=== PATIENT | male | born 1980 | race Caucasian/White ===

== ENCOUNTER 2018-02-20 12:45 | Inpatient (IN) | payer MEDICAID ==
[2018-02-20] MEDS ORDERED: Magnesium Sulfate/Water 2 GM in Premix Bag 1 BAG IV ONE (13:44)
[2018-02-20] MEDS ORDERED: Folic Acid 1 MG Tab PO ONE (13:44)
[2018-02-20] MEDS ORDERED: Thiamine 100 MG Tab PO ONE (13:44)
[2018-02-20] MEDS ORDERED: Sodium Chloride 0.9% 10 ML Syringe FLUSH PRN (13:44)
[2018-02-20] MEDS ORDERED: Ondansetron 4 MG/2 ML SDV IVPUSH ONE (13:44)
[2018-02-20] MEDS ORDERED: Sodium Chloride 0.9% 1,000 ML IV SCH (13:45)
[2018-02-20] MEDS ORDERED: LORazepam 2 MG/ML SDV IVPUSH ONE (13:47)
--- NOTE | 2018-02-20 14:03 | EDM.PDOCBH ---
ED HPI GENERAL MEDICAL PROBLEM - General Chief Complaint: Drug or Alcohol Abuse Stated Complaint: SHAKY,VISION CHANGES Time Seen by Provider: 02/20/18 13:29 Source of Information: Reports: Patient History Limitations: Reports: No Limitations - History of Present Illness INITIAL COMMENTS - FREE TEXT/NARRATIVE: Patient is a 37-year-old male who presents ED for detox from alcohol. Patient states she's been drinking alcohol since he was 14 years of age. As of recent has been consuming 1.75 L of whiskey. States he his moved out and he recently quit his job. States his brother in 2017 triggering him to drink alcohol. Patient states he has not been able to cope with this appropriately. States he wants help and doesnt care if needs to be sent some where for inpatient treatment. He Abdomen Pain Score (Numeric/FACES): 7 - Related Data Allergies Allergy/AdvReac Type Severity Reaction Status Date / Time No Known Allergies Allergy Verified 02/20/18 17:13 Home Meds: Home Meds . [No Known Home Meds] 02/20/18 [History] Past Medical History Psychiatric History: Reports: Addiction Social & Family History - Tobacco Use Smoking Status *Q: Current Every Day Smoker Years of Tobacco use: 25 Packs/Tins Daily: 1.5 - Caffeine Use Caffeine Use: Reports: Coffee - Recreational Drug Use Recreational Drug Type: Reports: Other (see below) Other Recreational Drug Type: hydrocodone past 2 weeks-taking his 's; in past did marijuana,meth, coke, fentanyl,crack,ecstasy ED ROS GENERAL - Review of Systems Review Of Systems: ROS reveals no pertinent complaints other than HPI. ED EXAM, BEHAVIORAL HEALTH - Physical Exam Exam: See Below Exam Limited By: No Limitations General Appearance: Alert, WD/WN, Anxious Eye Exam: Bilateral Eye: Normal Inspection, Nystagmus (Horizontal), PERRL Ears: Hearing Grossly Normal Nose: Normal Inspection Throat/Mouth: Normal Inspection, Normal Oropharynx, Normal Voice, No Airway Compromise Neck: Normal Inspection, Supple, Non-Tender Respiratory/Chest: No Respiratory Distress, Lungs Clear, Normal Breath Sounds, No Accessory Muscle Use, Chest Non-Tender Cardiovascular: Normal Peripheral Pulses, No Murmur, Tachycardia GI/Abdominal: Normal Bowel Sounds, Soft, Non-Tender, No Organomegaly, No Distention Extremities: Normal Inspection, Normal Range of Motion, Non-Tender Neurological: Alert, Normal Mood/Affect, CN II-XII Intact, Normal Cognition, No Motor/Sensory Deficits, Oriented x 3 Psychiatric: Alert, Normal Affect, Normal Cognition, Normal Mood, Oriented, Tearful. No: Depressed Mood, Homicidal Thoughts, Jew Delusions, Suicidal Plan, Suicidal Thoughts, Tangential Thoughts, Auditory Hallucinations, Visual Hallucinations, Grandiose Thoughts, Pressured Speech, Paranoid Thoughts, Threatening Behavior Skin Exam: Warm, Dry, Intact, Normal color COURSE, BEHAVIORAL HEALTH COMP - Course Vital Signs: Last Vital Signs Temp 98.1 F 02/22/18 15:58 Pulse 99 02/22/18 15:58 Resp 16 02/22/18 15:58 BP 99/52 L 02/22/18 15:58 Pulse Ox 96 02/22/18 15:58 Orders, Labs, Meds: Laboratory Tests 02/20/18 02/20/18 02/20/18 Range/Units 13:20 13:49 13:49 WBC 13.02 H (4.23-9.07) K/mm3 RBC 4.52 L (4.63-6.08) M/mm3 Hgb 14.8 (13.7-17.5) gm/L Hct 40.8 (40.1-51.0) % MCV 90.3 (79.0-92.2) fl MCH 32.7 H (25.7-32.2) pg MCHC 36.3 H (32.2-35.5) g/dl RDW Std Deviation 43.2 (35.1-43.9) fL Plt Count 387 H (163-337) K/mm3 MPV 9.8 (9.4-12.3) fl Neut % (Auto) 77.9 H (34.0-67.9) % Lymph % (Auto) 17.3 L (21.8-53.1) % Powell % (Auto) 3.9 L (5.3-12.2) % Eos % (Auto) 0.1 L (0.8-7.0) Baso % (Auto) 0.6 (0.1-1.2) % Neut # (Auto) 10.14 H (1.78-5.38) K/mm3 Lymph # (Auto) 2.25 (1.32-3.57) K/mm3 Powell # (Auto) 0.51 (0.30-0.82) K/mm3 Eos # (Auto) 0.01 L (0.04-0.54) K/mm3 Baso # (Auto) 0.08 (0.01-0.08) K/mm3 Sodium 137 (136-145) mEq/L Potassium 3.3 L (3.5-5.1) mEq/L Chloride 99 (98-107) mEq/L Carbon Dioxide 24 (21-32) mEq/L Anion Gap 17.3 H (5-15) BUN 16 (7-18) mg/dL Creatinine 0.8 (0.7-1.3) mg/dL Est Cr Clr Drug Dosing 108.44 mL/min Estimated GFR (MDRD) > 60 (>60) mL/min BUN/Creatinine Ratio 20.0 H (14-18) Glucose 143 H (74-106) mg/dL Calcium 8.5 (8.5-10.1) mg/dL Magnesium 1.9 (1.8-2.4) mg/dl Total Bilirubin 0.3 (0.2-1.0) mg/dL AST 71 H (15-37) U/L ALT 61 (16-63) U/L Alkaline Phosphatase 117 H (46-116) U/L C-Reactive Protein (<1.0) mg/dL Total Protein 7.1 (6.4-8.2) g/dl Albumin 3.7 (3.4-5.0) g/dl Globulin 3.4 gm/dL Albumin/Globulin Ratio 1.1 (1-2) Lipase (73-393) U/L TSH 3rd Generation 0.878 (0.358-3.74) uIU/mL Urine Color (Yellow) Urine Appearance (Clear) Urine pH (5.0-8.0) Ur Specific Wheeler (1.005-1.030) Urine Protein (Negative) Urine Glucose (UA) (Negative) Urine Ketones (Negative) Urine Occult Blood (Negative) Urine Nitrite (Negative) Urine Bilirubin (Negative) Urine Urobilinogen (0.2-1.0) Ur Leukocyte Esterase (Negative) Urine RBC (0-5) /hpf Urine WBC (0-5) /hpf Ur Epithelial Cells (0-5) /hpf Urine Bacteria (FEW) /hpf Urine Mucus (FEW) /hpf Salicylates (2.8-20) mg/dL Urine Opiates Screen Negative (NEGATIVE) Ur Buprenorphine Scrn Negative (NEGATIVE) Ur Oxycodone Screen Negative (NEGATIVE) Urine Methadone Screen Negative (NEGATIVE) Ur Propoxyphene Screen Negative (NEGATIVE) Acetaminophen 0 L (10-30) ug/mL Ur Barbiturates Screen Negative (NEGATIVE) Ur Tricyclics Screen Negative (NEGATIVE) Ur Phencyclidine Scrn Negative (NEGATIVE) Ur Amphetamine Screen Negative (NEGATIVE) U Methamphetamines Scrn Negative (NEGATIVE) U Benzodiazepines Scrn Negative (NEGATIVE) U Cocaine Metab Screen Negative (NEGATIVE) U Marijuana (THC) Screen Negative (NEGATIVE) Ethyl Alcohol 0.29 (0.00) gm% 02/20/18 02/20/18 02/20/18 Range/Units 13:49 13:49 14:18 WBC (4.23-9.07) K/mm3 RBC (4.63-6.08) M/mm3 Hgb (13.7-17.5) gm/L Hct (40.1-51.0) % MCV (79.0-92.2) fl MCH (25.7-32.2) pg MCHC (32.2-35.5) g/dl RDW Std Deviation (35.1-43.9) fL Plt Count (163-337) K/mm3 MPV (9.4-12.3) fl Neut % (Auto) (34.0-67.9) % Lymph % (Auto) (21.8-53.1) % Powell % (Auto) (5.3-12.2) % Eos % (Auto) (0.8-7.0) Baso % (Auto) (0.1-1.2) % Neut # (Auto) (1.78-5.38) K/mm3 Lymph # (Auto) (1.32-3.57) K/mm3 Powell # (Auto) (0.30-0.82) K/mm3 Eos # (Auto) (0.04-0.54) K/mm3 Baso # (Auto) (0.01-0.08) K/mm3 Sodium (136-145) mEq/L Potassium (3.5-5.1) mEq/L Chloride (98-107) mEq/L Carbon Dioxide (21-32) mEq/L Anion Gap (5-15) BUN (7-18) mg/dL Creatinine (0.7-1.3) mg/dL Est Cr Clr Drug Dosing mL/min Estimated GFR (MDRD) (>60) mL/min BUN/Creatinine Ratio (14-18) Glucose (74-106) mg/dL Calcium (8.5-10.1) mg/dL Magnesium (1.8-2.4) mg/dl Total Bilirubin (0.2-1.0) mg/dL AST (15-37) U/L ALT (16-63) U/L Alkaline Phosphatase (46-116) U/L C-Reactive Protein < 0.2 (<1.0) mg/dL Total Protein (6.4-8.2) g/dl Albumin (3.4-5.0) g/dl Globulin gm/dL Albumin/Globulin Ratio (1-2) Lipase 253 (73-393) U/L TSH 3rd Generation (0.358-3.74) uIU/mL Urine Color Light yellow (Yellow) Urine Appearance Clear (Clear) Urine pH 7.0 (5.0-8.0) Ur Specific Wheeler 1.010 (1.005-1.030) Urine Protein Negative (Negative) Urine Glucose (UA) Negative (Negative) Urine Ketones Negative (Negative) Urine Occult Blood Negative (Negative) Urine Nitrite Negative (Negative) Urine Bilirubin Negative (Negative) Urine Urobilinogen 0.2 (0.2-1.0) Ur Leukocyte Esterase Negative (Negative) Urine RBC Not seen (0-5) /hpf Urine WBC Not seen (0-5) /hpf Ur Epithelial Cells 0-5 (0-5) /hpf Urine Bacteria Not seen (FEW) /hpf Urine Mucus Not seen (FEW) /hpf Salicylates 4.8 (2.8-20) mg/dL Urine Opiates Screen (NEGATIVE) Ur Buprenorphine Scrn (NEGATIVE) Ur Oxycodone Screen (NEGATIVE) Urine Methadone Screen (NEGATIVE) Ur Propoxyphene Screen (NEGATIVE) Acetaminophen (10-30) ug/mL Ur Barbiturates Screen (NEGATIVE) Ur Tricyclics Screen (NEGATIVE) Ur Phencyclidine Scrn (NEGATIVE) Ur Amphetamine Screen (NEGATIVE) U Methamphetamines Scrn (NEGATIVE) U Benzodiazepines Scrn (NEGATIVE) U Cocaine Metab Screen (NEGATIVE) U Marijuana (THC) Screen (NEGATIVE) Ethyl Alcohol (0.00) gm% Medications Discontinued Medications Generic Name Dose Route Start Last Admin Trade Name Freq PRN Reason Stop Dose Admin Albuterol/Ipratropium 3 ml 02/20/18 17:59 Duoneb 3.0-0.5 Mg/3 Ml NEB Q4H PRN Shortness Of Breath/wheezing Bisacodyl 5 mg 02/20/18 17:59 Dulcolax PO DAILY PRN Constipation Chlordiazepoxide HCl 25 mg 02/20/18 18:09 02/20/18 18:35 Librium PO 02/20/18 18:10 25 mg ONETIME ONE Administration Chlordiazepoxide HCl 50 mg 02/22/18 00:19 02/22/18 00:36 Librium PO 02/22/18 00:20 50 mg ONETIME ONE Administration Clonidine HCl 0.1 mg 02/20/18 18:04 02/22/18 05:00 Catapres PO 0.1 mg Q4H PRN Administration Agitation Docusate Sodium 100 mg 02/20/18 17:59 Colace PO BID PRN Constipation Famotidine 20 mg 02/21/18 21:00 Pepcid PO Q12H RICHARD Folic Acid 1 mg 02/20/18 13:44 02/20/18 14:24 Folic Acid PO 02/20/18 13:45 1 mg ONETIME ONE Administration Folic Acid 1 mg 02/21/18 09:00 02/22/18 10:17 Folic Acid PO 02/23/18 09:01 1 mg DAILY RICHARD Administration Hydralazine HCl 20 mg 02/20/18 17:59 Apresoline IVPUSH Q4H PRN Hypertension Hydromorphone HCl 0.25 mg 02/20/18 17:59 Dilaudid IVPUSH Q2H PRN Pain (severe 7-10) Magnesium Sulfate 2 gm/ Premix 50 mls @ 50 mls/hr 02/20/18 13:44 02/20/18 14: 15 IV 02/20/18 14:43 50 mls/hr ONETIME ONE Administration Sodium Chloride 1,000 mls @ 500 mls/hr 02/20/18 13:45 02/20/18 14:07 Normal Saline IV 500 mls/hr .BOLUS RICHARD Administration Promethazine HCl 12.5 mg/ 50.5 mls @ 100 mls/hr 02/20/18 17:59 Sodium Chloride IV Q6H PRN Nausea/Vomiting Thiamine HCl 200 mg/ Sodium 102 mls @ 204 mls/hr 02/20/18 18:06 02/20/18 18: 39 Chloride IV 02/20/18 18:07 204 mls/hr ONETIME ONE Administration Ibuprofen 400 mg 02/20/18 17:59 02/22/18 15:58 Motrin PO 400 mg Q6H PRN Administration Pain (mild 1-3) Lorazepam 1 mg 02/20/18 13:47 02/20/18 14:09 Ativan IVPUSH 02/20/18 13:48 2 mg ASDIRECTED ONE Administration Protocol Lorazepam 0 mg 02/20/18 15:18 02/22/18 16:18 Ativan IVPUSH 2 mg ASDIRECTED PRN Administration Other Protocol Lorazepam 2 mg 02/20/18 17:59 Ativan IVPUSH Q4H PRN Seizures Lorazepam 0 mg 02/20/18 17:59 02/22/18 10:17 Ativan IVPUSH 1 mg Q4H PRN Administration Withdrawal Symptoms Protocol Magnesium Sulfate 0 dose 02/20/18 18:00 Pharmacy To Dose - Magnesium Replacement .XX ASDIRECTED PRN RX TO WATCH MAG LEVELS Metoprolol Tartrate 5 mg 02/20/18 17:59 Lopressor IVPUSH Q4H PRN Tachycardia Mirtazapine 30 mg 02/21/18 21:00 02/21/18 20:26 Remeron PO 30 mg BEDTIME RICHARD Administration Multivitamins 1 each 02/21/18 09:00 02/22/18 10:17 Thera PO 1 each DAILY RICHARD Administration Nicotine 21 mg 02/20/18 16:31 02/20/18 17:57 Habitrol TRDERM 02/20/18 16:32 21 mg ONETIME ONE Administration Nicotine 21 mg 02/21/18 21:00 02/21/18 20:44 Habitrol TRDERM 02/21/18 21:01 21 mg ONETIME ONE Administration Nicotine 21 mg 02/22/18 21:00 Habitrol TRDERM DAILY RICHARD Nicotine 21 mg 02/22/18 01:30 02/22/18 01:37 Habitrol TRDERM 02/22/18 01:31 Not Given ONETIME ONE Ondansetron HCl 4 mg 02/20/18 13:44 02/20/18 14:07 Zofran IVPUSH 02/20/18 13:45 4 mg ONETIME ONE Administration Ondansetron HCl 4 mg 02/20/18 17:59 02/22/18 14:31 Zofran IV 4 mg Q6H PRN Administration Nausea/Vomiting Oxycodone HCl 5 mg 02/20/18 17:59 02/22/18 05:02 Oxycodone PO 5 mg Q4H PRN Administration Pain (moderate 4-6) Pantoprazole Sodium 40 mg 02/20/18 21:00 02/21/18 09:09 Protonix Iv IV 40 mg Q12HR RICHARD Administration Pantoprazole Sodium 40 mg 02/21/18 10:56 02/22/18 10:17 Protonix PO 40 mg Q12HR RICHARD Administration Polyethylene Glycol 17 gm 02/20/18 17:59 Miralax PO DAILY PRN Constipation Potassium Chloride 0 dose 02/20/18 18:00 Pharmacy To Dose - Potassium Replacement .XX ASDIRECTED PRN RX TO WATCH K LEVELS Potassium Chloride 40 meq 02/20/18 19:00 02/20/18 20:52 Klor-Con M20 PO 02/20/18 23:01 Not Given Q4H RICHARD Potassium Chloride 60 meq 02/21/18 09:00 02/21/18 09:10 Klor-Con M20 PO 02/21/18 09:01 60 meq ONETIME ONE Administration Quetiapine Fumarate 50 mg 02/20/18 18:06 02/20/18 18:35 Seroquel PO 02/20/18 18:07 50 mg ONETIME ONE Administration Quetiapine Fumarate 50 mg 02/21/18 21:00 02/21/18 20:27 Seroquel PO 50 mg BEDTIME RICHARD Administration Quetiapine Fumarate 25 mg 02/21/18 11:18 02/21/18 11:30 Seroquel PO 02/21/18 11:19 25 mg NOW STA Administration Quetiapine Fumarate 50 mg 02/22/18 00:19 02/22/18 00:36 Seroquel PO 02/22/18 00:20 50 mg ONETIME ONE Administration Quetiapine Fumarate 50 mg 02/22/18 13:09 02/22/18 13:14 Seroquel PO 02/22/18 13:10 50 mg ONETIME ONE Administration Senna/Docusate Sodium 1 tab 02/20/18 17:59 Senna Plus PO BID PRN Constipation Sodium Chloride 10 ml 02/20/18 13:44 02/20/18 14:14 Saline Flush FLUSH 10 ml ASDIRECTED PRN Administration Keep Vein Open Thiamine HCl 100 mg 02/20/18 13:44 02/20/18 14:14 Vitamin B-1 PO 02/20/18 13:45 100 mg ONETIME ONE Administration Thiamine HCl 100 mg 02/21/18 09:00 02/22/18 10:17 Vitamin B-1 PO 100 mg DAILY RICHARD Administration Topiramate 25 mg 02/20/18 18:08 02/20/18 18:36 Topamax PO 02/20/18 18:09 25 mg NOW ONE Administration Topiramate 25 mg 02/21/18 09:00 02/22/18 10:17 Topamax PO 25 mg BID RICHARD Administration Re-Assessment/Re-Exam: IV established with normal saline 999 mls per hour, thiamine 100 mg by mouth, magnesium 2 g IV, Ativan protocol, and folic acid 1 mg by mouth. Labs and studies include: Urine drug screen, TSH, CBC, chem 14, acetaminophen, mg, serum EtOH, salicylate, and EKG. Labs reviewed: Blood cell count 13.02, hemoglobin 14.3, platelet count 37, neutrophil percentage 77.9, neutrophil #0.14. Potassium 3.3. AG 17.3. Crit 0.8, glucose 128, AST 71, TSH within normal limits. Urine drug tox was negative. Serum EtOH 0.29. Discussed lab results with the patient. He is feeling better after administration of the above therapies.Requests admission to the hospital for detox. I have informed him if admitted, he will be evaluated by tele psych and also drug and alcohol counselor. Patients discharge will be based on their recommendations. More importantly, we may be looking at possible placing of him for chemical dependency inpatient treatment in either [place] or [place] [facility] [place]. Patient understands and requests admission. 1510 Per nursing staff patients complaining of pain to the abdomen. He did not complain of this on admission. Ordered lipase, crp, and kub. [address] Espinal and he has accepted the patient. MCG has been completed by nursing staff. EKG sinus rhythm and rate [address] changes noted. DE interval of 51. QTC 479. CRP within normal limits. Lipase 253. X-ray of the abdomen showed nonspecific air in stool pattern. No findings concerning for obstruction. Reviewed with Dr. Mendez. Order for admission placed. Departure - Departure Time of Disposition: 15:10 Disposition: Admitted As Inpatient 65 Condition: Fair Clinical Impression: Alcohol abuse - Discharge Information
[2018-02-20 14:46] LABS: ACETAMINOPHEN 0 ug/mL (10-30)
[2018-02-20] MEDS: LORazepam 2 MG/ML SDV IVPUSH PRN ×2 (15:25→16:49)
[2018-02-20] MEDS ORDERED: Nicotine 21 MG/24 Hr Patch TRDERM ONE (16:31)
[2018-02-20] MEDS ORDERED: Promethazine 12.5 MG in Sodium Chloride 0.9% 50 ML IV PRN (17:59)
[2018-02-20] MEDS ORDERED: hydrALAZINE 20 MG/ML SDV IVPUSH PRN (17:59)
[2018-02-20] MEDS ORDERED: Bisacodyl 5 MG Tab PO PRN (17:59)
[2018-02-20] MEDS ORDERED: Metoprolol Tartrate 5 MG/5 ML SDV IVPUSH PRN (17:59)
[2018-02-20] MEDS ORDERED: HYDROmorphone 0.5 MG/0.5 ML SYRINGE IVPUSH PRN (17:59)
[2018-02-20] MEDS ORDERED: Polyethylene Glycol 3350 Powder 17 GM Packet PO PRN (17:59)
[2018-02-20] MEDS ORDERED: oxyCODONE 5 MG Tab PO PRN (17:59)
[2018-02-20] MEDS ORDERED: Albuterol/Ipratropium 3.0-0.5 MG/3 ML Neb Soln NEB PRN (17:59)
[2018-02-20] MEDS ORDERED: LORazepam 2 MG/ML SDV IVPUSH PRN ×2 (17:59)
[2018-02-20] MEDS ORDERED: Docusate Sodium 100 MG Cap PO PRN (17:59)
[2018-02-20] MEDS ORDERED: QUEtiapine 25 MG Tab PO ONE (18:06)
[2018-02-20] MEDS ORDERED: Thiamine 200 MG in Sodium Chloride 0.9% 100 ML IV ONE (18:06)
[2018-02-20] MEDS ORDERED: Topiramate 25 MG Tab PO ONE (18:08)
[2018-02-20] MEDS ORDERED: chlordiazePOXIDE 25 MG Cap PO ONE (18:09)
--- NOTE | 2018-02-20 18:11 | PCM.HP ---
H&P History of Present Illness - General Date of Service: 02/20/18 Admit Problem/Dx: Admission Diagnosis/Problem Admission Diagnosis/Problem Alcohol dependence, continuous Source of Information: Patient, Old Records, Provider, RN Notes Reviewed History Limitations: Reports: Altered Mental Status, Intoxication - History of Present Illness Initial Comments - Free Text/Narative: This is a 37 yo white male with past medical hx/o chronic etoh abuse who comes in for alcohol withdrawals. He has been drinking since he was 14 years old. He drinks vodka and beer. In the past, he would drink a few days and quit but goes right back in to drinking. He has been to inpatient treatment 6 years ago in [place]. He tells me, he has been sober for 2 years now. Unfortunately, he has been having multiple stressors in life and has poor or no coping skills. He denies having seizures but reports having nausea w/o vomiting. His initial workup in the emergency department shows a CBC remarkable for WBC of 13.02, MCH of 32.7, MCHC of 36.3, platelet counts of 387, neutrophils of 77.9 , lymphocytes of 17.3%, monocytes of 3.9%, and eosinophils of 0.1%. His chemistry is significant for potassium of 3, anion gap of 17.3, glucose of 143, AST of 71, and alkaline phosphatase of 117. His UA is negative for UTI. UDS is negative. WILBERT level is 0.29. Patient is being admitted for alcohol detoxification. Abdomen Pain Score (Numeric/FACES): 7 - Related Data Allergies/Adverse Reactions: Allergies Allergy/AdvReac Type Severity Reaction Status Date / Time No Known Allergies Allergy Verified 02/20/18 17:13 Home Medications: Home Meds . [No Known Home Meds] 02/20/18 [History] Past Medical History Psychiatric History: Reports: Addiction Social & Family History - Tobacco Use Smoking Status *Q: Current Every Day Smoker Years of Tobacco use: 25 Packs/Tins Daily: 1.5 - Caffeine Use Caffeine Use: Reports: Coffee - Recreational Drug Use Recreational Drug Type: Reports: Other (see below) Other Recreational Drug Type: hydrocodone past 2 weeks-taking his 's; in past did marijuana,meth, coke, fentanyl,crack,ecstasy H&P Review of Systems - Review of Systems: Review Of Systems: See Below General: Reports: Decreased Appetite. Denies: Fever, Chills HEENT: Reports: No Symptoms Pulmonary: Denies: Shortness of Breath Cardiovascular: Denies: Chest Pain, Palpitations, Dyspnea on Exertion, Lightheadedness Gastrointestinal: Reports: Decreased Appetite, Nausea. Denies: Abdominal Pain, Difficulty Swallowing, Vomiting Genitourinary: Reports: No Symptoms Musculoskeletal: Reports: No Symptoms Skin: Denies: Jaundice, Diaphoresis, Erythema, Wound Psychiatric: Reports: Depression. Denies: Anxiety, Agitation, Hallucinations, Suicidal Ideation, Homicidal Ideation Neurological: Reports: Tremors, Difficulty Walking, Gait Disturbance. Denies: Confusion, Dizziness, Headache, Seizure, Syncope, Weakness Hematologic/Lymphatic: Reports: No Symptoms Immunologic: Reports: No Symptoms Exam - Exam Exam: See Below - Vital Signs Vital Signs: Last Vital Signs Temp 36.8 C 02/20/18 15:41 Pulse 114 H 02/20/18 15:41 Resp 20 02/20/18 15:41 BP 132/86 02/20/18 15:41 Pulse Ox 97 02/20/18 15:41 Weight: 61.235 kg - Exam General: Alert, Cooperative. No: Mild Distress HEENT: Conjunctiva Clear, Hearing Intact, Nares Patent, Normal Nasal Septum, Posterior Pharynx Clear, Pupils Equal, Pupils Reactive. No: EOMI Neck: Supple, Trachea Midline, +2 Carotid Pulse wo Bruit, Full Range of Motion Lungs: Clear to Auscultation, Normal Respiratory Effort Cardiovascular: Regular Rhythm, Tachycardia GI/Abdominal Exam: Normal Bowel Sounds, Soft, No Organomegaly, No Distention, No Abnormal Bruit, No Mass, Tender. No: Guarding, Rigid, Rebound (Male) Exam: Deferred Rectal (Males) Exam: Deferred Back Exam: Normal Inspection, Decreased Range of Motion Extremities: Normal Inspection, Normal Range of Motion, Non-Tender, No Pedal Edema, Normal Capillary Refill Peripheral Pulses: 3+: Posterior Tibial (L), Posterior Tibial (R), Dorsalis Pedis (L), Dorsalis Pedis (R) Skin: Warm, Dry, Intact Neuro Extensive - Mental Status: Other (deferred: he is lethargic and intoxicated) Neuro Extensive - Motor, Sensory, Reflexes: Abnormal Gait, Other (Not appropriate for neurological exam due to intoxication and lethargy) Psychiatric: Normal Affect, Anxious, Withdrawal Symptoms. No: Agitated, Suicidal Ideation, Homicidal Ideation, Hallucinations - Patient Data Lab Results Last 24 hrs: Laboratory Results - last 24 hr 02/20/18 02/20/18 02/20/18 Range/Units 13:20 13:49 13:49 WBC 13.02 H (4.23-9.07) K/mm3 RBC 4.52 L (4.63-6.08) M/mm3 Hgb 14.8 (13.7-17.5) gm/L Hct 40.8 (40.1-51.0) % MCV 90.3 (79.0-92.2) fl MCH 32.7 H (25.7-32.2) pg MCHC 36.3 H (32.2-35.5) g/dl RDW Std Deviation 43.2 (35.1-43.9) fL Plt Count 387 H (163-337) K/mm3 MPV 9.8 (9.4-12.3) fl Neut % (Auto) 77.9 H (34.0-67.9) % Lymph % (Auto) 17.3 L (21.8-53.1) % Churchill % (Auto) 3.9 L (5.3-12.2) % Eos % (Auto) 0.1 L (0.8-7.0) Baso % (Auto) 0.6 (0.1-1.2) % Neut # (Auto) 10.14 H (1.78-5.38) K/mm3 Lymph # (Auto) 2.25 (1.32-3.57) K/mm3 Churchill # (Auto) 0.51 (0.30-0.82) K/mm3 Eos # (Auto) 0.01 L (0.04-0.54) K/mm3 Baso # (Auto) 0.08 (0.01-0.08) K/mm3 Sodium 137 (136-145) mEq/L Potassium 3.3 L (3.5-5.1) mEq/L Chloride 99 (98-107) mEq/L Carbon Dioxide 24 (21-32) mEq/L Anion Gap 17.3 H (5-15) BUN 16 (7-18) mg/dL Creatinine 0.8 (0.7-1.3) mg/dL Est Cr Clr Drug Dosing 108.44 mL/min Estimated GFR (MDRD) > 60 (>60) mL/min BUN/Creatinine Ratio 20.0 H (14-18) Glucose 143 H (74-106) mg/dL Calcium 8.5 (8.5-10.1) mg/dL Magnesium 1.9 (1.8-2.4) mg/dl Total Bilirubin 0.3 (0.2-1.0) mg/dL AST 71 H (15-37) U/L ALT 61 (16-63) U/L Alkaline Phosphatase 117 H (46-116) U/L C-Reactive Protein (<1.0) mg/dL Total Protein 7.1 (6.4-8.2) g/dl Albumin 3.7 (3.4-5.0) g/dl Globulin 3.4 gm/dL Albumin/Globulin Ratio 1.1 (1-2) Lipase (73-393) U/L TSH 3rd Generation 0.878 (0.358-3.74) uIU/mL Urine Color (Yellow) Urine Appearance (Clear) Urine pH (5.0-8.0) Ur Specific [place] (1.005-1.030) Urine Protein (Negative) Urine Glucose (UA) (Negative) Urine Ketones (Negative) Urine Occult Blood (Negative) Urine Nitrite (Negative) Urine Bilirubin (Negative) Urine Urobilinogen (0.2-1.0) Ur Leukocyte Esterase (Negative) Urine RBC (0-5) /hpf Urine WBC (0-5) /hpf Ur Epithelial Cells (0-5) /hpf Urine Bacteria (FEW) /hpf Urine Mucus (FEW) /hpf Salicylates (2.8-20) mg/dL Urine Opiates Screen Negative (NEGATIVE) Ur Buprenorphine Scrn Negative (NEGATIVE) Ur Oxycodone Screen Negative (NEGATIVE) Urine Methadone Screen Negative (NEGATIVE) Ur Propoxyphene Screen Negative (NEGATIVE) Acetaminophen 0 L (10-30) ug/mL Ur Barbiturates Screen Negative (NEGATIVE) Ur Tricyclics Screen Negative (NEGATIVE) Ur Phencyclidine Scrn Negative (NEGATIVE) Ur Amphetamine Screen Negative (NEGATIVE) U Methamphetamines Scrn Negative (NEGATIVE) U Benzodiazepines Scrn Negative (NEGATIVE) U Cocaine Metab Screen Negative (NEGATIVE) U Marijuana (THC) Screen Negative (NEGATIVE) Ethyl Alcohol 0.29 (0.00) gm% 05/22/18 05/22/18 05/22/18 Range/Units 13:49 13:49 14:18 WBC (4.23-9.07) K/mm3 RBC (4.63-6.08) M/mm3 Hgb (13.7-17.5) gm/L Hct (40.1-51.0) % MCV (79.0-92.2) fl MCH (25.7-32.2) pg MCHC (32.2-35.5) g/dl RDW Std Deviation (35.1-43.9) fL Plt Count (163-337) K/mm3 MPV (9.4-12.3) fl Neut % (Auto) (34.0-67.9) % Lymph % (Auto) (21.8-53.1) % Churchill % (Auto) (5.3-12.2) % Eos % (Auto) (0.8-7.0) Baso % (Auto) (0.1-1.2) % Neut # (Auto) (1.78-5.38) K/mm3 Lymph # (Auto) (1.32-3.57) K/mm3 Churchill # (Auto) (0.30-0.82) K/mm3 Eos # (Auto) (0.04-0.54) K/mm3 Baso # (Auto) (0.01-0.08) K/mm3 Sodium (136-145) mEq/L Potassium (3.5-5.1) mEq/L Chloride (98-107) mEq/L Carbon Dioxide (21-32) mEq/L Anion Gap (5-15) BUN (7-18) mg/dL Creatinine (0.7-1.3) mg/dL Est Cr Clr Drug Dosing mL/min Estimated GFR (MDRD) (>60) mL/min BUN/Creatinine Ratio (14-18) Glucose (74-106) mg/dL Calcium (8.5-10.1) mg/dL Magnesium (1.8-2.4) mg/dl Total Bilirubin (0.2-1.0) mg/dL AST (15-37) U/L ALT (16-63) U/L Alkaline Phosphatase (46-116) U/L C-Reactive Protein < 0.2 (<1.0) mg/dL Total Protein (6.4-8.2) g/dl Albumin (3.4-5.0) g/dl Globulin gm/dL Albumin/Globulin Ratio (1-2) Lipase 253 (73-393) U/L TSH 3rd Generation (0.358-3.74) uIU/mL Urine Color Light yellow (Yellow) Urine Appearance Clear (Clear) Urine pH 7.0 (5.0-8.0) Ur Specific [place] 1.010 (1.005-1.030) Urine Protein Negative (Negative) Urine Glucose (UA) Negative (Negative) Urine Ketones Negative (Negative) Urine Occult Blood Negative (Negative) Urine Nitrite Negative (Negative) Urine Bilirubin Negative (Negative) Urine Urobilinogen 0.2 (0.2-1.0) Ur Leukocyte Esterase Negative (Negative) Urine RBC Not seen (0-5) /hpf Urine WBC Not seen (0-5) /hpf Ur Epithelial Cells 0-5 (0-5) /hpf Urine Bacteria Not seen (FEW) /hpf Urine Mucus Not seen (FEW) /hpf Salicylates 4.8 (2.8-20) mg/dL Urine Opiates Screen (NEGATIVE) Ur Buprenorphine Scrn (NEGATIVE) Ur Oxycodone Screen (NEGATIVE) Urine Methadone Screen (NEGATIVE) Ur Propoxyphene Screen (NEGATIVE) Acetaminophen (10-30) ug/mL Ur Barbiturates Screen (NEGATIVE) Ur Tricyclics Screen (NEGATIVE) Ur Phencyclidine Scrn (NEGATIVE) Ur Amphetamine Screen (NEGATIVE) U Methamphetamines Scrn (NEGATIVE) U Benzodiazepines Scrn (NEGATIVE) U Cocaine Metab Screen (NEGATIVE) U Marijuana (THC) Screen (NEGATIVE) Ethyl Alcohol (0.00) gm% Result Diagrams: 02/20/18 13:49 02/20/18 13:49 Problem List Initiated/Reviewed/Updated: Yes Orders Last 24hrs: Active Orders 24 hr Category Date Time Status Admission Status [Patient Status] [ADT] Routine ADT 02/20/18 17:34 Active CIWAA Assessment [RC] Q15M Care 02/20/18 18:00 Ordered CIWAA Assessment [RC] Q1H Care 02/20/18 18:00 Ordered CIWAA Assessment [RC] Q30M Care 02/20/18 18:00 Ordered CIWAA Assessment [RC] Q4H Care 02/20/18 18:00 Ordered Cardiac Monitoring [RC] . DIRECTED Care 02/20/18 17:34 Active Height and Weight [RC] DAILY Care 02/20/18 17:59 Ordered Intake and Output [RC] QSHIFT Care 02/20/18 18:01 Ordered Notify Provider Consults [RC] ASDIRECTED Care 02/20/18 18:05 Ordered Notify Provider [RC] PRN Care 02/20/18 18:00 Ordered Oxygen Therapy [RC] PRN Care 02/20/18 13:44 Inactive Oxygen Therapy [RC] PRN Care 02/20/18 18:00 Ordered Peripheral IV Care [RC] . DIRECTED Care 02/20/18 13:46 Active RT Aerosol Therapy [RC] ASDIRECTED Care 02/20/18 18:03 Ordered Up ad Sanjuanita [RC] ASDIRECTED Care 02/20/18 17:59 Ordered VTE/DVT Education [RC] PER UNIT ROUTINE Care 02/20/18 18:00 Ordered Vital Signs [RC] Q4H Care 02/20/18 18:00 Ordered Consult to Case Management [CONS] Routine Cons 02/20/18 18:04 Ordered Consult to Physician [CONS] Routine Cons 02/20/18 18:04 Ordered Consult to Customer Response Representative [CONS] Routine Cons 02/20/18 18:04 Ordered Consult to Spiritual Care [CONS] Routine Cons 02/20/18 18:04 Ordered Clear Liquid Diet [DIET] Diet 02/20/18 Dinner Ordered Regular Diet [DIET] Diet 02/21/18 Breakfast Ordered KUB [Abdomen 1V Flat] [CR] Stat Exams 02/20/18 15:09 Taken CBC WITH AUTO DIFF [HEME] AM Lab 02/21/18 05:11 Ordered COMPREHENSIVE METABOLIC PN,CMP [CHEM] AM Lab 02/21/18 05:11 Ordered COMPREHENSIVE METABOLIC PN,CMP [CHEM] AM Lab 02/22/18 05:11 Ordered COMPREHENSIVE METABOLIC PN,CMP [CHEM] AM Lab 02/23/18 05:11 Ordered COMPREHENSIVE METABOLIC PN,CMP [CHEM] AM Lab 02/24/18 05:11 Ordered MAGNESIUM [CHEM] AM Lab 02/21/18 05:11 Ordered MAGNESIUM [CHEM] AM Lab 02/22/18 05:11 Ordered MAGNESIUM [CHEM] AM Lab 02/23/18 05:11 Ordered MAGNESIUM [CHEM] AM Lab 02/24/18 05:11 Ordered Albuterol/Ipratropium [DuoNeb 3.0-0.5 MG/3 ML] Med 02/20/18 17:59 Ordered 3 ml NEB Q4H PRN Bisacodyl [Dulcolax] Med 02/20/18 17:59 Ordered 5 mg PO DAILY PRN Docusate Sodium [Colace] Med 02/20/18 17:59 Ordered 100 mg PO BID PRN Docusate Sodium/Sennosides [Senna Plus] Med 02/20/18 17:59 Ordered 1 tab PO BID PRN Famotidine [Pepcid] Med 02/21/18 21:00 Ordered 20 mg PO Q12H Folic Acid Med 02/21/18 09:00 Ordered 1 mg PO DAILY HYDROmorphone [Dilaudid] Med 02/20/18 17:59 Ordered 0.25 mg IVPUSH Q2H PRN Ibuprofen [Motrin] Med 02/20/18 17:59 Ordered 400 mg PO Q6H PRN LORazepam [Ativan] Med 02/20/18 17:59 Ordered 2 mg IVPUSH Q4H PRN LORazepam [Ativan] Med 02/20/18 15:18 Active See Protocol IVPUSH ASDIRECTED PRN LORazepam [Ativan] Med 02/20/18 17:59 Ordered See Protocol IVPUSH Q4H PRN Magnesium Rep Pharmacy to Dose [Pharmacy to Dose - Med 02/20/18 18:00 Ordered Magnesium Replacement] 1 dose .XX ASDIRECTED Metoprolol Tartrate [Lopressor] Med 02/20/18 17:59 Ordered 5 mg IVPUSH Q4H PRN Multivitamins,Therapeutic [Thera] Med 02/21/18 09:00 Ordered 1 each PO DAILY Ondansetron [Zofran] Med 02/20/18 17:59 Ordered 4 mg IV Q6H PRN Pantoprazole [ProTONIX IV] Med 02/20/18 21:00 Ordered 40 mg IV Q12HR Polyethylene Glycol 3350 [MiraLAX] Med 02/20/18 17:59 Ordered 17 gm PO DAILY PRN Potassium Rep Pharmacy to Dose [Pharmacy to Dose - Med 02/20/18 18:00 Ordered Potassium Replacement] 1 dose .XX ASDIRECTED Promethazine [Phenergan] 12.5 mg Med 02/20/18 17:59 Ordered Sodium Chloride 0.9% [Normal Saline] 50 ml IV Q6H QUEtiapine [SEROquel] Med 02/21/18 21:00 Ordered 50 mg PO BEDTIME QUEtiapine [SEROquel] Med 02/20/18 18:06 Once 50 mg PO ONETIME ONE Thiamine [Vitamin B-1] Med 02/21/18 09:00 Ordered 100 mg PO DAILY Thiamine [Vitamin B-1] 200 mg Med 02/20/18 18:06 Ordered Sodium Chloride 0.9% [Normal Saline] 100 ml IV ONETIME Topiramate [Topamax] Med 02/21/18 09:00 Ordered 25 mg PO BID Topiramate [Topamax] Med 02/20/18 18:08 Once 25 mg PO NOW ONE chlordiazePOXIDE [Librium] Med 02/20/18 18:09 Once 25 mg PO ONETIME ONE cloNIDine [Catapres] Med 02/20/18 18:04 Ordered 0.1 mg PO Q4H PRN hydrALAZINE [Apresoline] Med 02/20/18 17:59 Ordered 20 mg IVPUSH Q4H PRN oxyCODONE Med 02/20/18 17:59 Ordered 5 mg PO Q4H PRN Seizure Precautions [OM.PC] Routine Oth 02/20/18 18:04 Ordered Sequential Compression Device [OM.PC] Per Unit Routine Oth 02/20/18 18:01 Ordered Resuscitation Status Routine Resus Stat 02/20/18 17:59 Ordered Medication Orders Lorazepam (Ativan) 0 mg IVPUSH ASDIRECTED PRN; Protocol PRN Reason: Other Last Admin: 02/20/18 16:49 Dose: 3 mg Admin: 02/20/18 15:25 Dose: 2 mg Assessment/Plan Comment:: Assessment: Acute ETOH Intoxication/Withdrawal Symptoms - He has been drinking straight for 2 weeks according to his - CIWA protocol: CIWA score is markedly elevated - Ativan/Librium/Clonidine/Topamax - Hydralazine and IVP BB for HR/BP control - Ativan for Abortive Seizure and Withdrawal Symptoms - SA/Psych consult-he wants help Tobacco Dependence - Nicotine patch - Counseled on Smoking Cessation Possible Suicidal Ideation - Has hx/o Depression - Spoke to his ; she is currently from him due to his chronic alcoholism - She tells me when he drinks, he takes a whole bunch of pills at the same time - His depression has gotten worse after the of his brother last year Chronic: HTN ETOH Abuse Depression Plan: Admit to ICU MVI, Folic Acid and Thiamine CIWA protocol Ativan for Abortive Seizure and Withdrawal Symptoms PRN meds for Withdrawal Symptoms Aspiration/Seizure Precautions SW/CM d/c planning SA/Psych consult Code Status: 1
[2018-02-20] MEDS ORDERED: Potassium Chloride 20 MEQ Tab.ER PO SCH (19:00)
[2018-02-20] MEDS: Pantoprazole 40 MG Vial IV SCH (21:15)
[2018-02-20] MEDS: Ondansetron 4 MG/2 ML SDV IV PRN (23:47)
[2018-02-21] MEDS: LORazepam 2 MG/ML SDV IVPUSH PRN ×9 (00:16→23:49)
[2018-02-21] MEDS: Ibuprofen 400 MG Tab PO PRN (00:17)
--- NOTE | 2018-02-21 08:04 | PCM.PN ---
- General Info Date of Service: 02/21/18 Admission Dx/Problem (Free Text): Admission Diagnosis/Problem Admission Diagnosis/Problem Alcohol dependence, continuous Subjective Update: Follow Up Functional Status: Reports: Pain Controlled. Denies: Ambulating, Urinating - Review of Systems General: Reports: Fatigue, Other (Exhausted and tired). Denies: Fever, Weakness , Malaise, Chills HEENT: Reports: No Symptoms Pulmonary: Reports: Shortness of Breath Cardiovascular: Denies: Chest Pain, Palpitations, Dyspnea on Exertion, Lightheadedness Gastrointestinal: Reports: Abdominal Pain, Flatus. Denies: Constipation, Decreased Appetite, Diarrhea, Difficulty Swallowing, Hematochezia, Melena, Nausea, Vomiting Genitourinary: Reports: Pain. Denies: Dysuria, Urgency, Retention, Flank Pain Musculoskeletal: Reports: No Symptoms Skin: Denies: Cyanosis, Mottled, Pallor, Diaphoresis, Rash Neurological: Denies: Confusion, Dizziness, Headache, Seizure, Syncope Psychiatric: Denies: Depression, Anxiety, Agitation, Hallucinations Systems Review Comment:: No overnight overnight or acute issues. He slept good. He feels tired and exhausted this morning. He denies S/H ideation. His K is 3.1 this Am. He did not supplement last night. - Patient Data Vitals - Most Recent: Last Vital Signs Temp 37.0 C 02/20/18 21:32 Pulse 95 02/20/18 18:00 Resp 20 02/21/18 04:00 BP 108/51 L 02/21/18 04:00 Pulse Ox 95 02/21/18 04:00 Weight - Most Recent: 61.144 kg I&O - Last 24 Hours: Intake & Output 02/20/18 02/21/18 02/21/18 22:59 06:59 14:59 Intake Total 560 100 Output Total 100 Balance 460 100 Lab Results Last 24 Hours: Laboratory Results - last 24 hr 02/20/18 02/20/18 02/20/18 Range/Units 13:20 13:49 13:49 WBC 13.02 H (4.23-9.07) K/mm3 RBC 4.52 L (4.63-6.08) M/mm3 Hgb 14.8 (13.7-17.5) gm/L Hct 40.8 (40.1-51.0) % MCV 90.3 (79.0-92.2) fl MCH 32.7 H (25.7-32.2) pg MCHC 36.3 H (32.2-35.5) g/dl RDW Std Deviation 43.2 (35.1-43.9) fL Plt Count 387 H (163-337) K/mm3 MPV 9.8 (9.4-12.3) fl Neut % (Auto) 77.9 H (34.0-67.9) % Lymph % (Auto) 17.3 L (21.8-53.1) % Beadle % (Auto) 3.9 L (5.3-12.2) % Eos % (Auto) 0.1 L (0.8-7.0) Baso % (Auto) 0.6 (0.1-1.2) % Neut # (Auto) 10.14 H (1.78-5.38) K/mm3 Lymph # (Auto) 2.25 (1.32-3.57) K/mm3 Beadle # (Auto) 0.51 (0.30-0.82) K/mm3 Eos # (Auto) 0.01 L (0.04-0.54) K/mm3 Baso # (Auto) 0.08 (0.01-0.08) K/mm3 Sodium 137 (136-145) mEq/L Potassium 3.3 L (3.5-5.1) mEq/L Chloride 99 (98-107) mEq/L Carbon Dioxide 24 (21-32) mEq/L Anion Gap 17.3 H (5-15) BUN 16 (7-18) mg/dL Creatinine 0.8 (0.7-1.3) mg/dL Est Cr Clr Drug Dosing 108.44 mL/min Estimated GFR (MDRD) > 60 (>60) mL/min BUN/Creatinine Ratio 20.0 H (14-18) Glucose 143 H (74-106) mg/dL Calcium 8.5 (8.5-10.1) mg/dL Magnesium 1.9 (1.8-2.4) mg/dl Total Bilirubin 0.3 (0.2-1.0) mg/dL AST 71 H (15-37) U/L ALT 61 (16-63) U/L Alkaline Phosphatase 117 H (46-116) U/L C-Reactive Protein (<1.0) mg/dL Total Protein 7.1 (6.4-8.2) g/dl Albumin 3.7 (3.4-5.0) g/dl Globulin 3.4 gm/dL Albumin/Globulin Ratio 1.1 (1-2) Lipase (73-393) U/L TSH 3rd Generation 0.878 (0.358-3.74) uIU/mL Urine Color (Yellow) Urine Appearance (Clear) Urine pH (5.0-8.0) Ur Specific [place] (1.005-1.030) Urine Protein (Negative) Urine Glucose (UA) (Negative) Urine Ketones (Negative) Urine Occult Blood (Negative) Urine Nitrite (Negative) Urine Bilirubin (Negative) Urine Urobilinogen (0.2-1.0) Ur Leukocyte Esterase (Negative) Urine RBC (0-5) /hpf Urine WBC (0-5) /hpf Ur Epithelial Cells (0-5) /hpf Urine Bacteria (FEW) /hpf Urine Mucus (FEW) /hpf Salicylates (2.8-20) mg/dL Urine Opiates Screen Negative (NEGATIVE) Ur Buprenorphine Scrn Negative (NEGATIVE) Ur Oxycodone Screen Negative (NEGATIVE) Urine Methadone Screen Negative (NEGATIVE) Ur Propoxyphene Screen Negative (NEGATIVE) Acetaminophen 0 L (10-30) ug/mL Ur Barbiturates Screen Negative (NEGATIVE) Ur Tricyclics Screen Negative (NEGATIVE) Ur Phencyclidine Scrn Negative (NEGATIVE) Ur Amphetamine Screen Negative (NEGATIVE) U Methamphetamines Scrn Negative (NEGATIVE) U Benzodiazepines Scrn Negative (NEGATIVE) U Cocaine Metab Screen Negative (NEGATIVE) U Marijuana (THC) Screen Negative (NEGATIVE) Ethyl Alcohol 0.29 (0.00) gm% 02/20/18 02/20/18 02/20/18 Range/Units 13:49 13:49 14:18 WBC (4.23-9.07) K/mm3 RBC (4.63-6.08) M/mm3 Hgb (13.7-17.5) gm/L Hct (40.1-51.0) % MCV (79.0-92.2) fl MCH (25.7-32.2) pg MCHC (32.2-35.5) g/dl RDW Std Deviation (35.1-43.9) fL Plt Count (163-337) K/mm3 MPV (9.4-12.3) fl Neut % (Auto) (34.0-67.9) % Lymph % (Auto) (21.8-53.1) % Beadle % (Auto) (5.3-12.2) % Eos % (Auto) (0.8-7.0) Baso % (Auto) (0.1-1.2) % Neut # (Auto) (1.78-5.38) K/mm3 Lymph # (Auto) (1.32-3.57) K/mm3 Beadle # (Auto) (0.30-0.82) K/mm3 Eos # (Auto) (0.04-0.54) K/mm3 Baso # (Auto) (0.01-0.08) K/mm3 Sodium (136-145) mEq/L Potassium (3.5-5.1) mEq/L Chloride (98-107) mEq/L Carbon Dioxide (21-32) mEq/L Anion Gap (5-15) BUN (7-18) mg/dL Creatinine (0.7-1.3) mg/dL Est Cr Clr Drug Dosing mL/min Estimated GFR (MDRD) (>60) mL/min BUN/Creatinine Ratio (14-18) Glucose (74-106) mg/dL Calcium (8.5-10.1) mg/dL Magnesium (1.8-2.4) mg/dl Total Bilirubin (0.2-1.0) mg/dL AST (15-37) U/L ALT (16-63) U/L Alkaline Phosphatase (46-116) U/L C-Reactive Protein < 0.2 (<1.0) mg/dL Total Protein (6.4-8.2) g/dl Albumin (3.4-5.0) g/dl Globulin gm/dL Albumin/Globulin Ratio (1-2) Lipase 253 (73-393) U/L TSH 3rd Generation (0.358-3.74) uIU/mL Urine Color Light yellow (Yellow) Urine Appearance Clear (Clear) Urine pH 7.0 (5.0-8.0) Ur Specific [place] 1.010 (1.005-1.030) Urine Protein Negative (Negative) Urine Glucose (UA) Negative (Negative) Urine Ketones Negative (Negative) Urine Occult Blood Negative (Negative) Urine Nitrite Negative (Negative) Urine Bilirubin Negative (Negative) Urine Urobilinogen 0.2 (0.2-1.0) Ur Leukocyte Esterase Negative (Negative) Urine RBC Not seen (0-5) /hpf Urine WBC Not seen (0-5) /hpf Ur Epithelial Cells 0-5 (0-5) /hpf Urine Bacteria Not seen (FEW) /hpf Urine Mucus Not seen (FEW) /hpf Salicylates 4.8 (2.8-20) mg/dL Urine Opiates Screen (NEGATIVE) Ur Buprenorphine Scrn (NEGATIVE) Ur Oxycodone Screen (NEGATIVE) Urine Methadone Screen (NEGATIVE) Ur Propoxyphene Screen (NEGATIVE) Acetaminophen (10-30) ug/mL Ur Barbiturates Screen (NEGATIVE) Ur Tricyclics Screen (NEGATIVE) Ur Phencyclidine Scrn (NEGATIVE) Ur Amphetamine Screen (NEGATIVE) U Methamphetamines Scrn (NEGATIVE) U Benzodiazepines Scrn (NEGATIVE) U Cocaine Metab Screen (NEGATIVE) U Marijuana (THC) Screen (NEGATIVE) Ethyl Alcohol (0.00) gm% 02/21/18 Range/Units 07:15 WBC 8.48 (4.23-9.07) K/mm3 RBC 4.31 L (4.63-6.08) M/mm3 Hgb 13.7 (13.7-17.5) gm/L Hct 39.5 L (40.1-51.0) % MCV 91.6 (79.0-92.2) fl MCH 31.8 (25.7-32.2) pg MCHC 34.7 (32.2-35.5) g/dl RDW Std Deviation 43.9 (35.1-43.9) fL Plt Count 334 (163-337) K/mm3 MPV 9.7 (9.4-12.3) fl Neut % (Auto) 59.8 (34.0-67.9) % Lymph % (Auto) 31.1 (21.8-53.1) % Beadle % (Auto) 5.2 L (5.3-12.2) % Eos % (Auto) 3.2 (0.8-7.0) Baso % (Auto) 0.6 (0.1-1.2) % Neut # (Auto) 5.07 (1.78-5.38) K/mm3 Lymph # (Auto) 2.64 (1.32-3.57) K/mm3 Beadle # (Auto) 0.44 (0.30-0.82) K/mm3 Eos # (Auto) 0.27 (0.04-0.54) K/mm3 Baso # (Auto) 0.05 (0.01-0.08) K/mm3 Sodium (136-145) mEq/L Potassium (3.5-5.1) mEq/L Chloride (98-107) mEq/L Carbon Dioxide (21-32) mEq/L Anion Gap (5-15) BUN (7-18) mg/dL Creatinine (0.7-1.3) mg/dL Est Cr Clr Drug Dosing mL/min Estimated GFR (MDRD) (>60) mL/min BUN/Creatinine Ratio (14-18) Glucose (74-106) mg/dL Calcium (8.5-10.1) mg/dL Magnesium (1.8-2.4) mg/dl Total Bilirubin (0.2-1.0) mg/dL AST (15-37) U/L ALT (16-63) U/L Alkaline Phosphatase (46-116) U/L C-Reactive Protein (<1.0) mg/dL Total Protein (6.4-8.2) g/dl Albumin (3.4-5.0) g/dl Globulin gm/dL Albumin/Globulin Ratio (1-2) Lipase (73-393) U/L TSH 3rd Generation (0.358-3.74) uIU/mL Urine Color (Yellow) Urine Appearance (Clear) Urine pH (5.0-8.0) Ur Specific [place] (1.005-1.030) Urine Protein (Negative) Urine Glucose (UA) (Negative) Urine Ketones (Negative) Urine Occult Blood (Negative) Urine Nitrite (Negative) Urine Bilirubin (Negative) Urine Urobilinogen (0.2-1.0) Ur Leukocyte Esterase (Negative) Urine RBC (0-5) /hpf Urine WBC (0-5) /hpf Ur Epithelial Cells (0-5) /hpf Urine Bacteria (FEW) /hpf Urine Mucus (FEW) /hpf Salicylates (2.8-20) mg/dL Urine Opiates Screen (NEGATIVE) Ur Buprenorphine Scrn (NEGATIVE) Ur Oxycodone Screen (NEGATIVE) Urine Methadone Screen (NEGATIVE) Ur Propoxyphene Screen (NEGATIVE) Acetaminophen (10-30) ug/mL Ur Barbiturates Screen (NEGATIVE) Ur Tricyclics Screen (NEGATIVE) Ur Phencyclidine Scrn (NEGATIVE) Ur Amphetamine Screen (NEGATIVE) U Methamphetamines Scrn (NEGATIVE) U Benzodiazepines Scrn (NEGATIVE) U Cocaine Metab Screen (NEGATIVE) U Marijuana (THC) Screen (NEGATIVE) Ethyl Alcohol (0.00) gm% Med Orders - Current: Current Medications Albuterol/Ipratropium (Duoneb 3.0-0.5 Mg/3 Ml) 3 ml NEB Q4H PRN PRN Reason: Shortness Of Breath/wheezing Bisacodyl (Dulcolax) 5 mg PO DAILY PRN PRN Reason: Constipation Clonidine HCl (Catapres) 0.1 mg PO Q4H PRN PRN Reason: Agitation Docusate Sodium (Colace) 100 mg PO BID PRN PRN Reason: Constipation Famotidine (Pepcid) 20 mg PO Q12H RICHARD Folic Acid (Folic Acid) 1 mg PO DAILY RICHARD Stop: 02/23/18 09:01 Hydralazine HCl (Apresoline) 20 mg IVPUSH Q4H PRN PRN Reason: Hypertension Hydromorphone HCl (Dilaudid) 0.25 mg IVPUSH Q2H PRN PRN Reason: Pain (severe 7-10) Promethazine HCl 12.5 mg/ (Sodium Chloride) 50.5 mls @ 100 mls/hr IV Q6H PRN PRN Reason: Nausea/Vomiting Ibuprofen (Motrin) 400 mg PO Q6H PRN PRN Reason: Pain (mild 1-3) Last Admin: 02/21/18 00:17 Dose: 400 mg Lorazepam (Ativan) 0 mg IVPUSH ASDIRECTED PRN; Protocol PRN Reason: Other Last Admin: 02/21/18 00:16 Dose: 1 mg Lorazepam (Ativan) 2 mg IVPUSH Q4H PRN PRN Reason: Seizures Lorazepam (Ativan) 0 mg IVPUSH Q4H PRN; Protocol PRN Reason: Withdrawal Symptoms Magnesium Sulfate (Pharmacy To Dose - Magnesium Replacement) 0 dose .XX ASDIRECTED PRN PRN Reason: RX TO WATCH MAG LEVELS Metoprolol Tartrate (Lopressor) 5 mg IVPUSH Q4H PRN PRN Reason: Tachycardia Multivitamins (Thera) 1 each PO DAILY RICHARD Ondansetron HCl (Zofran) 4 mg IV Q6H PRN PRN Reason: Nausea/Vomiting Last Admin: 02/20/18 23:47 Dose: 4 mg Oxycodone HCl (Oxycodone) 5 mg PO Q4H PRN PRN Reason: Pain (moderate 4-6) Pantoprazole Sodium (Protonix Iv) 40 mg IV Q12HR RICHARD Last Admin: 02/20/18 21:15 Dose: 40 mg Polyethylene Glycol (Miralax) 17 gm PO DAILY PRN PRN Reason: Constipation Potassium Chloride (Pharmacy To Dose - Potassium Replacement) 0 dose .XX ASDIRECTED PRN PRN Reason: RX TO WATCH K LEVELS Potassium Chloride (Klor-Con M20) 60 meq PO ONETIME ONE Stop: 02/21/18 09:01 Quetiapine Fumarate (Seroquel) 50 mg PO BEDTIME RICHARD Senna/Docusate Sodium (Senna Plus) 1 tab PO BID PRN PRN Reason: Constipation Thiamine HCl (Vitamin B-1) 100 mg PO DAILY RICHARD Topiramate (Topamax) 25 mg PO BID RICHARD Discontinued Medications Chlordiazepoxide HCl (Librium) 25 mg PO ONETIME ONE Stop: 02/20/18 18:10 Last Admin: 02/20/18 18:35 Dose: 25 mg Folic Acid (Folic Acid) 1 mg PO ONETIME ONE Stop: 02/20/18 13:45 Last Admin: 02/20/18 14:24 Dose: 1 mg Magnesium Sulfate 2 gm/ Premix 50 mls @ 50 mls/hr IV ONETIME ONE Stop: 02/20/18 14:43 Last Admin: 02/20/18 14:15 Dose: 50 mls/hr Sodium Chloride (Normal Saline) 1,000 mls @ 500 mls/hr IV .BOLUS RICHARD Last Admin: 02/20/18 14:07 Dose: 500 mls/hr Thiamine HCl 200 mg/ Sodium (Chloride) 102 mls @ 204 mls/hr IV ONETIME ONE Stop: 02/20/18 18:07 Last Admin: 02/20/18 18:39 Dose: 204 mls/hr Lorazepam (Ativan) 1 mg IVPUSH ASDIRECTED ONE; Protocol Stop: 02/20/18 13:48 Last Admin: 02/20/18 14:09 Dose: 2 mg Nicotine (Habitrol) 21 mg TRDERM ONETIME ONE Stop: 02/20/18 16:32 Last Admin: 02/20/18 17:57 Dose: 21 mg Ondansetron HCl (Zofran) 4 mg IVPUSH ONETIME ONE Stop: 02/20/18 13:45 Last Admin: 02/20/18 14:07 Dose: 4 mg Potassium Chloride (Klor-Con M20) 40 meq PO Q4H RICHARD Stop: 02/20/18 23:01 Last Admin: 02/20/18 20:52 Dose: Not Given Quetiapine Fumarate (Seroquel) 50 mg PO ONETIME ONE Stop: 02/20/18 18:07 Last Admin: 02/20/18 18:35 Dose: 50 mg Sodium Chloride (Saline Flush) 10 ml FLUSH ASDIRECTED PRN PRN Reason: Keep Vein Open Last Admin: 02/20/18 14:14 Dose: 10 ml Thiamine HCl (Vitamin B-1) 100 mg PO ONETIME ONE Stop: 02/20/18 13:45 Last Admin: 02/20/18 14:14 Dose: 100 mg Topiramate (Topamax) 25 mg PO NOW ONE Stop: 02/20/18 18:09 Last Admin: 02/20/18 18:36 Dose: 25 mg - Exam General: Alert, Oriented, Cooperative, No Acute Distress HEENT: Pupils Equal, Pupils Reactive, EOMI, Mucous Membr. Moist/[place] Neck: Supple, Trachea Midline, No JVD, No Thyromegaly Lungs: Clear to Auscultation, Normal Respiratory Effort Cardiovascular: Regular Rate, Regular Rhythm GI/Abdominal Exam: Normal Bowel Sounds, Soft, No Organomegaly, No Distention, No Abnormal Bruit, No Mass, Tender (middle-across entire abdomen). No: Guarding , Rigid, Rebound, Hepatomegaly, Splenomegaly (Male) Exam: Deferred Back Exam: Normal Inspection, Full Range of Motion Extremities: Normal Inspection, Normal Range of Motion, Non-Tender, No Pedal Edema, Normal Capillary Refill Peripheral Pulses: 3+: Posterior Tibial (L), Posterior Tibial (R), Dorsalis Pedis (L), Dorsalis Pedis (R) Skin: Warm, Dry, Intact Neurological: No New Focal Deficit Psy/Mental Status: Alert, Normal Affect, Normal Mood - Problem List Review Problem List Initiated/Reviewed/Updated: Yes - My Orders Last 24 Hours: My Active Orders 02/20/18 17:59 Height and Weight [RC] 04 Up ad Sanjuanita [RC] ASDIRECTED Albuterol/Ipratropium [DuoNeb 3.0-0.5 MG/3 ML] 3 ml NEB Q4H PRN Bisacodyl [Dulcolax] 5 mg PO DAILY PRN Docusate Sodium [Colace] 100 mg PO BID PRN Docusate Sodium/Sennosides [Senna Plus] 1 tab PO BID PRN HYDROmorphone [Dilaudid] 0.25 mg IVPUSH Q2H PRN Ibuprofen [Motrin] 400 mg PO Q6H PRN LORazepam [Ativan] 2 mg IVPUSH Q4H PRN LORazepam [Ativan] See Protocol IVPUSH Q4H PRN Metoprolol Tartrate [Lopressor] 5 mg IVPUSH Q4H PRN Ondansetron [Zofran] 4 mg IV Q6H PRN Polyethylene Glycol 3350 [MiraLAX] 17 gm PO DAILY PRN Promethazine [Phenergan] 12.5 mg Sodium Chloride 0.9% [Normal Saline] 50 ml IV Q6H hydrALAZINE [Apresoline] 20 mg IVPUSH Q4H PRN oxyCODONE 5 mg PO Q4H PRN Resuscitation Status Routine 02/20/18 18:00 CIWAA Assessment [RC] Q1H Notify Provider [RC] PRN Oxygen Therapy [RC] PRN Vital Signs [RC] Q4HR Magnesium Rep Pharmacy to Dose [Pharmacy to Dose - Magnesium Replacement] 0 dose .XX ASDIRECTED PRN Potassium Rep Pharmacy to Dose [Pharmacy to Dose - Potassium Replacement] 0 dose .XX ASDIRECTED PRN 02/20/18 18:01 Intake and Output [RC] QSHIFT Sequential Compression Device [OM.PC] Per Unit Routine 02/20/18 18:03 RT Aerosol Therapy [RC] ASDIRECTED 02/20/18 18:04 Consult to Case Management [CONS] Routine Consult to Physician [CONS] Routine Consult to Keno Writer / Runner [CONS] Routine Consult to Spiritual Care [CONS] Routine cloNIDine [Catapres] 0.1 mg PO Q4H PRN Seizure Precautions [OM.PC] Routine 02/20/18 18:05 Notify Provider Consults [RC] ASDIRECTED 02/20/18 18:43 Consult for Substance Abuse [CONS] Routine 02/20/18 21:00 Pantoprazole [ProTONIX IV] 40 mg IV Q12HR 02/20/18 Dinner Clear Liquid Diet [DIET] 02/21/18 07:15 COMPREHENSIVE METABOLIC PN,CMP [CHEM] AM MAGNESIUM [CHEM] AM 02/21/18 09:00 Folic Acid 1 mg PO DAILY Multivitamins,Therapeutic [Thera] 1 each PO DAILY Potassium Chloride [Klor-Con M20] 60 meq PO ONETIME ONE Thiamine [Vitamin B-1] 100 mg PO DAILY Topiramate [Topamax] 25 mg PO BID 02/21/18 21:00 Famotidine [Pepcid] 20 mg PO Q12H QUEtiapine [SEROquel] 50 mg PO BEDTIME 02/21/18 Breakfast Regular Diet [DIET] 02/22/18 05:11 COMPREHENSIVE METABOLIC PN,CMP [CHEM] AM MAGNESIUM [CHEM] AM 02/23/18 05:11 COMPREHENSIVE METABOLIC PN,CMP [CHEM] AM MAGNESIUM [CHEM] AM 02/24/18 05:11 COMPREHENSIVE METABOLIC PN,CMP [CHEM] AM MAGNESIUM [CHEM] AM - Plan Plan:: Assessment: Acute ETOH Intoxication/Withdrawal Symptoms - He has been drinking straight for 2 weeks according to his - [facility] protocol: CIWA score is 8 this morning - Ativan/Seroquel/Clonidine/Topamax - Hydralazine and IVP BB for HR/BP control - Ativan for Abortive Seizure and Withdrawal Symptoms - SA/Psych consult-he wants help Hypokalemia - K 3.1 - 2/2 inadequate intake - Replete and monitor Tobacco Dependence - Nicotine patch - Counseled on Smoking Cessation Possible Suicidal Ideation - Has hx/o Depression - Spoke to his ; she is currently from him due to his chronic alcoholism - She tells me when he drinks, he takes a whole bunch of pills at the same time - His depression has gotten worse after the of his brother last year Chronic: HTN ETOH Abuse Depression Plan: He looks much better this morning Transfer to Med-Surg with Tele Continue Treatment: MVI, Folic Acid and Thiamine, CIWA protocol, and PRN Ativan for Abortive Seizure SW/CM d/c planning SA/Psych consult Code Status: 1 Received okay/consent from patient to update , family members or visitors/ friends about his clinical progress.
[2018-02-21] MEDS ORDERED: Potassium Chloride 20 MEQ Tab.ER PO ONE (09:00)
[2018-02-21] MEDS: Pantoprazole 40 MG Vial IV SCH (09:09)
[2018-02-21] MEDS: Topiramate 25 MG Tab PO SCH ×2 (09:10→20:26)
[2018-02-21] MEDS: Folic Acid 1 MG Tab PO SCH (09:10)
[2018-02-21] MEDS: Thiamine 100 MG Tab PO SCH (09:10)
[2018-02-21] MEDS: Multivitamins,Therapeutic Tab PO SCH (09:10)
--- NOTE | 2018-02-21 10:05 | CR ---
Abdomen: Supine view of the abdomen was obtained. Comparison: No prior study. Bowel gas pattern appears normal. Several calcifications are seen within the pelvis which most likely represent incidental phleboliths. No discrete soft tissue abnormality is seen. Bony structures are unremarkable. Impression: 1. Incidental findings. Diagnostic code #2
[2018-02-21] MEDS ORDERED: QUEtiapine 25 MG Tab PO ONE (11:01)
[2018-02-21] MEDS ORDERED: QUEtiapine 25 MG Tab PO STA (11:18)
[2018-02-21] MEDS: cloNIDine 0.1 MG Tab PO PRN ×3 (11:30→23:13)
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
[2018-02-21] MEDS: Pantoprazole 40 MG Tab.CR PO SCH (20:25)
[2018-02-21] MEDS ORDERED: QUEtiapine 25 MG Tab PO SCH (21:00)
[2018-02-21] MEDS ORDERED: Mirtazapine 30 MG Tab PO SCH (21:00)
[2018-02-21] MEDS ORDERED: Famotidine 20 MG Tab PO SCH (21:00)
[2018-02-21] MEDS ORDERED: Nicotine 21 MG/24 Hr Patch TRDERM ONE (21:00)
[2018-02-21] MEDS: Ondansetron 4 MG/2 ML SDV IV PRN (22:07)
[2018-02-22] MEDS ORDERED: QUEtiapine 25 MG Tab PO ONE ×2 (00:19→13:09)
[2018-02-22] MEDS ORDERED: chlordiazePOXIDE 25 MG Cap PO ONE (00:19)
[2018-02-22] MEDS ORDERED: Nicotine 21 MG/24 Hr Patch TRDERM ONE (01:30)
[2018-02-22] MEDS: LORazepam 2 MG/ML SDV IVPUSH PRN ×6 (01:56→16:18)
[2018-02-22] MEDS: cloNIDine 0.1 MG Tab PO PRN (05:00)
[2018-02-22] MEDS: Ondansetron 4 MG/2 ML SDV IV PRN ×2 (06:17→14:31)
[2018-02-22] MEDS: Multivitamins,Therapeutic Tab PO SCH (10:17)
[2018-02-22] MEDS: Topiramate 25 MG Tab PO SCH (10:17)
[2018-02-22] MEDS: Thiamine 100 MG Tab PO SCH (10:17)
[2018-02-22] MEDS: Pantoprazole 40 MG Tab.CR PO SCH (10:17)
[2018-02-22] MEDS: Folic Acid 1 MG Tab PO SCH (10:17)
--- NOTE | 2018-02-22 11:52 | PCM.PN ---
- General Info Date of Service: 02/22/18 Admission Dx/Problem (Free Text): Admission Diagnosis/Problem Admission Diagnosis/Problem Alcohol dependence, continuous Subjective Update: In to see Gaudencio today. He is lying in bed. Overall he is doing well and states he is feeling better. He has no complaints. He has been sleeping well. Good appetite. Ambulating as tolerated. Pain is controlled. No Fever, chills, chest pain, nausea, vomiting, diarrhea. No concerns from nursing. Substance abuse consult. He will be D/C'd pending placement for inpatient treatment. Functional Status: Reports: Pain Controlled, Tolerating Diet, Ambulating, Urinating - Review of Systems General: Reports: Fatigue. Denies: Fever, Weakness, Malaise, Chills HEENT: Reports: No Symptoms Pulmonary: Reports: No Symptoms Cardiovascular: Reports: No Symptoms Gastrointestinal: Reports: Abdominal Pain, Flatus. Denies: Constipation, Diarrhea, Nausea, Vomiting Genitourinary: Reports: No Symptoms Musculoskeletal: Reports: No Symptoms Skin: Reports: No Symptoms Neurological: Reports: No Symptoms Psychiatric: Reports: No Symptoms - Patient Data Vitals - Most Recent: Last Vital Signs Temp 97.8 F 02/22/18 08:00 Pulse 92 02/22/18 08:00 Resp 17 02/22/18 08:00 BP 119/87 02/22/18 08:00 Pulse Ox 97 02/22/18 08:00 Weight - Most Recent: 135 lb I&O - Last 24 Hours: Intake & Output 02/21/18 02/22/18 02/22/18 22:59 06:59 14:59 Intake Total 1260 1200 240 Output Total 400 1600 600 Balance 860 -400 -360 Lab Results Last 24 Hours: Laboratory Results - last 24 hr 02/22/18 Range/Units 05:05 Sodium 139 (136-145) mEq/L Potassium 3.5 (3.5-5.1) mEq/L Chloride 105 (98-107) mEq/L Carbon Dioxide 23 (21-32) mEq/L Anion Gap 14.5 (5-15) BUN 12 (7-18) mg/dL Creatinine 0.9 (0.7-1.3) mg/dL Est Cr Clr Drug Dosing 96.39 mL/min Estimated GFR (MDRD) > 60 (>60) mL/min BUN/Creatinine Ratio 13.3 L (14-18) Glucose 161 H (74-106) mg/dL Calcium 9.0 (8.5-10.1) mg/dL Magnesium 1.9 (1.8-2.4) mg/dl Total Bilirubin 0.7 (0.2-1.0) mg/dL AST 77 H (15-37) U/L ALT 72 H (16-63) U/L Alkaline Phosphatase 105 (46-116) U/L Total Protein 6.7 (6.4-8.2) g/dl Albumin 3.4 (3.4-5.0) g/dl Globulin 3.3 gm/dL Albumin/Globulin Ratio 1.0 (1-2) Med Orders - Current: Current Medications Albuterol/Ipratropium (Duoneb 3.0-0.5 Mg/3 Ml) 3 ml NEB Q4H PRN PRN Reason: Shortness Of Breath/wheezing Bisacodyl (Dulcolax) 5 mg PO DAILY PRN PRN Reason: Constipation Clonidine HCl (Catapres) 0.1 mg PO Q4H PRN PRN Reason: Agitation Last Admin: 02/22/18 05:00 Dose: 0.1 mg Docusate Sodium (Colace) 100 mg PO BID PRN PRN Reason: Constipation Folic Acid (Folic Acid) 1 mg PO DAILY [facility] Stop: 02/23/18 09:01 Last Admin: 02/22/18 10:17 Dose: 1 mg Hydralazine HCl (Apresoline) 20 mg IVPUSH Q4H PRN PRN Reason: Hypertension Hydromorphone HCl (Dilaudid) 0.25 mg IVPUSH Q2H PRN PRN Reason: Pain (severe 7-10) Promethazine HCl 12.5 mg/ (Sodium Chloride) 50.5 mls @ 100 mls/hr IV Q6H PRN PRN Reason: Nausea/Vomiting Ibuprofen (Motrin) 400 mg PO Q6H PRN PRN Reason: Pain (mild 1-3) Last Admin: 02/21/18 00:17 Dose: 400 mg Lorazepam (Ativan) 0 mg IVPUSH ASDIRECTED PRN; Protocol PRN Reason: Other Last Admin: 02/22/18 06:18 Dose: 1 mg Lorazepam (Ativan) 2 mg IVPUSH Q4H PRN PRN Reason: Seizures Lorazepam (Ativan) 0 mg IVPUSH Q4H PRN; Protocol PRN Reason: Withdrawal Symptoms Last Admin: 02/22/18 10:17 Dose: 1 mg Magnesium Sulfate (Pharmacy To Dose - Magnesium Replacement) 0 dose .XX ASDIRECTED PRN PRN Reason: RX TO WATCH MAG LEVELS Metoprolol Tartrate (Lopressor) 5 mg IVPUSH Q4H PRN PRN Reason: Tachycardia Mirtazapine (Remeron) 30 mg PO BEDTIME [facility] Last Admin: 02/21/18 20:26 Dose: 30 mg Multivitamins (Thera) 1 each PO DAILY [facility] Last Admin: 02/22/18 10:17 Dose: 1 each Nicotine (Habitrol) 21 mg TRDERM DAILY [facility] Ondansetron HCl (Zofran) 4 mg IV Q6H PRN PRN Reason: Nausea/Vomiting Last Admin: 02/22/18 06:17 Dose: 4 mg Oxycodone HCl (Oxycodone) 5 mg PO Q4H PRN PRN Reason: Pain (moderate 4-6) Last Admin: 02/22/18 05:02 Dose: 5 mg Pantoprazole Sodium (Protonix) 40 mg PO Q12HR [facility] Last Admin: 02/22/18 10:17 Dose: 40 mg Polyethylene Glycol (Miralax) 17 gm PO DAILY PRN PRN Reason: Constipation Potassium Chloride (Pharmacy To Dose - Potassium Replacement) 0 dose .XX ASDIRECTED PRN PRN Reason: RX TO WATCH K LEVELS Quetiapine Fumarate (Seroquel) 50 mg PO BEDTIME [facility] Last Admin: 02/21/18 20:27 Dose: 50 mg Senna/Docusate Sodium (Senna Plus) 1 tab PO BID PRN PRN Reason: Constipation Thiamine HCl (Vitamin B-1) 100 mg PO DAILY [facility] Last Admin: 02/22/18 10:17 Dose: 100 mg Topiramate (Topamax) 25 mg PO BID [facility] Last Admin: 02/22/18 10:17 Dose: 25 mg Discontinued Medications Chlordiazepoxide HCl (Librium) 25 mg PO ONETIME ONE Stop: 02/20/18 18:10 Last Admin: 02/20/18 18:35 Dose: 25 mg Chlordiazepoxide HCl (Librium) 50 mg PO ONETIME ONE Stop: 02/22/18 00:20 Last Admin: 02/22/18 00:36 Dose: 50 mg Famotidine (Pepcid) 20 mg PO Q12H [facility] Folic Acid (Folic Acid) 1 mg PO ONETIME ONE Stop: 02/20/18 13:45 Last Admin: 02/20/18 14:24 Dose: 1 mg Magnesium Sulfate 2 gm/ Premix 50 mls @ 50 mls/hr IV ONETIME ONE Stop: 02/20/18 14:43 Last Admin: 02/20/18 14:15 Dose: 50 mls/hr Sodium Chloride (Normal Saline) 1,000 mls @ 500 mls/hr IV .BOLUS [facility] Last Admin: 02/20/18 14:07 Dose: 500 mls/hr Thiamine HCl 200 mg/ Sodium (Chloride) 102 mls @ 204 mls/hr IV ONETIME ONE Stop: 02/20/18 18:07 Last Admin: 02/20/18 18:39 Dose: 204 mls/hr Lorazepam (Ativan) 1 mg IVPUSH ASDIRECTED ONE; Protocol Stop: 02/20/18 13:48 Last Admin: 02/20/18 14:09 Dose: 2 mg Nicotine (Habitrol) 21 mg TRDERM ONETIME ONE Stop: 02/20/18 16:32 Last Admin: 02/20/18 17:57 Dose: 21 mg Nicotine (Habitrol) 21 mg TRDERM ONETIME ONE Stop: 02/21/18 21:01 Last Admin: 02/21/18 20:44 Dose: 21 mg Nicotine (Habitrol) 21 mg TRDERM ONETIME ONE Stop: 02/22/18 01:31 Last Admin: 02/22/18 01:37 Dose: Not Given Ondansetron HCl (Zofran) 4 mg IVPUSH ONETIME ONE Stop: 02/20/18 13:45 Last Admin: 02/20/18 14:07 Dose: 4 mg Pantoprazole Sodium (Protonix Iv) 40 mg IV Q12HR [facility] Last Admin: 02/21/18 09:09 Dose: 40 mg Potassium Chloride (Klor-Con M20) 40 meq PO Q4H [facility] Stop: 02/20/18 23:01 Last Admin: 02/20/18 20:52 Dose: Not Given Potassium Chloride (Klor-Con M20) 60 meq PO ONETIME ONE Stop: 02/21/18 09:01 Last Admin: 02/21/18 09:10 Dose: 60 meq Quetiapine Fumarate (Seroquel) 50 mg PO ONETIME ONE Stop: 02/20/18 18:07 Last Admin: 02/20/18 18:35 Dose: 50 mg Quetiapine Fumarate (Seroquel) 25 mg PO NOW STA Stop: 02/21/18 11:19 Last Admin: 02/21/18 11:30 Dose: 25 mg Quetiapine Fumarate (Seroquel) 50 mg PO ONETIME ONE Stop: 02/22/18 00:20 Last Admin: 02/22/18 00:36 Dose: 50 mg Sodium Chloride (Saline Flush) 10 ml FLUSH ASDIRECTED PRN PRN Reason: Keep Vein Open Last Admin: 02/20/18 14:14 Dose: 10 ml Thiamine HCl (Vitamin B-1) 100 mg PO ONETIME ONE Stop: 02/20/18 13:45 Last Admin: 02/20/18 14:14 Dose: 100 mg Topiramate (Topamax) 25 mg PO NOW ONE Stop: 02/20/18 18:09 Last Admin: 02/20/18 18:36 Dose: 25 mg - Exam General: Alert, Oriented HEENT: Pupils Equal, Pupils Reactive, EOMI, Mucous Membr. Moist/[place] Neck: Supple Lungs: Clear to Auscultation, Normal Respiratory Effort Cardiovascular: Regular Rate, Regular Rhythm GI/Abdominal Exam: Normal Bowel Sounds, Soft, Non-Tender, No Organomegaly, No Distention, No Abnormal Bruit, No Mass, Pelvis Stable (Male) Exam: Deferred Back Exam: Normal Inspection, Full Range of Motion Extremities: Normal Inspection, Normal Range of Motion, Non-Tender, No Pedal Edema, Normal Capillary Refill Peripheral Pulses: 3+: Posterior Tibial (L), Posterior Tibial (R), Dorsalis Pedis (L), Dorsalis Pedis (R) Skin: Warm, Dry, Intact Neurological: No New Focal Deficit Psy/Mental Status: Alert, Normal Affect, Normal Mood - Problem List & Annotations (1) Alcohol abuse SNOMED Code(s): 95623611 Code(s): F10.10 - ALCOHOL ABUSE, UNCOMPLICATED Status: Chronic Priority: High Current Visit: Yes (2) Alcohol withdrawal syndrome SNOMED Code(s): 173883253 Code(s): F10.239 - ALCOHOL DEPENDENCE WITH WITHDRAWAL, UNSPECIFIED Status: Acute Priority: High Current Visit: Yes - Problem List Review Problem List Initiated/Reviewed/Updated: Yes - Plan Plan:: Assessment: Acute ETOH Intoxication/Withdrawal Symptoms - He has been drinking straight for 2 weeks according to his - CIWA protocol: CIWA score is 8 this morning - Ativan/Seroquel/Clonidine/Topamax - Hydralazine and IVP BB for HR/BP control - Ativan for Abortive Seizure and Withdrawal Symptoms - SA/Psych consult-he wants help Tobacco Dependence - Nicotine patch - Counseled on Smoking Cessation Possible Suicidal Ideation - Has hx/o Depression - Spoke to his ; she is currently from him due to his chronic alcoholism - She tells me when he drinks, he takes a whole bunch of pills at the same time - His depression has gotten worse after the of his brother last year - Psych consult Resolved: Hypokalemia - K 3.1-->3.5 - 2/2 inadequate intake - Replete and monitor Chronic: HTN ETOH Abuse Depression Plan: He looks much better this morning Transfer to Med-Surg with Tele Continue Treatment: MVI, Folic Acid and Thiamine, CIWA protocol, and PRN Ativan for Abortive Seizure SW/CM d/c planning SA/Psych consult Code Status: 1 Ready to D/C, pending placement to inpatient treatment facility. Received okay/consent from patient to update , family members or visitors/ friends about his clinical progress.
[2018-02-22] MEDS: Ibuprofen 400 MG Tab PO PRN (15:58)
[2018-02-22 15:59] VITALS: BP 99/52
--- NOTE | 2018-02-22 17:04 | PCM.DCSUM1 ---
Discharge Summary - Hospital Course HPI Initial Comments: Patient is a 37-year-old male who presents ED for detox from alcohol. Patient states she's been drinking alcohol since he was 14 years of age. - Discharge Data Discharge Date: 02/22/18 (02/20/18) Discharge Disposition: DC/Tfer to Psych Hosp/Unit [facility] Condition: Good - Discharge Diagnosis/Problem(s) (1) Alcohol abuse SNOMED Code(s): 36921023 ICD Code: F10.10 - ALCOHOL ABUSE, UNCOMPLICATED Status: Chronic Priority : High (2) Alcohol withdrawal syndrome SNOMED Code(s): 816005779 ICD Code: F10.239 - ALCOHOL DEPENDENCE WITH WITHDRAWAL, UNSPECIFIED Status : Resolved Priority: High - Patient Summary/Data Operative Procedure(s) Performed: none Complications: none Consults: Consultations 02/20/18 18:04 Consult to Case Management [CONS] Routine Consult to Physician [CONS] Routine Consult to Vest Baster [CONS] Routine Consult to Spiritual Care [CONS] Routine 02/20/18 18:43 Consult for Substance Abuse [CONS] Routine Labs Pending at D/C: none Recommended Follow-up Testing/Procedures: Transfer to [facility] under the services of Dr. Parker, admitting hospitalist Follow up with PCP after inpt treatment Planned Operative Procedure(s) after DC: none Hospital Course: Assessment: Acute ETOH Intoxication/Withdrawal Symptoms - He has been drinking straight for 2 weeks according to his - CIWA protocol: CIWA score is 8 this morning - Ativan/Seroquel/Clonidine/Topamax - Hydralazine and IVP BB for HR/BP control - Ativan for Abortive Seizure and Withdrawal Symptoms - SA/Psych consult-he wants help Tobacco Dependence - Nicotine patch - Counseled on Smoking Cessation Possible Suicidal Ideation - Has hx/o Depression - Spoke to his ; she is currently from him due to his chronic alcoholism - She tells me when he drinks, he takes a whole bunch of pills at the same time - His depression has gotten worse after the of his brother last year - Psych consult Resolved: Hypokalemia - K 3.1-->3.5 - 2/2 inadequate intake - Replete and monitor Chronic: HTN ETOH Abuse Depression Plan: He looks much better this morning Transfer to Med-Surg with Tele Continue Treatment: MVI, Folic Acid and Thiamine, CIWA protocol, and PRN Ativan for Abortive Seizure SW/CM d/c planning SA/Psych consult Code Status: 1 Ready to D/C, pending placement to inpatient treatment facility. Received okay/consent from patient to update , family members or visitors/ friends about his clinical progress. Transfer to [facility] under the services of Dr. Parker, admitting hospitalist - Patient Instructions Diet: Usual Diet as Tolerated Activity: As Tolerated Driving: Do Not Drive Showering/Bathing: May Shower Notify Provider of: Fever, Increased Pain, Nausea and/or Vomiting Other/Special Instructions: -Transfer to [facility] under the services of Dr. Parker , admitting hospitalist - Discharge Plan Home Medications: Home Meds . [No Known Home Meds] 02/20/18 [History] Patient Handouts: Alcohol Use Disorder, Major Depressive Disorder, Adult, Psychosis, Steps to Quit Smoking, Alcohol Withdrawal, [id number] Referrals: PCP,None [Primary Care Provider] - - Discharge Summary/Plan Comment DC Time >30 min.: Yes (40) - General Info Date of Service: 02/22/18 Admission Dx/Problem (Free Text: Admission Diagnosis/Problem Admission Diagnosis/Problem Alcohol dependence, continuous Subjective Update: In to see Gaudencio today. He is sitting in a chair. Overall he states he is feeling better. He has no complaints except for some numbness/tingling in his hands and a headache. He has been sleeping well. Good appetite. Ambulating as tolerated. Pain is controlled. No Fever, chills, chest pain, nausea, vomiting, diarrhea. No concerns from nursing. Substance abuse consult. He will be transferred to [facility] under the services of Dr. Parker, admitting hospitalist. Functional Status: Reports: Pain Controlled, Tolerating Diet, Ambulating, Urinating - Review of Systems General: Reports: Fatigue. Denies: Fever, Chills HEENT: Reports: Headaches Pulmonary: Reports: No Symptoms. Denies: Shortness of Breath, Cough Cardiovascular: Reports: No Symptoms. Denies: Chest Pain, Palpitations Gastrointestinal: Reports: Abdominal Pain (mild). Denies: Constipation, Diarrhea, Nausea, Vomiting Genitourinary: Reports: No Symptoms Musculoskeletal: Reports: No Symptoms Skin: Reports: No Symptoms Neurological: Reports: Headache, Numbness (fingers), Tingling (fingers) Psychiatric: Reports: No Symptoms - Patient Data Vitals - Most Recent: Last Vital Signs Temp 98.1 F 02/22/18 15:58 Pulse 99 02/22/18 15:58 Resp 16 02/22/18 15:58 BP 99/52 L 02/22/18 15:58 Pulse Ox 96 02/22/18 15:58 Weight - Most Recent: 135 lb I&O - Last 24 hours: Intake & Output 02/22/18 02/22/18 02/22/18 06:59 14:59 22:59 Intake Total 5019 766 8184 Output Total 1600 600 400 Balance -400 -360 600 Lab Results - Last 24 hrs: Laboratory Results - last 24 hr 02/22/18 Range/Units 05:05 Sodium 139 (136-145) mEq/L Potassium 3.5 (3.5-5.1) mEq/L Chloride 105 (98-107) mEq/L Carbon Dioxide 23 (21-32) mEq/L Anion Gap 14.5 (5-15) BUN 12 (7-18) mg/dL Creatinine 0.9 (0.7-1.3) mg/dL Est Cr Clr Drug Dosing 96.39 mL/min Estimated GFR (MDRD) > 60 (>60) mL/min BUN/Creatinine Ratio 13.3 L (14-18) Glucose 161 H (74-106) mg/dL Calcium 9.0 (8.5-10.1) mg/dL Magnesium 1.9 (1.8-2.4) mg/dl Total Bilirubin 0.7 (0.2-1.0) mg/dL AST 77 H (15-37) U/L ALT 72 H (16-63) U/L Alkaline Phosphatase 105 (46-116) U/L Total Protein 6.7 (6.4-8.2) g/dl Albumin 3.4 (3.4-5.0) g/dl Globulin 3.3 gm/dL Albumin/Globulin Ratio 1.0 (1-2) Med Orders - Current: Current Medications Albuterol/Ipratropium (Duoneb 3.0-0.5 Mg/3 Ml) 3 ml NEB Q4H PRN PRN Reason: Shortness Of Breath/wheezing Bisacodyl (Dulcolax) 5 mg PO DAILY PRN PRN Reason: Constipation Clonidine HCl (Catapres) 0.1 mg PO Q4H PRN PRN Reason: Agitation Last Admin: 02/22/18 05:00 Dose: 0.1 mg Docusate Sodium (Colace) 100 mg PO BID PRN PRN Reason: Constipation Folic Acid (Folic Acid) 1 mg PO DAILY [facility] Stop: 02/23/18 09:01 Last Admin: 02/22/18 10:17 Dose: 1 mg Hydralazine HCl (Apresoline) 20 mg IVPUSH Q4H PRN PRN Reason: Hypertension Hydromorphone HCl (Dilaudid) 0.25 mg IVPUSH Q2H PRN PRN Reason: Pain (severe 7-10) Promethazine HCl 12.5 mg/ (Sodium Chloride) 50.5 mls @ 100 mls/hr IV Q6H PRN PRN Reason: Nausea/Vomiting Ibuprofen (Motrin) 400 mg PO Q6H PRN PRN Reason: Pain (mild 1-3) Last Admin: 02/22/18 15:58 Dose: 400 mg Lorazepam (Ativan) 0 mg IVPUSH ASDIRECTED PRN; Protocol PRN Reason: Other Last Admin: 02/22/18 16:18 Dose: 2 mg Lorazepam (Ativan) 2 mg IVPUSH Q4H PRN PRN Reason: Seizures Lorazepam (Ativan) 0 mg IVPUSH Q4H PRN; Protocol PRN Reason: Withdrawal Symptoms Last Admin: 02/22/18 10:17 Dose: 1 mg Magnesium Sulfate (Pharmacy To Dose - Magnesium Replacement) 0 dose .XX ASDIRECTED PRN PRN Reason: RX TO WATCH MAG LEVELS Metoprolol Tartrate (Lopressor) 5 mg IVPUSH Q4H PRN PRN Reason: Tachycardia Mirtazapine (Remeron) 30 mg PO BEDTIME [facility] Last Admin: 02/21/18 20:26 Dose: 30 mg Multivitamins (Thera) 1 each PO DAILY [facility] Last Admin: 02/22/18 10:17 Dose: 1 each Nicotine (Habitrol) 21 mg TRDERM DAILY [facility] Ondansetron HCl (Zofran) 4 mg IV Q6H PRN PRN Reason: Nausea/Vomiting Last Admin: 02/22/18 14:31 Dose: 4 mg Oxycodone HCl (Oxycodone) 5 mg PO Q4H PRN PRN Reason: Pain (moderate 4-6) Last Admin: 02/22/18 05:02 Dose: 5 mg Pantoprazole Sodium (Protonix) 40 mg PO Q12HR [facility] Last Admin: 02/22/18 10:17 Dose: 40 mg Polyethylene Glycol (Miralax) 17 gm PO DAILY PRN PRN Reason: Constipation Potassium Chloride (Pharmacy To Dose - Potassium Replacement) 0 dose .XX ASDIRECTED PRN PRN Reason: RX TO WATCH K LEVELS Quetiapine Fumarate (Seroquel) 50 mg PO BEDTIME [facility] Last Admin: 02/21/18 20:27 Dose: 50 mg Senna/Docusate Sodium (Senna Plus) 1 tab PO BID PRN PRN Reason: Constipation Thiamine HCl (Vitamin B-1) 100 mg PO DAILY [facility] Last Admin: 02/22/18 10:17 Dose: 100 mg Topiramate (Topamax) 25 mg PO BID [facility] Last Admin: 02/22/18 10:17 Dose: 25 mg Discontinued Medications Chlordiazepoxide HCl (Librium) 25 mg PO ONETIME ONE Stop: 02/20/18 18:10 Last Admin: 02/20/18 18:35 Dose: 25 mg Chlordiazepoxide HCl (Librium) 50 mg PO ONETIME ONE Stop: 02/22/18 00:20 Last Admin: 02/22/18 00:36 Dose: 50 mg Famotidine (Pepcid) 20 mg PO Q12H [facility] Folic Acid (Folic Acid) 1 mg PO ONETIME ONE Stop: 02/20/18 13:45 Last Admin: 02/20/18 14:24 Dose: 1 mg Magnesium Sulfate 2 gm/ Premix 50 mls @ 50 mls/hr IV ONETIME ONE Stop: 02/20/18 14:43 Last Admin: 02/20/18 14:15 Dose: 50 mls/hr Sodium Chloride (Normal Saline) 1,000 mls @ 500 mls/hr IV .BOLUS [facility] Last Admin: 02/20/18 14:07 Dose: 500 mls/hr Thiamine HCl 200 mg/ Sodium (Chloride) 102 mls @ 204 mls/hr IV ONETIME ONE Stop: 02/20/18 18:07 Last Admin: 02/20/18 18:39 Dose: 204 mls/hr Lorazepam (Ativan) 1 mg IVPUSH ASDIRECTED ONE; Protocol Stop: 02/20/18 13:48 Last Admin: 02/20/18 14:09 Dose: 2 mg Nicotine (Habitrol) 21 mg TRDERM ONETIME ONE Stop: 02/20/18 16:32 Last Admin: 02/20/18 17:57 Dose: 21 mg Nicotine (Habitrol) 21 mg TRDERM ONETIME ONE Stop: 02/21/18 21:01 Last Admin: 02/21/18 20:44 Dose: 21 mg Nicotine (Habitrol) 21 mg TRDERM ONETIME ONE Stop: 02/22/18 01:31 Last Admin: 02/22/18 01:37 Dose: Not Given Ondansetron HCl (Zofran) 4 mg IVPUSH ONETIME ONE Stop: 02/20/18 13:45 Last Admin: 02/20/18 14:07 Dose: 4 mg Pantoprazole Sodium (Protonix Iv) 40 mg IV Q12HR [facility] Last Admin: 02/21/18 09:09 Dose: 40 mg Potassium Chloride (Klor-Con M20) 40 meq PO Q4H [facility] Stop: 02/20/18 23:01 Last Admin: 02/20/18 20:52 Dose: Not Given Potassium Chloride (Klor-Con M20) 60 meq PO ONETIME ONE Stop: 02/21/18 09:01 Last Admin: 02/21/18 09:10 Dose: 60 meq Quetiapine Fumarate (Seroquel) 50 mg PO ONETIME ONE Stop: 02/20/18 18:07 Last Admin: 02/20/18 18:35 Dose: 50 mg Quetiapine Fumarate (Seroquel) 25 mg PO NOW STA Stop: 02/21/18 11:19 Last Admin: 02/21/18 11:30 Dose: 25 mg Quetiapine Fumarate (Seroquel) 50 mg PO ONETIME ONE Stop: 02/22/18 00:20 Last Admin: 02/22/18 00:36 Dose: 50 mg Quetiapine Fumarate (Seroquel) 50 mg PO ONETIME ONE Stop: 02/22/18 13:10 Last Admin: 02/22/18 13:14 Dose: 50 mg Sodium Chloride (Saline Flush) 10 ml FLUSH ASDIRECTED PRN PRN Reason: Keep Vein Open Last Admin: 02/20/18 14:14 Dose: 10 ml Thiamine HCl (Vitamin B-1) 100 mg PO ONETIME ONE Stop: 02/20/18 13:45 Last Admin: 02/20/18 14:14 Dose: 100 mg Topiramate (Topamax) 25 mg PO NOW ONE Stop: 02/20/18 18:09 Last Admin: 02/20/18 18:36 Dose: 25 mg - Exam Quality Assessment: Denies: Supplemental Oxygen General: Reports: Alert, Oriented, Cooperative, Mild Distress HEENT: Reports: Pupils Equal, Pupils Reactive, EOMI, Mucous Membr. Moist/[place] Neck: Reports: Supple Lungs: Reports: Clear to Auscultation, Normal Respiratory Effort Cardiovascular: Reports: Regular Rate, Regular Rhythm GI/Abdominal Exam: Normal Bowel Sounds, Soft, Non-Tender, No Organomegaly, No Distention, No Abnormal Bruit, No Mass, Pelvis Stable (Male) Exam: Deferred Rectal (Males) Exam: Deferred Back Exam: Reports: Normal Inspection, Full Range of Motion Extremities: Normal Inspection, Normal Range of Motion, Non-Tender, No Pedal Edema, Normal Capillary Refill Skin: Reports: Warm, Dry, Intact Neurological: Reports: No New Focal Deficit Psy/Mental Status: Reports: Alert, Normal Affect, Normal Mood
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
[2018-02-22] MEDS ORDERED: Nicotine 21 MG/24 Hr Patch TRDERM SCH (21:00)
== END 2018-02-22 16:56 | DRG 897 ==
LOC: JD.ED 12:45 → JD.ICU 17:34
PROVIDERS: ADMIT Internal Medicine; ATTEND Internal Medicine
DX: F10.232 Alcohol dependence with withdrawal with perceptual disturbance (principal); R45.851 Suicidal ideations; F31.60 Bipolar disorder, current episode mixed, unspecified; F11.20 Opioid dependence, uncomplicated; F10.229 Alcohol dependence with intoxication, unspecified; E87.6 Hypokalemia; I10 Essential (primary) hypertension; F43.10 Post-traumatic stress disorder, unspecified; F17.210 Nicotine dependence, cigarettes, uncomplicated; F12.20 Cannabis dependence, uncomplicated; F29 Unspecified psychosis not due to a substance or known physiological condition; F41.9 Anxiety disorder, unspecified
CPT/HCPCS: 36415; 74018; 74018-26; 80053; 80306; 81001; 83690; 83735; 84443; 85025; 86140; 93005; 96361; 96365; 96375; 96376; 99285-25; A9270-GY; C9113; G0480; J2060; J2405; J3411; J3475; J7030; J7040; J7050

== ENCOUNTER 2018-10-12 11:30 | Emergency (ER) | payer MEDICAID ==
[2018-10-12 11:43] VITALS: BP 141/96
[2018-10-12] MEDS ORDERED: Ketorolac 60 MG/2 ML SDV IM ONE (12:19)
--- NOTE | 2018-10-12 12:20 | EDM.PDOC ---
ED HPI GENERAL MEDICAL PROBLEM - General Chief Complaint: Back Pain or Injury Stated Complaint: LOWER BACK PAIN Time Seen by Provider: 10/12/18 11:46 Source of Information: Reports: Patient History Limitations: Reports: No Limitations - History of Present Illness INITIAL COMMENTS - FREE TEXT/NARRATIVE: The patient presents with low back pain. This has been going on for a few weeks. He is scheduled for an MRI of his lumbar spine on Monday. He has no numbness or weakness. He has no bowel or bladder problems. He does not remember hurting his back. He is wearing a lidocaine patch. Onset: Gradual Duration: Week(s): Location: Reports: Back Quality: Reports: Sharp Severity: Severe Improves with: Reports: None Worsens with: Reports: None Associated Symptoms: Reports: No Other Symptoms Treatments CONSTRUCTION TECHNOLOGY INSTRUCTOR: Reports: Other Medication(s) Other Treatments CONSTRUCTION TECHNOLOGY INSTRUCTOR: gabapentin Lower Back Pain Score (Numeric/FACES): 10 - Related Data Allergies Allergy/AdvReac Type Severity Reaction Status Date / Time No Known Allergies Allergy Verified 10/12/18 11:44 Home Meds: Home Meds Cyclobenzaprine [Flexeril] 10 mg PO TID PRN #20 tab 10/12/18 [Rx] Gabapentin [Neurontin] 300 mg PO TID 10/12/18 [History] Lidocain/Me-Salicyl/Caps/Menth [Medi-Patch with Lidocaine] 1 patch TRDERM Q12HR 10/12/18 [History] Past Medical History Respiratory History: Reports: Sleep Apnea Musculoskeletal History: Reports: Fibromyalgia Psychiatric History: Reports: Addiction, Depression Social & Family History - Family History Family Medical History: Noncontributory - Tobacco Use Smoking Status *Q: Current Every Day Smoker Years of Tobacco use: 25 Packs/Tins Daily: 0.5 Used Tobacco, but Quit: No Second Hand Smoke Exposure: No - Caffeine Use Caffeine Use: Reports: Coffee Other Caffeine Use: unknown - Recreational Drug Use Recreational Drug Use: No - Living Situation & Occupation Living situation: Reports: (), with Family Occupation: Unemployed ED ROS GENERAL - Review of Systems Review Of Systems: See Below Constitutional: Reports: No Symptoms HEENT: Reports: No Symptoms Respiratory: Reports: No Symptoms Cardiovascular: Reports: No Symptoms Endocrine: Reports: No Symptoms GI/Abdominal: Reports: No Symptoms : Reports: No Symptoms Musculoskeletal: Reports: Back Pain ED EXAM,LOWER BACK PAIN/INJURY - Physical Exam Exam: See Below Exam Limited By: No Limitations General Appearance: Alert, No Apparent Distress Ears: Normal External Exam Nose: Normal Inspection Head: Atraumatic, Normocephalic Neck: Normal Inspection Respiratory/Chest: No Respiratory Distress, Lungs Clear, Normal Breath Sounds Cardiovascular: Regular Rate, Rhythm, No Edema, No Murmur GI/Abdominal: Soft, Non-Tender, No Organomegaly, No Mass Back Exam: Other (Pain upon palpation to the low back with some muscle spasms) Extremities: Normal Inspection Neurological: No Motor/Sensory Deficits, Oriented x 3 Course - Vital Signs Last Recorded V/S: Last Vital Signs Temp 98.2 F 10/12/18 11:41 Pulse 105 H 10/12/18 11:41 Resp 16 10/12/18 11:41 BP 141/96 H 10/12/18 11:41 Pulse Ox 99 10/12/18 11:41 - Orders/Labs/Meds Meds: Medications Discontinued Medications Generic Name Dose Route Start Last Admin Trade Name Kavya PRN Reason Stop Dose Admin Ketorolac Tromethamine 60 mg 10/12/18 12:19 Toradol IM 10/12/18 12:20 ONETIME ONE - Re-Assessments/Exams Free Text/Narrative Re-Assessment/Exam: 10/12/18 12:24 I ordered a shot of toradol and I will get him some flexeril. Departure - Departure Time of Disposition: 12:25 Disposition: Home, Self-Care 01 Condition: Good Clinical Impression: Low back pain Qualifiers: Chronicity: acute Back pain laterality: bilateral Sciatica presence: without sciatica Qualified Code(s): M54.5 - Low back pain - Discharge Information *PRESCRIPTION DRUG MONITORING PROGRAM REVIEWED*: No *COPY OF PRESCRIPTION DRUG MONITORING REPORT IN PATIENT EBONY: No Prescriptions: Cyclobenzaprine [Flexeril] 10 mg PO TID PRN #20 tab PRN Reason: Pain Referrals: Saida Catalan PA-C [Primary Care Provider] - 1 Week Forms: ED Department Discharge Additional Instructions: Take motrin or aleve for pain. Take the flexeril for any muscle spasms or pain. Follow up with Nila Catalan in a week. Get your MRI done on Monday.
== END 2018-10-12 12:34 | disposition home or self-care (01) ==
LOC: JD.ED 11:30
DX: M54.5 Low back pain (principal); F32.9 Major depressive disorder, single episode, unspecified; F17.210 Nicotine dependence, cigarettes, uncomplicated; Z79.899 Other long term (current) drug therapy
CPT/HCPCS: 96372; 99283; J1885

== ENCOUNTER 2019-02-20 12:55 | Inpatient (IN) | payer MEDICAID ==
[2019-02-20] MEDS ORDERED: LORazepam 2 MG/ML SDV IVPUSH ONE ×2 (13:30→15:39)
[2019-02-20] MEDS ORDERED: Thiamine 200 MG/2 ML MDV IVPUSH ONE (13:31)
--- NOTE | 2019-02-20 13:39 | EDM.PDOCBH ---
ED HPI GENERAL MEDICAL PROBLEM - General Chief Complaint: Drug or Alcohol Abuse Stated Complaint: ALCOHOL DETOX Time Seen by Provider: 02/20/19 13:30 Source of Information: Reports: Patient, Family History Limitations: Reports: No Limitations - History of Present Illness INITIAL COMMENTS - FREE TEXT/NARRATIVE: 38-year-old male presents to the ED for alcohol detox. Patient is a chronic alcoholic by history. He's been in treatment he estimates at least 20 different times. He's been drinking heavily usually about 750 mils of like velvet whiskey on a daily basis for the last 30 days. He tried to cut back over the last couple of days. Last drink was a big mouthful about 30 minutes before coming to the ED. Her's that he has been vomiting occasionally with he met emesis. Stools are almost always loose without noted blood. At present he has moderate mid abdominal pain not radiating through to his back. He states he has not been eating and is lost a good deal of weight over the last month. Therefore appears to be suffering malnutrition. He smokes cigarettes daily usually at least a pack or more. Is marijuana once in a while. States he did cocaine about 2 weeks ago. Denies ever using intravenous drugs. He states he's been noting visual hallucinations the last couple of days since he has been trying to cut back on alcohol ingestion. Patient states he often drinks only blacks out. Is currently unemployed. Feels generally tremulous and shaky. Mildly nauseated. Diffuse mid abdominal pain. He doesn't think he's ever had pancreatitis diagnosed in the past. Patient states he has a history of diffuse fibromyalgia. He was on gabapentin 600 mg 3 times a day and quit 2 weeks ago cold turkey. Is also on Zoloft but does not know the dosage once daily. Was also on a muscle relaxant believed to be cyclobenzaprine. Onset: Other (Has been drinking large quantities of Black velvet whiskey for the last month. Try to quit the last couple of days. History of chronic alcoholism. He has enjoyed 6 months of sobriety in the last 15 years.) Duration: Week(s):, Chronic Location: Reports: Other (Chronic alcoholism.) Quality: Reports: Other (Current abdominal disc pain is described as a constant deep ache 8 out of 10.) Severity: Moderate (8 out of 10) Improves with: Reports: None Worsens with: Reports: Other Context: Reports: Other (Chronic alcohol abuse.). Denies: Activity, Exercise, Lifting (Symptoms were simply stops drinking.), Sick Contact, Trauma Associated Symptoms: Reports: Confusion, Cough, cough w sputum (Chronic cough from cigarette smoking), Loss of Appetite, Malaise, Nausea/Vomiting (Especially first thing in the mornings. Sometimes he met emesis.), Other (Reports visual hallucinations the last day or 2.). Denies: Chest Pain (Memory is a little fuzzy about certain events considering still he blacks out.), Diaphoresis, Fever /Chills ( mostly brownish sputum.), Headaches, Rash, Seizure, Shortness of Breath Generalized Pain Score (Numeric/FACES): 10 - Related Data Allergies Allergy/AdvReac Type Severity Reaction Status Date / Time No Known Allergies Allergy Verified 10/12/18 11:44 Home Meds: Home Meds . [No Known Home Meds] 02/20/19 [History] Past Medical History Respiratory History: Reports: Sleep Apnea Musculoskeletal History: Reports: Fibromyalgia, Other (See Below) Other Musculoskeletal History: MRI-bulges to back and not sure what else going on Psychiatric History: Reports: Addiction, Depression Social & Family History - Family History Family Medical History: Noncontributory - Tobacco Use Smoking Status *Q: Current Every Day Smoker Years of Tobacco use: 25 Packs/Tins Daily: 1 - Caffeine Use Caffeine Use: Reports: None Other Caffeine Use: unknown - Recreational Drug Use Recreational Drug Use: Yes Recreational Drug Type: Reports: Cocaine, Marijuana/Hashish - Living Situation & Occupation Living situation: Reports: (), with Family Occupation: Unemployed ED ROS GENERAL - Review of Systems Review Of Systems: See Below Constitutional: Reports: Malaise, Weakness, Fatigue, Decreased Appetite, Weight Loss (He believes he lost about 12 pounds in the last 6 weeks.). Denies: Fever , Chills HEENT: Reports: No Symptoms Respiratory: Reports: Shortness of Breath, Cough, Sputum (Cough from smoking) Cardiovascular: Denies: Chest Pain ( sputum), Blood Pressure Problem, Claudication, Dyspnea on Exertion, Edema, Lightheadedness, Orthopnea Endocrine: Reports: Fatigue GI/Abdominal: Reports: Abdominal Pain (Currently has persistent diffuse midabdominal pain not reading through to his back.), Diarrhea, Hematemesis ( intermittent nausea and vomiting sometimes with hematemesis.), Nausea, Vomiting (Chronic loose stools. No blood noted) : Reports: No Symptoms Musculoskeletal: Reports: Other (By history has fibromyalgia syndrome.) Skin: Reports: Bruising Neurological: Reports: Confusion (Bruises easily.), Dizziness ( [place] the details of what is happened to him the last month.), Difficulty Walking, Weakness (Loses his balance easily.), Gait Disturbance. Denies: Trouble Speaking (occasionally. ), Change in Speech Psychiatric: Reports: Anxiety, Hallucinations Hematologic/Lymphatic: Reports: No Symptoms Immunologic: Reports: No Symptoms (Experiencing visual hallucinations the last day or 2 since he's tried to stop or cut back on the amount of alcohol use.) ED EXAM, BEHAVIORAL HEALTH - Physical Exam Exam: See Below Exam Limited By: No Limitations General Appearance: Alert, WD/WN, Mild Distress, Other (Blood pressure is mildly elevated. Respiratory is 28 sats are 96% pulse is 88 in sinus. Temperature 37.2.) Eye Exam: Bilateral Eye: Normal Inspection, Nystagmus (No nystagmus appreciated) , PERRL (No scleral icterus.) Throat/Mouth: Other (Tongue is moist.). No: Normal Teeth (Teeth are in bad shape and in the [place] a dentist.), Normal Oropharynx Head: Atraumatic (Diffusely erythematous from smoking), Normocephalic, Other ( No overt signs of head or facial trauma.) Neck: Normal Inspection, Supple, Non-Tender, Full Range of Motion. No: Lymphadenopathy (R), Tender Midline Respiratory/Chest: No Respiratory Distress, Lungs Clear, Normal Breath Sounds, No Accessory Muscle Use, Respiratory Distress Cardiovascular: Normal Peripheral Pulses, Regular Rate, Rhythm, No Edema, No Gallop, No Murmur (Mild tachypnea.), No Rub GI/Abdominal: No Organomegaly, Guarding (Diffusely tender mid abdomen.), Tender , Other (He is very thin and muscular muscle wall is firm. No obvious organomegaly palpable.). No: Rigid, Rebound (Male) Exam: No Hernia Back Exam: Normal Inspection, Full Range of Motion, Other (No evidence of any recent falls but contusions or abrasions.). No: CVA Tenderness (L), CVA Tenderness (R) Extremities: Normal Inspection, Normal Range of Motion, Non-Tender Neurological: Alert, CN II-XII Intact, Normal Cognition, Normal Reflexes, No Motor/Sensory Deficits, Oriented x 3, Abnormal Romberg. No: Pronator Drift (R) , Pronator Drift (L), Abnormal Finger to Nose Psychiatric: Alert, Normal Affect, Normal Cognition, Oriented, Restless (Mildly restless.). No: Restorationist Delusions, Suicidal Plan, Auditory Hallucinations, Visual Hallucinations, Pressured Speech Skin Exam: Warm, Dry, Intact, Normal color, No rash EKG INTERPRETATION EKG Date: 02/20/19 Time: 13:36 Rhythm: NSR Rate (Beats/Min): 84 Economy: Normal P-Wave: Present QRS: Other (Near Q waves V1 and V2 may be due to lead placement versus initial poor R-wave progression. Ventricular hypertrophy pattern may be due to very thin stature but consider alcohol-induced cardiomyopathy.) ST-T: Normal QT: Prolonged (Moderately prolonged) EKG Interpretation Comments: Abnormal ECG COURSE, BEHAVIORAL HEALTH COMP - Course Vital Signs: Last Vital Signs Temp 37.2 C 02/20/19 13:11 Pulse 88 02/20/19 13:11 Resp 20 02/20/19 13:11 BP 153/95 H 02/20/19 13:11 Pulse Ox 96 02/20/19 13:11 Orders, Labs, Meds: Active Orders 24 hr Category Date Time Status Admission Status [Patient Status] [ADT] Routine ADT 02/20/19 15:46 Active EKG Documentation Completion [RC] STAT Care 02/20/19 13:33 Active CULTURE BLOOD [BC] Stat Lab 02/20/19 15:40 Ordered CULTURE BLOOD [BC] Stat Lab 02/20/19 15:40 Ordered URINALYSIS W/MICROSCOPIC [UA W/MICROSCOPIC] [URIN] Stat Lab 02/20/19 14:36 Results Dextrose 5%-0.9% NaCl [Dextrose 5%-Normal Saline] 1,000 Med 02/20/19 13:30 Active ml IV ASDIRECTED Dextrose 5%-0.9% NaCl [Dextrose 5%-Normal Saline] 1,000 Med 02/20/19 16:00 Ordered ml IV ASDIRECTED Levofloxacin/Dextrose 5%-Water [Levaquin in D5W 750 MG/ Med 02/20/19 15:40 Active 150 ML] 750 mg Premix Bag 1 bag IV ONETIME Potassium Chloride [KCl 10 MEQ in Water 100 ML] 10 meq Med 02/20/19 15:03 Active Premix Bag 1 bag IV ONETIME Blood Culture x2 Reflex Set [OM.PC] Stat Oth 02/20/19 15:40 Ordered Medication Orders Dextrose/Sodium Chloride (Dextrose 5%-Normal Saline) 1,000 mls @ 999 mls/hr IV ASDIRECTED RICHARD Last Admin: 02/20/19 14:00 Dose: 999 mls/hr Potassium Chloride 10 meq/ (Premix) 100 mls @ 100 mls/hr IV ONETIME ONE Stop: 02/20/19 16:02 Last Admin: 02/20/19 15:44 Dose: 100 mls/hr Levofloxacin/Dextrose 750 mg/ (Premix) 150 mls @ 100 mls/hr IV ONETIME ONE Stop: 02/20/19 17:09 Laboratory Tests 02/20/19 02/20/19 02/20/19 Range/Units 13:45 13:45 13:45 WBC 16.90 H (4.23-9.07) K/mm3 RBC 4.76 (4.63-6.08) M/mm3 Hgb 14.7 (13.7-17.5) gm/L Hct 41.9 (40.1-51.0) % MCV 88.0 D (79.0-92.2) fl MCH 30.9 (25.7-32.2) pg MCHC 35.1 (32.2-35.5) g/dl RDW Std Deviation 48.6 H (35.1-43.9) fL Plt Count 275 D (163-337) K/mm3 MPV 8.6 L (9.4-12.3) fl Neutrophils % (Manual) 79 H (40-60) % Band Neutrophils % 7 (0-10) % Lymphocytes % (Manual) 13 L (20-40) % Atypical Lymphs % 0 % Monocytes % (Manual) 1 L (2-10) % Eosinophils % (Manual) 0 L (0.8-7.0) % Basophils % (Manual) 0 L (0.2-1.2) Platelet Estimate Adequate RBC Morph Comment Normal PT 10.7 (9.5-12.1) SECONDS INR 0.98 APTT 28 (24-31) SECONDS Sodium 142 (136-145) mEq/L Potassium 2.9 L (3.5-5.1) mEq/L Chloride 99 (98-107) mEq/L Carbon Dioxide 27 (21-32) mEq/L Anion Gap 18.9 H (5-15) BUN 7 (7-18) mg/dL Creatinine 0.7 (0.7-1.3) mg/dL Est Cr Clr Drug Dosing 118.17 mL/min Estimated GFR (MDRD) > 60 (>60) mL/min BUN/Creatinine Ratio 10.0 L (14-18) Glucose 169 H (74-106) mg/dL Lactic Acid (0.4-2.0) mmol/L Calcium 8.6 (8.5-10.1) mg/dL Total Bilirubin 0.3 (0.2-1.0) mg/dL AST 46 H (15-37) U/L ALT 34 (16-63) U/L Alkaline Phosphatase 180 H (46-116) U/L C-Reactive Protein 10.1 H* (<1.0) mg/dL Total Protein 7.7 (6.4-8.2) g/dl Albumin 3.3 L (3.4-5.0) g/dl Globulin 4.4 gm/dL Albumin/Globulin Ratio 0.8 L (1-2) Lipase 168 (73-393) U/L Urine RBC (0-5) /hpf Urine WBC (0-5) /hpf Ur Squamous Epith Cells (0-5) /hpf Urine Bacteria (FEW) /hpf Urine Mucus (FEW) /hpf Urine Opiates Screen (GZZGCP=356) Ur Buprenorphine Scrn (CUTOFF=10) Ur Oxycodone Screen (DXH2PN=889) Urine Methadone Screen (FMG7UK=157) Ur Propoxyphene Screen (NVFUIY=642) Ur Barbiturates Screen (VTHFZV=005) Ur Tricyclics Screen (ZALLKF=938) Ur Phencyclidine Scrn (CUTOFF=25) Ur Amphetamine Screen (TSAWAI=456) U Methamphetamines Scrn (ZBSPHJ=137) U Benzodiazepines Scrn (IOQQOF=397) U Cocaine Metab Screen (PNTMMM=898) U Marijuana (THC) Screen (CUTOFF=50) Ethyl Alcohol 0.39 (0.00) gm% Ketones (0.0-0.3) mM Hepatitis C Antibody (NEGATIVE) 02/20/19 02/20/19 02/20/19 Range/Units 13:45 13:45 13:45 WBC (4.23-9.07) K/mm3 RBC (4.63-6.08) M/mm3 Hgb (13.7-17.5) gm/L Hct (40.1-51.0) % MCV (79.0-92.2) fl MCH (25.7-32.2) pg MCHC (32.2-35.5) g/dl RDW Std Deviation (35.1-43.9) fL Plt Count (163-337) K/mm3 MPV (9.4-12.3) fl Neutrophils % (Manual) (40-60) % Band Neutrophils % (0-10) % Lymphocytes % (Manual) (20-40) % Atypical Lymphs % % Monocytes % (Manual) (2-10) % Eosinophils % (Manual) (0.8-7.0) % Basophils % (Manual) (0.2-1.2) Platelet Estimate RBC Morph Comment PT (9.5-12.1) SECONDS INR APTT (24-31) SECONDS Sodium (136-145) mEq/L Potassium (3.5-5.1) mEq/L Chloride (98-107) mEq/L Carbon Dioxide (21-32) mEq/L Anion Gap (5-15) BUN (7-18) mg/dL Creatinine (0.7-1.3) mg/dL Est Cr Clr Drug Dosing mL/min Estimated GFR (MDRD) (>60) mL/min BUN/Creatinine Ratio (14-18) Glucose (74-106) mg/dL Lactic Acid 4.5 H (0.4-2.0) mmol/L Calcium (8.5-10.1) mg/dL Total Bilirubin (0.2-1.0) mg/dL AST (15-37) U/L ALT (16-63) U/L Alkaline Phosphatase (46-116) U/L C-Reactive Protein (<1.0) mg/dL Total Protein (6.4-8.2) g/dl Albumin (3.4-5.0) g/dl Globulin gm/dL Albumin/Globulin Ratio (1-2) Lipase (73-393) U/L Urine RBC (0-5) /hpf Urine WBC (0-5) /hpf Ur Squamous Epith Cells (0-5) /hpf Urine Bacteria (FEW) /hpf Urine Mucus (FEW) /hpf Urine Opiates Screen (JKYMBO=548) Ur Buprenorphine Scrn (CUTOFF=10) Ur Oxycodone Screen (TYI8CQ=440) Urine Methadone Screen (QLE2GB=970) Ur Propoxyphene Screen (ONHISP=871) Ur Barbiturates Screen (YHKXRH=417) Ur Tricyclics Screen (QHSFSN=919) Ur Phencyclidine Scrn (CUTOFF=25) Ur Amphetamine Screen (LYEAEW=078) U Methamphetamines Scrn (OMJNXX=245) U Benzodiazepines Scrn (GTQAUB=391) U Cocaine Metab Screen (LDKEOR=127) U Marijuana (THC) Screen (CUTOFF=50) Ethyl Alcohol (0.00) gm% Ketones 0.4 (0.0-0.3) mM Hepatitis C Antibody Negative (NEGATIVE) 02/20/19 02/20/19 Range/Units 14:36 14:36 WBC (4.23-9.07) K/mm3 RBC (4.63-6.08) M/mm3 Hgb (13.7-17.5) gm/L Hct (40.1-51.0) % MCV (79.0-92.2) fl MCH (25.7-32.2) pg MCHC (32.2-35.5) g/dl RDW Std Deviation (35.1-43.9) fL Plt Count (163-337) K/mm3 MPV (9.4-12.3) fl Neutrophils % (Manual) (40-60) % Band Neutrophils % (0-10) % Lymphocytes % (Manual) (20-40) % Atypical Lymphs % % Monocytes % (Manual) (2-10) % Eosinophils % (Manual) (0.8-7.0) % Basophils % (Manual) (0.2-1.2) Platelet Estimate RBC Morph Comment PT (9.5-12.1) SECONDS INR APTT (24-31) SECONDS Sodium (136-145) mEq/L Potassium (3.5-5.1) mEq/L Chloride (98-107) mEq/L Carbon Dioxide (21-32) mEq/L Anion Gap (5-15) BUN (7-18) mg/dL Creatinine (0.7-1.3) mg/dL Est Cr Clr Drug Dosing mL/min Estimated GFR (MDRD) (>60) mL/min BUN/Creatinine Ratio (14-18) Glucose (74-106) mg/dL Lactic Acid (0.4-2.0) mmol/L Calcium (8.5-10.1) mg/dL Total Bilirubin (0.2-1.0) mg/dL AST (15-37) U/L ALT (16-63) U/L Alkaline Phosphatase (46-116) U/L C-Reactive Protein (<1.0) mg/dL Total Protein (6.4-8.2) g/dl Albumin (3.4-5.0) g/dl Globulin gm/dL Albumin/Globulin Ratio (1-2) Lipase (73-393) U/L Urine RBC Not seen (0-5) /hpf Urine WBC Not seen (0-5) /hpf Ur Squamous Epith Cells Not seen (0-5) /hpf Urine Bacteria Not seen (FEW) /hpf Urine Mucus Not seen (FEW) /hpf Urine Opiates Screen Negative (VLSGIC=619) Ur Buprenorphine Scrn Negative (CUTOFF=10) Ur Oxycodone Screen Negative (HPJ9VY=082) Urine Methadone Screen Negative (NTG8JO=654) Ur Propoxyphene Screen Negative (FKDPTZ=850) Ur Barbiturates Screen Negative (UEIAUO=432) Ur Tricyclics Screen Negative (QPKLPZ=675) Ur Phencyclidine Scrn Negative (CUTOFF=25) Ur Amphetamine Screen Negative (FOGZUS=403) U Methamphetamines Scrn Negative (MLGBFO=531) U Benzodiazepines Scrn Negative (PERFAY=599) U Cocaine Metab Screen Negative (EQSEIR=859) U Marijuana (THC) Screen Negative (CUTOFF=50) Ethyl Alcohol (0.00) gm% Ketones (0.0-0.3) mM Hepatitis C Antibody (NEGATIVE) Medications Generic Name Dose Route Start Last Admin Trade Name Freq PRN Reason Stop Dose Admin Dextrose/Sodium Chloride 1,000 mls @ 999 mls/hr 02/20/19 13:30 02/20/19 14:00 Dextrose 5%-Normal Saline IV 999 mls/hr ASDIRECTED RICHARD Administration Potassium Chloride 10 meq/ 100 mls @ 100 mls/hr 02/20/19 15:03 02/20/19 15:44 Premix IV 02/20/19 16:02 100 mls/hr ONETIME ONE Administration Levofloxacin/Dextrose 750 mg/ 150 mls @ 100 mls/hr 02/20/19 15:40 Premix IV 02/20/19 17:09 ONETIME ONE Discontinued Medications Generic Name Dose Route Start Last Admin Trade Name Kavya PRN Reason Stop Dose Admin Lorazepam 2 mg 02/20/19 13:30 02/20/19 14:00 Ativan IVPUSH 02/20/19 13:31 2 mg ONETIME ONE Administration Lorazepam 2 mg 02/20/19 15:39 Ativan IVPUSH 02/20/19 15:40 ONETIME ONE Metoclopramide HCl 7.5 mg 02/20/19 15:39 Reglan IVPUSH 02/20/19 15:40 ONETIME ONE Thiamine HCl 200 mg 02/20/19 13:31 02/20/19 14:00 Vitamin B-1 IVPUSH 02/20/19 13:32 200 mg ONETIME ONE Administration Re-Assessment/Re-Exam: 38-year-old male presents to the ED if for detox from chronic alcohol use. Patient drinks on average 750 mils of Black velvet daily for the last month. Probably longer. He drinks totally blacks out and can't remember the details of a lot of things that happened to him in the last month. He has been drinking heavily for 20 years. States he is a joint 6 months of sobriety. He has gone into treatment programs he estimates 20 times in the past. He does use street drugs when they become available. Used cocaine about 2 weeks ago. Smokes marijuana when necessary. Smokes cigarettes daily. He presented with diffuse abdominal pain. States he often has emesis in the morning containing streaks of blood. He has no known history of pancreatitis. Re-Assessment/Re-Exam Date: 02/20/19 (White count is 16.90 with 79% neutrophils and 7% bands. Hemoglobin is 14.7 hematocrit is 41.9. Platelet count is 275,000. PT is 10.7 with an INR of 0.98. PTT is 28. Sodium is 142 potassium is low at 2.9. Chloride is 99 bicarbonate is 27. Anion gap is 18.9. BUN is 7 with a creatinine of 0.7. GFR is greater than 60. Glucose is elevated at 169. Lactic acidosis elevated at 4.5. Calcium is 8.6. Total bilirubin is 0.3. AST is 46 with an ALT of 34. Alk phosphatase is 180. C-reactive protein is elevated at 10.1. Serum lipase is 168. Blood alcohol is 0.39 g percent serum ketones are 0.4. Hepatitis C antibody is negative. Will replace his potassium with a K rider 10 mEq IV.) Re-Assessment/Re-Exam Time: 15:08 (On further questioning the patient states he has had some chills the last 3 days and cough is perhaps worse than normal. Not bringing up all over my sputum. Urine drug screen was negative at this time. Will have chest x-ray done.) Medical Clearance: 02/20/19 15:38 chest x-ray reveals left lower lobar pneumonia. Patient be started on Levaquin 750 mg IV. He'll have Ativan 2 mg IV at this time is she is feeling more tremulous. Also Dilaudid 0.5 mg IV for abdominal pain relief. Also will be given Reglan 7.5 mg IV. Departure - Departure Time of Disposition: 15:53 Disposition: Admitted As Inpatient 65 Condition: Serious Clinical Impression: Chronic alcoholism, Drug abuse, Alcohol abuse Chronic alcoholic gastritis Qualifiers: Gastritis bleeding: presence of bleeding unspecified Qualified Code(s): K29.20 - Alcoholic gastritis without bleeding Pneumonia Qualifiers: Pneumonia type: due to unspecified organism Laterality: left Lung location: lower lobe of lung Qualified Code(s): J18.1 - Lobar pneumonia, unspecified organism - Discharge Information *PRESCRIPTION DRUG MONITORING PROGRAM REVIEWED*: No *COPY OF PRESCRIPTION DRUG MONITORING REPORT IN PATIENT EBONY: No Instructions: Alcohol Use Disorder, Gastritis, Adult, [id number], Substance Use Disorder, Alcohol Intoxication, [id number] Referrals: Saida Catalan PA-C [Primary Care Provider] - - My Orders Last 24 Hours: My Active Orders 02/20/19 13:30 Dextrose 5%-0.9% NaCl [Dextrose 5%-Normal Saline] 1,000 ml IV ASDIRECTED 02/20/19 13:33 EKG Documentation Completion [RC] STAT 02/20/19 14:36 URINALYSIS W/MICROSCOPIC [UA W/MICROSCOPIC] [URIN] Stat 02/20/19 15:03 Potassium Chloride [KCl 10 MEQ in Water 100 ML] 10 meq Premix Bag 1 bag IV ONETIME 02/20/19 15:40 CULTURE BLOOD [BC] Stat CULTURE BLOOD [BC] Stat Levofloxacin/Dextrose 5%-Water [Levaquin in D5W 750 MG/150 ML] 750 mg Premix Bag 1 bag IV ONETIME Blood Culture x2 Reflex Set [OM.PC] Stat 02/20/19 15:46 Admission Status [Patient Status] [ADT] Routine 02/20/19 16:00 Dextrose 5%-0.9% NaCl [Dextrose 5%-Normal Saline] 1,000 ml IV ASDIRECTED - Assessment/Plan Last 24 Hours: My Active Orders 02/20/19 13:30 Dextrose 5%-0.9% NaCl [Dextrose 5%-Normal Saline] 1,000 ml IV ASDIRECTED 02/20/19 13:33 EKG Documentation Completion [RC] STAT 02/20/19 14:36 URINALYSIS W/MICROSCOPIC [UA W/MICROSCOPIC] [URIN] Stat 02/20/19 15:03 Potassium Chloride [KCl 10 MEQ in Water 100 ML] 10 meq Premix Bag 1 bag IV ONETIME 02/20/19 15:40 CULTURE BLOOD [BC] Stat CULTURE BLOOD [BC] Stat Levofloxacin/Dextrose 5%-Water [Levaquin in D5W 750 MG/150 ML] 750 mg Premix Bag 1 bag IV ONETIME Blood Culture x2 Reflex Set [OM.PC] Stat 02/20/19 15:46 Admission Status [Patient Status] [ADT] Routine 02/20/19 16:00 Dextrose 5%-0.9% NaCl [Dextrose 5%-Normal Saline] 1,000 ml IV ASDIRECTED
[2019-02-20] MEDS: Dextrose 5%-0.9% NaCl 1,000 ML IV SCH ×3 (14:00→23:27)
[2019-02-20] MEDS ORDERED: Potassium Chloride 10 MEQ in Premix Bag 1 BAG IV ONE (15:03)
--- NOTE | 2019-02-20 15:35 | CR ---
Chest: Frontal view of the chest was obtained utilizing portable technique. Comparison: No prior chest x-ray. Increased parenchymal density is noted within the left lung base. Right lung is clear. Heart size and mediastinum are normal. Bony structures are unremarkable. Impression: 1. Parenchymal density within the left lung base suspicious for pneumonia. Diagnostic code #3
[2019-02-20] MEDS ORDERED: Metoclopramide 10 MG/2 ML SDV IVPUSH ONE (15:39)
[2019-02-20] MEDS ORDERED: Levofloxacin/Dextrose 5%-Water 750 MG in Premix Bag 1 BAG IV ONE (15:40)
[2019-02-20] MEDS ORDERED: Dextrose 5%-0.9% NaCl 1,000 ML IV SCH (16:00)
[2019-02-20] MEDS ORDERED: Acetaminophen 325 MG Tab PO ONE (17:47)
[2019-02-20] MEDS ORDERED: Ondansetron 4 MG/2 ML SDV IV PRN (18:36)
--- NOTE | 2019-02-20 18:46 | PCM.HP ---
H&P History of Present Illness - General Date of Service: 02/20/19 Admit Problem/Dx: Admission Diagnosis/Problem Admission Diagnosis/Problem Chronic alcoholism Source of Information: Patient, Provider History Limitations: Reports: Intoxication - History of Present Illness Initial Comments - Free Text/Narative: This 38-year-old male was admitted through the emergency room for alcohol detox and left lower lobe pneumonia. Patient has been in and out of rehabilitation multiple times and he states that on one occasion he did have alcohol withdrawal seizures. Currently, for last 30 days, he has been drinking approximately half gallon of Black Velvet whiskey. He states couple of days ago he started having all over body pain, fever, chills, and dark yellow sputum. He does have a history of fibromyalgia. He is also a smoker. He has been vomiting and has loose stools. Neither have had blood. He complains of abdominal pain radiating into his back, but he did have a normal lipase. He was on gabapentin 600 mg 3 times a day but he stopped 2 weeks ago cold turkey. According to the emergency room notes he was also on Zoloft and cyclobenzaprine. Patient denies any visual hallucinations and has not been using any other illicit drugs. He does state that he blacks out from drinking. In the emergency room he was tremulous, but now he is sedated making him a poor historian. Most of the history was obtained from the emergency room and old records. In the emergency room his ECG showed normal sinus rhythm at 84 bpm with a prolonged QTc of 596. Pattern consistent with left ventricular hypertrophy. Chest x-ray showed a parenchymal density within the left lung base suspicious for pneumonia. CBC was significant for a white count of 16.9. C-reactive protein was 10.1, lactic acid of 4.5, AST 46, ALT 34, alkaline phosphatase 180, potassium of 2.9. Urine drug screen was negative. Ethyl alcohol level was 0.39 and keep total 0.4 Generalized Pain Score (Numeric/FACES): 10 - Related Data Allergies/Adverse Reactions: Allergies Allergy/AdvReac Type Severity Reaction Status Date / Time No Known Allergies Allergy Verified 10/12/18 11:44 Home Medications: Home Meds . [No Known Home Meds] 02/20/19 [History] Past Medical History Respiratory History: Reports: Sleep Apnea Musculoskeletal History: Reports: Fibromyalgia, Other (See Below) Other Musculoskeletal History: MRI-bulges to back and not sure what else going on Psychiatric History: Reports: Addiction, Depression Social & Family History - Family History Family Medical History: Noncontributory - Tobacco Use Smoking Status *Q: Current Every Day Smoker Years of Tobacco use: 15 Packs/Tins Daily: 0.5 - Caffeine Use Caffeine Use: Reports: None Other Caffeine Use: unknown - Alcohol Use Days Per Week of Alcohol Use: 7 Number of Drinks Per Day: 10 Total Drinks Per Week: 70 Date of Last Drink: 02/20/19 Time of Last Drink: 13:00 - Recreational Drug Use Recreational Drug Use: Yes Drug Use in Last 12 Months: Yes Recreational Drug Type: Reports: Cocaine Other Recreational Drug Type: used last 2 weeks ago. reports snorting cocaine Recreational Drug Use Frequency: Socially - Living Situation & Occupation Living situation: Reports: (), with Family Occupation: Unemployed H&P Review of Systems - Review of Systems: Review Of Systems: ROS reveals no pertinent complaints other than HPI. Exam - Exam Exam: See Below - Vital Signs Vital Signs: Last Vital Signs Temp 99.1 F 02/20/19 18:06 Pulse 118 H 02/20/19 16:15 Resp 16 02/20/19 16:15 BP 119/55 L 02/20/19 16:15 Pulse Ox 92 L 02/20/19 16:15 Weight: 135 lb 3.2 oz - Exam Quality Assessment: Supplemental Oxygen General: Sedated HEENT: Conjunctiva Clear, Mucosa Moist & [place], Posterior Pharynx Clear Neck: Supple, Trachea Midline Lungs: Clear to Auscultation, Normal Respiratory Effort Cardiovascular: Regular Rhythm, Tachycardia GI/Abdominal Exam: Normal Bowel Sounds, Soft, No Distention, Tender. No: Guarding, Rigid, Rebound Extremities: Normal Inspection, Normal Range of Motion, No Pedal Edema Neurological: Cranial Nerves Intact Neuro Extensive - Mental Status: Opens Eyes to Commands, Slow Response to Commands - Patient Data Lab Results Last 24 hrs: Laboratory Results - last 24 hr 02/20/19 02/20/19 02/20/19 Range/Units 13:45 13:45 13:45 WBC 16.90 H (4.23-9.07) K/mm3 RBC 4.76 (4.63-6.08) M/mm3 Hgb 14.7 (13.7-17.5) gm/L Hct 41.9 (40.1-51.0) % MCV 88.0 D (79.0-92.2) fl MCH 30.9 (25.7-32.2) pg MCHC 35.1 (32.2-35.5) g/dl RDW Std Deviation 48.6 H (35.1-43.9) fL Plt Count 275 D (163-337) K/mm3 MPV 8.6 L (9.4-12.3) fl Neutrophils % (Manual) 79 H (40-60) % Band Neutrophils % 7 (0-10) % Lymphocytes % (Manual) 13 L (20-40) % Atypical Lymphs % 0 % Monocytes % (Manual) 1 L (2-10) % Eosinophils % (Manual) 0 L (0.8-7.0) % Basophils % (Manual) 0 L (0.2-1.2) Platelet Estimate Adequate RBC Morph Comment Normal PT 10.7 (9.5-12.1) SECONDS INR 0.98 APTT 28 (24-31) SECONDS Sodium 142 (136-145) mEq/L Potassium 2.9 L (3.5-5.1) mEq/L Chloride 99 (98-107) mEq/L Carbon Dioxide 27 (21-32) mEq/L Anion Gap 18.9 H (5-15) BUN 7 (7-18) mg/dL Creatinine 0.7 (0.7-1.3) mg/dL Est Cr Clr Drug Dosing 118.17 mL/min Estimated GFR (MDRD) > 60 (>60) mL/min BUN/Creatinine Ratio 10.0 L (14-18) Glucose 169 H (74-106) mg/dL Lactic Acid (0.4-2.0) mmol/L Calcium 8.6 (8.5-10.1) mg/dL Total Bilirubin 0.3 (0.2-1.0) mg/dL AST 46 H (15-37) U/L ALT 34 (16-63) U/L Alkaline Phosphatase 180 H (46-116) U/L C-Reactive Protein 10.1 H* (<1.0) mg/dL Total Protein 7.7 (6.4-8.2) g/dl Albumin 3.3 L (3.4-5.0) g/dl Globulin 4.4 gm/dL Albumin/Globulin Ratio 0.8 L (1-2) Lipase 168 (73-393) U/L Urine Color (Yellow) Urine Appearance (Clear) Urine pH (5.0-8.0) Ur Specific [place] (1.005-1.030) Urine Protein (Negative) Urine Glucose (UA) (Negative) Urine Ketones (Negative) Urine Occult Blood (Negative) Urine Nitrite (Negative) Urine Bilirubin (Negative) Urine Urobilinogen (0.2-1.0) Ur Leukocyte Esterase (Negative) Urine RBC (0-5) /hpf Urine WBC (0-5) /hpf Ur Squamous Epith Cells (0-5) /hpf Urine Bacteria (FEW) /hpf Urine Mucus (FEW) /hpf Urine Opiates Screen (DOYZLH=835) Ur Buprenorphine Scrn (CUTOFF=10) Ur Oxycodone Screen (BND8FV=131) Urine Methadone Screen (OGZ1KO=940) Ur Propoxyphene Screen (AERHKJ=285) Ur Barbiturates Screen (MXHLNZ=266) Ur Tricyclics Screen (SLAEMP=895) Ur Phencyclidine Scrn (CUTOFF=25) Ur Amphetamine Screen (FWSKTV=131) U Methamphetamines Scrn (OCWKDR=668) U Benzodiazepines Scrn (TMARCY=167) U Cocaine Metab Screen (FLRHZJ=578) U Marijuana (THC) Screen (CUTOFF=50) Ethyl Alcohol 0.39 (0.00) gm% Ketones (0.0-0.3) mM Hepatitis C Antibody (NEGATIVE) 02/20/19 02/20/19 02/20/19 Range/Units 13:45 13:45 13:45 WBC (4.23-9.07) K/mm3 RBC (4.63-6.08) M/mm3 Hgb (13.7-17.5) gm/L Hct (40.1-51.0) % MCV (79.0-92.2) fl MCH (25.7-32.2) pg MCHC (32.2-35.5) g/dl RDW Std Deviation (35.1-43.9) fL Plt Count (163-337) K/mm3 MPV (9.4-12.3) fl Neutrophils % (Manual) (40-60) % Band Neutrophils % (0-10) % Lymphocytes % (Manual) (20-40) % Atypical Lymphs % % Monocytes % (Manual) (2-10) % Eosinophils % (Manual) (0.8-7.0) % Basophils % (Manual) (0.2-1.2) Platelet Estimate RBC Morph Comment PT (9.5-12.1) SECONDS INR APTT (24-31) SECONDS Sodium (136-145) mEq/L Potassium (3.5-5.1) mEq/L Chloride (98-107) mEq/L Carbon Dioxide (21-32) mEq/L Anion Gap (5-15) BUN (7-18) mg/dL Creatinine (0.7-1.3) mg/dL Est Cr Clr Drug Dosing mL/min Estimated GFR (MDRD) (>60) mL/min BUN/Creatinine Ratio (14-18) Glucose (74-106) mg/dL Lactic Acid 4.5 H (0.4-2.0) mmol/L Calcium (8.5-10.1) mg/dL Total Bilirubin (0.2-1.0) mg/dL AST (15-37) U/L ALT (16-63) U/L Alkaline Phosphatase (46-116) U/L C-Reactive Protein (<1.0) mg/dL Total Protein (6.4-8.2) g/dl Albumin (3.4-5.0) g/dl Globulin gm/dL Albumin/Globulin Ratio (1-2) Lipase (73-393) U/L Urine Color (Yellow) Urine Appearance (Clear) Urine pH (5.0-8.0) Ur Specific [place] (1.005-1.030) Urine Protein (Negative) Urine Glucose (UA) (Negative) Urine Ketones (Negative) Urine Occult Blood (Negative) Urine Nitrite (Negative) Urine Bilirubin (Negative) Urine Urobilinogen (0.2-1.0) Ur Leukocyte Esterase (Negative) Urine RBC (0-5) /hpf Urine WBC (0-5) /hpf Ur Squamous Epith Cells (0-5) /hpf Urine Bacteria (FEW) /hpf Urine Mucus (FEW) /hpf Urine Opiates Screen (OIGFZH=521) Ur Buprenorphine Scrn (CUTOFF=10) Ur Oxycodone Screen (FUI8DY=011) Urine Methadone Screen (RWF7CH=104) Ur Propoxyphene Screen (AOWECW=558) Ur Barbiturates Screen (VRVAOX=333) Ur Tricyclics Screen (FHXJNN=679) Ur Phencyclidine Scrn (CUTOFF=25) Ur Amphetamine Screen (BUPZXD=362) U Methamphetamines Scrn (JNIYBF=845) U Benzodiazepines Scrn (JYOOOU=805) U Cocaine Metab Screen (ELEWBE=102) U Marijuana (THC) Screen (CUTOFF=50) Ethyl Alcohol (0.00) gm% Ketones 0.4 (0.0-0.3) mM Hepatitis C Antibody Negative (NEGATIVE) 02/20/19 02/20/19 Range/Units 14:36 14:36 WBC (4.23-9.07) K/mm3 RBC (4.63-6.08) M/mm3 Hgb (13.7-17.5) gm/L Hct (40.1-51.0) % MCV (79.0-92.2) fl MCH (25.7-32.2) pg MCHC (32.2-35.5) g/dl RDW Std Deviation (35.1-43.9) fL Plt Count (163-337) K/mm3 MPV (9.4-12.3) fl Neutrophils % (Manual) (40-60) % Band Neutrophils % (0-10) % Lymphocytes % (Manual) (20-40) % Atypical Lymphs % % Monocytes % (Manual) (2-10) % Eosinophils % (Manual) (0.8-7.0) % Basophils % (Manual) (0.2-1.2) Platelet Estimate RBC Morph Comment PT (9.5-12.1) SECONDS INR APTT (24-31) SECONDS Sodium (136-145) mEq/L Potassium (3.5-5.1) mEq/L Chloride (98-107) mEq/L Carbon Dioxide (21-32) mEq/L Anion Gap (5-15) BUN (7-18) mg/dL Creatinine (0.7-1.3) mg/dL Est Cr Clr Drug Dosing mL/min Estimated GFR (MDRD) (>60) mL/min BUN/Creatinine Ratio (14-18) Glucose (74-106) mg/dL Lactic Acid (0.4-2.0) mmol/L Calcium (8.5-10.1) mg/dL Total Bilirubin (0.2-1.0) mg/dL AST (15-37) U/L ALT (16-63) U/L Alkaline Phosphatase (46-116) U/L C-Reactive Protein (<1.0) mg/dL Total Protein (6.4-8.2) g/dl Albumin (3.4-5.0) g/dl Globulin gm/dL Albumin/Globulin Ratio (1-2) Lipase (73-393) U/L Urine Color Yellow (Yellow) Urine Appearance Clear (Clear) Urine pH 6.5 (5.0-8.0) Ur Specific [place] 1.010 (1.005-1.030) Urine Protein Negative (Negative) Urine Glucose (UA) Trace H (Negative) Urine Ketones 1+ H (Negative) Urine Occult Blood Trace-intact H (Negative) Urine Nitrite Negative (Negative) Urine Bilirubin Negative (Negative) Urine Urobilinogen 0.2 (0.2-1.0) Ur Leukocyte Esterase Negative (Negative) Urine RBC Not seen (0-5) /hpf Urine WBC Not seen (0-5) /hpf Ur Squamous Epith Cells Not seen (0-5) /hpf Urine Bacteria Not seen (FEW) /hpf Urine Mucus Not seen (FEW) /hpf Urine Opiates Screen Negative (CJLJKR=246) Ur Buprenorphine Scrn Negative (CUTOFF=10) Ur Oxycodone Screen Negative (PZC5FH=351) Urine Methadone Screen Negative (IVR4GH=214) Ur Propoxyphene Screen Negative (RROPFM=539) Ur Barbiturates Screen Negative (EQAKHB=943) Ur Tricyclics Screen Negative (CZWFGN=930) Ur Phencyclidine Scrn Negative (CUTOFF=25) Ur Amphetamine Screen Negative (RBPGVI=994) U Methamphetamines Scrn Negative (VAOXZA=489) U Benzodiazepines Scrn Negative (JSLKBQ=408) U Cocaine Metab Screen Negative (VGAOJM=281) U Marijuana (THC) Screen Negative (CUTOFF=50) Ethyl Alcohol (0.00) gm% Ketones (0.0-0.3) mM Hepatitis C Antibody (NEGATIVE) Result Diagrams: 02/20/19 13:45 02/20/19 13:45 - Problem List (1) Chronic alcoholism SNOMED Code(s): 4945158 ICD Code: F10.20 - ALCOHOL DEPENDENCE, UNCOMPLICATED Status: Acute Current Visit: Yes (2) Pneumonia SNOMED Code(s): 290536716 ICD Code: J18.9 - PNEUMONIA, UNSPECIFIED ORGANISM Status: Acute Current Visit: Yes Qualifiers: Pneumonia type: due to unspecified organism Laterality: left Lung location: lower lobe of lung Qualified Code(s): J18.1 - Lobar pneumonia, unspecified organism (3) Low back pain SNOMED Code(s): 594053120 ICD Code: M54.5 - LOW BACK PAIN Status: Acute Current Visit: No Qualifiers: Chronicity: acute Back pain laterality: bilateral Sciatica presence: without sciatica Qualified Code(s): M54.5 - Low back pain (4) Alcohol withdrawal syndrome SNOMED Code(s): 612491525 ICD Code: F10.239 - ALCOHOL DEPENDENCE WITH WITHDRAWAL, UNSPECIFIED Status : Resolved Priority: High Current Visit: No Problem List Initiated/Reviewed/Updated: Yes Orders Last 24hrs: Active Orders 24 hr Category Date Time Status Admission Status [Patient Status] [ADT] Routine ADT 02/20/19 15:46 Active EKG Documentation Completion [RC] STAT Care 02/20/19 13:33 Active Oxygen Therapy [RC] PRN Care 02/20/19 18:36 Ordered Up ad Sanjuanita [RC] ASDIRECTED Care 02/20/19 18:36 Ordered VTE/DVT Education [RC] PER UNIT ROUTINE Care 02/20/19 18:36 Ordered Vital Signs [RC] Q4H Care 02/20/19 18:36 Ordered Consult to Case Management/Drafting Layout Man [CONS] Cons 02/20/19 18:36 Ordered Routine Respiratory Care Assess and Treatment [CONS] Routine Cons 02/20/19 18:36 Ordered Regular Diet [DIET] Diet 02/20/19 Dinner Ordered C-REACTIVE PROTEIN [CHEM] AM Lab 02/21/19 05:11 Ordered CBC WITH AUTO DIFF [HEME] AM Lab 02/21/19 05:11 Ordered COMPREHENSIVE METABOLIC PN,CMP [CHEM] AM Lab 02/21/19 05:11 Ordered CULTURE BLOOD [BC] Stat Lab 02/20/19 15:50 Received CULTURE BLOOD [BC] Stat Lab 02/20/19 16:00 Received CULTURE SPUTUM + SMEAR [RM] Stat Lab 02/20/19 18:36 Ordered LACTIC ACID [CHEM] AM Lab 02/21/19 05:11 Ordered LEGIONELLA ANTIGEN [MREF] Routine Lab 02/20/19 18:40 Ordered MAGNESIUM [CHEM] AM Lab 02/21/19 05:11 Ordered STREP PNEUMONIAE ANTIGEN [MREF] Routine Lab 02/20/19 18:40 Ordered Dextrose 5%-0.9% NaCl [Dextrose 5%-Normal Saline] 1,000 Med 02/20/19 18:15 Active ml IV ASDIRECTED Enoxaparin [Lovenox] Med 02/21/19 09:00 Ordered 40 mg SUBCUT DAILY LORazepam [Ativan] Med 02/20/19 17:07 Active See Protocol IVPUSH Q1H PRN Nicotine [Habitrol] Med 02/20/19 18:45 Ordered 21 mg TRDERM DAILY Ondansetron [Zofran ODT] Med 02/20/19 18:36 Ordered 4 mg PO Q4H PRN Ondansetron [Zofran] Med 02/20/19 18:36 Ordered 4 mg IV Q4H PRN Potassium Chloride [KCl 10 MEQ in Water 100 ML] 10 meq Med 02/20/19 18:45 Ordered Premix Bag 1 bag IV Q1H chlordiazePOXIDE [Librium] Med 02/20/19 22:00 Ordered 50 mg PO Q8HR Blood Culture x2 Reflex Set [OM.PC] Stat Oth 02/20/19 15:40 Ordered Resuscitation Status Routine Resus Stat 02/20/19 18:36 Ordered Medication Orders Chlordiazepoxide HCl (Librium) 50 mg PO Q8HR RICHARD Enoxaparin Sodium (Lovenox) 40 mg SUBCUT DAILY RICHARD Dextrose/Sodium Chloride (Dextrose 5%-Normal Saline) 1,000 mls @ 125 mls/hr IV ASDIRECTED RICHARD Potassium Chloride 10 meq/ (Premix) 100 mls @ 100 mls/hr IV Q1H RICHARD Stop: 02/20/19 22:44 Lorazepam (Ativan) 0 mg IVPUSH Q1H PRN; Protocol PRN Reason: Withdrawl Nicotine (Habitrol) 21 mg TRDERM DAILY RICHARD Ondansetron HCl (Zofran Odt) 4 mg PO Q4H PRN PRN Reason: nausea, able to take PO Ondansetron HCl (Zofran) 4 mg IV Q4H PRN PRN Reason: Nausea/Vomiting Assessment/Plan Comment:: Chronic alcoholism with alcohol withdrawal * Patient will be started on CIWA protocol with Ativan * Scheduled Librium 50 mg every 8 hours * Thiamine and folic acid. * Consult discharge planning, licensed social worker, and substance abuse counseling Fibromyalgia with low back pain * I counseled the patient at this time we will not be giving him narcotics. * Tylenol for pain. * Consider restarting gabapentin as outpatient Left lower lobe pneumonia with sepsis * Patient given fluid boluses in the emergency room * Convert D5 normal saline to 150 mL an hour * Blood cultures were obtained in the emergency room * Levaquin 750 mg given in the ER, so we will continue with Levaquin 750 mg daily * Recheck CBC and C-reactive protein in the morning Prolonged QTC * Monitor and ICU Hypokalemia * Replenish potassium IV and recheck in the morning Length of stay approximately 3 days CODE STATUS: Full code VTE prophylaxis with Lovenox
[2019-02-20] MEDS: Potassium Chloride 10 MEQ in Premix Bag 1 BAG IV SCH ×4 (18:48→22:23)
[2019-02-20] MEDS: Nicotine 21 MG/24 Hr Patch TRDERM SCH ×2 (18:49→19:47)
[2019-02-20] MEDS: LORazepam 2 MG/ML SDV IVPUSH PRN ×4 (19:44→23:27)
[2019-02-20] MEDS: Ondansetron 4 MG Tab.DIS PO PRN (19:55)
[2019-02-20] MEDS: chlordiazePOXIDE 25 MG Cap PO SCH (21:14)
[2019-02-20] MEDS: Folic Acid 1 MG Tab PO SCH (21:14)
[2019-02-21] MEDS: LORazepam 2 MG/ML SDV IVPUSH PRN ×12 (01:38→23:57)
[2019-02-21] MEDS: Ondansetron 4 MG Tab.DIS PO PRN ×4 (01:44→23:55)
[2019-02-21] MEDS: chlordiazePOXIDE 25 MG Cap PO SCH ×3 (05:16→21:19)
[2019-02-21] MEDS: Acetaminophen 325 MG Tab PO PRN ×2 (05:16→12:29)
[2019-02-21] MEDS: Dextrose 5%-0.9% NaCl 1,000 ML IV SCH (07:25)
[2019-02-21] MEDS ORDERED: Magnesium Sulfate/Water 4 GM in Premix Bag 1 BAG IV ONE (07:42)
[2019-02-21] MEDS: Nicotine 21 MG/24 Hr Patch TRDERM SCH (08:14)
[2019-02-21] MEDS: Potassium Chloride 20 MEQ Tab.ER PO SCH ×2 (08:14→21:19)
[2019-02-21] MEDS: Enoxaparin 40 MG/0.4 ML Syringe SUBCUT SCH (08:14)
[2019-02-21] MEDS ORDERED: Levofloxacin/Dextrose 5%-Water 750 MG in Premix Bag 1 BAG IV SCH (15:00)
[2019-02-21] MEDS: Thiamine 100 MG Tab PO SCH (21:19)
[2019-02-21] MEDS: Folic Acid 1 MG Tab PO SCH (21:19)
[2019-02-22] MEDS: LORazepam 2 MG/ML SDV IVPUSH PRN ×6 (03:11→23:05)
[2019-02-22] MEDS: chlordiazePOXIDE 25 MG Cap PO SCH ×3 (05:20→16:24)
[2019-02-22] MEDS: Ondansetron 4 MG Tab.DIS PO PRN (06:35)
[2019-02-22] MEDS: LORazepam 1 MG Tab PO PRN ×4 (08:12→18:40)
[2019-02-22] MEDS: Nicotine 21 MG/24 Hr Patch TRDERM SCH (08:15)
[2019-02-22] MEDS: Enoxaparin 40 MG/0.4 ML Syringe SUBCUT SCH (08:15)
[2019-02-22] MEDS: Potassium Chloride 10 MEQ in Premix Bag 1 BAG IV SCH ×4 (08:19→12:31)
[2019-02-22] MEDS ORDERED: Ketorolac 15 MG/ML SDV IVPUSH ONE (11:45)
[2019-02-22] MEDS: Potassium Chloride 20 MEQ Tab.ER PO SCH ×2 (13:02→20:08)
[2019-02-22] MEDS: Levofloxacin 750 MG Tab PO SCH (14:13)
--- NOTE | 2019-02-22 14:37 | PCM.PN ---
- General Info Date of Service: 02/21/19 Admission Dx/Problem (Free Text): Admission Diagnosis/Problem Admission Diagnosis/Problem Chronic alcoholism Subjective Update: February 21, 2019 Patient had a good night. He rested comfortably but did get Ativan regularly. Patient continues on Librium 50 mg 3 times a day. He has minimal nausea but does complain of pain throughout his body. He has a history of fibromyalgia and in the past has been on gabapentin and other medications. He also has complaints of anxiety. , who he from, and daughter were in with him today. Functional Status: Denies: Pain Controlled - Review of Systems General: Reports: Weakness, Fatigue HEENT: Reports: No Symptoms Pulmonary: Reports: No Symptoms Cardiovascular: Reports: No Symptoms. Denies: Chest Pain, Dyspnea on Exertion Gastrointestinal: Reports: No Symptoms Psychiatric: Reports: Agitation, Cravings - Patient Data Vitals - Most Recent: Last Vital Signs Temp 98.0 F 02/22/19 12:00 Pulse 99 02/21/19 08:00 Resp 18 02/22/19 12:00 BP 142/106 H 02/22/19 12:00 Pulse Ox 96 02/22/19 12:00 Weight - Most Recent: 127 lb 14.4 oz I&O - Last 24 Hours: Intake & Output 02/21/19 02/22/19 02/22/19 22:59 06:59 14:59 Intake Total 950 500 880 Output Total 1300 Balance -350 500 880 Lab Results Last 24 Hours: Laboratory Results - last 24 hr 02/22/19 02/22/19 02/22/19 Range/Units 04:35 04:35 04:35 WBC 6.18 (4.23-9.07) K/mm3 RBC 4.70 (4.63-6.08) M/mm3 Hgb 14.3 D (13.7-17.5) gm/L Hct 42.5 (40.1-51.0) % MCV 90.4 (79.0-92.2) fl MCH 30.4 (25.7-32.2) pg MCHC 33.6 (32.2-35.5) g/dl RDW Std Deviation 51.0 H (35.1-43.9) fL Plt Count 206 (163-337) K/mm3 MPV 9.6 (9.4-12.3) fl Neut % (Auto) 60.6 (34.0-67.9) % Lymph % (Auto) 29.6 (21.8-53.1) % [place] % (Auto) 7.1 (5.3-12.2) % Eos % (Auto) 1.9 (0.8-7.0) Baso % (Auto) 0.3 (0.1-1.2) % Neut # (Auto) 3.74 (1.78-5.38) K/mm3 Lymph # (Auto) 1.83 (1.32-3.57) K/mm3 [place] # (Auto) 0.44 (0.30-0.82) K/mm3 Eos # (Auto) 0.12 (0.04-0.54) K/mm3 Baso # (Auto) 0.02 (0.01-0.08) K/mm3 Sodium 140 (136-145) mEq/L Potassium 3.0 L (3.5-5.1) mEq/L Chloride 100 (98-107) mEq/L Carbon Dioxide 27 (21-32) mEq/L Anion Gap 16.0 H (5-15) BUN 4 L (7-18) mg/dL Creatinine 0.6 L (0.7-1.3) mg/dL Est Cr Clr Drug Dosing 135.64 mL/min Estimated GFR (MDRD) > 60 (>60) mL/min BUN/Creatinine Ratio 6.7 L (14-18) Glucose 96 (74-106) mg/dL Calcium 9.5 (8.5-10.1) mg/dL Magnesium 1.9 (1.8-2.4) mg/dl Total Bilirubin 0.5 (0.2-1.0) mg/dL AST 46 H (15-37) U/L ALT 39 (16-63) U/L Alkaline Phosphatase 162 H (46-116) U/L C-Reactive Protein 6.4 H* (<1.0) mg/dL Total Protein 7.4 (6.4-8.2) g/dl Albumin 3.1 L (3.4-5.0) g/dl Globulin 4.3 gm/dL Albumin/Globulin Ratio 0.7 L (1-2) Ramon Results Last 24 Hours: Microbiology 02/20/19 21:26 Gram Stain - Final Sputum - Expectorated Sputum Culture - Final Beta Streptococcus Group F 02/20/19 14:36 Streptococcus pneumoniae Antigen (M - Final Urine 02/20/19 14:36 Legionella Urinary Antigen - Final Urine 02/20/19 16:00 Aerobic Blood Culture - Preliminary Blood - Venous - Lab Draw NO GROWTH AFTER 1 DAY Anaerobic Blood Culture - Preliminary NO GROWTH AFTER 1 DAY 02/20/19 15:50 Aerobic Blood Culture - Preliminary Blood - Venous NO GROWTH AFTER 1 DAY Anaerobic Blood Culture - Preliminary NO GROWTH AFTER 1 DAY Med Orders - Current: Current Medications Acetaminophen (Tylenol) 650 mg PO Q4H PRN PRN Reason: Pain/Fever Last Admin: 02/21/19 12:29 Dose: 650 mg Chlordiazepoxide HCl (Librium) 25 mg PO QID [facility] Last Admin: 02/22/19 13:01 Dose: 25 mg Enoxaparin Sodium (Lovenox) 40 mg SUBCUT DAILY [facility] Last Admin: 02/22/19 08:15 Dose: 40 mg Folic Acid (Folic Acid) 1 mg PO BEDTIME [facility] Last Admin: 02/21/19 21:19 Dose: 1 mg Levofloxacin (Levaquin) 750 mg PO Q24H [facility] Last Admin: 02/22/19 14:13 Dose: 750 mg Lorazepam (Ativan) 0 mg IVPUSH Q1H PRN; Protocol PRN Reason: Withdrawl Last Admin: 02/22/19 03:11 Dose: 1 mg Lorazepam (Ativan) 1 mg PO Q2H PRN; Protocol PRN Reason: Withdrawal Symptoms Last Admin: 02/22/19 13:34 Dose: 1 mg Miscellaneous Information (Remove Patch) 1 ea TRDERM DAILY [facility] Last Admin: 02/22/19 08:26 Dose: 1 ea Nicotine (Habitrol) 21 mg TRDERM DAILY [facility] Last Admin: 02/22/19 08:15 Dose: 21 mg Ondansetron HCl (Zofran Odt) 4 mg PO Q4H PRN PRN Reason: nausea, able to take PO Last Admin: 02/22/19 06:35 Dose: 4 mg Ondansetron HCl (Zofran) 4 mg IV Q4H PRN PRN Reason: Nausea/Vomiting Potassium Chloride (Klor-Con M20) 20 meq PO BID [facility] Stop: 02/22/19 21:01 Last Admin: 02/22/19 13:02 Dose: 20 meq Sodium Chloride (Saline Flush) 10 ml FLUSH ASDIRECTED PRN PRN Reason: Keep Vein Open Thiamine HCl (Vitamin B-1) 100 mg PO BEDTIME [facility] Last Admin: 02/21/19 21:19 Dose: 100 mg Discontinued Medications Acetaminophen (Tylenol) 650 mg PO ONETIME ONE Stop: 02/20/19 17:48 Last Admin: 02/20/19 18:06 Dose: 650 mg Chlordiazepoxide HCl (Librium) 50 mg PO Q8HR [facility] Last Admin: 02/22/19 05:20 Dose: 50 mg Dextrose/Sodium Chloride (Dextrose 5%-Normal Saline) 1,000 mls @ 999 mls/hr IV ASDIRECTED [facility] Last Admin: 02/20/19 15:54 Dose: 999 mls/hr Potassium Chloride 10 meq/ (Premix) 100 mls @ 100 mls/hr IV ONETIME ONE Stop: 02/20/19 16:02 Last Admin: 02/20/19 15:44 Dose: 100 mls/hr Levofloxacin/Dextrose 750 mg/ (Premix) 150 mls @ 100 mls/hr IV ONETIME ONE Stop: 02/20/19 17:09 Last Admin: 02/20/19 16:05 Dose: 100 mls/hr Dextrose/Sodium Chloride (Dextrose 5%-Normal Saline) 1,000 mls @ 250 mls/hr IV ASDIRECTED [facility] Last Infusion: 02/20/19 18:05 Dose: 125 mls/hr Dextrose/Sodium Chloride (Dextrose 5%-Normal Saline) 1,000 mls @ 125 mls/hr IV ASDIRECTED [facility] Last Admin: 02/21/19 07:25 Dose: 125 mls/hr Potassium Chloride 10 meq/ (Premix) 100 mls @ 100 mls/hr IV Q1H [facility] Stop: 02/20/19 22:44 Last Admin: 02/20/19 22:23 Dose: 100 mls/hr Levofloxacin/Dextrose 750 mg/ (Premix) 150 mls @ 100 mls/hr IV Q24H [facility] Last Admin: 02/21/19 14:27 Dose: 100 mls/hr Magnesium Sulfate 4 gm/ Premix 50 mls @ 12.5 mls/hr IV ONETIME ONE Stop: 02/21/19 11:41 Last Admin: 02/21/19 08:14 Dose: 12.5 mls/hr Potassium Chloride 10 meq/ (Premix) 100 mls @ 100 mls/hr IV Q1H [facility] Stop: 02/22/19 11:59 Last Admin: 02/22/19 12:31 Dose: Not Given Ketorolac Tromethamine (Toradol) 15 mg IVPUSH ONETIME ONE Stop: 02/22/19 11:46 Last Admin: 02/22/19 11:51 Dose: 15 mg Lorazepam (Ativan) 2 mg IVPUSH ONETIME ONE Stop: 02/20/19 13:31 Last Admin: 02/20/19 14:00 Dose: 2 mg Lorazepam (Ativan) 2 mg IVPUSH ONETIME ONE Stop: 02/20/19 15:40 Last Admin: 02/20/19 16:05 Dose: 2 mg Metoclopramide HCl (Reglan) 7.5 mg IVPUSH ONETIME ONE Stop: 02/20/19 15:40 Last Admin: 02/20/19 16:08 Dose: 7.5 mg Potassium Chloride (Klor-Con M20) 20 meq PO BID [facility] Stop: 02/21/19 21:01 Last Admin: 02/21/19 21:19 Dose: 20 meq Thiamine HCl (Vitamin B-1) 200 mg IVPUSH ONETIME ONE Stop: 02/20/19 13:32 Last Admin: 02/20/19 14:00 Dose: 200 mg - Exam Quality Assessment: No: Supplemental Oxygen General: Alert, Oriented HEENT: Pupils Equal Neck: Supple Lungs: Clear to Auscultation, Normal Respiratory Effort Cardiovascular: Regular Rate, Regular Rhythm GI/Abdominal Exam: Normal Bowel Sounds, Soft, Non-Tender, No Distention Back Exam: Normal Inspection Extremities: Normal Inspection, Normal Range of Motion, Non-Tender, No Pedal Edema - Problem List & Annotations (1) Chronic alcoholism SNOMED Code(s): 7743864 Code(s): F10.20 - ALCOHOL DEPENDENCE, UNCOMPLICATED Status: Acute Current Visit: Yes (2) Pneumonia SNOMED Code(s): 496379229 Code(s): J18.9 - PNEUMONIA, UNSPECIFIED ORGANISM Status: Acute Current Visit: Yes Qualifiers: Pneumonia type: due to unspecified organism Laterality: left Lung location: lower lobe of lung Qualified Code(s): J18.1 - Lobar pneumonia, unspecified organism (3) Low back pain SNOMED Code(s): 580761674 Code(s): M54.5 - LOW BACK PAIN Status: Acute Current Visit: No Qualifiers: Chronicity: acute Back pain laterality: bilateral Sciatica presence: without sciatica Qualified Code(s): M54.5 - Low back pain (4) Alcohol withdrawal syndrome SNOMED Code(s): 498286893 Code(s): F10.239 - ALCOHOL DEPENDENCE WITH WITHDRAWAL, UNSPECIFIED Status: Resolved Priority: High Current Visit: No - Problem List Review Problem List Initiated/Reviewed/Updated: Yes - My Orders Last 24 Hours: My Active Orders 02/21/19 15:50 Sodium Chloride 0.9% [Saline Flush] 10 ml FLUSH ASDIRECTED PRN Convert IV to Saline Lock [OM.PC] Routine 02/21/19 21:00 Thiamine [Vitamin B-1] 100 mg PO BEDTIME 02/22/19 07:49 LORazepam [Ativan] 1 mg PO Q2H PRN 02/22/19 11:30 Admission Status [Patient Status] [ADT] Routine 02/22/19 11:45 Potassium Chloride [Klor-Con M20] 20 meq PO BID 02/22/19 14:00 chlordiazePOXIDE [Librium] 25 mg PO QID 02/22/19 15:00 levoFLOXacin [Levaquin] 750 mg PO Q24H - Plan Plan:: Chronic alcoholism with alcohol withdrawal * Patient continues on CIWA protocol with Ativan * Scheduled Librium 50 mg every 8 hours * Thiamine and folic acid. * Consult discharge planning, social media marketing analyst, and substance abuse counseling * patient will need inpatient therapy. Fibromyalgia with low back pain * I counseled the patient at this time we will not be giving him narcotics. * Tylenol for pain. * Consider restarting gabapentin as outpatient Left lower lobe pneumonia with sepsis * Patient given fluid boluses in the emergency room * DC fluids * Blood cultures were obtained in the emergency room * Levaquin 750 mg given in the ER, so we will continue with Levaquin 750 mg daily * Recheck CBC and C-reactive protein in the morning * respiratory panel, Legionella, and pneumococcal antigen Prolonged QTC * Monitor and ICU Hypokalemia * Replenish potassium IV and recheck in the morning Length of stay approximately 3 days CODE STATUS: Full code VTE prophylaxis with Lovenox
--- NOTE | 2019-02-22 14:43 | PCM.PN ---
- General Info Date of Service: 02/22/19 Admission Dx/Problem (Free Text): Admission Diagnosis/Problem Admission Diagnosis/Problem Chronic alcoholism Subjective Update: February 21, 2019 Patient had a good night. He rested comfortably but did get Ativan regularly. Patient continues on Librium 50 mg 3 times a day. He has minimal nausea but does complain of pain throughout his body. He has a history of fibromyalgia and in the past has been on gabapentin and other medications. He also has complaints of anxiety. , who he from, and daughter were in with him today. February 22, 2019 Patient was up most of the night. He continues to complain of pain throughout his body because of his fibromyalgia. His estranged and daughter have been in several times in the last 2 days. Patient is requesting his Ativan every hour to 2. Blood pressures have been slightly elevated. Functional Status: Denies: Pain Controlled - Review of Systems General: Reports: Weakness, Fatigue HEENT: Reports: No Symptoms Pulmonary: Reports: No Symptoms Cardiovascular: Reports: No Symptoms. Denies: Chest Pain, Dyspnea on Exertion Gastrointestinal: Reports: No Symptoms Genitourinary: Reports: No Symptoms. Denies: Incontinence Musculoskeletal: Reports: Back Pain. Denies: No Symptoms Skin: Reports: No Symptoms Psychiatric: Reports: Depression, Anxiety, Agitation, Cravings - Patient Data Vitals - Most Recent: Last Vital Signs Temp 98.0 F 02/22/19 12:00 Pulse 99 02/21/19 08:00 Resp 18 02/22/19 12:00 BP 142/106 H 02/22/19 12:00 Pulse Ox 96 02/22/19 12:00 Weight - Most Recent: 127 lb 14.4 oz I&O - Last 24 Hours: Intake & Output 02/21/19 02/22/19 02/22/19 22:59 06:59 14:59 Intake Total 950 500 880 Output Total 1300 Balance -350 500 880 Lab Results Last 24 Hours: Laboratory Results - last 24 hr 02/22/19 02/22/19 02/22/19 Range/Units 04:35 04:35 04:35 WBC 6.18 (4.23-9.07) K/mm3 RBC 4.70 (4.63-6.08) M/mm3 Hgb 14.3 D (13.7-17.5) gm/L Hct 42.5 (40.1-51.0) % MCV 90.4 (79.0-92.2) fl MCH 30.4 (25.7-32.2) pg MCHC 33.6 (32.2-35.5) g/dl RDW Std Deviation 51.0 H (35.1-43.9) fL Plt Count 206 (163-337) K/mm3 MPV 9.6 (9.4-12.3) fl Neut % (Auto) 60.6 (34.0-67.9) % Lymph % (Auto) 29.6 (21.8-53.1) % [place] % (Auto) 7.1 (5.3-12.2) % Eos % (Auto) 1.9 (0.8-7.0) Baso % (Auto) 0.3 (0.1-1.2) % Neut # (Auto) 3.74 (1.78-5.38) K/mm3 Lymph # (Auto) 1.83 (1.32-3.57) K/mm3 [place] # (Auto) 0.44 (0.30-0.82) K/mm3 Eos # (Auto) 0.12 (0.04-0.54) K/mm3 Baso # (Auto) 0.02 (0.01-0.08) K/mm3 Sodium 140 (136-145) mEq/L Potassium 3.0 L (3.5-5.1) mEq/L Chloride 100 (98-107) mEq/L Carbon Dioxide 27 (21-32) mEq/L Anion Gap 16.0 H (5-15) BUN 4 L (7-18) mg/dL Creatinine 0.6 L (0.7-1.3) mg/dL Est Cr Clr Drug Dosing 135.64 mL/min Estimated GFR (MDRD) > 60 (>60) mL/min BUN/Creatinine Ratio 6.7 L (14-18) Glucose 96 (74-106) mg/dL Calcium 9.5 (8.5-10.1) mg/dL Magnesium 1.9 (1.8-2.4) mg/dl Total Bilirubin 0.5 (0.2-1.0) mg/dL AST 46 H (15-37) U/L ALT 39 (16-63) U/L Alkaline Phosphatase 162 H (46-116) U/L C-Reactive Protein 6.4 H* (<1.0) mg/dL Total Protein 7.4 (6.4-8.2) g/dl Albumin 3.1 L (3.4-5.0) g/dl Globulin 4.3 gm/dL Albumin/Globulin Ratio 0.7 L (1-2) Ramon Results Last 24 Hours: Microbiology 02/20/19 21:26 Gram Stain - Final Sputum - Expectorated Sputum Culture - Final Beta Streptococcus Group F 02/20/19 14:36 Streptococcus pneumoniae Antigen (M - Final Urine 02/20/19 14:36 Legionella Urinary Antigen - Final Urine 02/20/19 16:00 Aerobic Blood Culture - Preliminary Blood - Venous - Lab Draw NO GROWTH AFTER 1 DAY Anaerobic Blood Culture - Preliminary NO GROWTH AFTER 1 DAY 02/20/19 15:50 Aerobic Blood Culture - Preliminary Blood - Venous NO GROWTH AFTER 1 DAY Anaerobic Blood Culture - Preliminary NO GROWTH AFTER 1 DAY Med Orders - Current: Current Medications Acetaminophen (Tylenol) 650 mg PO Q4H PRN PRN Reason: Pain/Fever Last Admin: 02/21/19 12:29 Dose: 650 mg Chlordiazepoxide HCl (Librium) 25 mg PO QID [facility] Last Admin: 02/22/19 13:01 Dose: 25 mg Enoxaparin Sodium (Lovenox) 40 mg SUBCUT DAILY [facility] Last Admin: 02/22/19 08:15 Dose: 40 mg Folic Acid (Folic Acid) 1 mg PO BEDTIME [facility] Last Admin: 02/21/19 21:19 Dose: 1 mg Levofloxacin (Levaquin) 750 mg PO Q24H [facility] Last Admin: 02/22/19 14:13 Dose: 750 mg Lorazepam (Ativan) 0 mg IVPUSH Q1H PRN; Protocol PRN Reason: Withdrawl Last Admin: 02/22/19 03:11 Dose: 1 mg Lorazepam (Ativan) 1 mg PO Q2H PRN; Protocol PRN Reason: Withdrawal Symptoms Last Admin: 02/22/19 13:34 Dose: 1 mg Miscellaneous Information (Remove Patch) 1 ea TRDERM DAILY [facility] Last Admin: 02/22/19 08:26 Dose: 1 ea Nicotine (Habitrol) 21 mg TRDERM DAILY [facility] Last Admin: 02/22/19 08:15 Dose: 21 mg Ondansetron HCl (Zofran Odt) 4 mg PO Q4H PRN PRN Reason: nausea, able to take PO Last Admin: 02/22/19 06:35 Dose: 4 mg Ondansetron HCl (Zofran) 4 mg IV Q4H PRN PRN Reason: Nausea/Vomiting Potassium Chloride (Klor-Con M20) 20 meq PO BID [facility] Stop: 02/22/19 21:01 Last Admin: 02/22/19 13:02 Dose: 20 meq Sodium Chloride (Saline Flush) 10 ml FLUSH ASDIRECTED PRN PRN Reason: Keep Vein Open Thiamine HCl (Vitamin B-1) 100 mg PO BEDTIME [facility] Last Admin: 02/21/19 21:19 Dose: 100 mg Discontinued Medications Acetaminophen (Tylenol) 650 mg PO ONETIME ONE Stop: 02/20/19 17:48 Last Admin: 02/20/19 18:06 Dose: 650 mg Chlordiazepoxide HCl (Librium) 50 mg PO Q8HR [facility] Last Admin: 02/22/19 05:20 Dose: 50 mg Dextrose/Sodium Chloride (Dextrose 5%-Normal Saline) 1,000 mls @ 999 mls/hr IV ASDIRECTED [facility] Last Admin: 02/20/19 15:54 Dose: 999 mls/hr Potassium Chloride 10 meq/ (Premix) 100 mls @ 100 mls/hr IV ONETIME ONE Stop: 02/20/19 16:02 Last Admin: 02/20/19 15:44 Dose: 100 mls/hr Levofloxacin/Dextrose 750 mg/ (Premix) 150 mls @ 100 mls/hr IV ONETIME ONE Stop: 02/20/19 17:09 Last Admin: 02/20/19 16:05 Dose: 100 mls/hr Dextrose/Sodium Chloride (Dextrose 5%-Normal Saline) 1,000 mls @ 250 mls/hr IV ASDIRECTED [facility] Last Infusion: 02/20/19 18:05 Dose: 125 mls/hr Dextrose/Sodium Chloride (Dextrose 5%-Normal Saline) 1,000 mls @ 125 mls/hr IV ASDIRECTED [facility] Last Admin: 02/21/19 07:25 Dose: 125 mls/hr Potassium Chloride 10 meq/ (Premix) 100 mls @ 100 mls/hr IV Q1H [facility] Stop: 02/20/19 22:44 Last Admin: 02/20/19 22:23 Dose: 100 mls/hr Levofloxacin/Dextrose 750 mg/ (Premix) 150 mls @ 100 mls/hr IV Q24H [facility] Last Admin: 02/21/19 14:27 Dose: 100 mls/hr Magnesium Sulfate 4 gm/ Premix 50 mls @ 12.5 mls/hr IV ONETIME ONE Stop: 02/21/19 11:41 Last Admin: 02/21/19 08:14 Dose: 12.5 mls/hr Potassium Chloride 10 meq/ (Premix) 100 mls @ 100 mls/hr IV Q1H [facility] Stop: 02/22/19 11:59 Last Admin: 02/22/19 12:31 Dose: Not Given Ketorolac Tromethamine (Toradol) 15 mg IVPUSH ONETIME ONE Stop: 02/22/19 11:46 Last Admin: 02/22/19 11:51 Dose: 15 mg Lorazepam (Ativan) 2 mg IVPUSH ONETIME ONE Stop: 02/20/19 13:31 Last Admin: 02/20/19 14:00 Dose: 2 mg Lorazepam (Ativan) 2 mg IVPUSH ONETIME ONE Stop: 02/20/19 15:40 Last Admin: 02/20/19 16:05 Dose: 2 mg Metoclopramide HCl (Reglan) 7.5 mg IVPUSH ONETIME ONE Stop: 02/20/19 15:40 Last Admin: 02/20/19 16:08 Dose: 7.5 mg Potassium Chloride (Klor-Con M20) 20 meq PO BID [facility] Stop: 02/21/19 21:01 Last Admin: 02/21/19 21:19 Dose: 20 meq Thiamine HCl (Vitamin B-1) 200 mg IVPUSH ONETIME ONE Stop: 02/20/19 13:32 Last Admin: 02/20/19 14:00 Dose: 200 mg - Exam General: Alert, Oriented HEENT: Pupils Equal Neck: Supple Lungs: Clear to Auscultation, Normal Respiratory Effort Cardiovascular: Regular Rate, Regular Rhythm GI/Abdominal Exam: Normal Bowel Sounds, Soft, Non-Tender, No Distention Back Exam: Normal Inspection Extremities: Normal Inspection, Normal Range of Motion, Non-Tender, No Pedal Edema Skin: Warm, Dry Neurological: No New Focal Deficit Psy/Mental Status: Alert, Anxious, Depressed - Problem List & Annotations (1) Chronic alcoholism SNOMED Code(s): 4236232 Code(s): F10.20 - ALCOHOL DEPENDENCE, UNCOMPLICATED Status: Acute Current Visit: Yes (2) Pneumonia SNOMED Code(s): 596196101 Code(s): J18.9 - PNEUMONIA, UNSPECIFIED ORGANISM Status: Acute Current Visit: Yes Qualifiers: Pneumonia type: due to unspecified organism Laterality: left Lung location: lower lobe of lung Qualified Code(s): J18.1 - Lobar pneumonia, unspecified organism (3) Low back pain SNOMED Code(s): 297628095 Code(s): M54.5 - LOW BACK PAIN Status: Acute Current Visit: No Qualifiers: Chronicity: acute Back pain laterality: bilateral Sciatica presence: without sciatica Qualified Code(s): M54.5 - Low back pain (4) Alcohol withdrawal syndrome SNOMED Code(s): 255111503 Code(s): F10.239 - ALCOHOL DEPENDENCE WITH WITHDRAWAL, UNSPECIFIED Status: Resolved Priority: High Current Visit: No - Problem List Review Problem List Initiated/Reviewed/Updated: Yes - My Orders Last 24 Hours: My Active Orders 02/21/19 15:50 Sodium Chloride 0.9% [Saline Flush] 10 ml FLUSH ASDIRECTED PRN Convert IV to Saline Lock [OM.PC] Routine 02/21/19 21:00 Thiamine [Vitamin B-1] 100 mg PO BEDTIME 02/22/19 07:49 LORazepam [Ativan] 1 mg PO Q2H PRN 02/22/19 11:30 Admission Status [Patient Status] [ADT] Routine 02/22/19 11:45 Potassium Chloride [Klor-Con M20] 20 meq PO BID 02/22/19 14:00 chlordiazePOXIDE [Librium] 25 mg PO QID 02/22/19 15:00 levoFLOXacin [Levaquin] 750 mg PO Q24H - Plan Plan:: Chronic alcoholism with alcohol withdrawal * Patient continues on CIWA protocol with Ativan orally * decrease Librium to 25 mg every 6 hours * Thiamine and folic acid. * Consult discharge planning, social sciences department chair, and substance abuse counseling * patient will need inpatient therapy. Fibromyalgia with low back pain * I counseled the patient at this time we will not be giving him narcotics. * Tylenol for pain. give 1 dose of Toradol 15 mg IV and if this significantly improves his pain we will consider a when necessary dose. * Consider restarting gabapentin as outpatient Left lower lobe pneumonia with sepsis * Patient given fluid boluses in the emergency room. Patient is doing well. * DC fluids * Blood cultures were obtained in the emergency room * switch Levaquin 750 mg to orally daily * Recheck CBC and C-reactive protein in the morning * Legionella, and pneumococcal antigen -negative * Sputum cultures grew Beta Streptococcus group F Prolonged QTC * Monitor and on telemetry Hypokalemia * Replenish potassium IV/PO and recheck in the morning Length of stay approximately 3 more days CODE STATUS: Full code VTE prophylaxis with Lovenox
[2019-02-22] MEDS: Acetaminophen 325 MG Tab PO PRN (16:20)
[2019-02-22] MEDS ORDERED: chlordiazePOXIDE 25 MG Cap PO ONE ×2 (19:34→21:00)
[2019-02-22] MEDS ORDERED: LORazepam 2 MG/ML SDV IVPUSH ONE (19:36)
[2019-02-22] MEDS ORDERED: LORazepam 1 MG Tab PO PRN ×2 (19:38→22:39)
[2019-02-22] MEDS: Thiamine 100 MG Tab PO SCH (20:07)
[2019-02-22] MEDS: Folic Acid 1 MG Tab PO SCH (20:08)
[2019-02-23] MEDS: LORazepam 2 MG/ML SDV IVPUSH PRN ×5 (00:09→02:13)
[2019-02-23] MEDS: Acetaminophen 325 MG Tab PO PRN ×2 (00:58→21:06)
[2019-02-23] MEDS ORDERED: diphenhydrAMINE 50 MG/ML SDV IVPUSH ONE (03:08)
[2019-02-23] MEDS ORDERED: Haloperidol Lactate 5 MG/ML SDV IVPUSH ONE (03:52)
[2019-02-23] MEDS ORDERED: chlordiazePOXIDE 25 MG Cap PO PRN ×2 (05:03→05:57)
[2019-02-23] MEDS ORDERED: Magnesium Sulfate/Water 4 GM in Premix Bag 1 BAG IV ONE (07:24)
[2019-02-23] MEDS: Enoxaparin 40 MG/0.4 ML Syringe SUBCUT SCH (08:12)
[2019-02-23] MEDS: Nicotine 21 MG/24 Hr Patch TRDERM SCH (08:12)
[2019-02-23] MEDS: ClonazePAM 1 MG Tab PO PRN ×2 (08:14→21:05)
[2019-02-23] MEDS: Potassium Chloride 20 MEQ Tab.ER PO SCH ×2 (08:15→21:06)
[2019-02-23] MEDS: chlordiazePOXIDE 25 MG Cap PO SCH ×3 (08:15→20:01)
[2019-02-23] MEDS ORDERED: chlordiazePOXIDE 25 MG Cap PO SCH (09:00)
--- NOTE | 2019-02-23 11:24 | PCM.PN ---
- General Info Date of Service: 02/23/19 Admission Dx/Problem (Free Text): Admission Diagnosis/Problem Admission Diagnosis/Problem Chronic alcoholism Subjective Update: February 21, 2019 Patient had a good night. He rested comfortably but did get Ativan regularly. Patient continues on Librium 50 mg 3 times a day. He has minimal nausea but does complain of pain throughout his body. He has a history of fibromyalgia and in the past has been on gabapentin and other medications. He also has complaints of anxiety. , who he from, and daughter were in with him today. February 22, 2019 Patient was up most of the night. He continues to complain of pain throughout his body because of his fibromyalgia. His estranged and daughter have been in several times in the last 2 days. Patient is requesting his Ativan every hour to 2. Blood pressures have been slightly elevated. February 23, 2019 Patient had a difficult night last night. He was given 9 mg of Ativan over several hours and ultimately diphenhydramine 50 mg IV and Haldol 4 mg IV. At approximately 4:00 in the morning he finally fell asleep for a few hours. Patient did miss his evening dose of Librium because of an unknown air causing it to drop off of the medication list. After patient rested his pulse and blood pressure went normal and this morning he is up eating without complaint. - Review of Systems General: Reports: Fatigue, Malaise HEENT: Reports: No Symptoms Pulmonary: Denies: Shortness of Breath, Cough Cardiovascular: Denies: Chest Pain, Palpitations Gastrointestinal: Denies: Abdominal Pain, Constipation Neurological: Reports: Confusion. Denies: Tremors Psychiatric: Reports: Confusion, Mood Lability, Anxiety, Agitation - Patient Data Vitals - Most Recent: Last Vital Signs Temp 97.1 F 02/23/19 08:00 Pulse 85 02/23/19 08:00 Resp 20 02/23/19 08:00 BP 127/86 02/23/19 08:00 Pulse Ox 100 02/23/19 08:00 Weight - Most Recent: 128 lb 3.2 oz I&O - Last 24 Hours: Intake & Output 02/22/19 02/23/19 02/23/19 22:59 06:59 14:59 Intake Total 1040 800 330 Output Total 700 600 Balance 340 200 330 Lab Results Last 24 Hours: Laboratory Results - last 24 hr 02/23/19 02/23/19 Range/Units 05:08 05:08 WBC 6.37 (4.23-9.07) K/mm3 RBC 4.33 L (4.63-6.08) M/mm3 Hgb 13.3 L (13.7-17.5) gm/L Hct 39.6 L (40.1-51.0) % MCV 91.5 (79.0-92.2) fl MCH 30.7 (25.7-32.2) pg MCHC 33.6 (32.2-35.5) g/dl RDW Std Deviation 50.5 H (35.1-43.9) fL Plt Count 173 (163-337) K/mm3 MPV 10.1 (9.4-12.3) fl Neut % (Auto) 61.4 (34.0-67.9) % Lymph % (Auto) 27.0 (21.8-53.1) % [place] % (Auto) 8.3 (5.3-12.2) % Eos % (Auto) 2.8 (0.8-7.0) Baso % (Auto) 0.3 (0.1-1.2) % Neut # (Auto) 3.91 (1.78-5.38) K/mm3 Lymph # (Auto) 1.72 (1.32-3.57) K/mm3 [place] # (Auto) 0.53 (0.30-0.82) K/mm3 Eos # (Auto) 0.18 (0.04-0.54) K/mm3 Baso # (Auto) 0.02 (0.01-0.08) K/mm3 Sodium 138 (136-145) mEq/L Potassium 3.2 L (3.5-5.1) mEq/L Chloride 101 (98-107) mEq/L Carbon Dioxide 27 (21-32) mEq/L Anion Gap 13.2 (5-15) BUN 8 (7-18) mg/dL Creatinine 0.7 (0.7-1.3) mg/dL Est Cr Clr Drug Dosing 116.53 mL/min Estimated GFR (MDRD) > 60 (>60) mL/min BUN/Creatinine Ratio 11.4 L (14-18) Glucose 105 (74-106) mg/dL Calcium 9.3 (8.5-10.1) mg/dL Phosphorus 3.2 (2.6-4.7) mg/dL Magnesium 1.5 L (1.8-2.4) mg/dl Total Bilirubin 0.5 (0.2-1.0) mg/dL AST 46 H (15-37) U/L ALT 46 (16-63) U/L Alkaline Phosphatase 152 H (46-116) U/L Total Protein 7.3 (6.4-8.2) g/dl Albumin 3.2 L (3.4-5.0) g/dl Globulin 4.1 gm/dL Albumin/Globulin Ratio 0.8 L (1-2) Ramon Results Last 24 Hours: Microbiology 02/20/19 16:00 Aerobic Blood Culture - Preliminary Blood - Venous - Lab Draw NO GROWTH AFTER 2 DAYS Anaerobic Blood Culture - Preliminary NO GROWTH AFTER 2 DAYS 02/20/19 15:50 Aerobic Blood Culture - Preliminary Blood - Venous NO GROWTH AFTER 2 DAYS Anaerobic Blood Culture - Preliminary NO GROWTH AFTER 2 DAYS 02/20/19 21:26 Gram Stain - Final Sputum - Expectorated Sputum Culture - Final Beta Streptococcus Group F 02/20/19 14:36 Streptococcus pneumoniae Antigen (M - Final Urine Med Orders - Current: Current Medications Acetaminophen (Tylenol) 650 mg PO Q4H PRN PRN Reason: Pain/Fever Last Admin: 02/23/19 00:58 Dose: 650 mg Chlordiazepoxide HCl (Librium) 25 mg PO Q1H PRN PRN Reason: Withdrawal Symptoms Chlordiazepoxide HCl (Librium) 50 mg PO Q6H [facility] Last Admin: 02/23/19 08:15 Dose: 50 mg Clonazepam (Klonopin) 1 mg PO BID PRN PRN Reason: Anxiety Last Admin: 02/23/19 08:14 Dose: 1 mg Enoxaparin Sodium (Lovenox) 40 mg SUBCUT DAILY [facility] Last Admin: 02/23/19 08:12 Dose: 40 mg Folic Acid (Folic Acid) 1 mg PO BEDTIME [facility] Last Admin: 02/22/19 20:08 Dose: 1 mg Magnesium Sulfate 4 gm/ Premix 50 mls @ 12.5 mls/hr IV ONETIME ONE Stop: 02/23/19 11:23 Last Admin: 02/23/19 08:12 Dose: 12.5 mls/hr Levofloxacin (Levaquin) 750 mg PO Q24H [facility] Last Admin: 02/22/19 14:13 Dose: 750 mg Lorazepam (Ativan) 0 mg IVPUSH Q15M PRN; Protocol PRN Reason: Withdrawl Last Admin: 02/23/19 02:13 Dose: 1 mg Miscellaneous Information (Remove Patch) 1 ea TRDERM DAILY [facility] Last Admin: 02/23/19 08:21 Dose: Not Given Nicotine (Habitrol) 21 mg TRDERM DAILY [facility] Last Admin: 02/23/19 08:12 Dose: 21 mg Ondansetron HCl (Zofran) 4 mg IV Q4H PRN PRN Reason: Nausea/Vomiting Potassium Chloride (Klor-Con M20) 20 meq PO BID [facility] Last Admin: 02/23/19 08:15 Dose: 20 meq Sodium Chloride (Saline Flush) 10 ml FLUSH ASDIRECTED PRN PRN Reason: Keep Vein Open Thiamine HCl (Vitamin B-1) 100 mg PO BEDTIME [facility] Last Admin: 02/22/19 20:07 Dose: 100 mg Discontinued Medications Acetaminophen (Tylenol) 650 mg PO ONETIME ONE Stop: 02/20/19 17:48 Last Admin: 02/20/19 18:06 Dose: 650 mg Chlordiazepoxide HCl (Librium) 50 mg PO Q8HR [facility] Last Admin: 02/22/19 05:20 Dose: 50 mg Chlordiazepoxide HCl (Librium) 25 mg PO QID [facility] Last Admin: 02/22/19 16:24 Dose: 25 mg Chlordiazepoxide HCl (Librium) 25 mg PO ONETIME ONE Stop: 02/22/19 19:35 Last Admin: 02/22/19 19:57 Dose: Not Given Chlordiazepoxide HCl (Librium) 25 mg PO ONETIME ONE Stop: 02/22/19 21:01 Last Admin: 02/22/19 21:00 Dose: 25 mg Chlordiazepoxide HCl (Librium) 25 mg PO Q1H PRN PRN Reason: Agitation Chlordiazepoxide HCl (Librium) 25 mg PO Q4H [facility] Diphenhydramine HCl (Benadryl) 50 mg IVPUSH ONETIME ONE Stop: 02/23/19 03:09 Last Admin: 02/23/19 03:24 Dose: 50 mg Haloperidol Lactate (Haldol) 4 mg IVPUSH ONETIME ONE Stop: 02/23/19 03:53 Last Admin: 02/23/19 04:15 Dose: 4 mg Dextrose/Sodium Chloride (Dextrose 5%-Normal Saline) 1,000 mls @ 999 mls/hr IV ASDIRECTED [facility] Last Admin: 02/20/19 15:54 Dose: 999 mls/hr Potassium Chloride 10 meq/ (Premix) 100 mls @ 100 mls/hr IV ONETIME ONE Stop: 02/20/19 16:02 Last Admin: 02/20/19 15:44 Dose: 100 mls/hr Levofloxacin/Dextrose 750 mg/ (Premix) 150 mls @ 100 mls/hr IV ONETIME ONE Stop: 02/20/19 17:09 Last Admin: 02/20/19 16:05 Dose: 100 mls/hr Dextrose/Sodium Chloride (Dextrose 5%-Normal Saline) 1,000 mls @ 250 mls/hr IV ASDIRECTED [facility] Last Infusion: 02/20/19 18:05 Dose: 125 mls/hr Dextrose/Sodium Chloride (Dextrose 5%-Normal Saline) 1,000 mls @ 125 mls/hr IV ASDIRECTED [facility] Last Admin: 02/21/19 07:25 Dose: 125 mls/hr Potassium Chloride 10 meq/ (Premix) 100 mls @ 100 mls/hr IV Q1H [facility] Stop: 02/20/19 22:44 Last Admin: 02/20/19 22:23 Dose: 100 mls/hr Levofloxacin/Dextrose 750 mg/ (Premix) 150 mls @ 100 mls/hr IV Q24H [facility] Last Admin: 02/21/19 14:27 Dose: 100 mls/hr Magnesium Sulfate 4 gm/ Premix 50 mls @ 12.5 mls/hr IV ONETIME ONE Stop: 02/21/19 11:41 Last Admin: 02/21/19 08:14 Dose: 12.5 mls/hr Potassium Chloride 10 meq/ (Premix) 100 mls @ 100 mls/hr IV Q1H [facility] Stop: 02/22/19 11:59 Last Admin: 02/22/19 12:31 Dose: Not Given Ketorolac Tromethamine (Toradol) 15 mg IVPUSH ONETIME ONE Stop: 02/22/19 11:46 Last Admin: 02/22/19 11:51 Dose: 15 mg Lorazepam (Ativan) 2 mg IVPUSH ONETIME ONE Stop: 02/20/19 13:31 Last Admin: 02/20/19 14:00 Dose: 2 mg Lorazepam (Ativan) 2 mg IVPUSH ONETIME ONE Stop: 02/20/19 15:40 Last Admin: 02/20/19 16:05 Dose: 2 mg Lorazepam (Ativan) 0 mg IVPUSH Q1H PRN; Protocol PRN Reason: Withdrawl Last Admin: 02/22/19 22:30 Dose: 1 mg Lorazepam (Ativan) 1 mg PO Q2H PRN; Protocol PRN Reason: Withdrawal Symptoms Last Admin: 02/22/19 18:40 Dose: 1 mg Lorazepam (Ativan) 1 mg IVPUSH ONETIME ONE Stop: 02/22/19 19:37 Last Admin: 02/22/19 20:08 Dose: 1 mg Lorazepam (Ativan) 1 mg PO Q15M PRN; Protocol PRN Reason: Withdrawal Symptoms Lorazepam (Ativan) 1 mg PO Q2HR PRN; Protocol PRN Reason: Withdrawal Symptoms Metoclopramide HCl (Reglan) 7.5 mg IVPUSH ONETIME ONE Stop: 02/20/19 15:40 Last Admin: 02/20/19 16:08 Dose: 7.5 mg Ondansetron HCl (Zofran Odt) 4 mg PO Q4H PRN PRN Reason: nausea, able to take PO Last Admin: 02/22/19 06:35 Dose: 4 mg Potassium Chloride (Klor-Con M20) 20 meq PO BID [facility] Stop: 02/21/19 21:01 Last Admin: 02/21/19 21:19 Dose: 20 meq Potassium Chloride (Klor-Con M20) 20 meq PO BID [facility] Stop: 02/22/19 21:01 Last Admin: 02/22/19 20:08 Dose: 20 meq Thiamine HCl (Vitamin B-1) 200 mg IVPUSH ONETIME ONE Stop: 02/20/19 13:32 Last Admin: 02/20/19 14:00 Dose: 200 mg - Exam General: Alert, Oriented HEENT: Pupils Equal Neck: Supple Lungs: Clear to Auscultation, Normal Respiratory Effort Cardiovascular: Regular Rate, Regular Rhythm GI/Abdominal Exam: Normal Bowel Sounds, Soft, Non-Tender, No Organomegaly, No Distention Extremities: Normal Inspection, Normal Range of Motion, Non-Tender, No Pedal Edema Skin: Warm, Dry, Intact Psy/Mental Status: Alert, Anxious - Problem List & Annotations (1) Chronic alcoholism SNOMED Code(s): 7801116 Code(s): F10.20 - ALCOHOL DEPENDENCE, UNCOMPLICATED Status: Acute Current Visit: Yes (2) Pneumonia SNOMED Code(s): 204178478 Code(s): J18.9 - PNEUMONIA, UNSPECIFIED ORGANISM Status: Acute Current Visit: Yes Qualifiers: Pneumonia type: due to unspecified organism Laterality: left Lung location: lower lobe of lung Qualified Code(s): J18.1 - Lobar pneumonia, unspecified organism (3) Low back pain SNOMED Code(s): 586528491 Code(s): M54.5 - LOW BACK PAIN Status: Acute Current Visit: No Qualifiers: Chronicity: acute Back pain laterality: bilateral Sciatica presence: without sciatica Qualified Code(s): M54.5 - Low back pain (4) Alcohol withdrawal syndrome SNOMED Code(s): 373813635 Code(s): F10.239 - ALCOHOL DEPENDENCE WITH WITHDRAWAL, UNSPECIFIED Status: Resolved Priority: High Current Visit: No - Problem List Review Problem List Initiated/Reviewed/Updated: Yes - My Orders Last 24 Hours: My Active Orders 02/22/19 15:00 levoFLOXacin [Levaquin] 750 mg PO Q24H 02/22/19 21:00 Patient Status [ADT] Routine 02/22/19 22:39 LORazepam [Ativan] See Protocol IVPUSH Q15M PRN 02/23/19 05:57 chlordiazePOXIDE [Librium] 25 mg PO Q1H PRN 02/23/19 07:24 Magnesium Sulfate/Water [Magnesium Sulfate in Water Premix] 4 gm Premix Bag 1 bag IV ONETIME 02/23/19 07:41 ClonazePAM [KlonoPIN] 1 mg PO BID PRN 02/23/19 08:00 chlordiazePOXIDE [Librium] 50 mg PO Q6H 02/23/19 09:00 Potassium Chloride [Klor-Con M20] 20 meq PO BID 02/24/19 05:11 CBC WITH AUTO DIFF [HEME] AM CMP [COMPREHENSIVE METABOLIC PN,CMP] [CHEM] AM MAGNESIUM [CHEM] AM - Plan Plan:: Chronic alcoholism with alcohol withdrawal * increase Librium to 50 mg every 6 hours * start Librium to 25 mg every one hour as needed for anxiety and withdrawal symptoms. * Clonazepam 1 mg twice a day when necessary anxiety and withdrawal symptoms * Stop IV Ativan * Thiamine and folic acid. * Consult discharge planning, elementary school social worker, and substance abuse counseling * patient will need inpatient therapy. Fibromyalgia with low back pain * I counseled the patient at this time we will not be giving him narcotics. * Tylenol for pain. give 1 dose of Toradol 15 mg IV yesterday patient is complaining of pain at this time. * Consider restarting gabapentin as outpatient Left lower lobe pneumonia with sepsis * Patient given fluid boluses in the emergency room. Patient is doing well. * DC fluids * Blood cultures currently negative * switch Levaquin 750 mg to orally daily * Recheck CBC ; white count is normal * Legionella, and pneumococcal antigen -negative * Sputum cultures grew Beta Streptococcus group F Prolonged QTC * Monitor and on telemetry Hypokalemia * Replenish potassium PO and recheck in the morning Length of stay approximately 2 more days CODE STATUS: Full code VTE prophylaxis with Lovenox
[2019-02-23] MEDS: Levofloxacin 750 MG Tab PO SCH (14:30)
[2019-02-23] MEDS: Thiamine 100 MG Tab PO SCH (21:05)
[2019-02-23] MEDS: Folic Acid 1 MG Tab PO SCH (21:06)
[2019-02-23] MEDS: Sodium Chloride 0.9% 10 ML Syringe FLUSH PRN (21:07)
[2019-02-24] MEDS: chlordiazePOXIDE 25 MG Cap PO SCH ×4 (01:02→23:51)
[2019-02-24] MEDS: Acetaminophen 325 MG Tab PO PRN ×5 (01:04→21:03)
[2019-02-24] MEDS: Potassium Chloride 20 MEQ Tab.ER PO SCH ×2 (08:01→21:02)
[2019-02-24] MEDS: Enoxaparin 40 MG/0.4 ML Syringe SUBCUT SCH (08:02)
[2019-02-24] MEDS: Nicotine 21 MG/24 Hr Patch TRDERM SCH (08:06)
[2019-02-24] MEDS: ClonazePAM 1 MG Tab PO PRN (08:13)
--- NOTE | 2019-02-24 12:51 | PCM.PN ---
- General Info Date of Service: 02/24/19 Admission Dx/Problem (Free Text): Admission Diagnosis/Problem Admission Diagnosis/Problem Chronic alcoholism Subjective Update: February 21, 2019 Patient had a good night. He rested comfortably but did get Ativan regularly. Patient continues on Librium 50 mg 3 times a day. He has minimal nausea but does complain of pain throughout his body. He has a history of fibromyalgia and in the past has been on gabapentin and other medications. He also has complaints of anxiety. , who he from, and daughter were in with him today. February 22, 2019 Patient was up most of the night. He continues to complain of pain throughout his body because of his fibromyalgia. His estranged and daughter have been in several times in the last 2 days. Patient is requesting his Ativan every hour to 2. Blood pressures have been slightly elevated. February 23, 2019 Patient had a difficult night last night. He was given 9 mg of Ativan over several hours and ultimately diphenhydramine 50 mg IV and Haldol 4 mg IV. At approximately 4:00 in the morning he finally fell asleep for a few hours. Patient did miss his evening dose of Librium because of an unknown air causing it to drop off of the medication list. After patient rested his pulse and blood pressure went normal and this morning he is up eating without complaint. Functional Status: Reports: Pain Controlled - Review of Systems General: Reports: No Symptoms. Denies: Weakness, Fatigue HEENT: Reports: No Symptoms Pulmonary: Reports: No Symptoms. Denies: Shortness of Breath, Cough Cardiovascular: Reports: No Symptoms. Denies: Chest Pain Gastrointestinal: Reports: No Symptoms. Denies: Abdominal Pain, Constipation - Patient Data Vitals - Most Recent: Last Vital Signs Temp 98.1 F 02/24/19 08:00 Pulse 93 02/24/19 08:00 Resp 16 02/24/19 08:00 BP 110/79 02/24/19 08:00 Pulse Ox 96 02/24/19 08:00 Weight - Most Recent: 126 lb 8 oz I&O - Last 24 Hours: Intake & Output 02/23/19 02/24/19 02/24/19 22:59 06:59 14:59 Intake Total 1550 640 440 Balance 1550 640 440 Lab Results Last 24 Hours: Laboratory Results - last 24 hr 02/24/19 02/24/19 Range/Units 05:30 05:30 WBC 6.26 (4.23-9.07) K/mm3 RBC 4.51 L (4.63-6.08) M/mm3 Hgb 13.8 (13.7-17.5) gm/L Hct 41.9 (40.1-51.0) % MCV 92.9 H (79.0-92.2) fl MCH 30.6 (25.7-32.2) pg MCHC 32.9 (32.2-35.5) g/dl RDW Std Deviation 52.8 H (35.1-43.9) fL Plt Count 190 (163-337) K/mm3 MPV 10.1 (9.4-12.3) fl Neut % (Auto) 51.4 (34.0-67.9) % Lymph % (Auto) 33.7 (21.8-53.1) % [place] % (Auto) 9.1 (5.3-12.2) % Eos % (Auto) 4.2 (0.8-7.0) Baso % (Auto) 0.6 (0.1-1.2) % Neut # (Auto) 3.22 (1.78-5.38) K/mm3 Lymph # (Auto) 2.11 (1.32-3.57) K/mm3 [place] # (Auto) 0.57 (0.30-0.82) K/mm3 Eos # (Auto) 0.26 (0.04-0.54) K/mm3 Baso # (Auto) 0.04 (0.01-0.08) K/mm3 Sodium 138 (136-145) mEq/L Potassium 3.8 (3.5-5.1) mEq/L Chloride 101 (98-107) mEq/L Carbon Dioxide 26 (21-32) mEq/L Anion Gap 14.8 (5-15) BUN 21 H (7-18) mg/dL Creatinine 0.8 (0.7-1.3) mg/dL Est Cr Clr Drug Dosing 100.61 mL/min Estimated GFR (MDRD) > 60 (>60) mL/min BUN/Creatinine Ratio 26.3 H (14-18) Glucose 108 H (74-106) mg/dL Calcium 9.3 (8.5-10.1) mg/dL Magnesium 1.8 (1.8-2.4) mg/dl Total Bilirubin 0.3 (0.2-1.0) mg/dL AST 45 H (15-37) U/L ALT 50 (16-63) U/L Alkaline Phosphatase 144 H (46-116) U/L Total Protein 6.8 (6.4-8.2) g/dl Albumin 3.1 L (3.4-5.0) g/dl Globulin 3.7 gm/dL Albumin/Globulin Ratio 0.8 L (1-2) Ramon Results Last 24 Hours: Microbiology 02/20/19 16:00 Aerobic Blood Culture - Preliminary Blood - Venous - Lab Draw NO GROWTH AFTER 3 DAYS Anaerobic Blood Culture - Preliminary NO GROWTH AFTER 3 DAYS 02/20/19 15:50 Aerobic Blood Culture - Preliminary Blood - Venous NO GROWTH AFTER 3 DAYS Anaerobic Blood Culture - Preliminary NO GROWTH AFTER 3 DAYS Med Orders - Current: Current Medications Acetaminophen (Tylenol) 650 mg PO Q4H PRN PRN Reason: Pain/Fever Last Admin: 02/24/19 10:31 Dose: 650 mg Chlordiazepoxide HCl (Librium) 25 mg PO Q1H PRN PRN Reason: Withdrawal Symptoms Last Admin: 02/23/19 22:52 Dose: 25 mg Chlordiazepoxide HCl (Librium) 50 mg PO Q8H [facility] Stop: 02/25/19 00:01 Chlordiazepoxide HCl (Librium) 50 mg PO BID [facility] Stop: 02/25/19 21:01 Clonazepam (Klonopin) 1 mg PO BEDTIME [facility] Enoxaparin Sodium (Lovenox) 40 mg SUBCUT DAILY [facility] Last Admin: 02/24/19 08:02 Dose: 40 mg Folic Acid (Folic Acid) 1 mg PO BEDTIME [facility] Last Admin: 02/23/19 21:06 Dose: 1 mg Levofloxacin (Levaquin) 750 mg PO Q24H [facility] Last Admin: 02/23/19 14:30 Dose: 750 mg Lorazepam (Ativan) 0 mg IVPUSH Q15M PRN; Protocol PRN Reason: Withdrawl Last Admin: 02/23/19 02:13 Dose: 1 mg Miscellaneous Information (Remove Patch) 1 ea TRDERM DAILY [facility] Last Admin: 02/24/19 08:05 Dose: 1 ea Nicotine (Habitrol) 21 mg TRDERM DAILY [facility] Last Admin: 02/24/19 08:06 Dose: 21 mg Ondansetron HCl (Zofran) 4 mg IV Q4H PRN PRN Reason: Nausea/Vomiting Potassium Chloride (Klor-Con M20) 20 meq PO BID [facility] Last Admin: 02/24/19 08:01 Dose: 20 meq Sodium Chloride (Saline Flush) 10 ml FLUSH ASDIRECTED PRN PRN Reason: Keep Vein Open Last Admin: 02/23/19 21:07 Dose: 10 ml Thiamine HCl (Vitamin B-1) 100 mg PO BEDTIME [facility] Last Admin: 02/23/19 21:05 Dose: 100 mg Discontinued Medications Acetaminophen (Tylenol) 650 mg PO ONETIME ONE Stop: 02/20/19 17:48 Last Admin: 02/20/19 18:06 Dose: 650 mg Chlordiazepoxide HCl (Librium) 50 mg PO Q8HR [facility] Last Admin: 02/22/19 05:20 Dose: 50 mg Chlordiazepoxide HCl (Librium) 25 mg PO QID [facility] Last Admin: 02/22/19 16:24 Dose: 25 mg Chlordiazepoxide HCl (Librium) 25 mg PO ONETIME ONE Stop: 02/22/19 19:35 Last Admin: 02/22/19 19:57 Dose: Not Given Chlordiazepoxide HCl (Librium) 25 mg PO ONETIME ONE Stop: 02/22/19 21:01 Last Admin: 02/22/19 21:00 Dose: 25 mg Chlordiazepoxide HCl (Librium) 25 mg PO Q1H PRN PRN Reason: Agitation Chlordiazepoxide HCl (Librium) 25 mg PO Q4H [facility] Chlordiazepoxide HCl (Librium) 50 mg PO Q6H [facility] Last Admin: 02/24/19 07:49 Dose: 50 mg Clonazepam (Klonopin) 1 mg PO BID PRN PRN Reason: Anxiety Last Admin: 02/24/19 08:13 Dose: 1 mg Clonazepam (Klonopin) 1 mg PO BID [facility] Diphenhydramine HCl (Benadryl) 50 mg IVPUSH ONETIME ONE Stop: 02/23/19 03:09 Last Admin: 02/23/19 03:24 Dose: 50 mg Haloperidol Lactate (Haldol) 4 mg IVPUSH ONETIME ONE Stop: 02/23/19 03:53 Last Admin: 02/23/19 04:15 Dose: 4 mg Dextrose/Sodium Chloride (Dextrose 5%-Normal Saline) 1,000 mls @ 999 mls/hr IV ASDIRECTED [facility] Last Admin: 02/20/19 15:54 Dose: 999 mls/hr Potassium Chloride 10 meq/ (Premix) 100 mls @ 100 mls/hr IV ONETIME ONE Stop: 02/20/19 16:02 Last Admin: 02/20/19 15:44 Dose: 100 mls/hr Levofloxacin/Dextrose 750 mg/ (Premix) 150 mls @ 100 mls/hr IV ONETIME ONE Stop: 02/20/19 17:09 Last Admin: 02/20/19 16:05 Dose: 100 mls/hr Dextrose/Sodium Chloride (Dextrose 5%-Normal Saline) 1,000 mls @ 250 mls/hr IV ASDIRECTED [facility] Last Infusion: 02/20/19 18:05 Dose: 125 mls/hr Dextrose/Sodium Chloride (Dextrose 5%-Normal Saline) 1,000 mls @ 125 mls/hr IV ASDIRECTED [facility] Last Admin: 02/21/19 07:25 Dose: 125 mls/hr Potassium Chloride 10 meq/ (Premix) 100 mls @ 100 mls/hr IV Q1H [facility] Stop: 02/20/19 22:44 Last Admin: 02/20/19 22:23 Dose: 100 mls/hr Levofloxacin/Dextrose 750 mg/ (Premix) 150 mls @ 100 mls/hr IV Q24H [facility] Last Admin: 02/21/19 14:27 Dose: 100 mls/hr Magnesium Sulfate 4 gm/ Premix 50 mls @ 12.5 mls/hr IV ONETIME ONE Stop: 02/21/19 11:41 Last Admin: 02/21/19 08:14 Dose: 12.5 mls/hr Potassium Chloride 10 meq/ (Premix) 100 mls @ 100 mls/hr IV Q1H [facility] Stop: 02/22/19 11:59 Last Admin: 02/22/19 12:31 Dose: Not Given Magnesium Sulfate 4 gm/ Premix 50 mls @ 12.5 mls/hr IV ONETIME ONE Stop: 02/23/19 11:23 Last Admin: 02/23/19 08:12 Dose: 12.5 mls/hr Ketorolac Tromethamine (Toradol) 15 mg IVPUSH ONETIME ONE Stop: 02/22/19 11:46 Last Admin: 02/22/19 11:51 Dose: 15 mg Lorazepam (Ativan) 2 mg IVPUSH ONETIME ONE Stop: 02/20/19 13:31 Last Admin: 02/20/19 14:00 Dose: 2 mg Lorazepam (Ativan) 2 mg IVPUSH ONETIME ONE Stop: 02/20/19 15:40 Last Admin: 02/20/19 16:05 Dose: 2 mg Lorazepam (Ativan) 0 mg IVPUSH Q1H PRN; Protocol PRN Reason: Withdrawl Last Admin: 02/22/19 22:30 Dose: 1 mg Lorazepam (Ativan) 1 mg PO Q2H PRN; Protocol PRN Reason: Withdrawal Symptoms Last Admin: 02/22/19 18:40 Dose: 1 mg Lorazepam (Ativan) 1 mg IVPUSH ONETIME ONE Stop: 02/22/19 19:37 Last Admin: 02/22/19 20:08 Dose: 1 mg Lorazepam (Ativan) 1 mg PO Q15M PRN; Protocol PRN Reason: Withdrawal Symptoms Lorazepam (Ativan) 1 mg PO Q2HR PRN; Protocol PRN Reason: Withdrawal Symptoms Metoclopramide HCl (Reglan) 7.5 mg IVPUSH ONETIME ONE Stop: 02/20/19 15:40 Last Admin: 02/20/19 16:08 Dose: 7.5 mg Ondansetron HCl (Zofran Odt) 4 mg PO Q4H PRN PRN Reason: nausea, able to take PO Last Admin: 02/22/19 06:35 Dose: 4 mg Potassium Chloride (Klor-Con M20) 20 meq PO BID [facility] Stop: 02/21/19 21:01 Last Admin: 02/21/19 21:19 Dose: 20 meq Potassium Chloride (Klor-Con M20) 20 meq PO BID [facility] Stop: 02/22/19 21:01 Last Admin: 02/22/19 20:08 Dose: 20 meq Thiamine HCl (Vitamin B-1) 200 mg IVPUSH ONETIME ONE Stop: 02/20/19 13:32 Last Admin: 02/20/19 14:00 Dose: 200 mg - Exam General: Alert, Oriented HEENT: Pupils Equal Neck: Supple Lungs: Clear to Auscultation, Normal Respiratory Effort Cardiovascular: Regular Rate, Regular Rhythm GI/Abdominal Exam: Normal Bowel Sounds, Soft, Non-Tender, No Distention Extremities: Normal Inspection, Non-Tender, No Pedal Edema Psy/Mental Status: Alert, Normal Affect, Normal Mood - Problem List & Annotations (1) Chronic alcoholism SNOMED Code(s): 9531177 Code(s): F10.20 - ALCOHOL DEPENDENCE, UNCOMPLICATED Status: Acute Current Visit: Yes (2) Pneumonia SNOMED Code(s): 212355895 Code(s): J18.9 - PNEUMONIA, UNSPECIFIED ORGANISM Status: Acute Current Visit: Yes Qualifiers: Pneumonia type: due to unspecified organism Laterality: left Lung location: lower lobe of lung Qualified Code(s): J18.1 - Lobar pneumonia, unspecified organism (3) Low back pain SNOMED Code(s): 917470027 Code(s): M54.5 - LOW BACK PAIN Status: Acute Current Visit: No Qualifiers: Chronicity: acute Back pain laterality: bilateral Sciatica presence: without sciatica Qualified Code(s): M54.5 - Low back pain (4) Alcohol withdrawal syndrome SNOMED Code(s): 639243916 Code(s): F10.239 - ALCOHOL DEPENDENCE WITH WITHDRAWAL, UNSPECIFIED Status: Resolved Priority: High Current Visit: No - Problem List Review Problem List Initiated/Reviewed/Updated: Yes - My Orders Last 24 Hours: My Active Orders 02/24/19 13:00 Magnesium Oxide 400 mg PO BID 02/24/19 16:00 chlordiazePOXIDE [Librium] 50 mg PO Q8H 02/24/19 21:00 ClonazePAM [KlonoPIN] 1 mg PO BEDTIME 02/25/19 05:11 C-REACTIVE PROTEIN [CHEM] AM CBC WITH AUTO DIFF [HEME] AM CMP [COMPREHENSIVE METABOLIC PN,CMP] [CHEM] AM MAGNESIUM [CHEM] AM 02/25/19 09:00 chlordiazePOXIDE [Librium] 50 mg PO BID - Plan Plan:: Chronic alcoholism with alcohol withdrawal * Decrease Librium to 50 mg every 8 hours * start Librium to 25 mg every one hour as needed for anxiety and withdrawal symptoms. * Clonazepam 1 mg before bed * Stop IV Ativan * Thiamine and folic acid. * Consult discharge planning, social work supervisor, and substance abuse counseling * patient will need inpatient therapy. Fibromyalgia with low back pain * I counseled the patient at this time we will not be giving him narcotics. * Tylenol for pain. Patient is not complaining of pain at this time. * Consider restarting gabapentin as outpatient Left lower lobe pneumonia with sepsis * Patient given fluid boluses in the emergency room. Patient is doing well. * DC fluids * Blood cultures currently negative * switch Levaquin 750 mg to orally daily -fifth dose today * Recheck CBC ; white count is normal * Legionella, and pneumococcal antigen -negative * Sputum cultures grew Beta Streptococcus group F Prolonged QTC * Monitor and on telemetry Hypokalemia * Resolved. Recheck in the morning Length of stay approximately 2 more days CODE STATUS: Full code VTE prophylaxis with Lovenox
[2019-02-24] MEDS: Magnesium Oxide 400 MG Tab PO SCH ×2 (13:09→21:03)
[2019-02-24] MEDS ORDERED: Levofloxacin 750 MG Tab PO SCH (16:00)
[2019-02-24] MEDS ORDERED: ClonazePAM 1 MG Tab PO SCH (21:00)
[2019-02-24] MEDS: ClonazePAM 1 MG Tab PO SCH (21:03)
[2019-02-24] MEDS: Folic Acid 1 MG Tab PO SCH (21:03)
[2019-02-24] MEDS: Thiamine 100 MG Tab PO SCH (21:03)
[2019-02-24] MEDS: Sodium Chloride 0.9% 10 ML Syringe FLUSH PRN (21:05)
[2019-02-25] MEDS: Acetaminophen 325 MG Tab PO PRN ×3 (03:03→15:27)
[2019-02-25] MEDS: Nicotine 21 MG/24 Hr Patch TRDERM SCH (08:46)
[2019-02-25] MEDS: chlordiazePOXIDE 25 MG Cap PO SCH ×2 (08:47→21:11)
--- NOTE | 2019-02-25 15:23 | PCM.PN ---
- General Info Date of Service: 02/25/19 Admission Dx/Problem (Free Text): Admission Diagnosis/Problem Admission Diagnosis/Problem Chronic alcoholism Subjective Update: February 21, 2019 Patient had a good night. He rested comfortably but did get Ativan regularly. Patient continues on Librium 50 mg 3 times a day. He has minimal nausea but does complain of pain throughout his body. He has a history of fibromyalgia and in the past has been on gabapentin and other medications. He also has complaints of anxiety. , who he from, and daughter were in with him today. February 22, 2019 Patient was up most of the night. He continues to complain of pain throughout his body because of his fibromyalgia. His estranged and daughter have been in several times in the last 2 days. Patient is requesting his Ativan every hour to 2. Blood pressures have been slightly elevated. February 23, 2019 Patient had a difficult night last night. He was given 9 mg of Ativan over several hours and ultimately diphenhydramine 50 mg IV and Haldol 4 mg IV. At approximately 4:00 in the morning he finally fell asleep for a few hours. Patient did miss his evening dose of Librium because of an unknown air causing it to drop off of the medication list. After patient rested his pulse and blood pressure went normal and this morning he is up eating without complaint. February 25, 2017 she did well overnight. He is asymptomatic except for anxiety. Functional Status: Reports: Pain Controlled - Review of Systems General: Reports: No Symptoms HEENT: Reports: No Symptoms Pulmonary: Reports: No Symptoms Cardiovascular: Reports: No Symptoms Gastrointestinal: Reports: No Symptoms Psychiatric: Reports: Anxiety - Patient Data Vitals - Most Recent: Last Vital Signs Temp 98.7 F 02/25/19 12:00 Pulse 108 H 02/25/19 12:00 Resp 18 02/25/19 12:00 BP 124/91 H 02/25/19 12:00 Pulse Ox 100 02/25/19 12:00 Weight - Most Recent: 126 lb 9.6 oz I&O - Last 24 Hours: Intake & Output 02/25/19 02/25/19 02/25/19 06:59 14:59 22:59 Intake Total 1200 720 480 Balance 1200 720 480 Lab Results Last 24 Hours: Laboratory Results - last 24 hr 05/27/19 05/27/19 Range/Units 05:45 05:45 WBC 6.28 (4.23-9.07) K/mm3 RBC 4.60 L (4.63-6.08) M/mm3 Hgb 14.1 (13.7-17.5) gm/L Hct 43.2 (40.1-51.0) % MCV 93.9 H (79.0-92.2) fl MCH 30.7 (25.7-32.2) pg MCHC 32.6 (32.2-35.5) g/dl RDW Std Deviation 53.9 H (35.1-43.9) fL Plt Count 226 (163-337) K/mm3 MPV 9.5 (9.4-12.3) fl Neut % (Auto) 46.3 (34.0-67.9) % Lymph % (Auto) 37.7 (21.8-53.1) % [place] % (Auto) 11.0 (5.3-12.2) % Eos % (Auto) 3.3 (0.8-7.0) Baso % (Auto) 0.3 (0.1-1.2) % Neut # (Auto) 2.90 (1.78-5.38) K/mm3 Lymph # (Auto) 2.37 (1.32-3.57) K/mm3 [place] # (Auto) 0.69 (0.30-0.82) K/mm3 Eos # (Auto) 0.21 (0.04-0.54) K/mm3 Baso # (Auto) 0.02 (0.01-0.08) K/mm3 Sodium 140 (136-145) mEq/L Potassium 4.3 (3.5-5.1) mEq/L Chloride 102 (98-107) mEq/L Carbon Dioxide 29 (21-32) mEq/L Anion Gap 13.3 (5-15) BUN 13 (7-18) mg/dL Creatinine 0.8 (0.7-1.3) mg/dL Est Cr Clr Drug Dosing 100.69 mL/min Estimated GFR (MDRD) > 60 (>60) mL/min BUN/Creatinine Ratio 16.3 (14-18) Glucose 85 (74-106) mg/dL Calcium 9.4 (8.5-10.1) mg/dL Magnesium 2.0 (1.8-2.4) mg/dl Total Bilirubin 0.2 (0.2-1.0) mg/dL AST 32 (15-37) U/L ALT 49 (16-63) U/L Alkaline Phosphatase 140 H (46-116) U/L C-Reactive Protein 0.8 (<1.0) mg/dL Total Protein 7.5 (6.4-8.2) g/dl Albumin 3.5 (3.4-5.0) g/dl Globulin 4.0 gm/dL Albumin/Globulin Ratio 0.9 L (1-2) Ramon Results Last 24 Hours: Microbiology 02/20/19 16:00 Aerobic Blood Culture - Preliminary Blood - Venous - Lab Draw NO GROWTH AFTER 4 DAYS Anaerobic Blood Culture - Preliminary NO GROWTH AFTER 4 DAYS 02/20/19 15:50 Aerobic Blood Culture - Preliminary Blood - Venous NO GROWTH AFTER 4 DAYS Anaerobic Blood Culture - Preliminary NO GROWTH AFTER 4 DAYS Med Orders - Current: Current Medications Acetaminophen (Tylenol) 650 mg PO Q4H PRN PRN Reason: Pain/Fever Last Admin: 02/25/19 07:43 Dose: 650 mg Chlordiazepoxide HCl (Librium) 25 mg PO Q1H PRN PRN Reason: Withdrawal Symptoms Last Admin: 02/23/19 22:52 Dose: 25 mg Chlordiazepoxide HCl (Librium) 50 mg PO BID [facility] Stop: 02/25/19 21:01 Last Admin: 02/25/19 08:47 Dose: 50 mg Clonazepam (Klonopin) 1 mg PO BEDTIME [facility] Last Admin: 02/24/19 21:03 Dose: 1 mg Folic Acid (Folic Acid) 1 mg PO BEDTIME [facility] Last Admin: 02/24/19 21:03 Dose: 1 mg Levofloxacin (Levaquin) 750 mg PO Q24H [facility] Last Admin: 02/24/19 16:23 Dose: 750 mg Lorazepam (Ativan) 0 mg IVPUSH Q15M PRN; Protocol PRN Reason: Withdrawl Last Admin: 02/23/19 02:13 Dose: 1 mg Miscellaneous Information (Remove Patch) 1 ea TRDERM DAILY [facility] Last Admin: 02/25/19 08:46 Dose: 1 ea Nicotine (Habitrol) 21 mg TRDERM DAILY [facility] Last Admin: 02/25/19 08:46 Dose: 21 mg Ondansetron HCl (Zofran) 4 mg IV Q4H PRN PRN Reason: Nausea/Vomiting Sodium Chloride (Saline Flush) 10 ml FLUSH ASDIRECTED PRN PRN Reason: Keep Vein Open Last Admin: 02/24/19 21:05 Dose: 10 ml Thiamine HCl (Vitamin B-1) 100 mg PO BEDTIME [facility] Last Admin: 02/24/19 21:03 Dose: 100 mg Discontinued Medications Acetaminophen (Tylenol) 650 mg PO ONETIME ONE Stop: 02/20/19 17:48 Last Admin: 02/20/19 18:06 Dose: 650 mg Chlordiazepoxide HCl (Librium) 50 mg PO Q8HR [facility] Last Admin: 02/22/19 05:20 Dose: 50 mg Chlordiazepoxide HCl (Librium) 25 mg PO QID [facility] Last Admin: 02/22/19 16:24 Dose: 25 mg Chlordiazepoxide HCl (Librium) 25 mg PO ONETIME ONE Stop: 02/22/19 19:35 Last Admin: 02/22/19 19:57 Dose: Not Given Chlordiazepoxide HCl (Librium) 25 mg PO ONETIME ONE Stop: 02/22/19 21:01 Last Admin: 02/22/19 21:00 Dose: 25 mg Chlordiazepoxide HCl (Librium) 25 mg PO Q1H PRN PRN Reason: Agitation Chlordiazepoxide HCl (Librium) 25 mg PO Q4H [facility] Chlordiazepoxide HCl (Librium) 50 mg PO Q6H [facility] Last Admin: 02/24/19 07:49 Dose: 50 mg Chlordiazepoxide HCl (Librium) 50 mg PO Q8H [facility] Stop: 02/25/19 00:01 Last Admin: 02/24/19 23:51 Dose: 50 mg Clonazepam (Klonopin) 1 mg PO BID PRN PRN Reason: Anxiety Last Admin: 02/24/19 08:13 Dose: 1 mg Clonazepam (Klonopin) 1 mg PO BID [facility] Diphenhydramine HCl (Benadryl) 50 mg IVPUSH ONETIME ONE Stop: 02/23/19 03:09 Last Admin: 02/23/19 03:24 Dose: 50 mg Enoxaparin Sodium (Lovenox) 40 mg SUBCUT DAILY [facility] Last Admin: 02/24/19 08:02 Dose: 40 mg Haloperidol Lactate (Haldol) 4 mg IVPUSH ONETIME ONE Stop: 02/23/19 03:53 Last Admin: 02/23/19 04:15 Dose: 4 mg Dextrose/Sodium Chloride (Dextrose 5%-Normal Saline) 1,000 mls @ 999 mls/hr IV ASDIRECTED [facility] Last Admin: 02/20/19 15:54 Dose: 999 mls/hr Potassium Chloride 10 meq/ (Premix) 100 mls @ 100 mls/hr IV ONETIME ONE Stop: 02/20/19 16:02 Last Admin: 02/20/19 15:44 Dose: 100 mls/hr Levofloxacin/Dextrose 750 mg/ (Premix) 150 mls @ 100 mls/hr IV ONETIME ONE Stop: 02/20/19 17:09 Last Admin: 02/20/19 16:05 Dose: 100 mls/hr Dextrose/Sodium Chloride (Dextrose 5%-Normal Saline) 1,000 mls @ 250 mls/hr IV ASDIRECTED [facility] Last Infusion: 02/20/19 18:05 Dose: 125 mls/hr Dextrose/Sodium Chloride (Dextrose 5%-Normal Saline) 1,000 mls @ 125 mls/hr IV ASDIRECTED [facility] Last Admin: 02/21/19 07:25 Dose: 125 mls/hr Potassium Chloride 10 meq/ (Premix) 100 mls @ 100 mls/hr IV Q1H [facility] Stop: 02/20/19 22:44 Last Admin: 02/20/19 22:23 Dose: 100 mls/hr Levofloxacin/Dextrose 750 mg/ (Premix) 150 mls @ 100 mls/hr IV Q24H [facility] Last Admin: 02/21/19 14:27 Dose: 100 mls/hr Magnesium Sulfate 4 gm/ Premix 50 mls @ 12.5 mls/hr IV ONETIME ONE Stop: 02/21/19 11:41 Last Admin: 02/21/19 08:14 Dose: 12.5 mls/hr Potassium Chloride 10 meq/ (Premix) 100 mls @ 100 mls/hr IV Q1H [facility] Stop: 02/22/19 11:59 Last Admin: 02/22/19 12:31 Dose: Not Given Magnesium Sulfate 4 gm/ Premix 50 mls @ 12.5 mls/hr IV ONETIME ONE Stop: 02/23/19 11:23 Last Admin: 02/23/19 08:12 Dose: 12.5 mls/hr Ketorolac Tromethamine (Toradol) 15 mg IVPUSH ONETIME ONE Stop: 02/22/19 11:46 Last Admin: 02/22/19 11:51 Dose: 15 mg Levofloxacin (Levaquin) 750 mg PO Q24H [facility] Last Admin: 02/23/19 14:30 Dose: 750 mg Lorazepam (Ativan) 2 mg IVPUSH ONETIME ONE Stop: 02/20/19 13:31 Last Admin: 02/20/19 14:00 Dose: 2 mg Lorazepam (Ativan) 2 mg IVPUSH ONETIME ONE Stop: 02/20/19 15:40 Last Admin: 02/20/19 16:05 Dose: 2 mg Lorazepam (Ativan) 0 mg IVPUSH Q1H PRN; Protocol PRN Reason: Withdrawl Last Admin: 02/22/19 22:30 Dose: 1 mg Lorazepam (Ativan) 1 mg PO Q2H PRN; Protocol PRN Reason: Withdrawal Symptoms Last Admin: 02/22/19 18:40 Dose: 1 mg Lorazepam (Ativan) 1 mg IVPUSH ONETIME ONE Stop: 02/22/19 19:37 Last Admin: 02/22/19 20:08 Dose: 1 mg Lorazepam (Ativan) 1 mg PO Q15M PRN; Protocol PRN Reason: Withdrawal Symptoms Lorazepam (Ativan) 1 mg PO Q2HR PRN; Protocol PRN Reason: Withdrawal Symptoms Magnesium Oxide (Magnesium Oxide) 400 mg PO BID [facility] Stop: 02/26/19 13:01 Last Admin: 02/24/19 21:03 Dose: 400 mg Metoclopramide HCl (Reglan) 7.5 mg IVPUSH ONETIME ONE Stop: 02/20/19 15:40 Last Admin: 02/20/19 16:08 Dose: 7.5 mg Ondansetron HCl (Zofran Odt) 4 mg PO Q4H PRN PRN Reason: nausea, able to take PO Last Admin: 02/22/19 06:35 Dose: 4 mg Potassium Chloride (Klor-Con M20) 20 meq PO BID [facility] Stop: 02/21/19 21:01 Last Admin: 02/21/19 21:19 Dose: 20 meq Potassium Chloride (Klor-Con M20) 20 meq PO BID [facility] Stop: 02/22/19 21:01 Last Admin: 02/22/19 20:08 Dose: 20 meq Potassium Chloride (Klor-Con M20) 20 meq PO BID [facility] Last Admin: 02/24/19 21:02 Dose: 20 meq Thiamine HCl (Vitamin B-1) 200 mg IVPUSH ONETIME ONE Stop: 02/20/19 13:32 Last Admin: 02/20/19 14:00 Dose: 200 mg - Exam General: Alert, Oriented HEENT: Pupils Equal Neck: Supple Lungs: Clear to Auscultation, Normal Respiratory Effort Cardiovascular: Regular Rate, Regular Rhythm GI/Abdominal Exam: Normal Bowel Sounds, Soft, Non-Tender, No Organomegaly, No Distention Skin: Warm, Dry, Intact Psy/Mental Status: Alert, Normal Affect, Normal Mood - Problem List & Annotations (1) Chronic alcoholism SNOMED Code(s): 5256826 Code(s): F10.20 - ALCOHOL DEPENDENCE, UNCOMPLICATED Status: Acute Current Visit: Yes (2) Pneumonia SNOMED Code(s): 813483010 Code(s): J18.9 - PNEUMONIA, UNSPECIFIED ORGANISM Status: Acute Current Visit: Yes Qualifiers: Pneumonia type: due to unspecified organism Laterality: left Lung location: lower lobe of lung Qualified Code(s): J18.1 - Lobar pneumonia, unspecified organism (3) Low back pain SNOMED Code(s): 599518565 Code(s): M54.5 - LOW BACK PAIN Status: Acute Current Visit: No Qualifiers: Chronicity: acute Back pain laterality: bilateral Sciatica presence: without sciatica Qualified Code(s): M54.5 - Low back pain (4) Alcohol withdrawal syndrome SNOMED Code(s): 728205301 Code(s): F10.239 - ALCOHOL DEPENDENCE WITH WITHDRAWAL, UNSPECIFIED Status: Resolved Priority: High Current Visit: No - Problem List Review Problem List Initiated/Reviewed/Updated: Yes - My Orders Last 24 Hours: My Active Orders 02/24/19 16:00 levoFLOXacin [Levaquin] 750 mg PO Q24H 02/24/19 21:00 ClonazePAM [KlonoPIN] 1 mg PO BEDTIME 02/25/19 09:00 chlordiazePOXIDE [Librium] 50 mg PO BID - Plan Plan:: Chronic alcoholism with alcohol withdrawal * Decrease Librium to 50 mg every 12 hours * Clonazepam 1 mg before bed * Thiamine and folic acid. * Consult discharge planning, social sciences professor, and substance abuse counseling * patient will need inpatient therapy. plan DC tomorrow. Fibromyalgia with low back pain * I counseled the patient at this time we will not be giving him narcotics. * Tylenol for pain. Patient is not complaining of pain at this time. * Consider restarting gabapentin as outpatient Left lower lobe pneumonia with sepsis * Patient given fluid boluses in the emergency room. Patient is doing well. * DC fluids * Blood cultures currently negative * switched to Levaquin 750 mg to orally daily, he has had 5 days of Levaquin 750 mg. -discontinue antibiotics * Recheck CBC ; white count is normal * Legionella, and pneumococcal antigen -negative * Sputum cultures grew Beta Streptococcus group F Length of stay approximately 2 more days CODE STATUS: Full code VTE prophylaxis with Lovenox
[2019-02-25] MEDS: Folic Acid 1 MG Tab PO SCH (21:11)
[2019-02-25] MEDS: Thiamine 100 MG Tab PO SCH (21:11)
[2019-02-25] MEDS: ClonazePAM 1 MG Tab PO SCH (21:11)
[2019-02-26] MEDS: Acetaminophen 325 MG Tab PO PRN (04:06)
--- NOTE | 2019-02-26 08:03 | PCM.DCSUM1 ---
Discharge Summary - Hospital Course HPI Initial Comments: This 38-year-old male was admitted through the emergency room for alcohol detox and left lower lobe pneumonia. Patient has been in and out of rehabilitation multiple times and he states that on one occasion he did have alcohol withdrawal seizures. Currently, for last 30 days, he has been drinking approximately half gallon of Black Velvet whiskey. He states couple of days ago he started having all over body pain, fever, chills, and dark yellow sputum. He does have a history of fibromyalgia. He is also a smoker. He has been vomiting and has loose stools. Neither have had blood. He complains of abdominal pain radiating into his back, but he did have a normal lipase. He was on gabapentin 600 mg 3 times a day but he stopped 2 weeks ago cold turkey. According to the emergency room notes he was also on Zoloft and cyclobenzaprine. Patient denies any visual hallucinations and has not been using any other illicit drugs. He does state that he blacks out from drinking. In the emergency room he was tremulous, but now he is sedated making him a poor historian. Most of the history was obtained from the emergency room and old records. In the emergency room his ECG showed normal sinus rhythm at 84 bpm with a prolonged QTc of 596. Pattern consistent with left ventricular hypertrophy. Chest x-ray showed a parenchymal density within the left lung base suspicious for pneumonia. CBC was significant for a white count of 16.9. C-reactive protein was 10.1, lactic acid of 4.5, AST 46, ALT 34, alkaline phosphatase 180, potassium of 2.9. Urine drug screen was negative. Ethyl alcohol level was 0.39 and keep total 0.4 Diagnosis: Stroke: No - Discharge Data Discharge Date: 02/26/19 Discharge Disposition: DC/Tfer to Inpt Rehab Fac 62 Condition: Good - Discharge Diagnosis/Problem(s) (1) Chronic alcoholism SNOMED Code(s): 6585119 ICD Code: F10.20 - ALCOHOL DEPENDENCE, UNCOMPLICATED Status: Acute Current Visit: Yes (2) Pneumonia SNOMED Code(s): 911565196 ICD Code: J18.9 - PNEUMONIA, UNSPECIFIED ORGANISM Status: Acute Current Visit: Yes Qualifiers: Pneumonia type: due to unspecified organism Laterality: left Lung location: lower lobe of lung Qualified Code(s): J18.1 - Lobar pneumonia, unspecified organism (3) Low back pain SNOMED Code(s): 068732977 ICD Code: M54.5 - LOW BACK PAIN Status: Acute Current Visit: No Qualifiers: Chronicity: acute Back pain laterality: bilateral Sciatica presence: without sciatica Qualified Code(s): M54.5 - Low back pain (4) Alcohol withdrawal syndrome SNOMED Code(s): 882015309 ICD Code: F10.239 - ALCOHOL DEPENDENCE WITH WITHDRAWAL, UNSPECIFIED Status : Resolved Priority: High Current Visit: No - Patient Summary/Data Consults: Consultations 02/20/19 18:36 Consult to Case Management/Commercial [employer] Assistant [CONS] Routine Respiratory Care Assess and Treatment [CONS] Routine 02/20/19 18:52 Consult for Substance Abuse [CONS] Routine - Patient Instructions Diet: Usual Diet as Tolerated Driving: Do Not Drive Showering/Bathing: January Shower - Discharge Plan *PRESCRIPTION DRUG MONITORING PROGRAM REVIEWED*: No *COPY OF PRESCRIPTION DRUG MONITORING REPORT IN PATIENT EBONY: No Home Medications: Home Meds Folic Acid 1 mg PO BEDTIME tablet 02/26/19 [Rx] Thiamine [Vitamin B-1] 100 mg PO BEDTIME tablet 02/26/19 [Rx] Oxygen Therapy Mode: Room Air Patient Handouts: Alcohol Use Disorder, Gastritis, Adult, [id number], Substance Use Disorder, Alcohol Intoxication, [id number], Steps to Quit Smoking Referrals: Saida Catalan PA-C [Primary Care Provider] - - Discharge Summary/Plan Comment DC Time >30 min.: Yes Discharge Summary/Plan Comment: Patient is doing well and ready for transfer to [facility]. Accepting physician is Alli Newby M.D. Patient be transferred via law enforcement. - General Info Date of Service: 02/26/19 Admission Dx/Problem (Free Text: Admission Diagnosis/Problem Admission Diagnosis/Problem Chronic alcoholism Subjective Update: February 21, 2019 Patient had a good night. He rested comfortably but did get Ativan regularly. Patient continues on Librium 50 mg 3 times a day. He has minimal nausea but does complain of pain throughout his body. He has a history of fibromyalgia and in the past has been on gabapentin and other medications. He also has complaints of anxiety. , who he from, and daughter were in with him today. February 22, 2019 Patient was up most of the night. He continues to complain of pain throughout his body because of his fibromyalgia. His estranged and daughter have been in several times in the last 2 days. Patient is requesting his Ativan every hour to 2. Blood pressures have been slightly elevated. February 23, 2019 Patient had a difficult night last night. He was given 9 mg of Ativan over several hours and ultimately diphenhydramine 50 mg IV and Haldol 4 mg IV. At approximately 4:00 in the morning he finally fell asleep for a few hours. Patient did miss his evening dose of Librium because of an unknown air causing it to drop off of the medication list. After patient rested his pulse and blood pressure went normal and this morning he is up eating without complaint. February 25, 2017 she did well overnight. He is asymptomatic except for anxiety. February 18, 2019 Patient is off of Librium and had one dose of clonazepam last night. He is ready for transfer to inpatient rehabilitation facility. Functional Status: Reports: Pain Controlled - Review of Systems General: Reports: No Symptoms HEENT: Reports: No Symptoms Pulmonary: Reports: No Symptoms, Sputum Cardiovascular: Reports: No Symptoms Gastrointestinal: Reports: No Symptoms Genitourinary: Reports: No Symptoms - Patient Data Vitals - Most Recent: Last Vital Signs Temp 97.4 F 02/26/19 04:00 Pulse 100 02/25/19 20:00 Resp 18 02/26/19 04:00 BP 129/99 H 02/26/19 04:00 Pulse Ox 97 02/26/19 04:00 Weight - Most Recent: 127 lb 12.8 oz I&O - Last 24 hours: Intake & Output 02/25/19 02/26/19 02/26/19 22:59 06:59 14:59 Intake Total 3020 500 Balance 3020 500 PITA Results - Last 24 hrs: Microbiology 02/20/19 16:00 Aerobic Blood Culture - Preliminary Blood - Venous - Lab Draw NO GROWTH AFTER 5 DAYS Anaerobic Blood Culture - Preliminary NO GROWTH AFTER 5 DAYS 02/20/19 15:50 Aerobic Blood Culture - Preliminary Blood - Venous NO GROWTH AFTER 5 DAYS Anaerobic Blood Culture - Preliminary NO GROWTH AFTER 5 DAYS Med Orders - Current: Current Medications Acetaminophen (Tylenol) 650 mg PO Q4H PRN PRN Reason: Pain/Fever Last Admin: 02/26/19 04:06 Dose: 650 mg Chlordiazepoxide HCl (Librium) 25 mg PO Q1H PRN PRN Reason: Withdrawal Symptoms Last Admin: 02/23/19 22:52 Dose: 25 mg Clonazepam (Klonopin) 1 mg PO BEDTIME [facility] Last Admin: 02/25/19 21:11 Dose: 1 mg Folic Acid (Folic Acid) 1 mg PO BEDTIME [facility] Last Admin: 02/25/19 21:11 Dose: 1 mg Miscellaneous Information (Remove Patch) 1 ea TRDERM DAILY [facility] Last Admin: 02/25/19 08:46 Dose: 1 ea Nicotine (Habitrol) 21 mg TRDERM DAILY [facility] Last Admin: 02/25/19 08:46 Dose: 21 mg Ondansetron HCl (Zofran) 4 mg IV Q4H PRN PRN Reason: Nausea/Vomiting Sodium Chloride (Saline Flush) 10 ml FLUSH ASDIRECTED PRN PRN Reason: Keep Vein Open Last Admin: 02/24/19 21:05 Dose: 10 ml Thiamine HCl (Vitamin B-1) 100 mg PO BEDTIME [facility] Last Admin: 02/25/19 21:11 Dose: 100 mg Discontinued Medications Acetaminophen (Tylenol) 650 mg PO ONETIME ONE Stop: 02/20/19 17:48 Last Admin: 02/20/19 18:06 Dose: 650 mg Chlordiazepoxide HCl (Librium) 50 mg PO Q8HR [facility] Last Admin: 02/22/19 05:20 Dose: 50 mg Chlordiazepoxide HCl (Librium) 25 mg PO QID [facility] Last Admin: 02/22/19 16:24 Dose: 25 mg Chlordiazepoxide HCl (Librium) 25 mg PO ONETIME ONE Stop: 02/22/19 19:35 Last Admin: 02/22/19 19:57 Dose: Not Given Chlordiazepoxide HCl (Librium) 25 mg PO ONETIME ONE Stop: 02/22/19 21:01 Last Admin: 02/22/19 21:00 Dose: 25 mg Chlordiazepoxide HCl (Librium) 25 mg PO Q1H PRN PRN Reason: Agitation Chlordiazepoxide HCl (Librium) 25 mg PO Q4H [facility] Chlordiazepoxide HCl (Librium) 50 mg PO Q6H [facility] Last Admin: 02/24/19 07:49 Dose: 50 mg Chlordiazepoxide HCl (Librium) 50 mg PO Q8H [facility] Stop: 02/25/19 00:01 Last Admin: 02/24/19 23:51 Dose: 50 mg Chlordiazepoxide HCl (Librium) 50 mg PO BID [facility] Stop: 02/25/19 21:01 Last Admin: 02/25/19 21:11 Dose: 50 mg Clonazepam (Klonopin) 1 mg PO BID PRN PRN Reason: Anxiety Last Admin: 02/24/19 08:13 Dose: 1 mg Clonazepam (Klonopin) 1 mg PO BID [facility] Diphenhydramine HCl (Benadryl) 50 mg IVPUSH ONETIME ONE Stop: 02/23/19 03:09 Last Admin: 02/23/19 03:24 Dose: 50 mg Enoxaparin Sodium (Lovenox) 40 mg SUBCUT DAILY [facility] Last Admin: 02/24/19 08:02 Dose: 40 mg Haloperidol Lactate (Haldol) 4 mg IVPUSH ONETIME ONE Stop: 02/23/19 03:53 Last Admin: 02/23/19 04:15 Dose: 4 mg Dextrose/Sodium Chloride (Dextrose 5%-Normal Saline) 1,000 mls @ 999 mls/hr IV ASDIRECTED [facility] Last Admin: 02/20/19 15:54 Dose: 999 mls/hr Potassium Chloride 10 meq/ (Premix) 100 mls @ 100 mls/hr IV ONETIME ONE Stop: 02/20/19 16:02 Last Admin: 02/20/19 15:44 Dose: 100 mls/hr Levofloxacin/Dextrose 750 mg/ (Premix) 150 mls @ 100 mls/hr IV ONETIME ONE Stop: 02/20/19 17:09 Last Admin: 02/20/19 16:05 Dose: 100 mls/hr Dextrose/Sodium Chloride (Dextrose 5%-Normal Saline) 1,000 mls @ 250 mls/hr IV ASDIRECTED [facility]ARD Last Infusion: 02/20/19 18:05 Dose: 125 mls/hr Dextrose/Sodium Chloride (Dextrose 5%-Normal Saline) 1,000 mls @ 125 mls/hr IV ASDIRECTED [facility] Last Admin: 02/21/19 07:25 Dose: 125 mls/hr Potassium Chloride 10 meq/ (Premix) 100 mls @ 100 mls/hr IV Q1H [facility] Stop: 02/20/19 22:44 Last Admin: 02/20/19 22:23 Dose: 100 mls/hr Levofloxacin/Dextrose 750 mg/ (Premix) 150 mls @ 100 mls/hr IV Q24H [facility] Last Admin: 02/21/19 14:27 Dose: 100 mls/hr Magnesium Sulfate 4 gm/ Premix 50 mls @ 12.5 mls/hr IV ONETIME ONE Stop: 02/21/19 11:41 Last Admin: 02/21/19 08:14 Dose: 12.5 mls/hr Potassium Chloride 10 meq/ (Premix) 100 mls @ 100 mls/hr IV Q1H [facility] Stop: 02/22/19 11:59 Last Admin: 02/22/19 12:31 Dose: Not Given Magnesium Sulfate 4 gm/ Premix 50 mls @ 12.5 mls/hr IV ONETIME ONE Stop: 02/23/19 11:23 Last Admin: 02/23/19 08:12 Dose: 12.5 mls/hr Ketorolac Tromethamine (Toradol) 15 mg IVPUSH ONETIME ONE Stop: 02/22/19 11:46 Last Admin: 02/22/19 11:51 Dose: 15 mg Levofloxacin (Levaquin) 750 mg PO Q24H [facility] Last Admin: 02/23/19 14:30 Dose: 750 mg Levofloxacin (Levaquin) 750 mg PO Q24H [facility] Last Admin: 02/24/19 16:23 Dose: 750 mg Lorazepam (Ativan) 2 mg IVPUSH ONETIME ONE Stop: 02/20/19 13:31 Last Admin: 02/20/19 14:00 Dose: 2 mg Lorazepam (Ativan) 2 mg IVPUSH ONETIME ONE Stop: 02/20/19 15:40 Last Admin: 02/20/19 16:05 Dose: 2 mg Lorazepam (Ativan) 0 mg IVPUSH Q1H PRN; Protocol PRN Reason: Withdrawl Last Admin: 02/22/19 22:30 Dose: 1 mg Lorazepam (Ativan) 1 mg PO Q2H PRN; Protocol PRN Reason: Withdrawal Symptoms Last Admin: 02/22/19 18:40 Dose: 1 mg Lorazepam (Ativan) 1 mg IVPUSH ONETIME ONE Stop: 02/22/19 19:37 Last Admin: 02/22/19 20:08 Dose: 1 mg Lorazepam (Ativan) 1 mg PO Q15M PRN; Protocol PRN Reason: Withdrawal Symptoms Lorazepam (Ativan) 0 mg IVPUSH Q15M PRN; Protocol PRN Reason: Withdrawl Last Admin: 02/23/19 02:13 Dose: 1 mg Lorazepam (Ativan) 1 mg PO Q2HR PRN; Protocol PRN Reason: Withdrawal Symptoms Magnesium Oxide (Magnesium Oxide) 400 mg PO BID [facility] Stop: 02/26/19 13:01 Last Admin: 02/24/19 21:03 Dose: 400 mg Metoclopramide HCl (Reglan) 7.5 mg IVPUSH ONETIME ONE Stop: 02/20/19 15:40 Last Admin: 02/20/19 16:08 Dose: 7.5 mg Ondansetron HCl (Zofran Odt) 4 mg PO Q4H PRN PRN Reason: nausea, able to take PO Last Admin: 02/22/19 06:35 Dose: 4 mg Potassium Chloride (Klor-Con M20) 20 meq PO BID [facility] Stop: 02/21/19 21:01 Last Admin: 02/21/19 21:19 Dose: 20 meq Potassium Chloride (Klor-Con M20) 20 meq PO BID [facility] Stop: 02/22/19 21:01 Last Admin: 02/22/19 20:08 Dose: 20 meq Potassium Chloride (Klor-Con M20) 20 meq PO BID [facility] Last Admin: 02/24/19 21:02 Dose: 20 meq Thiamine HCl (Vitamin B-1) 200 mg IVPUSH ONETIME ONE Stop: 02/20/19 13:32 Last Admin: 02/20/19 14:00 Dose: 200 mg - Exam General: Reports: Alert, Oriented HEENT: Reports: Pupils Equal Neck: Reports: Supple Lungs: Reports: Clear to Auscultation, Normal Respiratory Effort Cardiovascular: Reports: Regular Rate, Regular Rhythm GI/Abdominal Exam: Normal Bowel Sounds, Soft, Non-Tender, No Organomegaly, No Distention Extremities: Normal Inspection, Normal Range of Motion, Non-Tender, No Pedal Edema Skin: Reports: Warm, Dry, Intact Neurological: Reports: No New Focal Deficit Psy/Mental Status: Reports: Alert, Normal Affect, Normal Mood
[2019-02-26] MEDS: Nicotine 21 MG/24 Hr Patch TRDERM SCH (08:18)
[2019-02-26 08:30] VITALS: BP 145/109
== END 2019-02-26 11:15 | DRG 871 ==
LOC: JD.ED 12:55 → JD.ICU 15:46
PROVIDERS: ADMIT Family Medicine; ATTEND Family Medicine
DX: A41.9 Sepsis, unspecified organism (principal); J18.1 Lobar pneumonia, unspecified organism; F10.239 Alcohol dependence with withdrawal, unspecified; M79.7 Fibromyalgia; M54.5 Low back pain; F41.9 Anxiety disorder, unspecified; F32.9 Major depressive disorder, single episode, unspecified; F17.210 Nicotine dependence, cigarettes, uncomplicated; I45.81 Long QT syndrome; E87.6 Hypokalemia; F12.10 Cannabis abuse, uncomplicated; F14.10 Cocaine abuse, uncomplicated; Z79.899 Other long term (current) drug therapy
CPT/HCPCS: 36415; 71045; 71045-26; 80053; 80306; 81001; 82009; 83605; 83690; 83735; 84100; 85007; 85025; 85027; 85610; 85730; 86140; 86803; 87040; 87070; 87205; 87899; 93005; 93010; 96361; 96374; 96375; 99285; 99285-25; A9270-GY; G0480; J1200; J1630; J1650; J1885; J1956; J2060; J2765; J3411; J3475; J3480; J7042

== ENCOUNTER 2019-05-31 21:59 | Emergency (ER) | payer SELFPAY ==
[2019-05-31 22:21] VITALS: BP 121/85
[2019-05-31] MEDS ORDERED: Famotidine 20 MG/2 ML SDV IVPUSH STA (22:41)
[2019-05-31] MEDS ORDERED: Ondansetron 4 MG/2 ML SDV IVPUSH ONE (22:41)
[2019-05-31] MEDS ORDERED: Sodium Chloride 0.9% 1,000 ML IV ONE (22:41)
--- NOTE | 2019-05-31 22:45 | EDM.PDOCBH ---
ED HPI GENERAL MEDICAL PROBLEM - General Chief Complaint: Behavioral/Psych Stated Complaint: MENTAL HEALTH/THROWING UP Time Seen by Provider: 05/31/19 22:10 Source of Information: Reports: Patient History Limitations: Reports: Uncooperative (The patient is very reluctant to answer questions) - History of Present Illness INITIAL COMMENTS - FREE TEXT/NARRATIVE: The patient is reluctant answer questions, responding "Just what I told her", indicating the nurse, when I asked him what brings him to the emergency department. As a result, his HPI is unclear and likely inaccurate. He stated that 4 days ago his told him that she had cheated on him 10 years ago. In response, he states that he took 19 [place] 5/325 tablets (= 6175 mg of acetaminophen = 97 mg/kg) (his 's prescription), in order to try to get to sleep, although he states that it did not work. He adamantly denies that this was a suicide attempt. He states that he bought half a gallon of whiskey and started drinking it around 15:30 this afternoon; he states that he drank most of it. He now presents to the ED stating that he feels lousy, complaining of nausea and vomiting, with infrequent bowel movements and dark urine. He states that he has been feeling sweaty. No documented fever. The patient has a previously documented history of binge alcoholism. He states that he has been trying to quit, and that he was sober for 16 days in April, and , by the sounds of it, for 4 days prior to his most recent drinking episode. The patient does not have a PCP. Abdomen Pain Score (Numeric/FACES): 7 - Related Data Allergies Allergy/AdvReac Type Severity Reaction Status Date / Time No Known Allergies Allergy Verified 05/07/19 21:52 Home Meds: Home Meds Baclofen 10 mg PO TID #90 tablet 05/07/19 [Rx] Gabapentin [Neurontin] 800 mg PO QID #120 tablet 05/07/19 [Rx] Magnesium Oxide 400 mg PO DAILY #30 tablet 05/07/19 [Rx] Thiamine [Vitamin B-1] 100 mg PO BEDTIME #30 tablet 05/07/19 [Rx] cloNIDine [Catapres] 0.2 mg PO Q8H #180 tablet 05/07/19 [Rx] Past Medical History Cardiovascular History: Reports: Hypertension (untreated) Respiratory History: Reports: Sleep Apnea (noncompliant with nightly CPAP) Psychiatric History: Reports: Addiction (alcohol), Anxiety (untreated), Depression (untreated) Social & Family History - Family History Family Medical History: Noncontributory - Tobacco Use Smoking Status *Q: Current Every Day Smoker Years of Tobacco use: 28 Packs/Tins Daily: 1.5 - Caffeine Use Caffeine Use: Reports: Coffee Other Caffeine Use: unknown - Alcohol Use Alcohol Use History: Yes Alcohol Use Frequency: Binges - Recreational Drug Use Recreational Drug Use: Yes Drug Use in Last 12 Months: Yes Recreational Drug Type: Reports: Cocaine (last snorted and last smoked (crack) around 2007), Ecstasy (last took around 2007), Fentanyl (last used when 18 years old), Marijuana/Hashish (last smoked late 2016), Methamphetamine (last smoked around May 2018), Other (see below) (Hydrocodone, oxycodone, last May 2019) - Living Situation & Occupation Living situation: Reports: (), with Family (lives in Mother's garage) Occupation: Unemployed ED ROS GENERAL - Review of Systems Review Of Systems: ROS reveals no pertinent complaints other than HPI. ED EXAM, BEHAVIORAL HEALTH - Physical Exam Exam: See Below Exam Limited By: No Limitations General Appearance: Alert, WD/WN, No Apparent Distress Eye Exam: Bilateral Eye: EOMI, Normal Inspection Ears: Normal External Exam, Hearing Grossly Normal Nose: Normal Inspection Throat/Mouth: Normal Inspection, Normal Lips, Normal Voice, No Airway Compromise Head: Atraumatic, Normocephalic Neck: Normal Inspection, Full Range of Motion Respiratory/Chest: No Respiratory Distress, Lungs Clear, Normal Breath Sounds, No Accessory Muscle Use Cardiovascular: Normal Peripheral Pulses, Regular Rate, Rhythm, No Edema, No Gallop, No JVD, No Murmur, No Rub GI/Abdominal: Normal Bowel Sounds, Soft, Non-Tender, No Organomegaly, No Distention, No Abnormal Bruit, No Mass (Male) Exam: Deferred Rectal (Males) Exam: Deferred Back Exam: Normal Inspection, Full Range of Motion, NT Extremities: Normal Inspection, Normal Range of Motion, No Pedal Edema, Normal Capillary Refill Neurological: Alert, Normal Cognition, No Motor/Sensory Deficits, Oriented x 3 Psychiatric: Flat Affect Skin Exam: Warm, Dry, Intact, Normal color, No rash COURSE, BEHAVIORAL HEALTH COMP - Course Vital Signs: Last Vital Signs Temp 36.6 C 05/31/19 22:14 Pulse 104 H 05/31/19 22:14 Resp 18 05/31/19 22:14 BP 121/85 05/31/19 22:14 Pulse Ox 98 05/31/19 22:14 Orthostatic Blood Pressure [ 104/72 Standing] Orthostatic Blood Pressure [ 123/77 Supine] Orders, Labs, Meds: Active Orders 24 hr Category Date Time Status Orthostatic Vital Signs [RC] STAT Care 05/31/19 22:39 Active Laboratory Tests 05/31/19 05/31/19 05/31/19 Range/Units 22:50 22:50 22:50 WBC (4.23-9.07) K/mm3 RBC (4.63-6.08) M/mm3 Hgb (13.7-17.5) gm/L Hct (40.1-51.0) % MCV (79.0-92.2) fl MCH (25.7-32.2) pg MCHC (32.2-35.5) g/dl RDW Std Deviation (35.1-43.9) fL Plt Count (163-337) K/mm3 MPV (9.4-12.3) fl Neut % (Auto) (34.0-67.9) % Lymph % (Auto) (21.8-53.1) % [place] % (Auto) (5.3-12.2) % Eos % (Auto) (0.8-7.0) Baso % (Auto) (0.1-1.2) % Neut # (Auto) (1.78-5.38) K/mm3 Lymph # (Auto) (1.32-3.57) K/mm3 [place] # (Auto) (0.30-0.82) K/mm3 Eos # (Auto) (0.04-0.54) K/mm3 Baso # (Auto) (0.01-0.08) K/mm3 Manual Slide Review PT (9.7-12.0) SECONDS INR APTT (22-31) SECONDS Sodium 137 (136-145) mEq/L Potassium 2.3 L* D (3.5-5.1) mEq/L Chloride 93 L (98-107) mEq/L Carbon Dioxide 26 (21-32) mEq/L Anion Gap 20.3 H (5-15) BUN 7 (7-18) mg/dL Creatinine 0.8 (0.7-1.3) mg/dL Est Cr Clr Drug Dosing 106.77 mL/min Estimated GFR (MDRD) > 60 (>60) mL/min BUN/Creatinine Ratio 8.8 L (14-18) Glucose 100 (74-106) mg/dL Calcium 9.2 (8.5-10.1) mg/dL Magnesium 1.9 (1.8-2.4) mg/dl Total Bilirubin 0.9 (0.2-1.0) mg/dL AST 2449 H (15-37) U/L ALT 1117 H (16-63) U/L Alkaline Phosphatase 149 H (46-116) U/L Ammonia (11-32) umol/L Total Protein 8.3 H (6.4-8.2) g/dl Albumin 4.3 (3.4-5.0) g/dl Globulin 4.0 gm/dL Albumin/Globulin Ratio 1.1 (1-2) Lipase 168 (73-393) U/L Salicylates 5.0 (2.8-20) mg/dL Urine Opiates Screen Presumptive positive H (AVSCJZ=571) Ur Buprenorphine Scrn Negative (CUTOFF=10) Ur Oxycodone Screen Negative (APK6XD=479) Urine Methadone Screen Negative (LNO8MU=382) Ur Propoxyphene Screen Negative (UNTAWI=963) Acetaminophen 0 L (10-30) ug/mL Ur Barbiturates Screen Negative (IREJOL=174) Ur Tricyclics Screen Negative (RFJYUV=321) Ur Phencyclidine Scrn Negative (CUTOFF=25) Ur Amphetamine Screen Negative (WKPWYZ=992) U Methamphetamines Scrn Negative (SAFJKU=466) U Benzodiazepines Scrn Negative (UTVJZR=440) U Cocaine Metab Screen Negative (GECWNR=978) U Marijuana (THC) Screen Negative (CUTOFF=50) Ethyl Alcohol 0.24 (0.00) gm% 05/31/19 05/31/19 06/01/19 Range/Units 22:50 23:50 01:30 WBC 15.37 H (4.23-9.07) K/mm3 RBC 5.48 (4.63-6.08) M/mm3 Hgb 17.3 D (13.7-17.5) gm/L Hct 48.1 (40.1-51.0) % MCV 87.8 D (79.0-92.2) fl MCH 31.6 (25.7-32.2) pg MCHC 36.0 H (32.2-35.5) g/dl RDW Std Deviation 45.7 H (35.1-43.9) fL Plt Count 196 (163-337) K/mm3 MPV 10.6 (9.4-12.3) fl Neut % (Auto) 84.4 H (34.0-67.9) % Lymph % (Auto) 11.5 L (21.8-53.1) % [place] % (Auto) 2.8 L (5.3-12.2) % Eos % (Auto) 0.8 (0.8-7.0) Baso % (Auto) 0.3 (0.1-1.2) % Neut # (Auto) 12.97 H (1.78-5.38) K/mm3 Lymph # (Auto) 1.77 (1.32-3.57) K/mm3 [place] # (Auto) 0.43 (0.30-0.82) K/mm3 Eos # (Auto) 0.12 (0.04-0.54) K/mm3 Baso # (Auto) 0.05 (0.01-0.08) K/mm3 Manual Slide Review Abnormal smear PT 14.8 H D (9.7-12.0) SECONDS INR 1.38 APTT 26 (22-31) SECONDS Sodium (136-145) mEq/L Potassium (3.5-5.1) mEq/L Chloride (98-107) mEq/L Carbon Dioxide (21-32) mEq/L Anion Gap (5-15) BUN (7-18) mg/dL Creatinine (0.7-1.3) mg/dL Est Cr Clr Drug Dosing mL/min Estimated GFR (MDRD) (>60) mL/min BUN/Creatinine Ratio (14-18) Glucose (74-106) mg/dL Calcium (8.5-10.1) mg/dL Magnesium (1.8-2.4) mg/dl Total Bilirubin (0.2-1.0) mg/dL AST (15-37) U/L ALT (16-63) U/L Alkaline Phosphatase (46-116) U/L Ammonia 18 (11-32) umol/L Total Protein (6.4-8.2) g/dl Albumin (3.4-5.0) g/dl Globulin gm/dL Albumin/Globulin Ratio (1-2) Lipase (73-393) U/L Salicylates (2.8-20) mg/dL Urine Opiates Screen (SDULVC=132) Ur Buprenorphine Scrn (CUTOFF=10) Ur Oxycodone Screen (CLD3JE=508) Urine Methadone Screen (GVD5FH=712) Ur Propoxyphene Screen (RYCWAN=754) Acetaminophen (10-30) ug/mL Ur Barbiturates Screen (FLWGOZ=021) Ur Tricyclics Screen (RECOFR=594) Ur Phencyclidine Scrn (CUTOFF=25) Ur Amphetamine Screen (KLQEXX=188) U Methamphetamines Scrn (ZBJHHE=766) U Benzodiazepines Scrn (JILACR=933) U Cocaine Metab Screen (PQHERG=207) U Marijuana (THC) Screen (CUTOFF=50) Ethyl Alcohol (0.00) gm% Medications Discontinued Medications Generic Name Dose Route Start Last Admin Trade Name Freq PRN Reason Stop Dose Admin Famotidine 40 mg 05/31/19 22:41 05/31/19 22:58 Pepcid IVPUSH 05/31/19 22:42 40 mg ONETIME STA Administration Gabapentin 900 mg 06/01/19 01:31 06/01/19 01:46 Neurontin PO 06/01/19 01:32 900 mg ONETIME STA Administration Sodium Chloride 1,000 mls @ 999 mls/hr 05/31/19 22:41 05/31/19 22:56 Normal Saline IV 05/31/19 23:41 999 mls/hr ONETIME ONE Administration Potassium Chloride 10 meq/ 100 mls @ 100 mls/hr 06/01/19 00:30 06/01/19 00:37 Premix IV 06/01/19 04:29 100 mls/hr Q1H RICHARD Administration Sodium Chloride 1,000 mls @ 999 mls/hr 06/01/19 00:29 06/01/19 00:37 Normal Saline IV 06/01/19 01:29 999 mls/hr ONETIME ONE Administration Ondansetron HCl 4 mg 05/31/19 22:41 05/31/19 22:56 Zofran IVPUSH 05/31/19 22:42 4 mg ONETIME ONE Administration Potassium Chloride 40 meq 06/01/19 01:08 06/01/19 01:24 Potassium Chloride Solution PO 06/01/19 01:09 40 meq ONETIME STA Administration Medical Clearance: 05/31/19 22:43 As best as I can tell, the patient does not feel well and is nauseated after drinking a large quantity of alcohol this afternoon. It appears that the patient had been sober for at least 4 days prior to his drinking, and he was sober for 16 days last month. The other concern is his ingestion of 19 tablets of [place] 5/325 4 days ago. I have ordered a workup that includes orthostatics, an alcohol level, an acetaminophen level, and urine drug screen. In the meantime , the patient will receive IV fluid, IV Zofran, and IV famotidine. 06/01/19 00:02 The patient is not quite orthostatic, but he will be receiving IV fluid anyway. 06/01/19 00:24 The patient's CBC is remarkable for a WBC count elevated at 15.37. The remainder of his CBC is unremarkable. His CMP is remarkable for a potassium depressed at 2.3. His AST/ALT are significantly elevated at 2449/1117. His alkaline phosphatase is mildly elevated at 149. His total bilirubin is normal at 0.9. The remainder of his CMP is unremarkable. His magnesium level is within normal limits at 1.9. His lipase is within normal limits at 168. His EtOH level is elevated at 0.24. His acetaminophen level is 0. His salicylate level is within normal limits at 5. His urine drug screen is positive for opiates, but is otherwise negative. The patient's potassium will require replacement, and since he is nauseated, I have ordered IV potassium replacement. The patient's transaminases are elevated consistent with alcoholic hepatitis, not acetaminophen toxicity. With acetaminophen toxicity, a toxic dose is 7.5 to 10 g or 150 mg/kg and the liver enzymes peak at 72 to 96 hours after ingestion. The patient is now around 96 hours post-ingestion, which would put him in stage III liver failure if he had taken a toxic dose, therefore we would expect an elevated total bilirubinThe patient reports taking 19 [place] 5/325 = 6.175 g = 97 mg/kg. Additionally, his total bilirubin is not elevated, which would be expected at this stage of acetaminophen toxicity. Nevertheless, I have ordered an ammonia level and coags, to further evaluate. His alcohol level is elevated, but given his recent history of sobriety, he is not at risk for significant alcohol withdrawal. I am going to recommend admission to the hospital for IV fluid, potassium replacement, and monitoring of his transaminases. 06/01/19 00:32 Test results, and my recommendation for admission, were discussed with the patient. The patient is agreeable to being admitted. 06/01/19 00:[address] Gant at 00:33. He is concerned that the patient's elevated transaminases could be due to acetaminophen toxicity, therefore he is recommending that the patient be transferred to [facility]. Before calling [facility], I will wait for the ammonia level and coags to result. 06/01/19 01:06 Notified by Monisha QUINONES that the patient refused the IV potassium, stating that it burned too much. She offered to slow the rate, but he told her to discontinue it altogether. When laboratory came to draw the ammonia level, the patient refused the blood draw. I talked to the patient about the above situation. He has become exceedingly hostile and began using foul language. When asked if he would be willing to be transferred to [facility], the patient responded "Fine, whatever." I informed him of the need to check an ammonia level, and he stated that he would not refuse another blood draw, but he does not want IV potassium. I will switch the potassium order to oral. 06/01/19 02:04 The patient's coags have returned within normal limits. His ammonia level is within normal limits at 8. 06/01/19 02:27 [facility] was contacted at 02:04. Case discussed with Amy at [facility] at 02:09. Case then discussed with Dr. Mcdaniel, Hospitalist at [facility], at 02: 15. He agreed to accept the patient for transfer to their facility, provided that it was okay with the [facility] on-call. Case then discussed with Dr. Pringle, [facility] on[facility]call, at 02:22. He felt that the patient's hepatitis was most likely due to alcohol, versus viral, versus autoimmune, versus some other drug, however, he felt that the patient was fit for transfer to their facility. He recommended that the patient receive IV fluid and have his transaminases followed. He will consult with Dr. Mcdaniel. The patient will be transported by ground ambulance. Departure - Departure Time of Disposition: 02:30 Disposition: DC/Tfer to Acute Hospital 02 Condition: Good Clinical Impression: Alcohol intoxication, Alcohol dependence, binge pattern, Alcoholic hepatitis, Hypokalemia, Opioid abuse - Discharge Information *PRESCRIPTION DRUG MONITORING PROGRAM REVIEWED*: Yes *COPY OF PRESCRIPTION DRUG MONITORING REPORT IN PATIENT EBONY: No Referrals: PCP,None [Primary Care Provider] - Forms: ED Department Discharge - My Orders Last 24 Hours: My Active Orders 05/31/19 22:39 Orthostatic Vital Signs [RC] STAT - Assessment/Plan Last 24 Hours: My Active Orders 05/31/19 22:39 Orthostatic Vital Signs [RC] STAT
[2019-06-01 00:07] LABS: ACETAMINOPHEN 0 ug/mL (10-30)
[2019-06-01] MEDS ORDERED: Sodium Chloride 0.9% 1,000 ML IV ONE (00:29)
[2019-06-01] MEDS ORDERED: Potassium Chloride 10 MEQ in Premix Bag 1 BAG IV SCH (00:30)
[2019-06-01] MEDS ORDERED: Potassium Chloride 10% 20 MEQ/15 ML Soln 15 ML UD Cup PO STA (01:08)
[2019-06-01] MEDS ORDERED: Gabapentin 300 MG Cap PO STA (01:31)
[2019-06-01] MEDS ORDERED: Sodium Chloride 0.9% 1,000 ML IV SCH (02:45)
[2019-06-01] MEDS ORDERED: Aluminum Hydroxide/Magnesium Hydroxide/Simethicone Susp 30 ML Cup PO ONE (02:54)
== END 2019-06-01 02:59 ==
LOC: JD.ED 21:59
DX: K70.10 Alcoholic hepatitis without ascites (principal); F10.229 Alcohol dependence with intoxication, unspecified; Y90.8 Blood alcohol level of 240 mg/100 ml or more; F11.10 Opioid abuse, uncomplicated; F17.210 Nicotine dependence, cigarettes, uncomplicated; F41.9 Anxiety disorder, unspecified; F32.9 Major depressive disorder, single episode, unspecified; I10 Essential (primary) hypertension; Z79.899 Other long term (current) drug therapy
CPT/HCPCS: 36415; 80053; 80306; 82140; 83690; 83735; 85025; 85610; 85730; 96361; 96374; 96375; 99285; A9270; G0480; J2405; J3480; J3490; J7040

== ENCOUNTER 2019-07-01 19:22 | Emergency (ER) | payer OTHER, MEDICAID ==
[2019-07-01] MEDS ORDERED: LORazepam 2 MG/ML SDV IVPUSH ONE (19:31)
[2019-07-01 19:32] VITALS: BP 165/106; PULSE 116
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
[2019-07-01] MEDS ORDERED: levETIRAcetam 500 MG in Sodium Chloride 0.9% 100 ML IV ONE (19:45)
[2019-07-01] MEDS ORDERED: Dextrose 5%-0.9% NaCl 1,000 ML IV SCH (19:45)
[2019-07-01] MEDS ORDERED: Acetaminophen 325 MG Tab PO PRN (19:51)
[2019-07-01] MEDS ORDERED: Acetaminophen 325 MG Tab PO STA (19:51)
[2019-07-01] MEDS ORDERED: LORazepam 1 MG Tab PO ONE (21:42)
--- NOTE | 2019-07-02 08:58 | CR ---
Chest: Portable view of the chest was obtained. Comparison: Prior chest x-ray of 05/03/19. Heart size and mediastinum are within normal limits for portable technique. Lungs show no acute parenchymal change. Bony structures are grossly intact. Impression: 1. Nothing acute is appreciated on portable chest x-ray. Diagnostic code #1
== END 2019-07-01 21:53 | disposition home or self-care (01) ==
LOC: JD.ED 19:22
DX: R56.9 Unspecified convulsions (principal); F10.230 Alcohol dependence with withdrawal, uncomplicated; I10 Essential (primary) hypertension; Z79.899 Other long term (current) drug therapy
CPT/HCPCS: 36415; 71045; 80053; 80306; 80320; 82009; 82550; 83735; 85025; 85610; 85730; 93005; 96365; 96375; 99285; A9270; J1953; J2060; J7030; J7042; 93010; 99284; G0480

== ENCOUNTER 2019-07-04 21:41 | Emergency (ER) | payer MEDICAID ==
[2019-07-04] MEDS ORDERED: chlordiazePOXIDE 25 MG Cap PO ONE (22:14)
[2019-07-04] MEDS ORDERED: Sodium Chloride 0.9% 10 ML Syringe FLUSH PRN (22:14)
[2019-07-04] MEDS ORDERED: Sodium Chloride 0.9% 1,000 ML IV ONE ×2 (22:14→22:39)
--- NOTE | 2019-07-04 22:16 | EDM.PDOCBH ---
ED HPI GENERAL MEDICAL PROBLEM - General Chief Complaint: Behavioral/Psych Stated Complaint: INTOXICATION Time Seen by Provider: 07/04/19 21:58 Source of Information: Reports: Patient History Limitations: Reports: No Limitations - History of Present Illness INITIAL COMMENTS - FREE TEXT/NARRATIVE: 39 y/o M with hx ETOH abuse, prior hx severe alcohol withdrawal presents wanting to get help to stop drinking. He is here with his , with whom he is . Has been drinking about 1 L whiskey daily for a while. Last drink was around 4 hours ago. He denies drug use. notes he's lost everything - house, card, kids, marriage - due to his drinking. They are hoping he'll be able to get into a correction recovery program at some point. Has had a worsening cough x 2 weeks. No known fever. No recent vomiting or abdominal pain. - Related Data Allergies Allergy/AdvReac Type Severity Reaction Status Date / Time No Known Allergies Allergy Verified 07/04/19 21:52 Home Meds: Home Meds Baclofen 10 mg PO TID #90 tablet 05/07/19 [Rx] Gabapentin [Neurontin] 800 mg PO QID #120 tablet 05/07/19 [Rx] cloNIDine [Catapres] 0.2 mg PO Q8H PRN 07/01/19 [History] levETIRAcetam [Keppra] 500 mg PO DAILY #30 tablet 07/01/19 [Rx] Past Medical History - Past Health History Medical/Surgical History: Denies Medical/Surgical History HEENT History: Reports: Impaired Vision Cardiovascular History: Reports: Hypertension Respiratory History: Reports: Sleep Apnea Musculoskeletal History: Reports: Fibromyalgia, Other (See Below) Other Musculoskeletal History: MRI-bulges to back and not sure what else going on Neurological History: Reports: Seizure Psychiatric History: Reports: Addiction, Anxiety, Depression - Infectious Disease History Infectious Disease History: Reports: Chicken Pox - Past Surgical History HEENT Surgical History: Reports: Oral Surgery Social & Family History - Family History Family Medical History: Noncontributory - Tobacco Use Smoking Status *Q: Current Every Day Smoker Years of Tobacco use: 25 Packs/Tins Daily: 1 - Caffeine Use Caffeine Use: Reports: Coffee, Energy Drinks, Soda, Tea Other Caffeine Use: unknown - Alcohol Use Days Per Week of Alcohol Use: 7 Number of Drinks Per Day: 10 Total Drinks Per Week: 70 - Recreational Drug Use Recreational Drug Use: No - Living Situation & Occupation Living situation: Reports: (), with Family (lives in Mother's garage) Occupation: Unemployed ED ROS GENERAL - Review of Systems Review Of Systems: See Below Constitutional: Denies: Fever HEENT: Reports: No Symptoms Respiratory: Reports: Cough, Sputum. Denies: Shortness of Breath Cardiovascular: Denies: Chest Pain Endocrine: Reports: No Symptoms GI/Abdominal: Reports: No Symptoms Musculoskeletal: Reports: No Symptoms Skin: Reports: No Symptoms Neurological: Reports: No Symptoms Psychiatric: Reports: Depression, Mood Lability Hematologic/Lymphatic: Reports: No Symptoms Immunologic: Reports: No Symptoms ED EXAM, BEHAVIORAL HEALTH - Physical Exam Exam: See Below Exam Limited By: No Limitations General Appearance: Alert, Anxious, Mild Distress, Other (tearful ) Eye Exam: Bilateral Eye: Normal Inspection Ears: Normal External Exam Nose: Normal Inspection Throat/Mouth: Normal Inspection, Normal Voice Head: Atraumatic, Normocephalic Neck: Normal Inspection, Supple Respiratory/Chest: No Respiratory Distress, Lungs Clear, Normal Breath Sounds Cardiovascular: Normal Peripheral Pulses, Regular Rate, Rhythm GI/Abdominal: Soft, Non-Tender. No: Rebound Back Exam: Normal Inspection Extremities: Normal Inspection Neurological: Alert, Normal Mood/Affect, Normal Cognition, No Motor/Sensory Deficits, Oriented x 3 Psychiatric: Alert, Normal Cognition Skin Exam: Warm, Dry, No rash COURSE, BEHAVIORAL HEALTH COMP - Course Vital Signs: Last Vital Signs Temp 37.2 C 07/04/19 21:48 Pulse 88 07/05/19 06:00 Resp 18 07/04/19 21:48 BP 151/73 H 07/05/19 00:32 Pulse Ox 92 L 07/05/19 06:00 Orders, Labs, Meds: Active Orders 24 hr Category Date Time Status EKG 12 Lead [EKG Documentation Completion] [RC] STAT Care 07/04/19 22:14 Active Peripheral IV Care [RC] . DIRECTED Care 07/04/19 22:14 Active Peripheral IV Care [RC] . DIRECTED Care 07/04/19 22:14 Active Chest 2V [CR] Stat Exams 07/04/19 22:14 Taken LORazepam [Ativan] Med 07/05/19 00:07 Active 4 mg IVPUSH Q2HR PRN Potassium Chloride [KCl 10 MEQ in Water 100 ML] 10 meq Med 07/04/19 23:15 Active Premix Bag 1 bag IV ASDIRECTED Potassium Chloride [Potassium Chloride Solution] Med 07/05/19 09:00 Active 40 meq PO TID Sodium Chloride 0.9% [Saline Flush] Med 07/04/19 22:14 Active 10 ml FLUSH ASDIRECTED PRN Peripheral IV Insertion Adult [OM.PC] Routine Oth 07/04/19 22:14 Ordered Medication Orders Potassium Chloride 10 meq/ (Premix) 100 mls @ 100 mls/hr IV ASDIRECTED RICHARD Last Admin: 07/04/19 23:38 Dose: 100 mls/hr Lorazepam (Ativan) 4 mg IVPUSH Q2HR PRN PRN Reason: alcohol withdrawal Last Admin: 07/05/19 00:33 Dose: 4 mg Potassium Chloride (Potassium Chloride Solution) 40 meq PO TID RICHARD Last Admin: 07/05/19 00:44 Dose: 40 meq Sodium Chloride (Saline Flush) 10 ml FLUSH ASDIRECTED PRN PRN Reason: Keep Vein Open Last Admin: 07/04/19 22:28 Dose: 10 ml Laboratory Tests 07/04/19 07/04/19 07/05/19 Range/Units 22:25 22:25 00:08 WBC 7.82 (4.23-9.07) K/mm3 RBC 4.22 L (4.63-6.08) M/mm3 Hgb 13.9 D (13.7-17.5) gm/dl Hct 39.3 L (40.1-51.0) % MCV 93.1 H (79.0-92.2) fl MCH 32.9 H (25.7-32.2) pg MCHC 35.4 (32.2-35.5) g/dl RDW Std Deviation 51.5 H (35.1-43.9) fL Plt Count 339 H D (163-337) K/mm3 MPV 8.8 L (9.4-12.3) fl Neut % (Auto) 42.3 (34.0-67.9) % Lymph % (Auto) 44.9 (21.8-53.1) % Dawes % (Auto) 10.7 (5.3-12.2) % Eos % (Auto) 1.5 (0.8-7.0) Baso % (Auto) 0.6 (0.1-1.2) % Neut # (Auto) 3.30 (1.78-5.38) K/mm3 Lymph # (Auto) 3.51 (1.32-3.57) K/mm3 Dawes # (Auto) 0.84 H (0.30-0.82) K/mm3 Eos # (Auto) 0.12 (0.04-0.54) K/mm3 Baso # (Auto) 0.05 (0.01-0.08) K/mm3 Manual Slide Review Sodium 147 H D (136-145) mEq/L Potassium 2.7 L (3.5-5.1) mEq/L Chloride 107 (98-107) mEq/L Carbon Dioxide 27 (21-32) mEq/L Anion Gap 15.7 H (5-15) BUN 7 (7-18) mg/dL Creatinine 0.7 (0.7-1.3) mg/dL Est Cr Clr Drug Dosing 122.02 mL/min Estimated GFR (MDRD) > 60 (>60) mL/min BUN/Creatinine Ratio 10.0 L (14-18) Glucose 105 (74-106) mg/dL Calcium 9.1 (8.5-10.1) mg/dL Total Bilirubin 0.1 L (0.2-1.0) mg/dL AST 35 (15-37) U/L ALT 47 (16-63) U/L Alkaline Phosphatase 89 (46-116) U/L Total Protein 7.2 (6.4-8.2) g/dl Albumin 3.6 (3.4-5.0) g/dl Globulin 3.6 gm/dL Albumin/Globulin Ratio 1.0 (1-2) Lipase 388 (73-393) U/L Urine Opiates Screen Negative (WHPIAP=775) Ur Buprenorphine Scrn Negative (CUTOFF=10) Ur Oxycodone Screen Negative (TGI6WI=883) Urine Methadone Screen Negative (TJU9ZK=084) Ur Propoxyphene Screen Negative (UFLDNE=085) Ur Barbiturates Screen Negative (OYKIBF=955) Ur Tricyclics Screen Negative (GBTESA=878) Ur Phencyclidine Scrn Negative (CUTOFF=25) Ur Amphetamine Screen Negative (OSHLPB=044) U Methamphetamines Scrn Negative (ONLBKU=026) U Benzodiazepines Scrn Negative (YSDSPC=445) U Cocaine Metab Screen Negative (VVCZJV=509) U Marijuana (THC) Screen Negative (CUTOFF=50) Ethyl Alcohol 0.28 (0.00) gm% Medications Generic Name Dose Route Start Last Admin Trade Name Freq PRN Reason Stop Dose Admin Potassium Chloride 10 meq/ 100 mls @ 100 mls/hr 07/04/19 23:15 07/04/19 23:38 Premix IV 100 mls/hr ASDIRECTED RICHARD Administration Lorazepam 4 mg 07/05/19 00:07 07/05/19 00:33 Ativan IVPUSH 4 mg Q2HR PRN Administration alcohol withdrawal Potassium Chloride 40 meq 07/05/19 09:00 07/05/19 00:44 Potassium Chloride Solution PO 40 meq TID RICHARD Administration Sodium Chloride 10 ml 07/04/19 22:14 07/04/19 22:28 Saline Flush FLUSH 10 ml ASDIRECTED PRN Administration Keep Vein Open Discontinued Medications Generic Name Dose Route Start Last Admin Trade Name Freq PRN Reason Stop Dose Admin Chlordiazepoxide HCl 100 mg 07/04/19 22:14 07/04/19 22:28 Librium PO 07/04/19 22:15 100 mg ONETIME ONE Administration Clonidine HCl 0.2 mg 07/05/19 00:07 07/05/19 00:32 Catapres PO 07/05/19 00:08 0.2 mg ONETIME ONE Administration Gabapentin 600 mg 07/05/19 00:06 07/05/19 00:43 Neurontin PO 07/05/19 00:07 600 mg ONETIME ONE Administration Sodium Chloride 1,000 mls @ 1,000 mls/hr 07/04/19 22:14 07/04/19 22:27 Normal Saline IV 07/04/19 23:13 1,000 mls/hr ONETIME ONE Administration Sodium Chloride 1,000 mls @ 1,000 mls/hr 07/04/19 22:39 07/04/19 23:47 Normal Saline IV 07/04/19 23:38 1,000 mls/hr ONETIME ONE Administration Potassium Chloride 10 meq/ 100 mls @ 100 mls/hr 07/05/19 02:00 07/05/19 02:04 Premix IV 07/05/19 02:59 100 mls/hr NOW STA Administration Lorazepam 2 mg 07/04/19 22:36 07/04/19 22:44 Ativan IVPUSH 07/04/19 22:37 2 mg ONETIME ONE Administration Lorazepam 4 mg 07/04/19 23:11 07/04/19 23:38 Ativan IVPUSH 07/04/19 23:12 4 mg ONETIME ONE Administration Nicotine 21 mg 07/04/19 23:47 07/04/19 23:53 Habitrol TRDERM 07/04/19 23:48 21 mg ONETIME ONE Administration Re-Assessment/Re-Exam: Labs show hypokalemia with potassium 2.7. His other electrolytes are OK. Will replete orally and IV. His ETOH level is still high at 230. LFT's are normal. EKG shows sinus tachycardia with rate 102, normal intervals, no evidence of acute ischemia or arrhythmia. CXR shows no infiltrate, no acute abnormality. He is not really withdrawing from alcohol yet but is at risk for severe withdrawal and has had seizures in the past. He does want to get treatment. He is currently living along in a garage. Given these circumstances, we will observe him overnight in the ED and hope to discharge him to [facility] in the morning, or if he does begin to have substantial withdrawal symptoms he may need to be admitted instead at that time. 06:45 - HR 89, SpO2 92, no evidence of withdrawal at this time Departure - Departure Time of Disposition: 08:00 Disposition: Home, Self-Care 01 Clinical Impression: Hypokalemia Alcohol withdrawal Qualifiers: Complication of substance-induced condition: uncomplicated Qualified Code(s): F10.230 - Alcohol dependence with withdrawal, uncomplicated - Discharge Information Referrals: Saida Catalan PA-C [Primary Care Provider] - Forms: ED Department Discharge Additional Instructions: 1. Go directly to [facility] to get further help for your alcoholism. Call [phone] if you need further information. You should also follow up with your primary care provider as soon as possible. 2. Return to the ED as needed for any new concerning symptoms. - My Orders Last 24 Hours: My Active Orders 07/04/19 22:14 EKG 12 Lead [EKG Documentation Completion] [RC] STAT Peripheral IV Care [RC] . DIRECTED Peripheral IV Care [RC] . DIRECTED Chest 2V [CR] Stat Sodium Chloride 0.9% [Saline Flush] 10 ml FLUSH ASDIRECTED PRN Peripheral IV Insertion Adult [OM.PC] Routine 07/04/19 23:15 Potassium Chloride [KCl 10 MEQ in Water 100 ML] 10 meq Premix Bag 1 bag IV ASDIRECTED 07/05/19 00:07 LORazepam [Ativan] 4 mg IVPUSH Q2HR PRN 07/05/19 09:00 Potassium Chloride [Potassium Chloride Solution] 40 meq PO TID - Assessment/Plan Last 24 Hours: My Active Orders 07/04/19 22:14 EKG 12 Lead [EKG Documentation Completion] [RC] STAT Peripheral IV Care [RC] . DIRECTED Peripheral IV Care [RC] . DIRECTED Chest 2V [CR] Stat Sodium Chloride 0.9% [Saline Flush] 10 ml FLUSH ASDIRECTED PRN Peripheral IV Insertion Adult [OM.PC] Routine 07/04/19 23:15 Potassium Chloride [KCl 10 MEQ in Water 100 ML] 10 meq Premix Bag 1 bag IV ASDIRECTED 07/05/19 00:07 LORazepam [Ativan] 4 mg IVPUSH Q2HR PRN 07/05/19 09:00 Potassium Chloride [Potassium Chloride Solution] 40 meq PO TID
[2019-07-04] MEDS ORDERED: LORazepam 2 MG/ML SDV IVPUSH ONE ×2 (22:36→23:11)
[2019-07-04] MEDS ORDERED: Potassium Chloride 10 MEQ in Premix Bag 1 BAG IV SCH (23:15)
[2019-07-04] MEDS ORDERED: Nicotine 21 MG/24 Hr Patch TRDERM ONE (23:47)
[2019-07-05] MEDS ORDERED: Gabapentin 300 MG Cap PO ONE (00:06)
[2019-07-05] MEDS ORDERED: LORazepam 2 MG/ML SDV IVPUSH PRN (00:07)
[2019-07-05] MEDS ORDERED: cloNIDine 0.1 MG Tab PO ONE (00:07)
[2019-07-05 00:33] VITALS: BP 151/73
[2019-07-05] MEDS ORDERED: Potassium Chloride 10 MEQ in Premix Bag 1 BAG IV STA (02:00)
[2019-07-05 06:35] VITALS: PULSE 88
--- NOTE | 2019-07-05 06:51 | CR ---
Chest: Two views of the chest were obtained. Comparison: Previous chest x-ray of 07/01/19. Heart size and mediastinum are normal. Lungs are clear. Bony structures are unremarkable. Impression: 1. Nothing acute is seen on two-view chest x-ray. Diagnostic code #1
[2019-07-05] MEDS ORDERED: Potassium Chloride 10% 20 MEQ/15 ML Soln 15 ML UD Cup PO SCH (09:00)
== END 2019-07-05 08:52 | disposition home or self-care (01) ==
LOC: JD.ED 21:41
DX: F10.230 Alcohol dependence with withdrawal, uncomplicated (principal); E87.6 Hypokalemia; I10 Essential (primary) hypertension; G40.909 Epilepsy, unspecified, not intractable, without status epilepticus; F17.200 Nicotine dependence, unspecified, uncomplicated; Z79.899 Other long term (current) drug therapy
CPT/HCPCS: 36415; 71046; 80053; 80306; 80320; 83690; 85025; 93005; 96361; 96365; 96366; 96375; 96376; 99285; A9270; J2060; J3480; J7040; G0480

== ENCOUNTER 2020-05-18 19:06 | Inpatient (IN) | payer MEDICAID, SELFPAY ==
[2020-05-18] MEDS ORDERED: Ondansetron 4 MG/2 ML SDV IVPUSH ONE (19:32)
[2020-05-18] MEDS ORDERED: Sodium Chloride 0.9% 1,000 ML IV ONE (19:32)
--- NOTE | 2020-05-18 19:38 | EDM.PDOCBH ---
ED HPI GENERAL MEDICAL PROBLEM - General Chief Complaint: Drug or Alcohol Abuse Stated Complaint: ALCOHOL/POSSIBLE SIEZURE Time Seen by Provider: 05/18/20 19:17 Source of Information: Reports: Patient History Limitations: Reports: No Limitations - History of Present Illness INITIAL COMMENTS - FREE TEXT/NARRATIVE: Mr. Jcakson is a pleasant 40-year-old gentleman with a past medical history significant for binge alcoholism, who now presents to the ED after possibly having an alcohol-related seizure this morning. The patient states that he first started having alcohol-related seizures about 1.5 years ago. He has never had a seizure not related to alcohol. He states that he was admitted to an inpatient program in [place] on July 06, 2019, where he remained for approximately 6 months, being discharged to an [address] in [place], where he remained for another month. He has not pursued outpatient treatment, although he has been to [facility] in the past. He began drinking about 1 gallon of whiskey per day this past , 05/14/2020, precipitated by an argument with his estranged . He denies recent drug use. He states that his last drink was around 9:00 this morning, then, later this morning, he felt shaky, with body cramps. He then "blacked out", and when he came around, he felt the way that he has felt in the past when he has had a seizure. He did not bite his tongue, although he states that he did have a urinary incontinence. Here in the ED, the patient is found to be mildly tachycardic at 102 bpm, otherwise, he is hemodynamically stable, afebrile, saturating 98% on room air. Other than this morning is likely seizure, the patient denies having a recent fever, chills, sore throat, ear pain, nasal or sinus congestion, cough, dyspnea, chest pain, palpitations, nausea, vomiting, constipation, diarrhea, abdominal pain, urinary symptoms, recent weight gain or weight loss, recent bloody bowel movements or black bowel movements, recent joint aches, headaches, or rashes. The patient's PCP, whose name he does not recall, is in the [facility] clinic. He last saw them more than 1 year ago. - Related Data Allergies Allergy/AdvReac Type Severity Reaction Status Date / Time No Known Allergies Allergy Verified 05/18/20 19:17 Home Meds: Home Meds . [Unable to Verify Home Med List] 05/18/20 [History] Past Medical History HEENT History: Reports: Impaired Vision Cardiovascular History: Reports: Hypertension (untreated) Respiratory History: Reports: Sleep Apnea (untreated) Neurological History: Reports: Seizure (alcohol-related only) Psychiatric History: Reports: Addiction (alcohol), Anxiety (untreated), Depression (untreated) - Infectious Disease History Infectious Disease History: Reports: Chicken Pox Social & Family History - Family History Family Medical History: Noncontributory - Tobacco Use Smoking Status *Q: Current Every Day Smoker Years of Tobacco use: 28 Packs/Tins Daily: 1 Packs/Tins Daily Comment: Down from 1.5 ppd - Caffeine Use Caffeine Use: Reports: Coffee Other Caffeine Use: unknown - Alcohol Use Alcohol Use History: Yes Alcohol Use Frequency: Binges - Recreational Drug Use Recreational Drug Use: Yes Drug Use in Last 12 Months: Yes Recreational Drug Type: Reports: Cocaine (last smoked crack around 2007), Ecstasy (last took around 2007), Fentanyl (last took when 18 yrs old), Marijuana/Hashish (last smoked 2018), Methamphetamine (last smoked May 2018), Other (see below) (Last took hydrocodone, oxycodone May 2019) - Living Situation & Occupation Living situation: Reports: (), with Family (Mother and sister) Occupation: Unemployed ED ROS GENERAL - Review of Systems Review Of Systems: Comprehensive ROS is negative, except as noted in HPI. ED EXAM, BEHAVIORAL HEALTH - Physical Exam Exam: See Below Exam Limited By: No Limitations General Appearance: Alert, WD/WN, No Apparent Distress, Other (Hickups frequently) Eye Exam: Bilateral Eye: EOMI, Normal Inspection Ears: Normal External Exam, Hearing Grossly Normal Nose: Normal Inspection Throat/Mouth: Normal Inspection, Normal Lips, Normal Voice, No Airway Compromise Head: Atraumatic, Normocephalic Neck: Normal Inspection, Full Range of Motion Respiratory/Chest: No Respiratory Distress, Lungs Clear, Normal Breath Sounds, No Accessory Muscle Use Cardiovascular: Normal Peripheral Pulses, No Edema, No Gallop, No JVD, No Murmur, No Rub, Tachycardia (regular) GI/Abdominal: Normal Bowel Sounds, Soft, No Organomegaly, No Distention, No Abnormal Bruit, No Mass, Tender (Mild, generalized, non-focal) (Male) Exam: Deferred Rectal (Males) Exam: Deferred Back Exam: Normal Inspection, Full Range of Motion, NT Extremities: Normal Inspection, Normal Range of Motion, No Pedal Edema, Normal Capillary Refill Neurological: Alert, No Motor/Sensory Deficits, Oriented x 3 Psychiatric: Normal Affect Skin Exam: Warm, Dry, Intact, Normal color, No rash COURSE, BEHAVIORAL HEALTH COMP - Course Vital Signs: Last Vital Signs Temp 37.0 C 05/18/20 22:14 Pulse 86 05/18/20 22:14 Resp 16 05/18/20 22:14 BP 142/94 H 05/18/20 22:14 Pulse Ox 95 05/18/20 22:14 Orders, Labs, Meds: Active Orders 24 hr Category Date Time Status Admission Status [Patient Status] [ADT] Routine ADT 05/18/20 21:34 Active Medication Orders Lactated Ringer's (Ringers, Lactated) 1,000 mls @ 250 mls/hr IV ASDIRECTED RICHARD Thiamine HCl 1,000 mg/Magnesium Sulfate 4 gm/ Folic Acid 1 mg/ Dextrose/Sodium Chloride 1,018.2 mls @ 125 mls/hr IV ASDIRECTED RICHARD dexMEDEtomidine in dextrose 5% (400 mcg/ Premix) 100 mls @ 0 mls/hr IV TITRATE RICHARD Lorazepam (Ativan) 0 mg IV ASDIRECTED RICHARD; Protocol Lorazepam (Ativan) 0 mg PO ASDIRECTED RICHARD; Protocol Nicotine (Habitrol) 21 mg TRDERM DAILY RICHARD Ondansetron HCl (Zofran) 4 mg IV Q6H PRN PRN Reason: Nausea/Vomiting Laboratory Tests 05/18/20 05/18/20 05/18/20 Range/Units 19:42 19:42 20:55 WBC 5.60 (4.23-9.07) K/mm3 RBC 4.99 (4.63-6.08) M/mm3 Hgb 16.3 D (13.7-17.5) gm/dl Hct 45.3 (40.1-51.0) % MCV 90.8 (79.0-92.2) fl MCH 32.7 H (25.7-32.2) pg MCHC 36.0 H (32.2-35.5) g/dl RDW Std Deviation 49.0 H (35.1-43.9) fL Plt Count 316 (163-337) K/mm3 MPV 9.3 L (9.4-12.3) fl Neut % (Auto) 46.1 (34.0-67.9) % Lymph % (Auto) 38.0 (21.8-53.1) % [place] % (Auto) 13.2 H (5.3-12.2) % Eos % (Auto) 1.1 (0.8-7.0) Baso % (Auto) 1.6 H (0.1-1.2) % Neut # (Auto) 2.58 (1.78-5.38) K/mm3 Lymph # (Auto) 2.13 (1.32-3.57) K/mm3 [place] # (Auto) 0.74 (0.30-0.82) K/mm3 Eos # (Auto) 0.06 (0.04-0.54) K/mm3 Baso # (Auto) 0.09 H (0.01-0.08) K/mm3 Sodium 134 L D (136-145) mEq/L Potassium 3.2 L (3.5-5.1) mEq/L Chloride 94 L D (98-107) mEq/L Carbon Dioxide 24 (21-32) mEq/L Anion Gap 19.2 H (5-15) BUN 5 L (7-18) mg/dL Creatinine 0.8 (0.7-1.3) mg/dL Est Cr Clr Drug Dosing 4.14 mL/min Estimated GFR (MDRD) > 60 (>60) mL/min BUN/Creatinine Ratio 6.3 L (14-18) Glucose 80 (74-106) mg/dL Calcium 8.4 L (8.5-10.1) mg/dL Phosphorus 2.3 L (2.6-4.7) mg/dL Magnesium 1.7 L (1.8-2.4) mg/dl Total Bilirubin 0.9 (0.2-1.0) mg/dL AST 143 H (15-37) U/L ALT 111 H (16-63) U/L Alkaline Phosphatase 92 (46-116) U/L Creatine Kinase 216 (39-308) U/L Total Protein 7.5 (6.4-8.2) g/dl Albumin 4.2 (3.4-5.0) g/dl Globulin 3.3 gm/dL Albumin/Globulin Ratio 1.3 (1-2) Urine Opiates Screen (AXERLC=376) Ur Buprenorphine Scrn (CUTOFF=10) Ur Oxycodone Screen (CHH7ME=097) Urine Methadone Screen (SCT1LF=466) Ur Propoxyphene Screen (TJKKHB=442) Ur Barbiturates Screen (OSRWBL=777) Ur Tricyclics Screen (KCXDRU=068) Ur Phencyclidine Scrn (CUTOFF=25) Ur Amphetamine Screen (MZOEOS=889) U Methamphetamines Scrn (LKFJBX=400) U Benzodiazepines Scrn (MBIYBK=327) U Cocaine Metab Screen (EOOMCK=008) U Marijuana (THC) Screen (CUTOFF=50) Ethyl Alcohol 0.26 (0.00) gm% COVID-19 (GURJIT) Negative (NEGATIVE) 05/18/20 Range/Units 21:10 WBC (4.23-9.07) K/mm3 RBC (4.63-6.08) M/mm3 Hgb (13.7-17.5) gm/dl Hct (40.1-51.0) % MCV (79.0-92.2) fl MCH (25.7-32.2) pg MCHC (32.2-35.5) g/dl RDW Std Deviation (35.1-43.9) fL Plt Count (163-337) K/mm3 MPV (9.4-12.3) fl Neut % (Auto) (34.0-67.9) % Lymph % (Auto) (21.8-53.1) % [place] % (Auto) (5.3-12.2) % Eos % (Auto) (0.8-7.0) Baso % (Auto) (0.1-1.2) % Neut # (Auto) (1.78-5.38) K/mm3 Lymph # (Auto) (1.32-3.57) K/mm3 [place] # (Auto) (0.30-0.82) K/mm3 Eos # (Auto) (0.04-0.54) K/mm3 Baso # (Auto) (0.01-0.08) K/mm3 Sodium (136-145) mEq/L Potassium (3.5-5.1) mEq/L Chloride (98-107) mEq/L Carbon Dioxide (21-32) mEq/L Anion Gap (5-15) BUN (7-18) mg/dL Creatinine (0.7-1.3) mg/dL Est Cr Clr Drug Dosing mL/min Estimated GFR (MDRD) (>60) mL/min BUN/Creatinine Ratio (14-18) Glucose (74-106) mg/dL Calcium (8.5-10.1) mg/dL Phosphorus (2.6-4.7) mg/dL Magnesium (1.8-2.4) mg/dl Total Bilirubin (0.2-1.0) mg/dL AST (15-37) U/L ALT (16-63) U/L Alkaline Phosphatase (46-116) U/L Creatine Kinase (39-308) U/L Total Protein (6.4-8.2) g/dl Albumin (3.4-5.0) g/dl Globulin gm/dL Albumin/Globulin Ratio (1-2) Urine Opiates Screen Negative (OKXSLE=876) Ur Buprenorphine Scrn Negative (CUTOFF=10) Ur Oxycodone Screen Negative (FWZ2UA=301) Urine Methadone Screen Negative (WFX3VT=827) Ur Propoxyphene Screen Negative (NXOBJC=793) Ur Barbiturates Screen Negative (CVGUNG=516) Ur Tricyclics Screen Negative (TRQPGR=534) Ur Phencyclidine Scrn Negative (CUTOFF=25) Ur Amphetamine Screen Negative (HAWAEN=555) U Methamphetamines Scrn Negative (KZAPJD=010) U Benzodiazepines Scrn Negative (YYHECQ=189) U Cocaine Metab Screen Negative (WDZQMD=879) U Marijuana (THC) Screen Negative (CUTOFF=50) Ethyl Alcohol (0.00) gm% COVID-19 (GURJIT) (NEGATIVE) Medications Generic Name Dose Route Start Last Admin Trade Name Freq PRN Reason Stop Dose Admin Lactated Ringer's 1,000 mls @ 250 mls/hr 05/18/20 21:45 Ringers, Lactated IV ASDIRECTED RICHARD Thiamine HCl 1,000 mg/ 1,018.2 mls @ 125 mls/hr 05/18/20 22:00 Magnesium Sulfate 4 gm/ Folic IV Acid 1 mg/ Dextrose/Sodium ASDIRECTED RICHARD Chloride dexMEDEtomidine in dextrose 5% 100 mls @ 0 mls/hr 05/18/20 22:15 400 mcg/ Premix IV TITRATE RICHARD Lorazepam 0 mg 05/18/20 21:45 Ativan IV ASDIRECTED RICHARD Protocol Lorazepam 0 mg 05/18/20 21:45 Ativan PO ASDIRECTED [facility] Protocol Nicotine 21 mg 05/19/20 09:00 Habitrol TRDERM DAILY [facility] Ondansetron HCl 4 mg 05/18/20 21:44 Zofran IV Q6H PRN Nausea/Vomiting Discontinued Medications Generic Name Dose Route Start Last Admin Trade Name Kavya PRN Reason Stop Dose Admin Dexmedetomidine HCl 0.2 mcg 05/18/20 20:54 05/18/20 22:36 Precedex IV 05/18/20 20:55 Not Given ONETIME ONE Protocol Sodium Chloride 1,000 mls @ 999 mls/hr 05/18/20 19:32 05/18/20 19:46 Normal Saline IV 05/18/20 20:32 999 mls/hr ONETIME ONE Administration Magnesium Sulfate 2 gm/ Premix 50 mls @ 25 mls/hr 05/18/20 20:28 05/18/20 21:10 IV 05/18/20 22:27 25 mls/hr ONETIME ONE Administration Lactated Ringer's 1,000 mls @ 999 mls/hr 05/18/20 21:02 05/18/20 21:12 Ringers, Lactated IV 05/18/20 22:02 999 mls/hr .BOLUS ONE Administration Ondansetron HCl 4 mg 05/18/20 19:32 05/18/20 19:47 Zofran IVPUSH 05/18/20 19:33 4 mg ONETIME ONE Administration Sodium Phosphate 250 mg 05/18/20 20:28 05/18/20 21:11 Neutra-Phos PO 05/18/20 20:29 250 mg ONETIME ONE Administration Medical Clearance: 05/18/20 19:35 As above, the patient has a history of binge alcoholism, and was sober from July 2019 up until this past , 05/14/2020, when he resumed drinking approximately 1 gallon of whiskey per day. He may have suffered an unwitnessed seizure this morning, feeling shaky with body cramps, then "blacking out" and waking having lost urinary continence and feeling in a way that he has felt in the past when he has suffered a seizure. I have ordered a work-up that includes blood work and a urine drug screen. In the meantime, the patient will be given IV fluid and IV Zofran. 05/18/20 20:30 The patient's CBC is unremarkable. His CMP is remarkable for a sodium slightly depressed at 134, a potassium modestly depressed at 3.2, and anion gap elevated at 19.2, but with a bicarbonate normal at 24, and an AST/ALT elevated at 143/111, respectively, with the remainder of his CMP being unremarkable. His magnesium level is slightly depressed at 1.7. His phosphorus level is mildly depressed at 2.3. His CPK is within normal limits at 216. His EtOH level is significantly elevated at 0.26. The patient has not yet provided a urine sample for the urine drug screen. Based on the above, I have ordered a 2 g Mg-rider and 250 mg of oral Neutra-P hos. Once the Mg finished infusing, the patient can be given oral KCl. 05/18/20 20:[address] Ruiz at 20:35. She accepted the patient for admission to the ICU. She will come to the ED to evaluate the patient. I have ordered a test for the SARS-CoV-2 virus. 05/18/20 20:44 The above plan was discussed with the patient. He is agreeable to being admitted. 05/18/20 22:41 The patient's urine drug screen has returned completely negative. His test for the SARS-CoV-2 virus has returned negative. Departure - Departure Time of Disposition: 20:37 Disposition: Admitted As Inpatient 65 Condition: Fair Clinical Impression: Alcohol dependence, binge pattern, Alcohol intoxication, Hypokalemia, Hypomagnesemia, Hypophosphatemia, Alcohol related seizure - Discharge Information Sepsis Event Note (ED) - Evaluation Sepsis Screening Result: No Definite Risk - Focused Exam Vital Signs: Vital Signs Temp Pulse Resp BP Pulse Ox 05/18/20 19:18 36.7 C 102 H 16 146/95 H 98 - My Orders Last 24 Hours: My Active Orders 05/18/20 21:34 Admission Status [Patient Status] [ADT] Routine - Assessment/Plan Last 24 Hours: My Active Orders 05/18/20 21:34 Admission Status [Patient Status] [ADT] Routine
[2020-05-18] MEDS ORDERED: Phosphorus #1 250 MG Tab PO ONE (20:28)
[2020-05-18] MEDS ORDERED: Magnesium Sulfate/Water 2 GM in Premix Bag 1 BAG IV ONE (20:28)
[2020-05-18] MEDS ORDERED: Dexmedetomidine 200 MCG/2 ML SDV IV ONE (20:54)
[2020-05-18] MEDS ORDERED: Lactated Ringers 1,000 ML IV ONE (21:02)
--- NOTE | 2020-05-18 21:43 | PCM.HP.2 ---
H&P History of Present Illness - General Date of Service: 05/18/20 Admit Problem/Dx: Admission Diagnosis/Problem Admission Diagnosis/Problem Alcohol dependence - History of Present Illness Initial Comments - Free Text/Narative: This is a 40-year-old male past medical history fibromyalgia and alcohol abuse comes emergency department seeking help for alcohol dependence. As per patient he has been in rehab 1 5 times, couple times of balance. He was sober from July 07, 2018 until last when he started having problems with his which he is . After that he decided to drink whiskey daily, states that he drank about 3 to 4 gallons from to today. Last drink was this morning Has a history of seizures with previous withdrawals, last episode a year ago. Endorses suicidal ideation yesterday, he did have a plan of hanging himself however he was too drunk and passed out before he could execute it. - Related Data Allergies/Adverse Reactions: Allergies Allergy/AdvReac Type Severity Reaction Status Date / Time No Known Allergies Allergy Verified 05/18/20 19:17 Home Medications: Home Meds . [Unable to Verify Home Med List] 05/18/20 [History] Past Medical History - Past Health History Medical/Surgical History: Denies Medical/Surgical History HEENT History: Reports: Impaired Vision Cardiovascular History: Reports: Hypertension (untreated) Respiratory History: Reports: Sleep Apnea (untreated) Musculoskeletal History: Reports: Fibromyalgia, Other (See Below) Other Musculoskeletal History: MRI-bulges to back and not sure what else going on Neurological History: Reports: Seizure (alcohol-related only) Psychiatric History: Reports: Addiction (alcohol), Anxiety (untreated), Depression (untreated) - Infectious Disease History Infectious Disease History: Reports: Chicken Pox - Past Surgical History HEENT Surgical History: Reports: Oral Surgery Social & Family History - Family History Family Medical History: Noncontributory - Tobacco Use Smoking Status *Q: Current Every Day Smoker Years of Tobacco use: 28 Packs/Tins Daily: 1 - Caffeine Use Caffeine Use: Reports: Coffee Other Caffeine Use: unknown - Alcohol Use Days Per Week of Alcohol Use: 7 Number of Drinks Per Day: 10 Total Drinks Per Week: 70 - Recreational Drug Use Recreational Drug Use: Yes Drug Use in Last 12 Months: Yes Recreational Drug Type: Reports: Cocaine (last smoked crack around 2007), Ecstasy (last took around 2007), Fentanyl (last took when 18 yrs old), Marijuana/Hashish (last smoked 2018), Methamphetamine (last smoked May 2018), Other (see below) (Last took hydrocodone, oxycodone May 2019) - Living Situation & Occupation Living situation: Reports: (), with Family (Mother and sister) Occupation: Unemployed H&P Review of Systems - Review of Systems: Review Of Systems: See Below General: Reports: Diaphoresis. Denies: Fever, Chills, Malaise, Weakness, Fatigue, Night Sweats HEENT: Denies: Post Nasal Drip, Sinus Congestion, Sore Throat, Vertigo, Visual Changes Pulmonary: Denies: Shortness of Breath, Wheezing, Pleuritic Chest Pain, Cough, Sputum Cardiovascular: Denies: Chest Pain, Palpitations, Dyspnea on Exertion, Orthopnea, PND, Edema Gastrointestinal: Reports: Decreased Appetite, Nausea. Denies: Abdominal Pain, Anorexia, Black Stool, Bloody Stool, Constipation, Diarrhea, Difficulty Swallowing, Distension, Flatus, Hematemesis, Hematochezia, Vomiting Genitourinary: Denies: Dysuria, Frequency, Burning, Pain, Urgency Musculoskeletal: Denies: Joint Pain, Joint Swelling, Muscle Pain, Muscle Stiffness Skin: Denies: Cyanosis, Jaundice, Mottled, Pallor Psychiatric: Reports: Depression, Mood Lability, Anxiety, Suicidal Ideation. Denies: Agitation, Cravings, Hallucinations, Homicidal Ideation, Hallucinations (Auditory), Hallucinations (Visual) Neurological: Denies: Confusion, Dizziness, Headache, Numbness Exam - Exam Exam: See Below - Vital Signs Vital Signs: Last Vital Signs Temp 98.1 F 05/18/20 19:18 Pulse 102 H 05/18/20 19:18 Resp 16 05/18/20 19:18 BP 146/95 H 05/18/20 19:18 Pulse Ox 98 05/18/20 19:18 Weight: 2.41 kg - Exam General: Alert, Oriented, Cooperative. No: Mild Distress HEENT: Conjunctiva Clear (Injected), Mucosa Moist & [place], Nares Patent, Pupils Equal, Pupils Reactive Neck: Supple, Trachea Midline, +2 Carotid Pulse wo Bruit, Full Range of Motion. No: Lymphadenopathy Lungs: Clear to Auscultation, Normal Respiratory Effort, Decreased Breath Sounds. No: Crackles, Rales, Rhonchi, Rub, Wheezing Cardiovascular: Regular Rate, Regular Rhythm. No: Systolic Murmur, Diastolic Murmur, Rubs, Gallop/S3, Gallop/S4 GI/Abdominal Exam: Normal Bowel Sounds, Soft, Non-Tender, Distended. No: Guarding, Rigid, Rebound Extremities: Normal Inspection, Normal Range of Motion, Non-Tender, No Pedal Edema, Normal Capillary Refill Peripheral Pulses: 2+: Radial (L), Radial (R), Dorsalis Pedis (L), Dorsalis P chula (R) Skin: Warm, Dry, Intact - Patient Data Result Diagrams: 05/18/20 19:42 05/18/20 19:42 Sepsis Event Note - Evaluation Sepsis Screening Result: No Definite Risk - Focused Exam Vital Signs: Vital Signs Temp Pulse Resp BP Pulse Ox 05/18/20 19:18 98.1 F 102 H 16 146/95 H 98 - Problem List (1) Smoker SNOMED Code(s): 56852812 ICD Code: F17.200 - NICOTINE DEPENDENCE, UNSPECIFIED, UNCOMPLICATED Status: Acute Current Visit: Yes (2) Suicidal ideation SNOMED Code(s): 8802168 ICD Code: R45.851 - SUICIDAL IDEATIONS Status: Acute Current Visit: Yes (3) Alcohol dependence, binge pattern SNOMED Code(s): 227903753 ICD Code: F10.20 - ALCOHOL DEPENDENCE, UNCOMPLICATED Status: Acute Current Visit: Yes (4) Alcohol intoxication SNOMED Code(s): 85828985 ICD Code: F10.929 - ALCOHOL USE, UNSPECIFIED WITH INTOXICATION, UNSPECIFIED Status: Acute Current Visit: Yes (5) Alcohol related seizure SNOMED Code(s): 13903189, 170215466 ICD Code: R56.9 - UNSPECIFIED CONVULSIONS Status: Acute Current Visit: Yes (6) Hypokalemia SNOMED Code(s): 50328107 ICD Code: E87.6 - HYPOKALEMIA Status: Acute Current Visit: Yes (7) Hypomagnesemia SNOMED Code(s): 756906140 ICD Code: E83.42 - HYPOMAGNESEMIA Status: Acute Current Visit: Yes (8) Hypophosphatemia SNOMED Code(s): 8626937 ICD Code: E83.39 - OTHER DISORDERS OF PHOSPHORUS METABOLISM Status: Acute Current Visit: Yes (9) Chronic alcoholism SNOMED Code(s): 9526577 ICD Code: F10.20 - ALCOHOL DEPENDENCE, UNCOMPLICATED Status: Acute Current Visit: No (10) Drug abuse SNOMED Code(s): 05773030 ICD Code: F19.10 - OTHER PSYCHOACTIVE SUBSTANCE ABUSE, UNCOMPLICATED Status: Acute Current Visit: No (11) Depression SNOMED Code(s): 67027252 ICD Code: F32.9 - MAJOR DEPRESSIVE DISORDER, SINGLE EPISODE, UNSPECIFIED Status: Chronic Current Visit: No Qualifiers: Depression Type: unspecified Qualified Code(s): F32.9 - Major depressive disorder, single episode, unspecified Problem List Initiated/Reviewed/Updated: Yes Assessment/Plan Comment:: Alcohol dependence, binge pattern Alcohol related seizure Alcohol intoxication Hypokalemia/Hypomagnesemia/Hypophosphatemia Depression with suicidal ideation and plan Smoker Non-postictal upon arrival to the emergency department Blood work ordered and found to have mild hyponatremia, hypokalemia, hypomagnesemia, hypophosphatemia, mildly elevated AST and ALT Alcohol level of 0.26 Discussed options of inpatient rehab and psychiatry and patient is in verbal agreement of it Previous marijuana, methamphetamine, ecstasy and cocaine use more than 3 years ago PLAN Admit to ICU CIWA protocol Banana bag daily x2 Nicotine patch Replace electrolytes One-to-one observation Repeat labs in the morning Urine drug screen Psychiatry consult Case management and social welfare clerk consult for discharge planning PROPHYLAXIS DVTambulation GInot indicated CODE STATUS: FULL CODE DISPOSITION: Patient will be admitted to the ICU for monitoring sedation of alcohol withdrawal, he will need one-to-one observation due to suicidal ideation with an active plan. Once medically cleared psychiatry will be consulted. Patient will need inpatient psychiatry followed by inpatient rehab for alcohol abuse. SOCIAL: Patient is currently unemployed for about a year and a half Lives in [place] with mom and sister Is currently but has daughter - Mortality Measure Prognosis:: Good
[2020-05-18] MEDS ORDERED: Thiamine 1,000 MG, Magnesium Sulfate 4 GM, Folic Acid 1 MG in Dextrose 5%-0.9% NaCl 1,0... IV SCH (22:00)
[2020-05-18] MEDS: dexMEDEtomidine in dextrose 5% 400 MCG in Premix Bag 1 BAG IV SCH ×2 (22:47)
[2020-05-18] MEDS: LORazepam 1 MG Tab PO SCH (23:12)
[2020-05-19] MEDS: Lactated Ringers 1,000 ML IV SCH ×6 (00:43→21:10)
[2020-05-19] MEDS: Nicotine 21 MG/24 Hr Patch TRDERM SCH (08:41)
[2020-05-19] MEDS: Ondansetron 4 MG/2 ML SDV IV PRN ×3 (08:42→20:01)
[2020-05-19] MEDS ORDERED: Thiamine 1,000 MG, Folic Acid 1 MG in Dextrose 5%-0.9% NaCl 1,000 ML IV ONE (09:00)
[2020-05-19] MEDS: LORazepam 1 MG Tab PO SCH ×6 (09:30→23:44)
[2020-05-19] MEDS: Potassium Chloride 10 MEQ in Premix Bag 1 BAG IV SCH ×4 (10:18→14:24)
[2020-05-19] MEDS ORDERED: Potassium Chloride 20 MEQ Tab.ER PO ONE (12:00)
[2020-05-19] MEDS ORDERED: hydrALAZINE 20 MG/ML SDV IVPUSH STA (12:25)
[2020-05-19] MEDS ORDERED: Alum Hydrox/Mag Hydrox/Simeth 30 ML, Lidocaine 2% 15 ML PO ONE ×2 (12:27)
[2020-05-19] MEDS ORDERED: Trolamine Salicylate/Aloe Vera 10% Crm 85 GM Tube TOP PRN (12:32)
--- NOTE | 2020-05-19 12:34 | PCM.PN ---
- General Info Date of Service: 05/19/20 Subjective Update: Slept OK Is having some anxiety BM yesterday Not eating a lot complaining of abdominal pain - Patient Data Vitals - Most Recent: Last Vital Signs Temp 98.0 F 05/19/20 08:00 Pulse 81 05/19/20 10:00 Resp 15 05/19/20 10:00 BP 124/84 05/19/20 10:00 Pulse Ox 93 L 05/19/20 10:00 Weight - Most Recent: 68.538 kg - Exam General: Alert, Oriented, Cooperative, No Acute Distress HEENT: Pupils Equal, Pupils Reactive, EOMI, Mucous Membr. Moist/[place] Neck: Supple, Trachea Midline, No JVD, No Thyromegaly Lungs: Clear to Auscultation, Normal Respiratory Effort. No: Decreased Breath Sounds, Crackles, Rales, Rhonchi, Rub, Stridor, Wheezing Cardiovascular: Regular Rate, Regular Rhythm. No: Murmurs, Gallops, Rubs GI/Abdominal Exam: Normal Bowel Sounds, Soft, Non-Tender. No: Distended, Guarding, Rigid, Rebound Extremities: Normal Inspection, Normal Range of Motion, Non-Tender, No Pedal Edema Peripheral Pulses: 2+: Radial (L), Radial (R), Dorsalis Pedis (L), Dorsalis Pedis (R) Skin: Warm, Dry, Intact Neurological: No New Focal Deficit Psy/Mental Status: Depressed Sepsis Event Note - Evaluation Sepsis Screening Result: No Definite Risk - Problem List & Annotations (1) Alcohol dependence, binge pattern SNOMED Code(s): 810842397 Code(s): F10.20 - ALCOHOL DEPENDENCE, UNCOMPLICATED Status: Acute Current Visit: Yes (2) Alcohol intoxication SNOMED Code(s): 03125775 Code(s): F10.929 - ALCOHOL USE, UNSPECIFIED WITH INTOXICATION, UNSPECIFIED Status: Acute Current Visit: Yes (3) Alcohol related seizure SNOMED Code(s): 98682159, 453260973 Code(s): R56.9 - UNSPECIFIED CONVULSIONS Status: Acute Current Visit: Yes (4) Hypokalemia SNOMED Code(s): 15166432 Code(s): E87.6 - HYPOKALEMIA Status: Acute Current Visit: Yes (5) Hypomagnesemia SNOMED Code(s): 160035756 Code(s): E83.42 - HYPOMAGNESEMIA Status: Acute Current Visit: Yes (6) Hypophosphatemia SNOMED Code(s): 3741124 Code(s): E83.39 - OTHER DISORDERS OF PHOSPHORUS METABOLISM Status: Acute Current Visit: Yes (7) Chronic alcoholism SNOMED Code(s): 0622657 Code(s): F10.20 - ALCOHOL DEPENDENCE, UNCOMPLICATED Status: Acute Current Visit: No (8) Depression SNOMED Code(s): 01155602 Code(s): F32.9 - MAJOR DEPRESSIVE DISORDER, SINGLE EPISODE, UNSPECIFIED Status: Chronic Current Visit: No Qualifiers: Depression Type: unspecified Qualified Code(s): F32.9 - Major depressive disorder, single episode, unspecified (9) Smoker SNOMED Code(s): 95426463 Code(s): F17.200 - NICOTINE DEPENDENCE, UNSPECIFIED, UNCOMPLICATED Status: Acute Current Visit: Yes (10) Suicidal ideation SNOMED Code(s): 9351115 Code(s): R45.851 - SUICIDAL IDEATIONS Status: Acute Current Visit: Yes - Problem List Review Problem List Initiated/Reviewed/Updated: Yes - Assessment Assessment:: 05/18/20 Non-postictal upon arrival to the emergency department Blood work ordered and found to have mild hyponatremia, hypokalemia, hypomagnesemia, hypophosphatemia, mildly elevated AST and ALT Alcohol level of 0.26 Discussed options of inpatient rehab and psychiatry and patient is in verbal agreement of it Previous marijuana, methamphetamine, ecstasy and cocaine use more than 3 years ago UDS negative PLAN Nicotine patch LR @ 250 Started on Precedex drip Admit to ICU CIWA protocol Banana bag daily x2 Nicotine patch Replace electrolytes One-to-one observation Repeat labs in the morning Psychiatry consult Case management and utility worker film processing consult for discharge planning Patient will be admitted to the ICU for monitoring sedation of alcohol withdrawal, he will need one-to-one observation due to suicidal ideation with an active plan. Patient will need inpatient psychiatry followed by inpatient rehab for alcohol abuse. 05/19/20 Repeat labs: Na 134 to 137 K stable at 3.2 Anion gap down from 19 to 16 PO4 up from 2.3 to 2.5 Mg up from 1.7 to 2.2 VS trend MAP 96-112 Tmax98.6 HR 85-102 SatO2 > 90% on room air CI[facility] trend: 65-5-69-3-2-7-9-1-0-0-0-12-10-0 Required: 2 doses of 1mg PO Ativan - Plan Plan:: Alcohol dependence, binge pattern Alcohol related seizure Hypokalemia Depression with suicidal ideation and plan Smoker [facility] protocol Banana bag # 1 today, #2 tomorrow KCl 40mEq IV and 60mEq PO Continue Precedex drip Continue LR @ 250 Regular diet Nicotine patch One-to-one observation Psychiatry consult today Case management and utility worker film processing consult for discharge planning Hypomagnesemia, resolved Hypophosphatemia, resolved Alcohol intoxication, resolved PROPHYLAXIS DVTambulation GInot indicated CODE STATUS: FULL CODE DISPOSITION: Patient will remain admitted to the ICU for monitoring of alcohol withdrawal, he will need one-to-one observation due to suicidal ideation with an active plan. Psychiatry consult today Patient will need inpatient psychiatry followed by inpatient rehab for alcohol abuse.
[2020-05-19] MEDS: Topiramate 25 MG Tab PO SCH ×2 (12:37→20:06)
[2020-05-19] MEDS: Trolamine Salicylate/Aloe Vera 10% Crm 85 GM Tube TOP PRN (13:59)
[2020-05-19] MEDS: Acetaminophen 325 MG Tab PO PRN (15:45)
[2020-05-19] MEDS: dexMEDEtomidine in dextrose 5% 400 MCG in Premix Bag 1 BAG IV SCH ×2 (16:58)
[2020-05-19] MEDS: LORazepam 2 MG/ML SDV IV SCH (20:00)
[2020-05-19] MEDS: Diazepam 5 MG Tab PO SCH (20:06)
[2020-05-20] MEDS: LORazepam 1 MG Tab PO SCH ×7 (01:48→22:08)
[2020-05-20] MEDS: Ondansetron 4 MG/2 ML SDV IV PRN ×2 (01:49→22:57)
[2020-05-20] MEDS: Lactated Ringers 1,000 ML IV SCH ×2 (02:48→08:51)
[2020-05-20] MEDS: Trolamine Salicylate/Aloe Vera 10% Crm 85 GM Tube TOP PRN (05:06)
[2020-05-20] MEDS: Diazepam 5 MG Tab PO SCH ×3 (08:24→20:39)
[2020-05-20] MEDS: Topiramate 25 MG Tab PO SCH ×2 (08:25→20:38)
[2020-05-20] MEDS: FLUoxetine 20 MG Cap PO SCH (08:25)
[2020-05-20] MEDS: Nicotine 21 MG/24 Hr Patch TRDERM SCH (08:25)
[2020-05-20] MEDS ORDERED: Diazepam 5 MG Tab PO SCH (10:04)
[2020-05-20] MEDS: dexMEDEtomidine in dextrose 5% 400 MCG in Premix Bag 1 BAG IV SCH ×2 (10:27)
[2020-05-20] MEDS: Thiamine 100 MG Tab PO SCH (10:28)
[2020-05-20] MEDS: Folic Acid 1 MG Tab PO SCH (10:29)
[2020-05-20] MEDS ORDERED: Lactated Ringers 1,000 ML IV SCH (11:45)
--- NOTE | 2020-05-20 14:00 | PCM.PN ---
- General Info Date of Service: 05/20/20 Subjective Update: BM yesterday Tolerating regular diet Had episode of chest pain yesterday that was reproducible and responded to aspercreme - Patient Data Vitals - Most Recent: Last Vital Signs Temp 97.6 F 05/20/20 12:00 Pulse 79 05/19/20 14:00 Resp 18 05/20/20 13:26 BP 125/90 05/20/20 12:00 Pulse Ox 98 05/20/20 13:26 Weight - Most Recent: 71.94 kg - Exam General: Oriented, Cooperative, Mild Distress, Lethargic HEENT: Pupils Equal, Pupils Reactive, Mucous Membr. Moist/[place] Neck: Supple, Trachea Midline Lungs: Clear to Auscultation, Normal Respiratory Effort. No: Decreased Breath Sounds, Crackles, Rales, Rhonchi, Rub, Stridor, Wheezing Cardiovascular: Regular Rate, Regular Rhythm. No: Murmurs, Gallops, Rubs GI/Abdominal Exam: Normal Bowel Sounds, Soft, Non-Tender. No: Distended, Guarding, Rigid, Rebound Extremities: Normal Inspection, Normal Range of Motion, Non-Tender, No Pedal Edema, Normal Capillary Refill Peripheral Pulses: 2+: Radial (L), Radial (R), Dorsalis Pedis (L), Dorsalis Pedis (R) Skin: Warm, Dry, Intact Neurological: No New Focal Deficit Sepsis Event Note - Evaluation Sepsis Screening Result: No Definite Risk - Problem List & Annotations (1) Alcohol dependence, binge pattern SNOMED Code(s): 935745841 Code(s): F10.20 - ALCOHOL DEPENDENCE, UNCOMPLICATED Status: Acute Current Visit: Yes (2) Alcohol intoxication SNOMED Code(s): 55612106 Code(s): F10.929 - ALCOHOL USE, UNSPECIFIED WITH INTOXICATION, UNSPECIFIED Status: Acute Current Visit: Yes (3) Alcohol related seizure SNOMED Code(s): 34777051, 747538109 Code(s): R56.9 - UNSPECIFIED CONVULSIONS Status: Acute Current Visit: Yes (4) Hypokalemia SNOMED Code(s): 08901522 Code(s): E87.6 - HYPOKALEMIA Status: Acute Current Visit: Yes (5) Hypomagnesemia SNOMED Code(s): 547063622 Code(s): E83.42 - HYPOMAGNESEMIA Status: Acute Current Visit: Yes (6) Hypophosphatemia SNOMED Code(s): 7444198 Code(s): E83.39 - OTHER DISORDERS OF PHOSPHORUS METABOLISM Status: Acute Current Visit: Yes (7) Chronic alcoholism SNOMED Code(s): 4574404 Code(s): F10.20 - ALCOHOL DEPENDENCE, UNCOMPLICATED Status: Acute Current Visit: No (8) Depression SNOMED Code(s): 74798891 Code(s): F32.9 - MAJOR DEPRESSIVE DISORDER, SINGLE EPISODE, UNSPECIFIED Status: Chronic Current Visit: No Qualifiers: Depression Type: unspecified Qualified Code(s): F32.9 - Major depressive disorder, single episode, unspecified (9) Smoker SNOMED Code(s): 78459293 Code(s): F17.200 - NICOTINE DEPENDENCE, UNSPECIFIED, UNCOMPLICATED Status: Acute Current Visit: Yes (10) Suicidal ideation SNOMED Code(s): 3933505 Code(s): R45.851 - SUICIDAL IDEATIONS Status: Acute Current Visit: Yes - Problem List Review Problem List Initiated/Reviewed/Updated: Yes - Assessment Assessment:: 05/18/20 Non-postictal upon arrival to the emergency department Blood work ordered and found to have mild hyponatremia, hypokalemia, hypomagnesemia, hypophosphatemia, mildly elevated AST and ALT Alcohol level of 0.26 Discussed options of inpatient rehab and psychiatry and patient is in verbal agreement of it Previous marijuana, methamphetamine, ecstasy and cocaine use more than 3 years ago UDS negative PLAN Nicotine patch LR @ 250 Started on Precedex drip Admit to ICU CIWA protocol Banana bag daily x2 Nicotine patch Replace electrolytes One-to-one observation Repeat labs in the morning Psychiatry consult Case management and social services specialist consult for discharge planning Patient will be admitted to the ICU for monitoring sedation of alcohol withdrawal, he will need one-to-one observation due to suicidal ideation with an active plan. Patient will need inpatient psychiatry followed by inpatient rehab for alcohol abuse. 05/19/20 Repeat labs: Na 134 to 137 K stable at 3.2 Anion gap down from 19 to 16 PO4 up from 2.3 to 2.5 Mg up from 1.7 to 2.2 VS trend MAP 96-112 Tmax98.6 HR 85-102 SatO2 > 90% on room air [facility] trend: 03-5-38-7-5-6-6-7-8-0-0-12-10-0 ( 7PM-6AM) Required: 2 doses of 1mg PO Ativan PLAN [facility] protocol Banana bag # 1 today, #2 tomorrow KCl 40mEq IV and 60mEq PO Continue Precedex drip Continue LR @ 250 Regular diet Nicotine patch One-to-one observation Psychiatry consult today Case management and social services specialist consult for discharge planning Seen by psychiatry - Started on Topamax 25mg BID and Clomipramine - Clomipramine not available, recommended Fluvoxamine which is also unavailable - 3rd choice, Prozac started Ativan equivalent Valium = 75mg QD--> started on 10mg TID 05/20/20 [facility] trend 6AM-6PM: 84-37-3-6-6-17-08-16-3-2-74-43-37-74-5-3-92-3-2-20-18-2-2 -20-16-2-7 Repeat labs - Plt down from 237 to 217 - K up from 3.2 to 3.8 - Anion gap down from 16.2 to 12.8 - PO4 down from 2.5 to 1.5 - Mg down from 2.2 to 1.7 VS trend - MAP: 86-103 - HR: 72-94 I/Os - UO 4,160 - 24h balance: +4,160 - Balance since admission +6,858 Stil states he is suicidal - Plan Plan:: Alcohol dependence, binge pattern Alcohol related seizure Hypokalemia/Hypomagnesemia/Hypophosphatemia Depression with suicidal ideation and plan Smoker [facility] protocol Increase Valium from 10 to 20mg TID KPO4 30mMol, NaPO4 60mMol, 4g MgSO4 Continue Precedex drip Continue LR @ 250 Regular diet Nicotine patch One-to-one observation Start thiamine and folic acid Case management and social services specialist consult for discharge planning Alcohol intoxication, resolved PROPHYLAXIS DVTambulation GInot indicated CODE STATUS: FULL CODE DISPOSITION: Patient will remain admitted to the ICU for monitoring of alcohol withdrawal, he will need one-to-one observation due to suicidal ideation with an active plan.
[2020-05-20] MEDS ORDERED: Magnesium Sulfate/Water 4 GM in Premix Bag 1 BAG IV ONE (14:30)
[2020-05-20] MEDS: Sodium Phosphate 30 MMOLE in Sodium Chloride 0.9% 250 ML IV SCH ×2 (14:34→16:48)
--- NOTE | 2020-05-20 17:04 | CONS ---
CONSULTING PHYSICIAN: Daniele Summers MD DATE OF CONSULTATION: 05/19/2020 Site where the services are provided is [facility] in [place], [place]. Site where the services are provided from our offices in [facility]. Length of service for this 60-minute inpatient telemedicine event is 60 minutes. IDENTIFICATION: The patient is a 40-year-old male who is admitted to the inpatient MICU at [facility] in [place], [place]. He is seen for psychiatric consultation per the request of staff attending, Dr. Ruiz, and her treatment team. CHIEF COMPLAINT: "Me and my were going through some stuff. I started drinking again pretty heavy." HISTORY OF PRESENT ILLNESS: The patient is a 40-year-old male who states that he was having some marital difficulties and began drinking pretty heavily over the past few weeks. He was up to about a gallon a day prior to coming into the hospital, whereupon he was admitted after evaluation for issues with alcohol withdrawal, possible alcohol withdrawal seizures and also for articulating some suicidal ideation at that point in time. The patient states he is still having some suicidal thoughts, although, he does feel safe on the unit and contracts for safety. He denies any intent or specific plan, but he states "when I am alone, the thoughts seem to be pretty bad," especially because of the marital difficulties and possible divorce that he may be going through. The patient states he feels pretty hopeless in addition to his depressed mood, which he endorses quite strongly. He also states he has a lot of anxiety and mood swings. He has lack of sleep. He states he has racing thoughts and ruminations. He states he gets very compulsive about things, where he consumes a lot of time when he is not in the hospital "just organizing" things and having the need to have things in a certain order. He states that this has caused difficulty in his marriage, this strong need for order. He states that it "can mess with my whole day." He denies that he is hallucinating at this point in time. He denies that he is homicidal. He denies any illicit substance use or excessive alcohol use complicating his clinical picture. He was admitted on 05/18/2020, to the MICU and he states that he is happy that he is admitted and wants to get help for his depression, anxiety, and his alcohol dependence. MEDICATIONS AT TIME OF ADMISSION: None. ALLERGIES: No known drug allergies. PAST MEDICAL HISTORY: History of alcohol withdrawal seizures. REVIEW OF SYSTEMS: Aside from neuro, all other major organ systems are negative at this point in time for acute difficulties or complications. FAMILY PSYCHIATRIC AND CD HISTORY: The patient reports father has a history of alcoholism. PAST PSYCHIATRIC AND CD HISTORY: The patient reports a history of psychiatric hospitalizations in the past, and he was in CD treatment in [place] for about 6 months. He has been to AA in the past and AA did help. His longest sobriety was for 2 years and that was a while back. PAST PSYCHIATRIC DIAGNOSES: Includes anxiety and depression. SOCIAL HISTORY: The patient was born and raised in [place], [place]. 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 He has been twice. His first marriage was for 1 year. He has been in his second marriage now for 13 years. He has a 15-year-old daughter from the marriage. He states that since he has been having marital difficulties, he has been living with his mom in [place]. He denies any prior service or any current legal difficulties. He states he is [employer]ism in terms of his burke formation. He enjoys woodworking in his spare time. MENTAL STATUS EXAM: The patient is a 40-year-old soft-spoken white male in no apparent distress. Speech is of regular rate and rhythm. The patient is cognitively oriented x3. Psychomotor activity is within normal limits. There are no abnormal motor movements or tics observed. Gait and station are not observed as the patient is lying on the bed during the inpatient consult. Mood is depressed and anxious. Affect is consistent with stated mood and pretty restricted, but cooperative overall for the purposes of the inpatient consult. Thought content is significant for some suicidal ideation without plan or intent. The patient is edyta for safety. There is no homicidal ideation or acute psychotic, delusional, or paranoid symptoms. Thought processes are significant for ruminations; however, there are no acute manic symptoms or loose associations evident. Judgment and insight appear unimpaired at this point in time. Motivation for help is good. VITAL SIGNS: 127/92, 70, 16, and 98 degrees. IMPRESSION: [employer] I: 1. Alcohol dependence, F10.20. 2. Obsessive-compulsive disorder, F42. 3. Bipolar affective disease, mixed type. 4. Rule out major depressive disorder. [employer] II: None. [employer] III: History of alcohol withdrawal seizures. [employer] IV: Severe. [employer] V: 55. PLAN: 1. Sobriety. 2. Begin a trial of Topamax 25 mg b.i.d. for mood stability, anxiety reduction and seizure prophylaxis. 3. Begin trial of Luvox 50 mg at bedtime x7 days, increasing to 75 mg at bedtime thereafter to help with symptoms of OCD and depression. 4. Ativan per [facility] protocol to help with withdrawal and seizure prophylaxis. 5. Folic acid supplementation. 6. Thiamine supplementation. 7. Recommend that the patient have CD evaluation by Social Work and Case Management to assess the need for treatment when medically stabilized. 8. Recommend that the patient be transferred to inpatient Psychiatry when medically stabilized for further medication management of his severe depression and anxiety. 9. rep to visit the patient while on unit. 10.Pastoral guidance. 11.Recommend that the patient followup with outpatient Psychiatry when medically stabilized and eventually discharged back to community. 12.We will continue follow up with the patient on an as-needed basis while he remains on the inpatient med/surg unit at [facility] in [place], [place]. 13.We will follow up with the patient sooner if any complications in the interim. 14.Other medications as dosed and prescribed by the patient's inpatient primary medical treatment team. 15.Crisis plan is in place. REBECCA /[id number]
[2020-05-20] MEDS ORDERED: Potassium Phosphates 30 MMOLE in Sodium Chloride 0.9% 500 ML IV ONE (18:30)
[2020-05-20] MEDS: Acetaminophen 325 MG Tab PO PRN (18:57)
[2020-05-20] MEDS ORDERED: QUEtiapine 25 MG Tab PO ONE (22:32)
[2020-05-20] MEDS: LORazepam 2 MG/ML SDV IV SCH (23:56)
[2020-05-21] MEDS: dexMEDEtomidine in dextrose 5% 400 MCG in Premix Bag 1 BAG IV SCH ×2 (01:49)
[2020-05-21] MEDS: Diazepam 5 MG Tab PO SCH (08:53)
[2020-05-21] MEDS: Folic Acid 1 MG Tab PO SCH (08:54)
[2020-05-21] MEDS: FLUoxetine 20 MG Cap PO SCH (08:54)
[2020-05-21] MEDS: Thiamine 100 MG Tab PO SCH (08:54)
[2020-05-21] MEDS: Nicotine 21 MG/24 Hr Patch TRDERM SCH (08:54)
[2020-05-21] MEDS: Topiramate 25 MG Tab PO SCH ×2 (08:55→20:48)
[2020-05-21] MEDS ORDERED: chlordiazePOXIDE 25 MG Cap PO SCH (09:00)
[2020-05-21] MEDS: LORazepam 1 MG Tab PO SCH (10:56)
[2020-05-21] MEDS ORDERED: Famotidine 20 MG Tab PO ONE (11:35)
[2020-05-21] MEDS: Sucralfate 1 GM Tab PO SCH ×2 (12:01→16:31)
[2020-05-21] MEDS: LORazepam 2 MG/ML SDV IV SCH (12:42)
--- NOTE | 2020-05-21 13:50 | PCM.PN ---
- General Info Date of Service: 05/21/20 Admission Dx/Problem (Free Text): Admission Diagnosis/Problem Admission Diagnosis/Problem Alcohol dependence Subjective Update: Patient complains of lower abdominal discomfort. He did have a bowel movement yesterday. He was able to tolerate his entire breakfast. Patient also complains of auditory hallucinations. We stopped his Precedex today and he is getting Valium 20 mg 3 times daily scheduled. He is also receiving Ativan as needed for withdrawal symptoms. He continues to state he would like to end his life. Functional Status: Reports: Pain Controlled - Review of Systems General: Reports: No Symptoms HEENT: Reports: No Symptoms Pulmonary: Reports: No Symptoms Cardiovascular: Reports: No Symptoms Gastrointestinal: Reports: Abdominal Pain Musculoskeletal: Reports: No Symptoms Neurological: Reports: Tremors Psychiatric: Reports: Anxiety - Patient Data Vitals - Most Recent: Last Vital Signs Temp 97.5 F 05/21/20 12:00 Pulse 79 05/19/20 14:00 Resp 17 05/21/20 12:00 BP 132/96 H 05/21/20 12:00 Pulse Ox 94 L 05/21/20 12:00 Weight - Most Recent: 72.012 kg I&O - Last 24 Hours: Intake & Output 05/20/20 05/21/20 05/21/20 22:59 06:59 14:59 Intake Total 3422 5390 240 Output Total 300 1400 Balance 3122 3990 240 Lab Results Last 24 Hours: Laboratory Results - last 24 hr 05/21/20 05/21/20 Range/Units 09:52 09:52 WBC 7.11 (4.23-9.07) K/mm3 RBC 4.72 (4.63-6.08) M/mm3 Hgb 15.2 (13.7-17.5) gm/dl Hct 44.8 (40.1-51.0) % MCV 94.9 H (79.0-92.2) fl MCH 32.2 (25.7-32.2) pg MCHC 33.9 (32.2-35.5) g/dl RDW Std Deviation 51.3 H (35.1-43.9) fL Plt Count 171 (163-337) K/mm3 MPV 10.7 (9.4-12.3) fl Neut % (Auto) 68.2 H (34.0-67.9) % Lymph % (Auto) 23.2 (21.8-53.1) % Nash % (Auto) 3.4 L (5.3-12.2) % Eos % (Auto) 4.5 (0.8-7.0) Baso % (Auto) 0.6 (0.1-1.2) % Neut # (Auto) 4.85 (1.78-5.38) K/mm3 Lymph # (Auto) 1.65 (1.32-3.57) K/mm3 Nash # (Auto) 0.24 L (0.30-0.82) K/mm3 Eos # (Auto) 0.32 (0.04-0.54) K/mm3 Baso # (Auto) 0.04 (0.01-0.08) K/mm3 Sodium 138 (136-145) mEq/L Potassium 3.7 (3.5-5.1) mEq/L Chloride 105 (98-107) mEq/L Carbon Dioxide 24 (21-32) mEq/L Anion Gap 12.7 (5-15) BUN 4 L (7-18) mg/dL Creatinine 0.7 (0.7-1.3) mg/dL Est Cr Clr Drug Dosing 120.80 mL/min Estimated GFR (MDRD) > 60 (>60) mL/min BUN/Creatinine Ratio 5.7 L (14-18) Glucose 86 (74-106) mg/dL Calcium 8.9 (8.5-10.1) mg/dL Phosphorus 4.0 (2.6-4.7) mg/dL Magnesium 2.0 (1.8-2.4) mg/dl Total Bilirubin 0.7 (0.2-1.0) mg/dL AST 176 H (15-37) U/L ALT 179 H (16-63) U/L Alkaline Phosphatase 100 (46-116) U/L Total Protein 6.2 L (6.4-8.2) g/dl Albumin 3.0 L (3.4-5.0) g/dl Globulin 3.2 gm/dL Albumin/Globulin Ratio 0.9 L (1-2) Med Orders - Current: Current Medications Acetaminophen (Tylenol) 650 mg PO Q6H PRN PRN Reason: Headache/Pain Last Admin: 05/20/20 18:57 Dose: 650 mg Documented by: Diazepam (Valium.) 20 mg PO TID ON LICENSE OF [facility] Last Admin: 05/21/20 08:53 Dose: 20 mg Documented by: Famotidine (Pepcid) 20 mg PO BID ON LICENSE OF [facility] Fluoxetine HCl (Prozac) 40 mg PO DAILY ON LICENSE OF [facility] Last Admin: 05/21/20 08:54 Dose: 40 mg Documented by: Folic Acid (Folic Acid) 1 mg PO DAILY ON LICENSE OF [facility] Last Admin: 05/21/20 08:54 Dose: 1 mg Documented by: Lorazepam (Ativan) 0 mg IV ASDIRECTED ON LICENSE OF [facility]; Protocol Last Admin: 05/21/20 12:42 Dose: 1 mg Documented by: Lorazepam (Ativan) 0 mg PO ASDIRECTED ON LICENSE OF [facility]; Protocol Last Admin: 05/21/20 10:56 Dose: 1 mg Documented by: Miscellaneous Information (Remove Patch) 1 ea TRDERM DAILY ON LICENSE OF [facility] Last Admin: 05/21/20 08:55 Dose: 1 ea Documented by: Nicotine (Habitrol) 21 mg TRDERM DAILY ON LICENSE OF [facility] Last Admin: 05/21/20 08:54 Dose: 21 mg Documented by: Ondansetron HCl (Zofran) 4 mg IV Q6H PRN PRN Reason: Nausea/Vomiting Last Admin: 05/20/20 22:57 Dose: 4 mg Documented by: Sucralfate (Carafate) 1 gm PO TIDAC ON LICENSE OF [facility] Last Admin: 05/21/20 12:01 Dose: 1 gm Documented by: Thiamine HCl (Vitamin B-1) 100 mg PO DAILY ON LICENSE OF [facility] Last Admin: 05/21/20 08:54 Dose: 100 mg Documented by: Topiramate (Topamax) 25 mg PO BID ON LICENSE OF [facility] Last Admin: 05/21/20 08:55 Dose: 25 mg Documented by: Trolamine Salicylate (Aspercreme 10%) 0 gm TOP Q6H PRN PRN Reason: CHEST PAIN Last Admin: 05/20/20 05:06 Dose: 1 applic Documented by: Discontinued Medications Chlordiazepoxide HCl (Librium) 50 mg PO Q6H ON LICENSE OF [facility] Last Admin: 05/21/20 08:53 Dose: Not Given Documented by: Al Hydroxide/Mg Hydroxide 30 (ml/ Lidocaine HCl 15 ml) 0 ml PO ONETIME ONE Stop: 05/19/20 12:28 Last Admin: 05/19/20 13:59 Dose: 45 ml Documented by: Dexmedetomidine HCl (Precedex) 0.2 mcg IV ONETIME ONE; Protocol Stop: 05/18/20 20:55 Last Admin: 05/18/20 22:36 Dose: Not Given Documented by: Diazepam (Valium.) 10 mg PO TID RICHARD Last Admin: 05/20/20 08:24 Dose: 10 mg Documented by: Famotidine (Pepcid) 20 mg PO ONETIME ONE Stop: 05/21/20 11:36 Last Admin: 05/21/20 12:01 Dose: 20 mg Documented by: Hydralazine HCl (Apresoline) 10 mg IVPUSH ONETIME STA Stop: 05/19/20 12:26 Last Admin: 05/19/20 12:36 Dose: 10 mg Documented by: Sodium Chloride (Normal Saline) 1,000 mls @ 999 mls/hr IV ONETIME ONE Stop: 05/18/20 20:32 Last Admin: 05/18/20 19:46 Dose: 999 mls/hr Documented by: Magnesium Sulfate 2 gm/ Premix 50 mls @ 25 mls/hr IV ONETIME ONE Stop: 05/18/20 22:27 Last Admin: 05/18/20 21:10 Dose: 25 mls/hr Documented by: Lactated Ringer's (Ringers, Lactated) 1,000 mls @ 999 mls/hr IV .BOLUS ONE Stop: 05/18/20 22:02 Last Admin: 05/18/20 21:12 Dose: 999 mls/hr Documented by: Lactated Ringer's (Ringers, Lactated) 1,000 mls @ 250 mls/hr IV ASDIRECTED ON LICENSE OF [facility] Last Infusion: 05/20/20 11:36 Dose: 175 mls/hr Documented by: Thiamine HCl 1,000 mg/Magnesium Sulfate 4 gm/ Folic Acid 1 mg/ Dextrose/Sodium Chloride 1,018.2 mls @ 125 mls/hr IV ASDIRECTED ON LICENSE OF [facility] dexMEDEtomidine in dextrose 5% (400 mcg/ Premix) 100 mls @ 0 mls/hr IV TITRATE RICHARD Last Admin: 05/21/20 01:49 Dose: 6.6 mls/hr Documented by: Thiamine HCl 1,000 mg/ Folic Acid 1 mg/ Dextrose/Sodium Chloride 1,010.2 mls @ 126.275 mls/hr IV ONETIME ONE Stop: 05/19/20 16:59 Last Admin: 05/19/20 09:09 Dose: 126.275 mls/hr Documented by: Potassium Chloride 10 meq/ (Premix) 100 mls @ 100 mls/hr IV Q1H ON LICENSE OF [facility] Stop: 05/19/20 13:59 Last Admin: 05/19/20 14:24 Dose: 80 mls/hr Documented by: Lactated Ringer's (Ringers, Lactated) 1,000 mls @ 175 mls/hr IV ASDIRECTED RICHARD Last Admin: 05/20/20 13:39 Dose: 175 mls/hr Documented by: Magnesium Sulfate 4 gm/ Premix 50 mls @ 12.5 mls/hr IV ONETIME ONE Stop: 05/20/20 18:29 Last Admin: 05/20/20 14:28 Dose: 12.5 mls/hr Documented by: Potassium Phosphate 30 mmole/ (Sodium Chloride) 510 mls @ 102 mls/hr IV ONETIME ONE Stop: 05/20/20 23:29 Last Admin: 05/20/20 18:10 Dose: 102 mls/hr Documented by: Sodium Phosphate 30 mmole/ (Sodium Chloride) 260 mls @ 130 mls/hr IV Q2H ON LICENSE OF [facility] Stop: 05/20/20 18:29 Last Admin: 05/20/20 16:48 Dose: 130 mls/hr Documented by: Ondansetron HCl (Zofran) 4 mg IVPUSH ONETIME ONE Stop: 05/18/20 19:33 Last Admin: 05/18/20 19:47 Dose: 4 mg Documented by: Potassium Chloride (Klor-Con M20) 60 meq PO ONETIME ONE Stop: 05/19/20 12:01 Last Admin: 05/19/20 13:10 Dose: 60 meq Documented by: Quetiapine Fumarate (Seroquel) 12.5 mg PO ONETIME ONE Stop: 05/20/20 22:33 Last Admin: 05/20/20 22:52 Dose: 12.5 mg Documented by: Sodium Phosphate (Neutra-Phos) 250 mg PO ONETIME ONE Stop: 05/18/20 20:29 Last Admin: 05/18/20 21:11 Dose: 250 mg Documented by: Trolamine Salicylate (Aspercreme 10%) 0 gm TOP ASDIRECTED PRN PRN Reason: CHEST CONGESTION - Exam General: Alert, Oriented HEENT: Pupils Equal, Mucous Membr. Moist/Finger Neck: Supple Lungs: Clear to Auscultation, Normal Respiratory Effort Cardiovascular: Regular Rate, Regular Rhythm GI/Abdominal Exam: Normal Bowel Sounds, Soft, No Distention, Tender (Diffuse abdominal tenderness without guarding or rebound.). No: Guarding, Rigid, Rebo und Skin: Warm, Dry, Intact Psy/Mental Status: Alert, Withdrawal Symptoms Sepsis Event Note - Evaluation Sepsis Screening Result: No Definite Risk - Focused Exam Vital Signs: Vital Signs Temp Resp BP BP Pulse Ox 05/21/20 12:00 97.5 F 17 132/96 H 94 L 05/21/20 08:00 97.5 F 14 131/95 H 98 05/21/20 06:00 18 131/91 H 95 05/21/20 04:00 20 120/92 H 98 05/21/20 02:00 20 133/89 98 - Problem List Review Problem List Initiated/Reviewed/Updated: Yes - My Orders Last 24 Hours: My Active Orders 05/21/20 11:45 Sucralfate [Carafate] 1 gm PO TIDAC 05/21/20 21:00 Famotidine [Pepcid] 20 mg PO BID - Assessment Assessment:: 05/18/20 Non-postictal upon arrival to the emergency department Blood work ordered and found to have mild hyponatremia, hypokalemia, hypomagnesemia, hypophosphatemia, mildly elevated AST and ALT Alcohol level of 0.26 Discussed options of inpatient rehab and psychiatry and patient is in verbal agreement of it Previous marijuana, methamphetamine, ecstasy and cocaine use more than 3 years ago UDS negative PLAN Nicotine patch LR @ 250 Started on Precedex drip Admit to ICU [facility] protocol Banana bag daily x2 Nicotine patch Replace electrolytes One-to-one observation Repeat labs in the morning Psychiatry consult Case management and rn social work consult for discharge planning Patient will be admitted to the ICU for monitoring sedation of alcohol withdrawal, he will need one-to-one observation due to suicidal ideation with an active plan. Patient will need inpatient psychiatry followed by inpatient rehab for alcohol abuse. 05/19/20 Repeat labs: Na 134 to 137 K stable at 3.2 Anion gap down from 19 to 16 PO4 up from 2.3 to 2.5 Mg up from 1.7 to 2.2 VS trend MAP 96-112 Tmax98.6 HR 85-102 SatO2 > 90% on room air [facility] trend: 31-2-46-4-7-2-3-2-6-0-0-12-10-0 ( 7PM-6AM) Required: 2 doses of 1mg PO Ativan PLAN [facility] protocol Banana bag # 1 today, #2 tomorrow KCl 40mEq IV and 60mEq PO Continue Precedex drip Continue LR @ 250 Regular diet Nicotine patch One-to-one observation Psychiatry consult today Case management and rn social work consult for discharge planning Seen by psychiatry - Started on Topamax 25mg BID and Clomipramine - Clomipramine not available, recommended Fluvoxamine which is also unavailable - 3rd choice, Prozac started Ativan equivalent Valium = 75mg QD--> started on 10mg TID 05/20/20 [facility] trend 6AM-6PM: [id number] Repeat labs - Plt down from 237 to 217 - K up from 3.2 to 3.8 - Anion gap down from 16.2 to 12.8 - PO4 down from 2.5 to 1.5 - Mg down from 2.2 to 1.7 VS trend - MAP: 86-103 - HR: 72-94 I/Os - UO 4,160 - 24h balance: +4,160 - Balance since admission +6,858 Still states he is suicidal 05/21/2020 Patient continues to be suicidal. Platelets down 171 Anion gap closed, potassium, magnesium, and phosphorus all normal. Complains of abdominal pain, but tolerating oral intake well. Complaining of auditory hallucinations. - Plan Plan:: Alcohol dependence, binge pattern Alcohol related seizure Depression with suicidal ideation and plan Smoker Abdominal pain Change to Med/Surg status -[facility] protocol Increase Valium from 10 to 20mg TID decrease to 10 mg TID tomorrow if withdrawal improves. -D/C Precedex drip D/C LR Regular diet Nicotine patch One-to-one observation -Continue thiamine and folic acid -Start Pepcid and Carafate Case management and rn social work consult for discharge planning -He is threatening to leave the hospital, therefore we will need to commit patient since he continues to be suicidal. Alcohol intoxication, resolved Hypokalemia/Hypomagnesemia/Hypophosphatemia, resolved PROPHYLAXIS DVTambulation GInot indicated CODE STATUS: FULL CODE DISPOSITION: Patient will remain admitted to the ICU for monitoring of alcohol withdrawal, he will need one-to-one observation due to suicidal ideation with an active plan.
[2020-05-21] MEDS: Acetaminophen 325 MG Tab PO PRN (18:49)
[2020-05-21] MEDS: Famotidine 20 MG Tab PO SCH (20:47)
[2020-05-21] MEDS ORDERED: Diazepam 5 MG Tab PO ONE (21:00)
[2020-05-21] MEDS ORDERED: Diazepam 5 MG Tab PO SCH (21:00)
[2020-05-22] MEDS: Trolamine Salicylate/Aloe Vera 10% Crm 85 GM Tube TOP PRN (01:54)
[2020-05-22] MEDS: Sucralfate 1 GM Tab PO SCH ×2 (08:32→11:39)
[2020-05-22] MEDS: Folic Acid 1 MG Tab PO SCH (08:32)
[2020-05-22] MEDS: Famotidine 20 MG Tab PO SCH (08:33)
[2020-05-22] MEDS: Topiramate 25 MG Tab PO SCH (08:33)
[2020-05-22] MEDS: Thiamine 100 MG Tab PO SCH (08:33)
[2020-05-22] MEDS: FLUoxetine 20 MG Cap PO SCH (08:34)
[2020-05-22] MEDS: Nicotine 21 MG/24 Hr Patch TRDERM SCH (08:38)
[2020-05-22] MEDS ORDERED: Lisinopril 10 MG Tab PO SCH (09:30)
--- NOTE | 2020-05-22 09:33 | PCM.DCSUM1 ---
Discharge Summary - Hospital Course HPI Initial Comments: This is a 40-year-old male past medical history fibromyalgia and alcohol abuse comes emergency department seeking help for alcohol dependence. As per patient he has been in rehab 1 5 times, couple times of balance. He was sober from July 07, 2018 until last when he started having problems with his which he is . After that he decided to drink whiskey daily, states that he drank about 3 to 4 gallons from to today. Last drink was this morning Has a history of seizures with previous withdrawals, last episode a year ago. Endorses suicidal ideation yesterday, he did have a plan of hanging himself however he was too drunk and passed out before he could execute it. Alcohol dependence, binge pattern Alcohol related seizure Alcohol intoxication Hypokalemia/Hypomagnesemia/Hypophosphatemia Depression with suicidal ideation and plan Smoker Non-postictal upon arrival to the emergency department Blood work ordered and found to have mild hyponatremia, hypokalemia, hypomagnesemia, hypophosphatemia, mildly elevated AST and ALT Alcohol level of 0.26 Discussed options of inpatient rehab and psychiatry and patient is in verbal agreement of it Previous marijuana, methamphetamine, ecstasy and cocaine use more than 3 years ago PLAN Admit to ICU CIWA protocol Banana bag daily x2 Nicotine patch Replace electrolytes One-to-one observation Repeat labs in the morning Urine drug screen Psychiatry consult Case management and social insurance adviser consult for discharge planning PROPHYLAXIS DVTambulation GInot indicated CODE STATUS: FULL CODE DISPOSITION: Patient will be admitted to the ICU for monitoring sedation of alcohol withdrawal, he will need one-to-one observation due to suicidal ideation with an active plan. Once medically cleared psychiatry will be consulted. Patient will need inpatient psychiatry followed by inpatient rehab for alcohol abuse. SOCIAL: Patient is currently unemployed for about a year and a half Lives in [place] with mom and sister Is currently but has daughter Diagnosis: Stroke: No - Discharge Data Discharge Date: 05/22/20 Discharge Disposition: DC/Tfer to Psych Hosp/Unit 65 Condition: Good - Referral to Home Health Primary Care Physician: PCP None - Discharge Diagnosis/Problem(s) (1) Alcohol dependence, binge pattern SNOMED Code(s): 224114727 ICD Code: F10.20 - ALCOHOL DEPENDENCE, UNCOMPLICATED Status: Acute Current Visit: Yes (2) Alcohol related seizure SNOMED Code(s): 65912603, 123073978 ICD Code: R56.9 - UNSPECIFIED CONVULSIONS Status: Acute Current Visit: Yes (3) Suicidal ideation SNOMED Code(s): 5191134 ICD Code: R45.851 - SUICIDAL IDEATIONS Status: Acute Current Visit: Yes (4) Depression SNOMED Code(s): 00409123 ICD Code: F32.9 - MAJOR DEPRESSIVE DISORDER, SINGLE EPISODE, UNSPECIFIED Status: Chronic Current Visit: No Qualifiers: Depression Type: unspecified Qualified Code(s): F32.9 - Major depressive disorder, single episode, unspecified - Patient Summary/Data Consults: Consultations 05/18/20 21:44 Consult to Case Management/It Senior Software Engineer Java [CONS] Routine Consult to Physician [CONS] Routine 05/19/20 12:09 Consult for Substance Abuse [CONS] Routine 05/19/20 12:11 Consult to Spiritual Care [CONS] Routine Hospital Course: 05/18/20 Non-postictal upon arrival to the emergency department Blood work ordered and found to have mild hyponatremia, hypokalemia, hypomagnesemia, hypophosphatemia, mildly elevated AST and ALT Alcohol level of 0.26 Discussed options of inpatient rehab and psychiatry and patient is in verbal agreement of it Previous marijuana, methamphetamine, ecstasy and cocaine use more than 3 years ago UDS negative PLAN Nicotine patch LR @ 250 Started on Precedex drip Admit to ICU CIWA protocol Banana bag daily x2 Nicotine patch Replace electrolytes One-to-one observation Repeat labs in the morning Psychiatry consult Case management and social insurance adviser consult for discharge planning Patient will be admitted to the ICU for monitoring sedation of alcohol withdrawal, he will need one-to-one observation due to suicidal ideation with an active plan. Patient will need inpatient psychiatry followed by inpatient rehab for alcohol abuse. 05/19/20 Repeat labs: Na 134 to 137 K stable at 3.2 Anion gap down from 19 to 16 PO4 up from 2.3 to 2.5 Mg up from 1.7 to 2.2 VS trend MAP 96-112 Tmax98.6 HR 85-102 SatO2 > 90% on room air CIWA trend: 48-6-03-8-4-9-0-7-6-0-0-12-10-0 ( 7PM-6AM) Required: 2 doses of 1mg PO Ativan PLAN CIWA protocol Banana bag # 1 today, #2 tomorrow KCl 40mEq IV and 60mEq PO Continue Precedex drip Continue LR @ 250 Regular diet Nicotine patch One-to-one observation Psychiatry consult today Case management and social insurance adviser consult for discharge planning Seen by psychiatry - Started on Topamax 25mg BID and Clomipramine - Clomipramine not available, recommended Fluvoxamine which is also unavailable - 3rd choice, Prozac started Ativan equivalent Valium = 75mg QD--> started on 10mg TID 05/20/20 CIWA trend 6AM-6PM: 68-14-1-1-0-43-75-26-0-0-01-07-15-94-6-7-05-1-9-91-67-0-5-69-16-2-7 Repeat labs - Plt down from 237 to 217 - K up from 3.2 to 3.8 - Anion gap down from 16.2 to 12.8 - PO4 down from 2.5 to 1.5 - Mg down from 2.2 to 1.7 VS trend - MAP: 86-103 - HR: 72-94 I/Os - UO 4,160 - 24h balance: +4,160 - Balance since admission +6,858 Still states he is suicidal 05/21/2020 Patient continues to be suicidal. Platelets down 171 Anion gap closed, potassium, magnesium, and phosphorus all normal. Complains of abdominal pain, but tolerating oral intake well. Complaining of auditory hallucinations. Patient auditory hallucinations resolved in the afternoon after he was told he should be passed the point of hallucinations making it suggestive of drug- seeking behavior. 05/22/2020 Patient had an uneventful night. CIWAA's were 6 mainly secondary to anxiety. He received no more benzodiazepines and heart rate has been in the 70s. His blood pressure is still mildly elevated, but this appears to be chronic. Patient was started on lisinopril 10 mg orally this morning and his blood pressure will need to be followed. Yesterday patient threatened to leave the hospital AMA. Concern for his wellbei ng was voiced secondary to his suicidal ideation. States executive producer promos was contacted and a committal was put in place. - Patient Instructions Diet: Usual Diet as Tolerated Activity: As Tolerated Driving: Do Not Drive - Discharge Plan *PRESCRIPTION DRUG MONITORING PROGRAM REVIEWED*: No *COPY OF PRESCRIPTION DRUG MONITORING REPORT IN PATIENT EBONY: No Home Medications: Home Meds . [No Known Home Meds] 05/19/20 [History] Patient Handouts: Steps to Quit Smoking Referrals: Saida Catalan PA-C [Physician Cashier And Salesperson] - - Discharge Summary/Plan Comment DC Time >30 min.: Yes Discharge Summary/Plan Comment: Transfer to [facility] in [place] to the psychiatric unit for suicidal ideation. Patient has a committal in place secondary to suicidal ideation and threatening to leave the hospital. He was started on lisinopril 10 mg daily. Continue periodic blood pressure checks. - General Info Date of Service: 05/22/20 Admission Dx/Problem (Free Text: Admission Diagnosis/Problem Admission Diagnosis/Problem Alcohol dependence Subjective Update: Patient is without complaints this morning. He states he did not sleep well last night. Functional Status: Reports: Pain Controlled - Review of Systems General: Reports: No Symptoms HEENT: Reports: No Symptoms Pulmonary: Reports: No Symptoms Cardiovascular: Reports: No Symptoms Gastrointestinal: Reports: No Symptoms Musculoskeletal: Reports: No Symptoms Neurological: Reports: No Symptoms Psychiatric: Reports: Depression - Patient Data Vitals - Most Recent: Last Vital Signs Temp 97.1 F 05/22/20 08:40 Pulse 85 05/22/20 08:40 Resp 18 05/22/20 08:40 BP 149/107 H 05/22/20 08:40 Pulse Ox 100 05/22/20 08:40 Weight - Most Recent: 68.901 kg I&O - Last 24 hours: Intake & Output 05/21/20 05/22/20 05/22/20 22:59 06:59 14:59 Intake Total 0 Output Total 1500 Balance -1500 0 Lab Results - Last 24 hrs: Laboratory Results - last 24 hr 05/21/20 05/21/20 Range/Units 09:52 09:52 WBC 7.11 (4.23-9.07) K/mm3 RBC 4.72 (4.63-6.08) M/mm3 Hgb 15.2 (13.7-17.5) gm/dl Hct 44.8 (40.1-51.0) % MCV 94.9 H (79.0-92.2) fl MCH 32.2 (25.7-32.2) pg MCHC 33.9 (32.2-35.5) g/dl RDW Std Deviation 51.3 H (35.1-43.9) fL Plt Count 171 (163-337) K/mm3 MPV 10.7 (9.4-12.3) fl Neut % (Auto) 68.2 H (34.0-67.9) % Lymph % (Auto) 23.2 (21.8-53.1) % [place]erry % (Auto) 3.4 L (5.3-12.2) % Eos % (Auto) 4.5 (0.8-7.0) Baso % (Auto) 0.6 (0.1-1.2) % Neut # (Auto) 4.85 (1.78-5.38) K/mm3 Lymph # (Auto) 1.65 (1.32-3.57) K/mm3 [place] # (Auto) 0.24 L (0.30-0.82) K/mm3 Eos # (Auto) 0.32 (0.04-0.54) K/mm3 Baso # (Auto) 0.04 (0.01-0.08) K/mm3 Sodium 138 (136-145) mEq/L Potassium 3.7 (3.5-5.1) mEq/L Chloride 105 (98-107) mEq/L Carbon Dioxide 24 (21-32) mEq/L Anion Gap 12.7 (5-15) BUN 4 L (7-18) mg/dL Creatinine 0.7 (0.7-1.3) mg/dL Est Cr Clr Drug Dosing 120.80 mL/min Estimated GFR (MDRD) > 60 (>60) mL/min BUN/Creatinine Ratio 5.7 L (14-18) Glucose 86 (74-106) mg/dL Calcium 8.9 (8.5-10.1) mg/dL Phosphorus 4.0 (2.6-4.7) mg/dL Magnesium 2.0 (1.8-2.4) mg/dl Total Bilirubin 0.7 (0.2-1.0) mg/dL AST 176 H (15-37) U/L ALT 179 H (16-63) U/L Alkaline Phosphatase 100 (46-116) U/L Total Protein 6.2 L (6.4-8.2) g/dl Albumin 3.0 L (3.4-5.0) g/dl Globulin 3.2 gm/dL Albumin/Globulin Ratio 0.9 L (1-2) Med Orders - Current: Current Medications Acetaminophen (Tylenol) 650 mg PO Q6H PRN PRN Reason: Headache/Pain Last Admin: 05/21/20 18:49 Dose: 650 mg Documented by: Famotidine (Pepcid) 20 mg PO BID [facility] Last Admin: 05/22/20 08:33 Dose: 20 mg Documented by: Fluoxetine HCl (Prozac) 40 mg PO DAILY [facility] Last Admin: 05/22/20 08:34 Dose: 40 mg Documented by: Folic Acid (Folic Acid) 1 mg PO DAILY [facility] Last Admin: 05/22/20 08:32 Dose: 1 mg Documented by: Lisinopril (Prinivil) 10 mg PO DAILY [facility] Lorazepam (Ativan) 0 mg IV ASDIRECTED [facility]; Protocol Last Admin: 05/21/20 12:42 Dose: 1 mg Documented by: Lorazepam (Ativan) 0 mg PO ASDIRECTED [facility]; Protocol Last Admin: 05/21/20 10:56 Dose: 1 mg Documented by: Miscellaneous Information (Remove Patch) 1 ea TRDERM DAILY [facility] Last Admin: 05/22/20 08:39 Dose: 1 ea Documented by: Nicotine (Habitrol) 21 mg TRDERM DAILY [facility] Last Admin: 05/22/20 08:38 Dose: 21 mg Documented by: Ondansetron HCl (Zofran) 4 mg IV Q6H PRN PRN Reason: Nausea/Vomiting Last Admin: 05/20/20 22:57 Dose: 4 mg Documented by: Sucralfate (Carafate) 1 gm PO TIDAC [facility] Last Admin: 05/22/20 08:32 Dose: 1 gm Documented by: Thiamine HCl (Vitamin B-1) 100 mg PO DAILY [facility] Last Admin: 05/22/20 08:33 Dose: 100 mg Documented by: Topiramate (Topamax) 25 mg PO BID [facility] Last Admin: 05/22/20 08:33 Dose: 25 mg Documented by: Trolamine Salicylate (Aspercreme 10%) 0 gm TOP Q6H PRN PRN Reason: CHEST PAIN Last Admin: 05/22/20 01:54 Dose: 10 applic Documented by: Discontinued Medications Chlordiazepoxide HCl (Librium) 50 mg PO Q6H [facility] Last Admin: 05/21/20 08:53 Dose: Not Given Documented by: Al Hydroxide/Mg Hydroxide 30 (ml/ Lidocaine HCl 15 ml) 0 ml PO ONETIME ONE Stop: 05/19/20 12:28 Last Admin: 05/19/20 13:59 Dose: 45 ml Documented by: Dexmedetomidine HCl (Precedex) 0.2 mcg IV ONETIME ONE; Protocol Stop: 05/18/20 20:55 Last Admin: 05/18/20 22:36 Dose: Not Given Documented by: Diazepam (Valium.) 10 mg PO TID [facility] Last Admin: 05/20/20 08:24 Dose: 10 mg Documented by: Diazepam (Valium.) 20 mg PO TID [facility] Last Admin: 05/21/20 08:53 Dose: 20 mg Documented by: Diazepam (Valium.) 20 mg PO BID [facility] Diazepam (Valium.) 20 mg PO ONETIME ONE Stop: 05/21/20 21:01 Last Admin: 05/21/20 20:48 Dose: 20 mg Documented by: Famotidine (Pepcid) 20 mg PO ONETIME ONE Stop: 05/21/20 11:36 Last Admin: 05/21/20 12:01 Dose: 20 mg Documented by: Hydralazine HCl (Apresoline) 10 mg IVPUSH ONETIME STA Stop: 05/19/20 12:26 Last Admin: 05/19/20 12:36 Dose: 10 mg Documented by: Sodium Chloride (Normal Saline) 1,000 mls @ 999 mls/hr IV ONETIME ONE Stop: 05/18/20 20:32 Last Admin: 05/18/20 19:46 Dose: 999 mls/hr Documented by: Magnesium Sulfate 2 gm/ Premix 50 mls @ 25 mls/hr IV ONETIME ONE Stop: 05/18/20 22:27 Last Admin: 05/18/20 21:10 Dose: 25 mls/hr Documented by: Lactated Ringer's (Ringers, Lactated) 1,000 mls @ 999 mls/hr IV .BOLUS ONE Stop: 05/18/20 22:02 Last Admin: 05/18/20 21:12 Dose: 999 mls/hr Documented by: Lactated Ringer's (Ringers, Lactated) 1,000 mls @ 250 mls/hr IV ASDIRECTED [facility] Last Infusion: 05/20/20 11:36 Dose: 175 mls/hr Documented by: Thiamine HCl 1,000 mg/Magnesium Sulfate 4 gm/ Folic Acid 1 mg/ Dextrose/Sodium Chloride 1,018.2 mls @ 125 mls/hr IV ASDIRECTED [facility] dexMEDEtomidine in dextrose 5% (400 mcg/ Premix) 100 mls @ 0 mls/hr IV TITRATE [facility] Last Admin: 05/21/20 01:49 Dose: 6.6 mls/hr Documented by: Thiamine HCl 1,000 mg/ Folic Acid 1 mg/ Dextrose/Sodium Chloride 1,010.2 mls @ 126.275 mls/hr IV ONETIME ONE Stop: 05/19/20 16:59 Last Admin: 05/19/20 09:09 Dose: 126.275 mls/hr Documented by: Potassium Chloride 10 meq/ (Premix) 100 mls @ 100 mls/hr IV Q1H [facility] Stop: 05/19/20 13:59 Last Admin: 05/19/20 14:24 Dose: 80 mls/hr Documented by: Lactated Ringer's (Ringers, Lactated) 1,000 mls @ 175 mls/hr IV ASDIRECTED [facility] Last Admin: 05/20/20 13:39 Dose: 175 mls/hr Documented by: Magnesium Sulfate 4 gm/ Premix 50 mls @ 12.5 mls/hr IV ONETIME ONE Stop: 05/20/20 18:29 Last Admin: 05/20/20 14:28 Dose: 12.5 mls/hr Documented by: Potassium Phosphate 30 mmole/ (Sodium Chloride) 510 mls @ 102 mls/hr IV ONETIME ONE Stop: 05/20/20 23:29 Last Admin: 05/20/20 18:10 Dose: 102 mls/hr Documented by: Sodium Phosphate 30 mmole/ (Sodium Chloride) 260 mls @ 130 mls/hr IV Q2H [facility] Stop: 05/20/20 18:29 Last Admin: 05/20/20 16:48 Dose: 130 mls/hr Documented by: Ondansetron HCl (Zofran) 4 mg IVPUSH ONETIME ONE Stop: 08/17/20 19:33 Last Admin: 05/18/20 19:47 Dose: 4 mg Documented by: Potassium Chloride (Klor-Con M20) 60 meq PO ONETIME ONE Stop: 05/19/20 12:01 Last Admin: 05/19/20 13:10 Dose: 60 meq Documented by: Quetiapine Fumarate (Seroquel) 12.5 mg PO ONETIME ONE Stop: 05/20/20 22:33 Last Admin: 05/20/20 22:52 Dose: 12.5 mg Documented by: Sodium Phosphate (Neutra-Phos) 250 mg PO ONETIME ONE Stop: 05/18/20 20:29 Last Admin: 05/18/20 21:11 Dose: 250 mg Documented by: Trolamine Salicylate (Aspercreme 10%) 0 gm TOP ASDIRECTED PRN PRN Reason: CHEST CONGESTION - Exam General: Reports: Alert, Oriented HEENT: Reports: Pupils Equal, Mucous Membr. Moist/[place] Neck: Reports: Supple Lungs: Reports: Clear to Auscultation, Normal Respiratory Effort Cardiovascular: Reports: Regular Rate, Regular Rhythm GI/Abdominal Exam: Normal Bowel Sounds, Soft, Non-Tender, No Organomegaly, No Distention, No Abnormal Bruit Extremities: Normal Inspection, Normal Range of Motion, Non-Tender, No Pedal Edema, Normal Capillary Refill Skin: Reports: Warm, Dry, Intact Psy/Mental Status: Reports: Alert, Depressed
[2020-05-22 11:40] VITALS: BP 141/100
[2020-05-22 11:42] VITALS: PULSE 97
[2020-05-22] MEDS: Acetaminophen 325 MG Tab PO PRN (12:41)
== END 2020-05-22 13:54 | DRG 897 ==
LOC: JD.ED 19:06 → JD.ICU 21:37
PROVIDERS: ADMIT Internal Medicine; ATTEND Internal Medicine
DX: F10.239 Alcohol dependence with withdrawal, unspecified (principal); R45.851 Suicidal ideations; E87.1 Hypo-osmolality and hyponatremia; R44.0 Auditory hallucinations; R56.9 Unspecified convulsions; E87.6 Hypokalemia; E83.42 Hypomagnesemia; E83.39 Other disorders of phosphorus metabolism; F10.229 Alcohol dependence with intoxication, unspecified; Y90.0 Blood alcohol level of less than 20 mg/100 ml; I10 Essential (primary) hypertension; G47.30 Sleep apnea, unspecified; F17.200 Nicotine dependence, unspecified, uncomplicated; F31.9 Bipolar disorder, unspecified; Z20.828 Contact with and (suspected) exposure to other viral communicable diseases
CPT/HCPCS: 36415; 80048; 80053; 80306; 80307; 82550; 83735; 84100; 85025; 96365; 99285; 99285-25; A9270-GY; J0360; J2060; J2405; J3411; J3475; J3480; J3490; J7030; J7040; J7042; J7050; J7120; U0002

== ENCOUNTER 2021-04-27 13:41 | Inpatient (IN) | payer MEDICAID ==
--- NOTE | 2021-04-27 14:10 | EDM.PDOC ---
ED HPI GENERAL MEDICAL PROBLEM - General Chief Complaint: Drug or Alcohol Abuse Stated Complaint: SHAKING, SEIZURES,VOMITING DUE TO ALCOHOL Time Seen by Provider: 04/27/21 14:00 - History of Present Illness INITIAL COMMENTS - FREE TEXT/NARRATIVE: 41-year-old male presents the emergency room wanting to quit drinking. Patient has been trying to cut back he believes he had a seizure last night and another one again this morning he states his last drink was around 6 AM today. He states he has had a history of having seizures in the past when he quits drinking. Patient is a binge drinker. This most recent binge has been going on for about a month. Patient has had inpatient treatment in the past which is led to 6 or 7 months of sobriety. Generalized Pain Score (Numeric/FACES): 8 - Related Data Allergies Allergy/AdvReac Type Severity Reaction Status Date / Time No Known Allergies Allergy Verified 04/27/21 13:51 Home Meds: Home Meds Baclofen 5 mg PO ASDIRECTED 04/27/21 [History] DULoxetine [Cymbalta] 60 mg PO DAILY 04/27/21 [History] Pregabalin [Lyrica] 150 mg PO TID 04/27/21 [History] cloNIDine [Catapres] 0.1 mg PO DAILY 04/27/21 [History] Past Medical History - Past Health History Medical/Surgical History: Denies Medical/Surgical History HEENT History: Reports: Impaired Vision Cardiovascular History: Reports: Hypertension (untreated) Respiratory History: Reports: Sleep Apnea (untreated) Musculoskeletal History: Reports: Fibromyalgia, Other (See Below) Other Musculoskeletal History: MRI-bulges to back and not sure what else going on Neurological History: Reports: Seizure (alcohol-related only) Psychiatric History: Reports: Addiction (alcohol), Anxiety (untreated), Depression (untreated) - Infectious Disease History Infectious Disease History: Reports: Chicken Pox - Past Surgical History HEENT Surgical History: Reports: Oral Surgery Social & Family History - Family History Family Medical History: No Pertinent Family History - Caffeine Use Caffeine Use: Reports: Coffee Other Caffeine Use: unknown - Living Situation & Occupation Living situation: Reports: (), with Family (Mother and sister) Occupation: Unemployed ED ROS GENERAL - Review of Systems Review Of Systems: See Below Constitutional: Reports: No Symptoms HEENT: Reports: No Symptoms Respiratory: Reports: No Symptoms Cardiovascular: Reports: No Symptoms GI/Abdominal: Reports: Nausea, Vomiting. Denies: Constipation, Diarrhea : Reports: No Symptoms Musculoskeletal: Reports: No Symptoms Skin: Reports: No Symptoms Neurological: Reports: Seizure, Tremors Psychiatric: Reports: Agitation, Anxiety. Denies: Homicidal Ideation, Suicidal Ideation Hematologic/Lymphatic: Reports: No Symptoms Immunologic: Reports: No Symptoms ED EXAM, GENERAL - Physical Exam Exam: See Below General Appearance: Other (He is moderately tremulous at this time) Eye Exam: Bilateral Eye: Normal Inspection Ears: Normal External Exam, Normal Canal, Hearing Grossly Normal, Normal TMs Nose: Normal Inspection, Normal Mucosa, No Blood Throat/Mouth: Normal Inspection, Normal Lips, Normal Teeth, Normal Gums, Normal Oropharynx, Normal Voice, No Airway Compromise Head: Atraumatic, Normocephalic Neck: Normal Inspection, Supple, Non-Tender, Full Range of Motion. No: Lymphadenopathy (L), Lymphadenopathy (R) Respiratory/Chest: No Respiratory Distress, Lungs Clear, Normal Breath Sounds Cardiovascular: Regular Rate, Rhythm, No Edema, No Murmur GI/Abdominal: Normal Bowel Sounds, Soft, Non-Tender Back Exam: Normal Inspection. No: CVA Tenderness (L), CVA Tenderness (R) Extremities: Normal Inspection Neurological: Oriented, Normal Cognition Psychiatric: Anxious Course - Vital Signs Last Recorded V/S: Last Vital Signs Temp 36.4 C 04/27/21 13:56 Pulse 88 04/27/21 13:56 Resp 20 04/27/21 13:56 BP 174/106 H 04/27/21 13:56 Pulse Ox 95 04/27/21 13:56 - Orders/Labs/Meds Orders: Active Orders 24 hr Category Date Time Status Patient Status [ADT] Routine ADT 04/27/21 17:22 Active Assess Neurological Status [RC] ASDIRECTED Care 04/27/21 17:26 Active CIWAA Assessment [RC] Q4H Care 04/27/21 17:26 Active Cardiac Monitoring [RC] . DIRECTED Care 04/27/21 17:26 Active Notify Provider [RC] PRN Care 04/27/21 17:26 Active Oxygen Therapy [RC] PRN Care 04/27/21 17:22 Active Pulse Oximetry [RC] CONTINUOUS Care 04/27/21 17:26 Active Up ad Sanjuanita [RC] ASDIRECTED Care 04/27/21 17:22 Active VTE/DVT Education [RC] PER UNIT ROUTINE Care 04/27/21 17:22 Active Vital Signs [RC] Q4H Care 04/27/21 17:22 Active Consult to Case Management/Technical Account Executive [CONS] Cons 04/27/21 17:24 Active Routine Regular Diet [DIET] Diet 04/27/21 Dinner Active CBC W/O DIFF,HEMOGRAM [HEME] AM Lab 04/28/21 05:11 Ordered COMPREHENSIVE METABOLIC PN,CMP [CHEM] AM Lab 04/28/21 05:11 Ordered Acetaminophen [TylenoL] Med 04/27/21 17:24 Active 650 mg PO Q4H PRN Enoxaparin [Lovenox] Med 04/28/21 09:00 Active 40 mg SUBCUT DAILY Folic Acid Med 04/28/21 09:00 Active 1 mg PO DAILY LORazepam [Ativan] Med 04/27/21 17:30 Active See Protocol IV ASDIRECTED Lactated Ringers [Ringers, Lactated] 1,000 ml Med 04/27/21 14:15 Active IV ASDIRECTED Nicotine [Habitrol] Med 04/27/21 17:30 Active 14 mg TRDERM DAILY Ondansetron [Zofran ODT] Med 04/27/21 17:24 Active 4 mg PO Q6H PRN Pantoprazole [ProTONIX IV] Med 04/28/21 09:00 Active 40 mg IV DAILY Promethazine [Phenergan] 6.25 mg Med 04/27/21 17:24 Active Sodium Chloride 0.9% [Normal Saline] 50 ml IV Q6H Thiamine [Vitamin B-1] Med 04/28/21 09:00 Active 100 mg PO DAILY oxyCODONE Med 04/27/21 17:24 Active 5 mg PO Q4H PRN Seizure Precautions [OM.PC] Routine Oth 04/27/21 17:26 Ordered Resuscitation Status Routine Resus Stat 04/27/21 17:22 Ordered Medication Orders Acetaminophen (Acetaminophen 325 Mg Tab) 650 mg PO Q4H PRN PRN Reason: Pain (Mild 1-3)/fever Enoxaparin Sodium (Enoxaparin 40 Mg/0.4 Ml Syringe) 40 mg SUBCUT DAILY RICHARD Folic Acid (Folic Acid 1 Mg Tab) 1 mg PO DAILY RICHARD Stop: 04/30/21 09:01 Lactated Ringer's (Ringers, Lactated) 1,000 mls @ 150 mls/hr IV ASDIRECTED RICHARD Last Admin: 04/27/21 15:38 Dose: 150 mls/hr Documented by: KIN Promethazine HCl 6.25 mg/ (Sodium Chloride) 50.25 mls @ 100 mls/hr IV Q6H PRN PRN Reason: Nausea/Vomiting Lorazepam (Lorazepam 2 Mg/Ml Sdv) 0 mg IV ASDIRECTED RICHARD; Protocol Nicotine (Nicotine 14 Mg/24 Hr Patch) 14 mg TRDERM DAILY RICHARD Ondansetron HCl (Ondansetron 4 Mg Tab.Dis) 4 mg PO Q6H PRN PRN Reason: nausea, able to take PO Oxycodone HCl (Oxycodone 5 Mg Tab) 5 mg PO Q4H PRN PRN Reason: Pain (moderate 4-6) Pantoprazole Sodium (Pantoprazole 40 Mg Vial) 40 mg IV DAILY RICHARD Thiamine HCl (Thiamine 100 Mg Tab) 100 mg PO DAILY [facility] Labs: Laboratory Tests 04/27/21 04/27/21 04/27/21 Range/Units 14:13 14:13 14:41 WBC 10.59 H (4.23-9.07) K/mm3 RBC 4.98 (4.63-6.08) M/mm3 Hgb 16.3 (13.7-17.5) gm/dl Hct 45.8 (40.1-51.0) % MCV 92.0 (79.0-92.2) fl MCH 32.7 H (25.7-32.2) pg MCHC 35.6 H (32.2-35.5) g/dl RDW Std Deviation 50.5 H (35.1-43.9) fL Plt Count 352 H (163-337) K/mm3 MPV 9.4 (9.4-12.3) fl Neut % (Auto) 74.4 H (34.0-67.9) % Lymph % (Auto) 16.5 L (21.8-53.1) % [place] % (Auto) 8.0 (5.3-12.2) % Eos % (Auto) 0.5 L (0.8-7.0) Baso % (Auto) 0.5 (0.1-1.2) % Neut # (Auto) 7.88 H (1.78-5.38) K/mm3 Lymph # (Auto) 1.75 (1.32-3.57) K/mm3 [place] # (Auto) 0.85 H (0.30-0.82) K/mm3 Eos # (Auto) 0.05 (0.04-0.54) K/mm3 Baso # (Auto) 0.05 (0.01-0.08) K/mm3 PT 12.5 H (9.7-12.0) SECONDS INR 1.17 Sodium 145 (136-145) mEq/L Potassium 3.4 L (3.5-5.1) mEq/L Chloride 104 (98-107) mEq/L Carbon Dioxide 28 (21-32) mEq/L Anion Gap 16.4 H (5-15) BUN 11 (7-18) mg/dL Creatinine 0.9 (0.7-1.3) mg/dL Est Cr Clr Drug Dosing 93.01 mL/min Estimated GFR (MDRD) > 60 (>60) mL/min BUN/Creatinine Ratio 12.2 L (14-18) Glucose 114 H (70-99) mg/dL Calcium 8.6 (8.5-10.1) mg/dL Magnesium 1.6 L (1.8-2.4) mg/dL Total Bilirubin 0.3 (0.2-1.0) mg/dL GGT 116 H (15-85) U/L AST 57 H (15-37) U/L ALT 42 (16-63) U/L Alkaline Phosphatase 153 H (46-116) U/L Total Protein 6.8 (6.4-8.2) g/dl Albumin 3.6 (3.4-5.0) g/dl Globulin 3.2 gm/dL Albumin/Globulin Ratio 1.1 (1-2) Urine Color (Yellow) Urine Appearance (Clear) Urine pH (5.0-8.0) Ur Specific [place] (1.005-1.030) Urine Protein (Negative) Urine Glucose (UA) (Negative) Urine Ketones (Negative) Urine Occult Blood (Negative) Urine Nitrite (Negative) Urine Bilirubin (Negative) Urine Urobilinogen (0.2-1.0) Ur Leukocyte Esterase (Negative) Urine RBC (0-5) /hpf Urine WBC (0-5) /hpf Ur Squamous Epith Cells (0-5) /hpf Urine Bacteria (FEW) /hpf Urine Mucus (FEW) /hpf Urine Opiates Screen (OBQRKM=147) Ur Buprenorphine Scrn (CUTOFF=10) Ur Oxycodone Screen (HRD7YW=315) Urine Methadone Screen (RAJ8NU=383) Ur Propoxyphene Screen (CGCRPD=667) Ur Barbiturates Screen (WVHGHI=712) Ur Tricyclics Screen (FUKGOG=628) Ur Phencyclidine Scrn (CUTOFF=25) Ur Amphetamine Screen (LAJMLV=474) U Methamphetamines Scrn (LDDBWX=762) U Benzodiazepines Scrn (EELCTL=577) U Cocaine Metab Screen (SPMYQJ=185) U Marijuana (THC) Screen (CUTOFF=50) Ethyl Alcohol 0.01 (0.00) gm% 04/27/21 04/27/21 Range/Units 15:55 15:55 WBC (4.23-9.07) K/mm3 RBC (4.63-6.08) M/mm3 Hgb (13.7-17.5) gm/dl Hct (40.1-51.0) % MCV (79.0-92.2) fl MCH (25.7-32.2) pg MCHC (32.2-35.5) g/dl RDW Std Deviation (35.1-43.9) fL Plt Count (163-337) K/mm3 MPV (9.4-12.3) fl Neut % (Auto) (34.0-67.9) % Lymph % (Auto) (21.8-53.1) % [place] % (Auto) (5.3-12.2) % Eos % (Auto) (0.8-7.0) Baso % (Auto) (0.1-1.2) % Neut # (Auto) (1.78-5.38) K/mm3 Lymph # (Auto) (1.32-3.57) K/mm3 [place] # (Auto) (0.30-0.82) K/mm3 Eos # (Auto) (0.04-0.54) K/mm3 Baso # (Auto) (0.01-0.08) K/mm3 PT (9.7-12.0) SECONDS INR Sodium (136-145) mEq/L Potassium (3.5-5.1) mEq/L Chloride (98-107) mEq/L Carbon Dioxide (21-32) mEq/L Anion Gap (5-15) BUN (7-18) mg/dL Creatinine (0.7-1.3) mg/dL Est Cr Clr Drug Dosing mL/min Estimated GFR (MDRD) (>60) mL/min BUN/Creatinine Ratio (14-18) Glucose (70-99) mg/dL Calcium (8.5-10.1) mg/dL Magnesium (1.8-2.4) mg/dL Total Bilirubin (0.2-1.0) mg/dL GGT (15-85) U/L AST (15-37) U/L ALT (16-63) U/L Alkaline Phosphatase (46-116) U/L Total Protein (6.4-8.2) g/dl Albumin (3.4-5.0) g/dl Globulin gm/dL Albumin/Globulin Ratio (1-2) Urine Color Yellow (Yellow) Urine Appearance Clear (Clear) Urine pH 6.5 (5.0-8.0) Ur Specific [place] 1.025 (1.005-1.030) Urine Protein Trace H (Negative) Urine Glucose (UA) Negative (Negative) Urine Ketones 1+ H (Negative) Urine Occult Blood Negative (Negative) Urine Nitrite Negative (Negative) Urine Bilirubin Negative (Negative) Urine Urobilinogen 1.0 (0.2-1.0) Ur Leukocyte Esterase Negative (Negative) Urine RBC 0-5 (0-5) /hpf Urine WBC 0-5 (0-5) /hpf Ur Squamous Epith Cells 0-5 (0-5) /hpf Urine Bacteria Few (FEW) /hpf Urine Mucus Many H (FEW) /hpf Urine Opiates Screen Negative (MIMEAX=643) Ur Buprenorphine Scrn Negative (CUTOFF=10) Ur Oxycodone Screen Presumptive positive H (RPQ5CM=610) Urine Methadone Screen Negative (MDF4VG=173) Ur Propoxyphene Screen Negative (KLNUBX=238) Ur Barbiturates Screen Negative (XTBNQT=507) Ur Tricyclics Screen Negative (ERDLVA=512) Ur Phencyclidine Scrn Negative (CUTOFF=25) Ur Amphetamine Screen Negative (TLCZGZ=858) U Methamphetamines Scrn Negative (FRSBQF=366) U Benzodiazepines Scrn Negative (RSYSDN=825) U Cocaine Metab Screen Negative (TLZWDH=993) U Marijuana (THC) Screen Presumptive positive H (CUTOFF=50) Ethyl Alcohol (0.00) gm% Meds: Medications Generic Name Dose Route Start Last Admin Trade Name Freq PRN Reason Stop Dose Admin Acetaminophen 650 mg 04/27/21 17:24 Acetaminophen 325 Mg Tab PO Q4H PRN Pain (Mild 1-3)/fever Enoxaparin Sodium 40 mg 04/28/21 09:00 Enoxaparin 40 Mg/0.4 Ml Syringe SUBCUT DAILY RICHARD Folic Acid 1 mg 04/28/21 09:00 Folic Acid 1 Mg Tab PO 04/30/21 09:01 DAILY RICHARD Lactated Ringer's 1,000 mls @ 150 mls/hr 04/27/21 14:15 04/27/21 15:38 Ringers, Lactated IV 150 mls/hr ASDIRECTED RICHARD Administration Promethazine HCl 6.25 mg/ 50.25 mls @ 100 mls/hr 04/27/21 17:24 Sodium Chloride IV Q6H PRN Nausea/Vomiting Lorazepam 0 mg 04/27/21 17:30 Lorazepam 2 Mg/Ml Sdv IV ASDIRECTED [facility] Protocol Nicotine 14 mg 04/27/21 17:30 Nicotine 14 Mg/24 Hr Patch TRDERM DAILY [facility] Ondansetron HCl 4 mg 04/27/21 17:24 Ondansetron 4 Mg Tab.Dis PO Q6H PRN nausea, able to take PO Oxycodone HCl 5 mg 04/27/21 17:24 Oxycodone 5 Mg Tab PO Q4H PRN Pain (moderate 4-6) Pantoprazole Sodium 40 mg 04/28/21 09:00 Pantoprazole 40 Mg Vial IV DAILY RICHARD Thiamine HCl 100 mg 04/28/21 09:00 Thiamine 100 Mg Tab PO DAILY RICHARD Discontinued Medications Generic Name Dose Route Start Last Admin Trade Name Freq PRN Reason Stop Dose Admin Lactated Ringer's 1,000 mls @ 999 mls/hr 04/27/21 14:14 04/27/21 14:24 Ringers, Lactated IV 04/27/21 15:14 999 mls/hr .BOLUS ONE Administration Magnesium Sulfate 2 gm/ Premix 50 mls @ 25 mls/hr 04/27/21 15:22 04/27/21 15:41 IV 04/27/21 17:21 25 mls/hr ONETIME ONE Administration Lactated Ringer's 1,000 mls @ 999 mls/hr 04/27/21 16:30 Ringers, Lactated IV 04/27/21 17:30 .BOLUS ONE Lorazepam 1 mg 04/27/21 14:14 04/27/21 14:23 Lorazepam 2 Mg/Ml Sdv IVPUSH 04/27/21 14:15 1 mg ONETIME ONE Administration Lorazepam 1 mg 04/27/21 15:25 04/27/21 15:42 Lorazepam 2 Mg/Ml Sdv IVPUSH 04/27/21 15:26 1 mg ONETIME ONE Administration Multivitamins/Minerals/Vitamin C 1 tab 04/27/21 17:26 Multivitamin Tab PO 04/27/21 17:27 ONETIME ONE Ondansetron HCl 4 mg 04/27/21 14:14 04/27/21 14:21 Ondansetron 4 Mg/2 Ml Sdv IVPUSH 04/27/21 14:15 4 mg ONETIME ONE Administration Potassium Chloride 40 meq 04/27/21 15:22 04/27/21 15:42 Potassium Chloride 20 Meq Tab.Er PO 04/27/21 15:23 40 meq ONETIME ONE Administration Departure - Departure Time of Disposition: 17:00 Disposition: Admitted As Inpatient 65 Clinical Impression: Alcohol withdrawal Qualifiers: Complication of substance-induced condition: uncomplicated Qualified Code(s): F10.230 - Alcohol dependence with withdrawal, uncomplicated - Discharge Information Referrals: Saida Catalan PA-C [Primary Care Provider] - Forms: ED Department Discharge Sepsis Event Note (ED) - Evaluation Sepsis Screening Result: No Definite Risk - Focused Exam Vital Signs: Vital Signs Temp Pulse Resp BP Pulse Ox 04/27/21 13:56 36.4 C 88 20 174/106 H 95 - My Orders Last 24 Hours: My Active Orders 04/27/21 14:15 Lactated Ringers [Ringers, Lactated] 1,000 ml IV ASDIRECTED - Assessment/Plan Last 24 Hours: My Active Orders 04/27/21 14:15 Lactated Ringers [Ringers, Lactated] 1,000 ml IV ASDIRECTED
[2021-04-27] MEDS ORDERED: Ondansetron 4 MG/2 ML SDV IVPUSH ONE (14:14)
[2021-04-27] MEDS ORDERED: LORazepam 2 MG/ML SDV IVPUSH ONE ×2 (14:14→15:25)
[2021-04-27] MEDS ORDERED: Lactated Ringers 1,000 ML IV ONE ×2 (14:14→16:30)
[2021-04-27] MEDS ORDERED: Lactated Ringers 1,000 ML IV SCH (14:15)
[2021-04-27] MEDS ORDERED: Potassium Chloride 20 MEQ Tab.ER PO ONE (15:22)
[2021-04-27] MEDS ORDERED: Magnesium Sulfate/Water 2 GM in Premix Bag 1 BAG IV ONE (15:22)
[2021-04-27] MEDS ORDERED: Acetaminophen 325 MG Tab PO PRN (17:24)
[2021-04-27] MEDS ORDERED: oxyCODONE 5 MG Tab PO PRN (17:24)
[2021-04-27] MEDS ORDERED: Promethazine 6.25 MG in Sodium Chloride 0.9% 50 ML IV PRN (17:24)
[2021-04-27] MEDS ORDERED: Multivitamin Tab PO ONE (17:26)
--- NOTE | 2021-04-27 17:51 | PCM.HP.2 ---
H&P History of Present Illness - General Date of Service: 04/27/21 Admit Problem/Dx: Admission Diagnosis/Problem Admission Diagnosis/Problem Alcohol withdrawal seizure Alcohol withdrawal seizure - History of Present Illness Initial Comments - Free Text/Narative: This is a 41M with past medical history of alcoholism presenting for alcohol intoxication and possible seizure. the patient has been binge drinking and had one liter of liquor last night into this morning. He thinks he may have had an alcohol withdrawal seizure. He endorses nausea and vomiting. He has generalized pain but denies chest pain, sob, fever. He feels dizzy. He is active tobacco user. He presented to ED and was given IVF. His potassium was 3.4. He was given IVF and electrolyte replacement and admitted for further evaluation. Generalized Pain Score (Numeric/FACES): 8 - Related Data Allergies/Adverse Reactions: Allergies Allergy/AdvReac Type Severity Reaction Status Date / Time No Known Allergies Allergy Verified 04/27/21 13:51 Home Medications: Home Meds Baclofen 5 mg PO ASDIRECTED 04/27/21 [History] DULoxetine [Cymbalta] 60 mg PO DAILY 04/27/21 [History] Pregabalin [Lyrica] 150 mg PO TID 04/27/21 [History] cloNIDine [Catapres] 0.1 mg PO DAILY 04/27/21 [History] Past Medical History - Past Health History Medical/Surgical History: Denies Medical/Surgical History HEENT History: Reports: Impaired Vision Cardiovascular History: Reports: Hypertension Respiratory History: Reports: Sleep Apnea Gastrointestinal History: Reports: None Genitourinary History: Reports: None Musculoskeletal History: Reports: Fibromyalgia, Other (See Below) Other Musculoskeletal History: MRI-bulges to back and not sure what else going on Neurological History: Reports: Seizure Psychiatric History: Reports: Addiction, Anxiety, Depression Endocrine/Metabolic History: Reports: None Hematologic History: Reports: None Immunologic History: Reports: None Oncologic (Cancer) History: Reports: None Dermatologic History: Reports: None - Infectious Disease History Infectious Disease History: Reports: Chicken Pox - Past Surgical History HEENT Surgical History: Reports: Oral Surgery Social & Family History - Family History Family Medical History: No Pertinent Family History - Tobacco Use Tobacco Use Status *Q: Current Every Day Tobacco User Years of Tobacco use: 20 Packs/Tins Daily: 1 - Caffeine Use Caffeine Use: Reports: Soda Other Caffeine Use: unknown - Alcohol Use Date of Last Drink: 04/27/21 Time of Last Drink: 06:00 - Recreational Drug Use Recreational Drug Use: No - Living Situation & Occupation Living situation: Reports: (), with Family (Mother and sister) Occupation: Unemployed H&P Review of Systems - Review of Systems: Review Of Systems: Comprehensive ROS is negative, except as noted in HPI. Exam - Exam Exam: See Below - Vital Signs Vital Signs: Last Vital Signs Temp 97.6 F 04/27/21 13:56 Pulse 88 04/27/21 13:56 Resp 20 04/27/21 13:56 BP 174/106 H 04/27/21 13:56 Pulse Ox 95 04/27/21 13:56 Weight: 139 lb 4.8 oz - Exam Physical Exam Comments:: GeN: NAD HEENT: NCAT EOMI MMM Neck: Supple CV; RRR normal s1 s2 Lungs: CTAB Abd: Soft, nt, nd Neuro: Bilateral hand tremors, AOX3, CN intact MSK: age appropriate muscle mass Psyche: Flat affect Skin: warm, dry, no rash on face - Patient Data Lab Results Last 24 hrs: Laboratory Results - last 24 hr 04/27/21 04/27/21 04/27/21 Range/Units 14:13 14:13 14:41 WBC 10.59 H (4.23-9.07) K/mm3 RBC 4.98 (4.63-6.08) M/mm3 Hgb 16.3 (13.7-17.5) gm/dl Hct 45.8 (40.1-51.0) % MCV 92.0 (79.0-92.2) fl MCH 32.7 H (25.7-32.2) pg MCHC 35.6 H (32.2-35.5) g/dl RDW Std Deviation 50.5 H (35.1-43.9) fL Plt Count 352 H (163-337) K/mm3 MPV 9.4 (9.4-12.3) fl Neut % (Auto) 74.4 H (34.0-67.9) % Lymph % (Auto) 16.5 L (21.8-53.1) % [place] % (Auto) 8.0 (5.3-12.2) % Eos % (Auto) 0.5 L (0.8-7.0) Baso % (Auto) 0.5 (0.1-1.2) % Neut # (Auto) 7.88 H (1.78-5.38) K/mm3 Lymph # (Auto) 1.75 (1.32-3.57) K/mm3 [place] # (Auto) 0.85 H (0.30-0.82) K/mm3 Eos # (Auto) 0.05 (0.04-0.54) K/mm3 Baso # (Auto) 0.05 (0.01-0.08) K/mm3 PT 12.5 H (9.7-12.0) SECONDS INR 1.17 Sodium 145 (136-145) mEq/L Potassium 3.4 L (3.5-5.1) mEq/L Chloride 104 (98-107) mEq/L Carbon Dioxide 28 (21-32) mEq/L Anion Gap 16.4 H (5-15) BUN 11 (7-18) mg/dL Creatinine 0.9 (0.7-1.3) mg/dL Est Cr Clr Drug Dosing 93.01 mL/min Estimated GFR (MDRD) > 60 (>60) mL/min BUN/Creatinine Ratio 12.2 L (14-18) Glucose 114 H (70-99) mg/dL Calcium 8.6 (8.5-10.1) mg/dL Magnesium 1.6 L (1.8-2.4) mg/dL Total Bilirubin 0.3 (0.2-1.0) mg/dL GGT 116 H (15-85) U/L AST 57 H (15-37) U/L ALT 42 (16-63) U/L Alkaline Phosphatase 153 H (46-116) U/L Total Protein 6.8 (6.4-8.2) g/dl Albumin 3.6 (3.4-5.0) g/dl Globulin 3.2 gm/dL Albumin/Globulin Ratio 1.1 (1-2) Urine Color (Yellow) Urine Appearance (Clear) Urine pH (5.0-8.0) Ur Specific [place] (1.005-1.030) Urine Protein (Negative) Urine Glucose (UA) (Negative) Urine Ketones (Negative) Urine Occult Blood (Negative) Urine Nitrite (Negative) Urine Bilirubin (Negative) Urine Urobilinogen (0.2-1.0) Ur Leukocyte Esterase (Negative) Urine RBC (0-5) /hpf Urine WBC (0-5) /hpf Ur Squamous Epith Cells (0-5) /hpf Urine Bacteria (FEW) /hpf Urine Mucus (FEW) /hpf Urine Opiates Screen (PJUIGS=011) Ur Buprenorphine Scrn (CUTOFF=10) Ur Oxycodone Screen (CGN8IJ=760) Urine Methadone Screen (YJY6HT=200) Ur Propoxyphene Screen (OAUECC=167) Ur Barbiturates Screen (SLNKYX=978) Ur Tricyclics Screen (LPRSEF=232) Ur Phencyclidine Scrn (CUTOFF=25) Ur Amphetamine Screen (JRHVEB=959) U Methamphetamines Scrn (NVPBTR=725) U Benzodiazepines Scrn (ARGWBC=565) U Cocaine Metab Screen (ETCSEM=438) U Marijuana (THC) Screen (CUTOFF=50) Ethyl Alcohol 0.01 (0.00) gm% 04/27/21 04/27/21 Range/Units 15:55 15:55 WBC (4.23-9.07) K/mm3 RBC (4.63-6.08) M/mm3 Hgb (13.7-17.5) gm/dl Hct (40.1-51.0) % MCV (79.0-92.2) fl MCH (25.7-32.2) pg MCHC (32.2-35.5) g/dl RDW Std Deviation (35.1-43.9) fL Plt Count (163-337) K/mm3 MPV (9.4-12.3) fl Neut % (Auto) (34.0-67.9) % Lymph % (Auto) (21.8-53.1) % [place] % (Auto) (5.3-12.2) % Eos % (Auto) (0.8-7.0) Baso % (Auto) (0.1-1.2) % Neut # (Auto) (1.78-5.38) K/mm3 Lymph # (Auto) (1.32-3.57) K/mm3 [place] # (Auto) (0.30-0.82) K/mm3 Eos # (Auto) (0.04-0.54) K/mm3 Baso # (Auto) (0.01-0.08) K/mm3 PT (9.7-12.0) SECONDS INR Sodium (136-145) mEq/L Potassium (3.5-5.1) mEq/L Chloride (98-107) mEq/L Carbon Dioxide (21-32) mEq/L Anion Gap (5-15) BUN (7-18) mg/dL Creatinine (0.7-1.3) mg/dL Est Cr Clr Drug Dosing mL/min Estimated GFR (MDRD) (>60) mL/min BUN/Creatinine Ratio (14-18) Glucose (70-99) mg/dL Calcium (8.5-10.1) mg/dL Magnesium (1.8-2.4) mg/dL Total Bilirubin (0.2-1.0) mg/dL GGT (15-85) U/L AST (15-37) U/L ALT (16-63) U/L Alkaline Phosphatase (46-116) U/L Total Protein (6.4-8.2) g/dl Albumin (3.4-5.0) g/dl Globulin gm/dL Albumin/Globulin Ratio (1-2) Urine Color Yellow (Yellow) Urine Appearance Clear (Clear) Urine pH 6.5 (5.0-8.0) Ur Specific [place] 1.025 (1.005-1.030) Urine Protein Trace H (Negative) Urine Glucose (UA) Negative (Negative) Urine Ketones 1+ H (Negative) Urine Occult Blood Negative (Negative) Urine Nitrite Negative (Negative) Urine Bilirubin Negative (Negative) Urine Urobilinogen 1.0 (0.2-1.0) Ur Leukocyte Esterase Negative (Negative) Urine RBC 0-5 (0-5) /hpf Urine WBC 0-5 (0-5) /hpf Ur Squamous Epith Cells 0-5 (0-5) /hpf Urine Bacteria Few (FEW) /hpf Urine Mucus Many H (FEW) /hpf Urine Opiates Screen Negative (NCOZAG=899) Ur Buprenorphine Scrn Negative (CUTOFF=10) Ur Oxycodone Screen Presumptive positive H (UIU0OX=532) Urine Methadone Screen Negative (XQB3OT=094) Ur Propoxyphene Screen Negative (EETIYH=792) Ur Barbiturates Screen Negative (CUEZGD=572) Ur Tricyclics Screen Negative (JGNGIV=004) Ur Phencyclidine Scrn Negative (CUTOFF=25) Ur Amphetamine Screen Negative (WCWRAO=840) U Methamphetamines Scrn Negative (DPYRLG=150) U Benzodiazepines Scrn Negative (SOMYRL=143) U Cocaine Metab Screen Negative (UIGGKD=593) U Marijuana (THC) Screen Presumptive positive H (CUTOFF=50) Ethyl Alcohol (0.00) gm% Result Diagrams: 04/27/21 14:13 04/27/21 14:13 Sepsis Event Note - Evaluation Sepsis Screening Result: No Definite Risk - Focused Exam Vital Signs: Vital Signs Temp Pulse Resp BP Pulse Ox 04/27/21 13:56 97.6 F 88 20 174/106 H 95 *Q Meaningful Use (ADM) - VTE *Q VTE Criteria *Q: 1 Problem List Initiated/Reviewed/Updated: Yes Orders Last 24hrs: Active Orders 24 hr Category Date Time Status Patient Status [ADT] Routine ADT 04/27/21 17:22 Active Assess Neurological Status [RC] ASDIRECTED Care 04/27/21 17:26 Active CIWAA Assessment [RC] Q4H Care 04/27/21 17:26 Active Cardiac Monitoring [RC] . DIRECTED Care 04/27/21 17:26 Active Notify Provider [RC] PRN Care 04/27/21 17:26 Active Oxygen Therapy [RC] PRN Care 04/27/21 17:22 Active Pulse Oximetry [RC] CONTINUOUS Care 04/27/21 17:26 Active Up ad Sanjuanita [RC] ASDIRECTED Care 04/27/21 17:22 Active VTE/DVT Education [RC] PER UNIT ROUTINE Care 04/27/21 17:22 Active Vital Signs [RC] Q4H Care 04/27/21 17:22 Active Consult to Case Management/Wildlife Protector [CONS] Cons 04/27/21 17:24 Active Routine Regular Diet [DIET] Diet 04/27/21 Dinner Active CBC W/O DIFF,HEMOGRAM [HEME] AM Lab 04/28/21 05:11 Ordered COMPREHENSIVE METABOLIC PN,CMP [CHEM] AM Lab 04/28/21 05:11 Ordered CORONAVIRUS COVID-19 GURJIT [MOLEC] Stat Lab 04/27/21 17:32 Ordered Acetaminophen [TylenoL] Med 04/27/21 17:24 Active 650 mg PO Q4H PRN Enoxaparin [Lovenox] Med 04/28/21 09:00 Active 40 mg SUBCUT DAILY Folic Acid Med 04/28/21 09:00 Active 1 mg PO DAILY LORazepam [Ativan] Med 04/27/21 17:30 Active See Protocol IV ASDIRECTED Lactated Ringers [Ringers, Lactated] 1,000 ml Med 04/27/21 14:15 Active IV ASDIRECTED Nicotine [Habitrol] Med 04/27/21 17:30 Active 14 mg TRDERM DAILY Ondansetron [Zofran ODT] Med 04/27/21 17:24 Active 4 mg PO Q6H PRN Pantoprazole [ProTONIX IV] Med 04/28/21 09:00 Active 40 mg IV DAILY Promethazine [Phenergan] 6.25 mg Med 04/27/21 17:24 Active Sodium Chloride 0.9% [Normal Saline] 50 ml IV Q6H Thiamine [Vitamin B-1] Med 04/28/21 09:00 Active 100 mg PO DAILY oxyCODONE Med 04/27/21 17:24 Active 5 mg PO Q4H PRN Seizure Precautions [OM.PC] Routine Oth 04/27/21 17:26 Ordered Resuscitation Status Routine Resus Stat 04/27/21 17:22 Ordered Medication Orders Acetaminophen (Acetaminophen 325 Mg Tab) 650 mg PO Q4H PRN PRN Reason: Pain (Mild 1-3)/fever Enoxaparin Sodium (Enoxaparin 40 Mg/0.4 Ml Syringe) 40 mg SUBCUT DAILY [facility] Folic Acid (Folic Acid 1 Mg Tab) 1 mg PO DAILY [facility] Stop: 04/30/21 09:01 Lactated Ringer's (Ringers, Lactated) 1,000 mls @ 150 mls/hr IV ASDIRECTED [facility] Last Admin: 04/27/21 15:38 Dose: 150 mls/hr Documented by: KIN Promethazine HCl 6.25 mg/ (Sodium Chloride) 50.25 mls @ 100 mls/hr IV Q6H PRN PRN Reason: Nausea/Vomiting Lorazepam (Lorazepam 2 Mg/Ml Sdv) 0 mg IV ASDIRECTED [facility]; Protocol Nicotine (Nicotine 14 Mg/24 Hr Patch) 14 mg TRDERM DAILY [facility] Ondansetron HCl (Ondansetron 4 Mg Tab.Dis) 4 mg PO Q6H PRN PRN Reason: nausea, able to take PO Oxycodone HCl (Oxycodone 5 Mg Tab) 5 mg PO Q4H PRN PRN Reason: Pain (moderate 4-6) Pantoprazole Sodium (Pantoprazole 40 Mg Vial) 40 mg IV DAILY [facility] Thiamine HCl (Thiamine 100 Mg Tab) 100 mg PO DAILY [facility] Assessment/Plan Comment:: This is a 41M with hx of alcoholism presenting for evaluation of nausea, vomiting, suspected hand tremors and possible alcohol withdrawal seizure. 1. Hx of Alcoholism 2. Alcohol intoxication 3. Early alcohol withdrawal 4. Possible alcohol withdrawal seizure 5. Hypokalemia 6. Tobacco use disorder 7. Mild leukocytosis Plan -admit to inpatient -IVF -CIWA Protocol - consult for CD evaluation -seizure precautions -multivitamin -nicotine patch -cessation counseling Code-Full DVT ppx: lovenox Dispo: Discharge once withdrawal symptoms improved; anticipate LOS 2-3 days - Mortality Measure Prognosis:: Good
[2021-04-27] MEDS: LORazepam 2 MG/ML SDV IV SCH (22:06)
[2021-04-27] MEDS: Ondansetron 4 MG Tab.DIS PO PRN (22:07)
[2021-04-27] MEDS: Nicotine 14 MG/24 Hr Patch TRDERM SCH (22:22)
[2021-04-28] MEDS: LORazepam 2 MG/ML SDV IV SCH ×5 (00:30→12:56)
[2021-04-28] MEDS: Nicotine 14 MG/24 Hr Patch TRDERM SCH (08:54)
[2021-04-28] MEDS ORDERED: Folic Acid 1 MG Tab PO SCH (09:00)
[2021-04-28] MEDS ORDERED: Thiamine 100 MG Tab PO SCH (09:00)
[2021-04-28] MEDS ORDERED: Potassium Chloride 20 MEQ Tab.ER PO SCH (09:00)
[2021-04-28] MEDS ORDERED: Pantoprazole 40 MG Vial IV SCH (09:00)
[2021-04-28] MEDS ORDERED: Enoxaparin 40 MG/0.4 ML Syringe SUBCUT SCH (09:00)
--- NOTE | 2021-04-28 10:12 | US ---
Abdominal ultrasound: Multiple real-time images of the abdomen were obtained. Comparison: Prior abdominal and pelvic CT study of 08/21/18. Findings: Liver shows no focal abnormality. Pancreas is not completely seen but visualized portions appear within normal limits. Gallbladder contains no shadowing gallstones. No gallbladder wall thickening or biliary duct dilatation is seen. Inferior vena cava is patent. Aorta shows no aneurysm. Kidneys show no hydronephrosis or mass. Right kidney has a length of 11.6 cm and left kidney has a length of 12.9 cm. Spleen size appears normal. Main portal vein shows normal hepatopedal flow. Impression: 1. Nothing acute is appreciated on abdominal ultrasound exam. 2. Please note that the pancreas is not completely visualized but no free fluid is seen in the area of the pancreas. Diagnostic code #1
[2021-04-28] MEDS: Ondansetron 4 MG Tab.DIS PO PRN (12:04)
[2021-04-28] MEDS ORDERED: LORazepam 0.5 MG Tab PO SCH (14:30)
[2021-04-28] MEDS: LORazepam 1 MG Tab PO PRN ×3 (14:36→18:10)
[2021-04-28 16:42] VITALS: BP 144/107; PULSE 85
--- NOTE | 2021-04-28 17:04 | PCM.PN ---
- General Info Date of Service: 04/28/21 Admission Dx/Problem (Free Text): Patient endorses anxiety Endorses hand tremors denies hallucinations denies cp and sob - Review of Systems General: Reports: Fatigue Pulmonary: Reports: No Symptoms Cardiovascular: Reports: No Symptoms Neurological: Reports: Headache, Tremors Psychiatric: Reports: Anxiety - Patient Data Vitals - Most Recent: Last Vital Signs Temp 97.4 F 04/28/21 16:40 Pulse 85 04/28/21 16:40 Resp 12 04/28/21 16:40 BP 144/107 H 04/28/21 16:40 Pulse Ox 100 04/28/21 16:40 Weight - Most Recent: 143 lb I&O - Last 24 Hours: Intake & Output 04/28/21 04/28/21 04/28/21 06:59 14:59 22:59 Intake Total 500 600 Output Total 500 Balance 500 100 Lab Results Last 24 Hours: Laboratory Results - last 24 hr 04/27/21 04/28/21 04/28/21 Range/Units 18:40 06:45 06:45 WBC 9.61 H (4.23-9.07) K/mm3 RBC 4.77 (4.63-6.08) M/mm3 Hgb 15.2 (13.7-17.5) gm/dl Hct 44.7 (40.1-51.0) % MCV 93.7 H (79.0-92.2) fl MCH 31.9 (25.7-32.2) pg MCHC 34.0 (32.2-35.5) g/dl RDW Std Deviation 51.7 H (35.1-43.9) fL Plt Count 311 (163-337) K/mm3 MPV 9.4 (9.4-12.3) fl Sodium 145 (136-145) mEq/L Potassium 3.3 L (3.5-5.1) mEq/L Chloride 108 H (98-107) mEq/L Carbon Dioxide 31 (21-32) mEq/L Anion Gap 9.3 (5-15) BUN 9 (7-18) mg/dL Creatinine 0.8 (0.7-1.3) mg/dL Est Cr Clr Drug Dosing 104.64 mL/min Estimated GFR (MDRD) > 60 (>60) mL/min BUN/Creatinine Ratio 11.3 L (14-18) Glucose 95 (70-99) mg/dL Calcium 8.2 L (8.5-10.1) mg/dL Magnesium (1.8-2.4) mg/dL Total Bilirubin 1.0 (0.2-1.0) mg/dL AST 25 (15-37) U/L ALT 28 (16-63) U/L Alkaline Phosphatase 170 H (46-116) U/L Total Protein 5.8 L (6.4-8.2) g/dl Albumin 3.0 L (3.4-5.0) g/dl Globulin 2.8 gm/dL Albumin/Globulin Ratio 1.1 (1-2) Lipase (73-393) U/L SARS-CoV-2 RNA (GURJIT) Negative (NEGATIVE) 04/28/21 Range/Units 06:45 WBC (4.23-9.07) K/mm3 RBC (4.63-6.08) M/mm3 Hgb (13.7-17.5) gm/dl Hct (40.1-51.0) % MCV (79.0-92.2) fl MCH (25.7-32.2) pg MCHC (32.2-35.5) g/dl RDW Std Deviation (35.1-43.9) fL Plt Count (163-337) K/mm3 MPV (9.4-12.3) fl Sodium (136-145) mEq/L Potassium (3.5-5.1) mEq/L Chloride (98-107) mEq/L Carbon Dioxide (21-32) mEq/L Anion Gap (5-15) BUN (7-18) mg/dL Creatinine (0.7-1.3) mg/dL Est Cr Clr Drug Dosing mL/min Estimated GFR (MDRD) (>60) mL/min BUN/Creatinine Ratio (14-18) Glucose (70-99) mg/dL Calcium (8.5-10.1) mg/dL Magnesium 2.2 (1.8-2.4) mg/dL Total Bilirubin (0.2-1.0) mg/dL AST (15-37) U/L ALT (16-63) U/L Alkaline Phosphatase (46-116) U/L Total Protein (6.4-8.2) g/dl Albumin (3.4-5.0) g/dl Globulin gm/dL Albumin/Globulin Ratio (1-2) Lipase 123 (73-393) U/L SARS-CoV-2 RNA (GURJIT) (NEGATIVE) Med Orders - Current: Current Medications Acetaminophen (Acetaminophen 325 Mg Tab) 650 mg PO Q4H PRN PRN Reason: Pain (Mild 1-3)/fever Enoxaparin Sodium (Enoxaparin 40 Mg/0.4 Ml Syringe) 40 mg SUBCUT DAILY [facility] Last Admin: 04/28/21 09:01 Dose: 40 mg Documented by: Folic Acid (Folic Acid 1 Mg Tab) 1 mg PO DAILY [facility] Stop: 04/30/21 09:01 Last Admin: 04/28/21 08:55 Dose: 1 mg Documented by: Promethazine HCl 6.25 mg/ (Sodium Chloride) 50.25 mls @ 100 mls/hr IV Q6H PRN PRN Reason: Nausea/Vomiting Lorazepam (Lorazepam 2 Mg/Ml Sdv) 0 mg IV ASDIRECTED [facility]ICHARD; Protocol Last Admin: 04/28/21 12:56 Dose: 2 mg Documented by: Lorazepam (Lorazepam 1 Mg Tab) 0 mg PO ASDIRECTED PRN; Protocol PRN Reason: Withdrawal Symptoms Last Admin: 04/28/21 16:37 Dose: 2 mg Documented by: Nicotine (Nicotine 14 Mg/24 Hr Patch) 14 mg TRDERM DAILY [facility] Last Admin: 04/28/21 08:54 Dose: 14 mg Documented by: Ondansetron HCl (Ondansetron 4 Mg Tab.Dis) 4 mg PO Q6H PRN PRN Reason: nausea, able to take PO Last Admin: 04/28/21 12:04 Dose: 4 mg Documented by: Oxycodone HCl (Oxycodone 5 Mg Tab) 5 mg PO Q4H PRN PRN Reason: Pain (moderate 4-6) Last Admin: 04/28/21 04:28 Dose: 5 mg Documented by: Pantoprazole Sodium (Pantoprazole 40 Mg Vial) 40 mg IV DAILY [facility] Last Admin: 04/28/21 08:55 Dose: 40 mg Documented by: Potassium Chloride (Potassium Chloride 20 Meq Tab.Er) 40 meq PO BID [facility] Last Admin: 04/28/21 08:56 Dose: 40 meq Documented by: Thiamine HCl (Thiamine 100 Mg Tab) 100 mg PO DAILY [facility] Last Admin: 04/28/21 08:55 Dose: 100 mg Documented by: Discontinued Medications Lactated Ringer's (Ringers, Lactated) 1,000 mls @ 999 mls/hr IV .BOLUS ONE Stop: 04/27/21 15:14 Last Admin: 04/27/21 14:24 Dose: 999 mls/hr Documented by: Lactated Ringer's (Ringers, Lactated) 1,000 mls @ 150 mls/hr IV ASDIRECTED [facility] Last Admin: 04/27/21 15:38 Dose: 150 mls/hr Documented by: Magnesium Sulfate 2 gm/ Premix 50 mls @ 25 mls/hr IV ONETIME ONE Stop: 04/27/21 17:21 Last Admin: 04/27/21 15:41 Dose: 25 mls/hr Documented by: Lactated Ringer's (Ringers, Lactated) 1,000 mls @ 999 mls/hr IV .BOLUS ONE Stop: 04/27/21 17:30 Last Admin: 04/27/21 17:43 Dose: 999 mls/hr Documented by: Lorazepam (Lorazepam 2 Mg/Ml Sdv) 1 mg IVPUSH ONETIME ONE Stop: 04/27/21 14:15 Last Admin: 04/27/21 14:23 Dose: 1 mg Documented by: Lorazepam (Lorazepam 2 Mg/Ml Sdv) 1 mg IVPUSH ONETIME ONE Stop: 04/27/21 15:26 Last Admin: 04/27/21 15:42 Dose: 1 mg Documented by: Multivitamins/Minerals/Vitamin C (Multivitamin Tab) 1 tab PO ONETIME ONE Stop: 04/27/21 17:27 Last Admin: 04/27/21 22:26 Dose: Not Given Documented by: Ondansetron HCl (Ondansetron 4 Mg/2 Ml Sdv) 4 mg IVPUSH ONETIME ONE Stop: 04/27/21 14:15 Last Admin: 04/27/21 14:21 Dose: 4 mg Documented by: Potassium Chloride (Potassium Chloride 20 Meq Tab.Er) 40 meq PO ONETIME ONE Stop: 04/27/21 15:23 Last Admin: 04/27/21 15:42 Dose: 40 meq Documented by: - Exam General: No Acute Distress HEENT: EOMI, Mucous Membr. Moist/[place] Neck: Supple Lungs: Clear to Auscultation Cardiovascular: Regular Rate, Regular Rhythm GI/Abdominal Exam: Soft, Non-Tender, No Distention Extremities: Normal Inspection - Patient Data Lab Results Last 24 hrs: Laboratory Results - last 24 hr 04/27/21 04/28/21 04/28/21 Range/Units 18:40 06:45 06:45 WBC 9.61 H (4.23-9.07) K/mm3 RBC 4.77 (4.63-6.08) M/mm3 Hgb 15.2 (13.7-17.5) gm/dl Hct 44.7 (40.1-51.0) % MCV 93.7 H (79.0-92.2) fl MCH 31.9 (25.7-32.2) pg MCHC 34.0 (32.2-35.5) g/dl RDW Std Deviation 51.7 H (35.1-43.9) fL Plt Count 311 (163-337) K/mm3 MPV 9.4 (9.4-12.3) fl Sodium 145 (136-145) mEq/L Potassium 3.3 L (3.5-5.1) mEq/L Chloride 108 H (98-107) mEq/L Carbon Dioxide 31 (21-32) mEq/L Anion Gap 9.3 (5-15) BUN 9 (7-18) mg/dL Creatinine 0.8 (0.7-1.3) mg/dL Est Cr Clr Drug Dosing 104.64 mL/min Estimated GFR (MDRD) > 60 (>60) mL/min BUN/Creatinine Ratio 11.3 L (14-18) Glucose 95 (70-99) mg/dL Calcium 8.2 L (8.5-10.1) mg/dL Magnesium (1.8-2.4) mg/dL Total Bilirubin 1.0 (0.2-1.0) mg/dL AST 25 (15-37) U/L ALT 28 (16-63) U/L Alkaline Phosphatase 170 H (46-116) U/L Total Protein 5.8 L (6.4-8.2) g/dl Albumin 3.0 L (3.4-5.0) g/dl Globulin 2.8 gm/dL Albumin/Globulin Ratio 1.1 (1-2) Lipase (73-393) U/L SARS-CoV-2 RNA (GURJIT) Negative (NEGATIVE) 04/28/21 Range/Units 06:45 WBC (4.23-9.07) K/mm3 RBC (4.63-6.08) M/mm3 Hgb (13.7-17.5) gm/dl Hct (40.1-51.0) % MCV (79.0-92.2) fl MCH (25.7-32.2) pg MCHC (32.2-35.5) g/dl RDW Std Deviation (35.1-43.9) fL Plt Count (163-337) K/mm3 MPV (9.4-12.3) fl Sodium (136-145) mEq/L Potassium (3.5-5.1) mEq/L Chloride (98-107) mEq/L Carbon Dioxide (21-32) mEq/L Anion Gap (5-15) BUN (7-18) mg/dL Creatinine (0.7-1.3) mg/dL Est Cr Clr Drug Dosing mL/min Estimated GFR (MDRD) (>60) mL/min BUN/Creatinine Ratio (14-18) Glucose (70-99) mg/dL Calcium (8.5-10.1) mg/dL Magnesium 2.2 (1.8-2.4) mg/dL Total Bilirubin (0.2-1.0) mg/dL AST (15-37) U/L ALT (16-63) U/L Alkaline Phosphatase (46-116) U/L Total Protein (6.4-8.2) g/dl Albumin (3.4-5.0) g/dl Globulin gm/dL Albumin/Globulin Ratio (1-2) Lipase 123 (73-393) U/L SARS-CoV-2 RNA (GURJIT) (NEGATIVE) Result Diagrams: 04/28/21 06:45 04/28/21 06:45 Sepsis Event Note - Evaluation Sepsis Screening Result: No Definite Risk - Focused Exam Vital Signs: Vital Signs Temp Pulse Resp BP Pulse Ox 04/28/21 16:40 97.4 F 85 12 144/107 H 100 04/28/21 12:00 98.0 F 98 14 157/101 H 97 04/28/21 08:00 98.0 F 101 H 14 142/84 H 98 - Problem List Review Problem List Initiated/Reviewed/Updated: Yes - My Orders Last 24 Hours: My Active Orders 04/27/21 Dinner Regular Diet [DIET] 04/27/21 17:22 Oxygen Therapy [RC] PRN VTE/DVT Education [RC] Vital Signs [RC] Q4HR Resuscitation Status Routine 04/27/21 17:24 Consult to Case Management/Head Swamper [CONS] Routine Acetaminophen [TylenoL] 650 mg PO Q4H PRN Ondansetron [Zofran ODT] 4 mg PO Q6H PRN Promethazine [Phenergan] 6.25 mg Sodium Chloride 0.9% [Normal Saline] 50 ml IV Q6H oxyCODONE 5 mg PO Q4H PRN 04/27/21 17:26 CIWAA Assessment [RC] Q1HR Pulse Oximetry [RC] CONTINUOUS Seizure Precautions [OM.PC] Routine 04/27/21 17:30 LORazepam [Ativan] See Protocol IV ASDIRECTED Nicotine [Habitrol] 14 mg TRDERM DAILY 04/28/21 08:36 Add On Test [COMM] Routine 04/28/21 08:37 Add On Test [COMM] Routine 04/28/21 09:00 Enoxaparin [Lovenox] 40 mg SUBCUT DAILY Folic Acid 1 mg PO DAILY Pantoprazole [ProTONIX IV] 40 mg IV DAILY Potassium Chloride [Klor-Con M20] 40 meq PO BID Thiamine [Vitamin B-1] 100 mg PO DAILY 04/28/21 11:12 Patient Status [ADT] Routine 04/28/21 14:30 LORazepam [Ativan] See Protocol PO ASDIRECTED PRN - Plan Plan:: This is a 41M with hx of alcoholism presenting for evaluation of nausea, vomiting, suspected hand tremors and possible alcohol withdrawal seizure. 1. Hx of Alcoholism 2. Alcohol intoxication 3. Early alcohol withdrawal 4. Possible alcohol withdrawal seizure 5. Hypokalemia 6. Tobacco use disorder 7. Mild leukocytosis Plan -admit to inpatient -IVF discontinue -CIWA Protocol - consult for CD evaluation -seizure precautions -multivitamin -nicotine patch -cessation counseling Code-Full DVT ppx: lovenox Dispo: Discharge once withdrawal symptoms improved; anticipate LOS 2-3 days
[2021-04-28] MEDS ORDERED: Diazepam 5 MG Tab PO ONE (18:07)
--- NOTE | 2021-04-28 18:31 | PCM.DCSUM1 ---
Discharge Summary - Hospital Course HPI Initial Comments: This is a 41M with past medical history noted below including hx of alcoholism and alcohol withdrawal syndrome who presented for evaluation of alcohol withdrawal syndrome and possible seizure. He was admitted to the ICU and treated with IVF, multivitamins, electrolyte replacement. He was started on CIWA alcohol withdrawal protocol. His diet was advanced. On 04/28 the patient requested to leave hospital AMA. he denied suicidal, homicidal ideation. He understood risks of leaving hospital AMA including potential for recurrent seizure and possible premature . He stated he would return to ED if he was not feeling well. Diagnosis: Stroke: No - Discharge Data Discharge Date: 04/28/21 Discharge Disposition: Against Medical Advice 07 Condition: Good - Referral to Home Health Primary Care Physician: Saida Catalan PA-C - Patient Summary/Data Consults: Consultations 04/27/21 17:24 Consult to Case Management/Lamp Assembler [CONS] Routine - Patient Instructions Diet: Regular Diet as Tolerated Driving: Do Not Drive Notify Provider of: Fever, Increased Pain, Nausea and/or Vomiting - Discharge Plan *PRESCRIPTION DRUG MONITORING PROGRAM REVIEWED*: Not Applicable *COPY OF PRESCRIPTION DRUG MONITORING REPORT IN PATIENT EBONY: Not Applicable Tobacco Cessation Medication: Unable to address due to Cognitive Impairment. Home Medications: Home Meds Baclofen 5 mg PO ASDIRECTED 04/27/21 [History] DULoxetine [Cymbalta] 60 mg PO DAILY 04/27/21 [History] Pregabalin [Lyrica] 150 mg PO TID 04/27/21 [History] cloNIDine [Catapres] 0.1 mg PO DAILY 04/27/21 [History] Oxygen Therapy Mode: Room Air Patient Handouts: Alcohol Use Disorder, Steps to Quit Smoking Forms: ED Department Discharge Referrals: Saida Catalan PA-C [Primary Care Provider] - - Discharge Summary/Plan Comment DC Time >30 min.: No (Left AMA) Discharge Summary/Plan Comment: Follow up with primary clinic for first available appointment or return to ED with worsening symptoms - Patient Data Vitals - Most Recent: Last Vital Signs Temp 97.4 F 04/28/21 16:40 Pulse 85 04/28/21 16:40 Resp 12 04/28/21 16:40 BP 144/107 H 04/28/21 16:40 Pulse Ox 100 04/28/21 16:40 Weight - Most Recent: 143 lb I&O - Last 24 hours: Intake & Output 04/28/21 04/28/21 04/28/21 06:59 14:59 22:59 Intake Total 500 600 Output Total 500 Balance 500 100 Lab Results - Last 24 hrs: Laboratory Results - last 24 hr 04/27/21 04/28/21 04/28/21 Range/Units 18:40 06:45 06:45 WBC 9.61 H (4.23-9.07) K/mm3 RBC 4.77 (4.63-6.08) M/mm3 Hgb 15.2 (13.7-17.5) gm/dl Hct 44.7 (40.1-51.0) % MCV 93.7 H (79.0-92.2) fl MCH 31.9 (25.7-32.2) pg MCHC 34.0 (32.2-35.5) g/dl RDW Std Deviation 51.7 H (35.1-43.9) fL Plt Count 311 (163-337) K/mm3 MPV 9.4 (9.4-12.3) fl Sodium 145 (136-145) mEq/L Potassium 3.3 L (3.5-5.1) mEq/L Chloride 108 H (98-107) mEq/L Carbon Dioxide 31 (21-32) mEq/L Anion Gap 9.3 (5-15) BUN 9 (7-18) mg/dL Creatinine 0.8 (0.7-1.3) mg/dL Est Cr Clr Drug Dosing 104.64 mL/min Estimated GFR (MDRD) > 60 (>60) mL/min BUN/Creatinine Ratio 11.3 L (14-18) Glucose 95 (70-99) mg/dL Calcium 8.2 L (8.5-10.1) mg/dL Magnesium (1.8-2.4) mg/dL Total Bilirubin 1.0 (0.2-1.0) mg/dL AST 25 (15-37) U/L ALT 28 (16-63) U/L Alkaline Phosphatase 170 H (46-116) U/L Total Protein 5.8 L (6.4-8.2) g/dl Albumin 3.0 L (3.4-5.0) g/dl Globulin 2.8 gm/dL Albumin/Globulin Ratio 1.1 (1-2) Lipase (73-393) U/L SARS-CoV-2 RNA (GURJIT) Negative (NEGATIVE) 04/28/21 Range/Units 06:45 WBC (4.23-9.07) K/mm3 RBC (4.63-6.08) M/mm3 Hgb (13.7-17.5) gm/dl Hct (40.1-51.0) % MCV (79.0-92.2) fl MCH (25.7-32.2) pg MCHC (32.2-35.5) g/dl RDW Std Deviation (35.1-43.9) fL Plt Count (163-337) K/mm3 MPV (9.4-12.3) fl Sodium (136-145) mEq/L Potassium (3.5-5.1) mEq/L Chloride (98-107) mEq/L Carbon Dioxide (21-32) mEq/L Anion Gap (5-15) BUN (7-18) mg/dL Creatinine (0.7-1.3) mg/dL Est Cr Clr Drug Dosing mL/min Estimated GFR (MDRD) (>60) mL/min BUN/Creatinine Ratio (14-18) Glucose (70-99) mg/dL Calcium (8.5-10.1) mg/dL Magnesium 2.2 (1.8-2.4) mg/dL Total Bilirubin (0.2-1.0) mg/dL AST (15-37) U/L ALT (16-63) U/L Alkaline Phosphatase (46-116) U/L Total Protein (6.4-8.2) g/dl Albumin (3.4-5.0) g/dl Globulin gm/dL Albumin/Globulin Ratio (1-2) Lipase 123 (73-393) U/L SARS-CoV-2 RNA (GURJIT) (NEGATIVE) Med Orders - Current: Current Medications Acetaminophen (Acetaminophen 325 Mg Tab) 650 mg PO Q4H PRN PRN Reason: Pain (Mild 1-3)/fever Enoxaparin Sodium (Enoxaparin 40 Mg/0.4 Ml Syringe) 40 mg SUBCUT DAILY RICHARD Last Admin: 04/28/21 09:01 Dose: 40 mg Documented by: Folic Acid (Folic Acid 1 Mg Tab) 1 mg PO DAILY [facility] Stop: 04/30/21 09:01 Last Admin: 04/28/21 08:55 Dose: 1 mg Documented by: Promethazine HCl 6.25 mg/ (Sodium Chloride) 50.25 mls @ 100 mls/hr IV Q6H PRN PRN Reason: Nausea/Vomiting Lorazepam (Lorazepam 2 Mg/Ml Sdv) 0 mg IV ASDIRECTED RICHARD; Protocol Last Admin: 04/28/21 12:56 Dose: 2 mg Documented by: Lorazepam (Lorazepam 1 Mg Tab) 0 mg PO ASDIRECTED PRN; Protocol PRN Reason: Withdrawal Symptoms Last Admin: 04/28/21 18:10 Dose: 2 mg Documented by: Nicotine (Nicotine 14 Mg/24 Hr Patch) 14 mg TRDERM DAILY [facility] Last Admin: 04/28/21 08:54 Dose: 14 mg Documented by: Ondansetron HCl (Ondansetron 4 Mg Tab.Dis) 4 mg PO Q6H PRN PRN Reason: nausea, able to take PO Last Admin: 04/28/21 12:04 Dose: 4 mg Documented by: Oxycodone HCl (Oxycodone 5 Mg Tab) 5 mg PO Q4H PRN PRN Reason: Pain (moderate 4-6) Last Admin: 04/28/21 04:28 Dose: 5 mg Documented by: Pantoprazole Sodium (Pantoprazole 40 Mg Vial) 40 mg IV DAILY [facility] Last Admin: 04/28/21 08:55 Dose: 40 mg Documented by: Potassium Chloride (Potassium Chloride 20 Meq Tab.Er) 40 meq PO BID [facility] Last Admin: 04/28/21 08:56 Dose: 40 meq Documented by: Thiamine HCl (Thiamine 100 Mg Tab) 100 mg PO DAILY [facility] Last Admin: 04/28/21 08:55 Dose: 100 mg Documented by: Discontinued Medications Diazepam (Diazepam 5 Mg Tab) 5 mg PO ONETIME ONE Stop: 04/28/21 18:08 Lactated Ringer's (Ringers, Lactated) 1,000 mls @ 999 mls/hr IV .BOLUS ONE Stop: 04/27/21 15:14 Last Admin: 04/27/21 14:24 Dose: 999 mls/hr Documented by: Lactated Ringer's (Ringers, Lactated) 1,000 mls @ 150 mls/hr IV ASDIRECTED [facility] Last Admin: 04/27/21 15:38 Dose: 150 mls/hr Documented by: Magnesium Sulfate 2 gm/ Premix 50 mls @ 25 mls/hr IV ONETIME ONE Stop: 04/27/21 17:21 Last Admin: 04/27/21 15:41 Dose: 25 mls/hr Documented by: Lactated Ringer's (Ringers, Lactated) 1,000 mls @ 999 mls/hr IV .BOLUS ONE Stop: 04/27/21 17:30 Last Admin: 04/27/21 17:43 Dose: 999 mls/hr Documented by: Lorazepam (Lorazepam 2 Mg/Ml Sdv) 1 mg IVPUSH ONETIME ONE Stop: 04/27/21 14:15 Last Admin: 04/27/21 14:23 Dose: 1 mg Documented by: Lorazepam (Lorazepam 2 Mg/Ml Sdv) 1 mg IVPUSH ONETIME ONE Stop: 04/27/21 15:26 Last Admin: 04/27/21 15:42 Dose: 1 mg Documented by: Multivitamins/Minerals/Vitamin C (Multivitamin Tab) 1 tab PO ONETIME ONE Stop: 04/27/21 17:27 Last Admin: 04/27/21 22:26 Dose: Not Given Documented by: Ondansetron HCl (Ondansetron 4 Mg/2 Ml Sdv) 4 mg IVPUSH ONETIME ONE Stop: 04/27/21 14:15 Last Admin: 04/27/21 14:21 Dose: 4 mg Documented by: Potassium Chloride (Potassium Chloride 20 Meq Tab.Er) 40 meq PO ONETIME ONE Stop: 04/27/21 15:23 Last Admin: 04/27/21 15:42 Dose: 40 meq Documented by:
== END 2021-04-28 18:30 | disposition left against medical advice (07) | DRG 894 ==
LOC: JD.ED 13:41 → JD.OB 17:31 → JD.ICU 17:35
PROVIDERS: ADMIT Hospitalist; ATTEND Hospitalist
DX: F10.239 Alcohol dependence with withdrawal, unspecified (principal); I10 Essential (primary) hypertension; F41.9 Anxiety disorder, unspecified; F32.9 Major depressive disorder, single episode, unspecified; G47.33 Obstructive sleep apnea (adult) (pediatric); E87.6 Hypokalemia; F17.210 Nicotine dependence, cigarettes, uncomplicated
CPT/HCPCS: 36415; 76700; 76700-26; 80053; 80306; 80307; 81001; 82977; 83690; 83735; 85025; 85027; 85610; 96365; 96366; 96375; 96376; 99221; 99238; 99284; 99285-25; A9270-GY; C9113; J1650; J2060; J2405; J3475; J7120; U0002

== ENCOUNTER 2021-04-29 03:55 | Inpatient (IN) | payer MEDICAID ==
[2021-04-29 04:06] VITALS: PULSE 113
--- NOTE | 2021-04-29 04:50 | EDM.PDOC ---
ED HPI GENERAL MEDICAL PROBLEM - General Chief Complaint: Drug or Alcohol Abuse Stated Complaint: DETOX Time Seen by Provider: 04/29/21 04:40 - History of Present Illness INITIAL COMMENTS - FREE TEXT/NARRATIVE: 41-year-old male returns the emergency room requesting alcohol detox. Patient was admitted Monday evening. And he signed out AGAINST MEDICAL ADVICE less than 12 hours ago. Patient has a history of binge drinking and supposedly has had seizures when he quit drinking. The patient has been on several treatment facilities in the past and this is worked for periods up to a 7 months. But then he started drinking again. Patient left here and then he had a dozen or so shots. The patient feels bad that he left the hospital and assures me that he will stay. - Related Data Allergies Allergy/AdvReac Type Severity Reaction Status Date / Time No Known Allergies Allergy Verified 04/29/21 04:03 Home Meds: Home Meds Baclofen 20 mg PO TID 04/27/21 [History] DULoxetine [Cymbalta] 60 mg PO DAILY 04/27/21 [History] Pregabalin [Lyrica] 150 mg PO TID 04/27/21 [History] cloNIDine [Catapres] 0.1 mg PO DAILY 04/27/21 [History] LORazepam [Ativan] 1 mg PO TID #12 tab 04/29/21 [Rx] Multivitamin 1 each PO DAILY #30 tablet 04/29/21 [Rx] Ondansetron [Zofran ODT] 4 mg PO Q8H #15 tab.dis 04/29/21 [Rx] Past Medical History - Past Health History Medical/Surgical History: Denies Medical/Surgical History HEENT History: Reports: Impaired Vision Cardiovascular History: Reports: Hypertension Respiratory History: Reports: Sleep Apnea Gastrointestinal History: Reports: None Genitourinary History: Reports: None Musculoskeletal History: Reports: Fibromyalgia, Other (See Below) Other Musculoskeletal History: MRI-bulges to back and not sure what else going on Neurological History: Reports: Seizure Psychiatric History: Reports: Addiction, Anxiety, Depression Endocrine/Metabolic History: Reports: None Hematologic History: Reports: None Immunologic History: Reports: None Oncologic (Cancer) History: Reports: None Dermatologic History: Reports: None - Infectious Disease History Infectious Disease History: Reports: Chicken Pox - Past Surgical History Head Surgeries/Procedures: Reports: None HEENT Surgical History: Reports: Oral Surgery Male Surgical History: Reports: None Social & Family History - Family History Family Medical History: No Pertinent Family History - Tobacco Use Tobacco Use Status *Q: Unknown Ever Used Tobacco - Caffeine Use Caffeine Use: Reports: Coffee Other Caffeine Use: unknown - Living Situation & Occupation Living situation: Reports: (), with Family (Mother and sister) Occupation: Unemployed ED ROS GENERAL - Review of Systems Review Of Systems: See Below Constitutional: Reports: No Symptoms HEENT: Reports: No Symptoms Respiratory: Reports: No Symptoms Cardiovascular: Reports: No Symptoms Endocrine: Reports: No Symptoms GI/Abdominal: Reports: No Symptoms : Reports: No Symptoms Musculoskeletal: Reports: No Symptoms Skin: Reports: No Symptoms Psychiatric: Reports: No Symptoms. Denies: Homicidal Ideation, Suicidal Ideation Hematologic/Lymphatic: Reports: No Symptoms Immunologic: Reports: No Symptoms ED EXAM, GENERAL - Physical Exam Exam: See Below Exam Limited By: Other (He could be intoxicated but he is cooperative) General Appearance: Alert, No Apparent Distress Head: Atraumatic, Normocephalic Neck: Normal Inspection, Supple, Non-Tender, Full Range of Motion Respiratory/Chest: No Respiratory Distress, Lungs Clear, Normal Breath Sounds Cardiovascular: No Edema, No Murmur, Tachycardia (Mild approximately 110 during my exam), Other (Regular rate) GI/Abdominal: Normal Bowel Sounds, Soft, Non-Tender Neurological: Alert, Oriented Course - Vital Signs Last Recorded V/S: Last Vital Signs Temp 36.4 C 04/29/21 16:00 Pulse 113 H 04/29/21 04:04 Resp 16 04/29/21 16:00 BP 130/84 04/29/21 16:00 Pulse Ox 95 04/29/21 16:00 - Orders/Labs/Meds Labs: Laboratory Tests 04/29/21 04/29/21 04/29/21 Range/Units 04:53 05:09 06:05 WBC 9.96 H (4.23-9.07) K/mm3 RBC 4.92 (4.63-6.08) M/mm3 Hgb 15.8 (13.7-17.5) gm/dl Hct 45.5 (40.1-51.0) % MCV 92.5 H (79.0-92.2) fl MCH 32.1 (25.7-32.2) pg MCHC 34.7 (32.2-35.5) g/dl RDW Std Deviation 49.8 H (35.1-43.9) fL Plt Count 314 (163-337) K/mm3 MPV 9.8 (9.4-12.3) fl Neut % (Auto) 67.7 (34.0-67.9) % Lymph % (Auto) 20.5 L (21.8-53.1) % Parke % (Auto) 10.3 (5.3-12.2) % Eos % (Auto) 0.6 L (0.8-7.0) Baso % (Auto) 0.6 (0.1-1.2) % Neut # (Auto) 6.74 H (1.78-5.38) K/mm3 Lymph # (Auto) 2.04 (1.32-3.57) K/mm3 Parke # (Auto) 1.03 H (0.30-0.82) K/mm3 Eos # (Auto) 0.06 (0.04-0.54) K/mm3 Baso # (Auto) 0.06 (0.01-0.08) K/mm3 Sodium 148 H (136-145) mEq/L Potassium 3.0 L (3.5-5.1) mEq/L Chloride 108 H (98-107) mEq/L Carbon Dioxide 28 (21-32) mEq/L Anion Gap 15.0 (5-15) BUN 5 L (7-18) mg/dL Creatinine 0.7 (0.7-1.3) mg/dL Est Cr Clr Drug Dosing TNP Estimated GFR (MDRD) > 60 (>60) mL/min BUN/Creatinine Ratio 7.1 L (14-18) Glucose 84 (70-99) mg/dL Calcium 8.6 (8.5-10.1) mg/dL Magnesium 2.2 (1.8-2.4) mg/dL Total Bilirubin 0.5 (0.2-1.0) mg/dL AST 27 (15-37) U/L ALT 30 (16-63) U/L Alkaline Phosphatase 173 H (46-116) U/L Total Protein 7.0 (6.4-8.2) g/dl Albumin 3.7 (3.4-5.0) g/dl Globulin 3.3 gm/dL Albumin/Globulin Ratio 1.1 (1-2) Urine Color Yellow (Yellow) Urine Appearance Clear (Clear) Urine pH 8.5 H (5.0-8.0) Ur Specific [place] 1.020 (1.005-1.030) Urine Protein Negative (Negative) Urine Glucose (UA) Negative (Negative) Urine Ketones Negative (Negative) Urine Occult Blood Negative (Negative) Urine Nitrite Negative (Negative) Urine Bilirubin Negative (Negative) Urine Urobilinogen 2.0 H (0.2-1.0) Ur Leukocyte Esterase Negative (Negative) Ethyl Alcohol 0.13 (0.00) gm% SARS-CoV-2 RNA (GURJIT) (NEGATIVE) 04/29/21 Range/Units 07:05 WBC (4.23-9.07) K/mm3 RBC (4.63-6.08) M/mm3 Hgb (13.7-17.5) gm/dl Hct (40.1-51.0) % MCV (79.0-92.2) fl MCH (25.7-32.2) pg MCHC (32.2-35.5) g/dl RDW Std Deviation (35.1-43.9) fL Plt Count (163-337) K/mm3 MPV (9.4-12.3) fl Neut % (Auto) (34.0-67.9) % Lymph % (Auto) (21.8-53.1) % Parke % (Auto) (5.3-12.2) % Eos % (Auto) (0.8-7.0) Baso % (Auto) (0.1-1.2) % Neut # (Auto) (1.78-5.38) K/mm3 Lymph # (Auto) (1.32-3.57) K/mm3 Parke # (Auto) (0.30-0.82) K/mm3 Eos # (Auto) (0.04-0.54) K/mm3 Baso # (Auto) (0.01-0.08) K/mm3 Sodium (136-145) mEq/L Potassium (3.5-5.1) mEq/L Chloride (98-107) mEq/L Carbon Dioxide (21-32) mEq/L Anion Gap (5-15) BUN (7-18) mg/dL Creatinine (0.7-1.3) mg/dL Est Cr Clr Drug Dosing Estimated GFR (MDRD) (>60) mL/min BUN/Creatinine Ratio (14-18) Glucose (70-99) mg/dL Calcium (8.5-10.1) mg/dL Magnesium (1.8-2.4) mg/dL Total Bilirubin (0.2-1.0) mg/dL AST (15-37) U/L ALT (16-63) U/L Alkaline Phosphatase (46-116) U/L Total Protein (6.4-8.2) g/dl Albumin (3.4-5.0) g/dl Globulin gm/dL Albumin/Globulin Ratio (1-2) Urine Color (Yellow) Urine Appearance (Clear) Urine pH (5.0-8.0) Ur Specific [place] (1.005-1.030) Urine Protein (Negative) Urine Glucose (UA) (Negative) Urine Ketones (Negative) Urine Occult Blood (Negative) Urine Nitrite (Negative) Urine Bilirubin (Negative) Urine Urobilinogen (0.2-1.0) Ur Leukocyte Esterase (Negative) Ethyl Alcohol (0.00) gm% SARS-CoV-2 RNA (GURJIT) Negative (NEGATIVE) Meds: Medications Discontinued Medications Generic Name Dose Route Start Last Admin Trade Name Kavya PRN Reason Stop Dose Admin Acetaminophen 650 mg 04/29/21 09:07 04/29/21 12:15 Acetaminophen 325 Mg Tab PO 650 mg Q4H PRN Administration Pain (Mild 1-3)/fever Chlordiazepoxide HCl 50 mg 04/29/21 17:00 04/29/21 16:28 Chlordiazepoxide 25 Mg Cap PO 04/29/21 17:01 50 mg ONETIME ONE Administration Enoxaparin Sodium 40 mg 04/30/21 09:00 Enoxaparin 40 Mg/0.4 Ml Syringe SUBCUT DAILY RICHARD Folic Acid 1 mg 04/29/21 09:15 04/29/21 09:23 Folic Acid 1 Mg Tab PO 05/01/21 09:01 1 mg DAILY RICHARD Administration Lactated Ringer's 1,000 mls @ 150 mls/hr 04/29/21 05:00 04/29/21 14:05 Ringers, Lactated IV 150 mls/hr ASDIRECTED RICHARD Administration Lorazepam 0 mg 04/29/21 09:15 04/29/21 14:04 Lorazepam 1 Mg Tab PO 1 mg ASDIRECTED RICHARD Administration Protocol Ondansetron HCl 4 mg 04/29/21 09:07 04/29/21 12:15 Ondansetron 4 Mg/2 Ml Sdv IV 4 mg Q6H PRN Administration Nausea/Vomiting Oxycodone HCl 5 mg 04/29/21 09:07 04/29/21 09:23 Oxycodone 5 Mg Tab PO 5 mg Q4H PRN Administration Pain (moderate 4-6) Potassium Chloride 40 meq 04/29/21 06:40 04/29/21 07:06 Potassium Chloride 20 Meq Tab.Er PO 04/29/21 06:41 40 meq ONETIME ONE Administration Potassium Chloride 40 meq 04/29/21 09:15 Potassium Chloride 20 Meq Tab.Er PO BID RICHARD Potassium Chloride 40 meq 04/30/21 15:00 Potassium Chloride 20 Meq Tab.Er PO DAILY RICHARD Thiamine HCl 100 mg 04/29/21 09:15 04/29/21 09:23 Thiamine 100 Mg Tab PO 100 mg DAILY RICHARD Administration - Re-Assessments/Exams Free Text/Narrative Re-Assessment/Exam: 04/29/21 06:44 As the patient was just admitted in any of his labs were not repeated. Patient's case was discussed with who will kindly assume care of the patient. Remarkable labs are potassium of 3.0 and a blood alcohol of 0.13 with a low potassium we will give 40 mEq of oral potassium I have not started benzodiazepines on him yet his he seems to be fairly calm. Departure - Departure Time of Disposition: 06:30 Disposition: Admitted As Inpatient 65 Clinical Impression: Desire for detoxification - Discharge Information Sepsis Event Note (ED) - Evaluation Sepsis Screening Result: No Definite Risk
[2021-04-29] MEDS: Lactated Ringers 1,000 ML IV SCH ×2 (05:09→14:05)
[2021-04-29] MEDS ORDERED: Potassium Chloride 20 MEQ Tab.ER PO ONE (06:40)
[2021-04-29] MEDS ORDERED: oxyCODONE 5 MG Tab PO PRN (09:07)
[2021-04-29] MEDS ORDERED: Ondansetron 4 MG/2 ML SDV IV PRN (09:07)
[2021-04-29] MEDS ORDERED: Acetaminophen 325 MG Tab PO PRN (09:07)
[2021-04-29] MEDS ORDERED: Folic Acid 1 MG Tab PO SCH (09:15)
[2021-04-29] MEDS ORDERED: Thiamine 100 MG Tab PO SCH (09:15)
[2021-04-29] MEDS ORDERED: Potassium Chloride 20 MEQ Tab.ER PO SCH (09:15)
[2021-04-29] MEDS: LORazepam 1 MG Tab PO SCH ×3 (09:22→14:04)
--- NOTE | 2021-04-29 13:40 | PCM.HP.2 ---
H&P History of Present Illness - General Date of Service: 04/29/21 Admit Problem/Dx: Admission Diagnosis/Problem Admission Diagnosis/Problem Alcohol withdrawal syndrome Alcohol intoxication and withdrawal syndrome Source of Information: Patient - History of Present Illness Other HPI/Comments: This is a 41M with past medical history noted below including hx of alcoholism and alcohol withdrawal syndrome who presented for evaluation of alcohol withdrawal syndrome and possible seizure. He was admitted to the ICU and treated with IVF, multivitamins, electrolyte replacement. He was started on CIWA alcohol withdrawal protocol. His diet was advanced. On 04/28 the patient requested to leave hospital AMA. he denied suicidal, homicidal ideation. He understood risks of leaving hospital AMA including potential for recurrent seizure and possible premature . He stated he would return to ED if he was not feeling well. Upon discharge the patient went home and drank several shots (8-10 Fireball shot s) of hard liquor. He developed worsening nausea and vomiting and thus presented back to the ED. In the ED the patient had noted to have elevated blood alcohol level. He was hypokalemic. he was given IV potassium replacement and admitted for further evaluation. - Related Data Allergies/Adverse Reactions: Allergies Allergy/AdvReac Type Severity Reaction Status Date / Time No Known Allergies Allergy Verified 04/29/21 04:03 Home Medications: Home Meds Baclofen 20 mg PO TID 04/27/21 [History] DULoxetine [Cymbalta] 60 mg PO DAILY 04/27/21 [History] Pregabalin [Lyrica] 150 mg PO TID 04/27/21 [History] cloNIDine [Catapres] 0.1 mg PO DAILY 04/27/21 [History] Multivitamin 1 each PO DAILY #30 tablet 04/29/21 [Rx] chlordiazePOXIDE [Librium] 25 mg PO BID #2 cap 04/29/21 [Rx] chlordiazePOXIDE [Librium] 25 mg PO DAILY #1 cap 04/29/21 [Rx] chlordiazePOXIDE [Librium] 25 mg PO Q6H #4 cap 04/29/21 [Rx] chlordiazePOXIDE [Librium] 50 mg PO TID 1 Days #6 cap 04/29/21 [Rx] Past Medical History - Past Health History Medical/Surgical History: Denies Medical/Surgical History HEENT History: Reports: Impaired Vision Cardiovascular History: Reports: Hypertension Respiratory History: Reports: Sleep Apnea Gastrointestinal History: Reports: None Genitourinary History: Reports: None Musculoskeletal History: Reports: Fibromyalgia, Other (See Below) Other Musculoskeletal History: MRI-bulges to back and not sure what else going on Neurological History: Reports: Seizure Psychiatric History: Reports: Addiction, Anxiety, Depression Endocrine/Metabolic History: Reports: None Hematologic History: Reports: None Immunologic History: Reports: None Oncologic (Cancer) History: Reports: None Dermatologic History: Reports: None - Infectious Disease History Infectious Disease History: Reports: Chicken Pox - Past Surgical History Head Surgeries/Procedures: Reports: None HEENT Surgical History: Reports: Oral Surgery Male Surgical History: Reports: None Social & Family History - Family History Family Medical History: No Pertinent Family History - Tobacco Use Tobacco Use Status *Q: Current Every Day Tobacco User Years of Tobacco use: 20 Packs/Tins Daily: 1 - Caffeine Use Caffeine Use: Reports: Coffee Other Caffeine Use: unknown - Alcohol Use Days Per Week of Alcohol Use: 7 Number of Drinks Per Day: 15 Total Drinks Per Week: 105 Date of Last Drink: 04/28/21 - Recreational Drug Use Recreational Drug Use: No - Living Situation & Occupation Living situation: Reports: (), with Family (Mother and sister) Occupation: Unemployed H&P Review of Systems - Review of Systems: Review Of Systems: Comprehensive ROS is negative, except as noted in HPI. Exam - Exam Exam: See Below - Vital Signs Vital Signs: Last Vital Signs Temp 97.5 F 04/29/21 12:00 Pulse 113 H 04/29/21 04:04 Resp 14 04/29/21 12:00 BP 125/88 04/29/21 12:00 Pulse Ox 96 04/29/21 12:00 Weight: 134 lb 14.4 oz - Exam General: Alert, Oriented HEENT: EOMI, Hearing Intact, Mucosa Moist & [place] Neck: Supple Lungs: Clear to Auscultation Cardiovascular: Normal S1, Normal S2, Tachycardia GI/Abdominal Exam: Soft, Non-Tender, No Distention Skin: Warm, Dry, Intact Neurological: Cranial Nerves Intact Neuro Extensive - Mental Status: Alert, Oriented x3, Other (bilateral hand tremors) Psychiatric: Anxious - Patient Data Lab Results Last 24 hrs: Laboratory Results - last 24 hr 07/29/21 07/29/21 07/29/21 Range/Units 04:53 05:09 06:05 WBC 9.96 H (4.23-9.07) K/mm3 RBC 4.92 (4.63-6.08) M/mm3 Hgb 15.8 (13.7-17.5) gm/dl Hct 45.5 (40.1-51.0) % MCV 92.5 H (79.0-92.2) fl MCH 32.1 (25.7-32.2) pg MCHC 34.7 (32.2-35.5) g/dl RDW Std Deviation 49.8 H (35.1-43.9) fL Plt Count 314 (163-337) K/mm3 MPV 9.8 (9.4-12.3) fl Neut % (Auto) 67.7 (34.0-67.9) % Lymph % (Auto) 20.5 L (21.8-53.1) % [place] % (Auto) 10.3 (5.3-12.2) % Eos % (Auto) 0.6 L (0.8-7.0) Baso % (Auto) 0.6 (0.1-1.2) % Neut # (Auto) 6.74 H (1.78-5.38) K/mm3 Lymph # (Auto) 2.04 (1.32-3.57) K/mm3 [place] # (Auto) 1.03 H (0.30-0.82) K/mm3 Eos # (Auto) 0.06 (0.04-0.54) K/mm3 Baso # (Auto) 0.06 (0.01-0.08) K/mm3 Sodium 148 H (136-145) mEq/L Potassium 3.0 L (3.5-5.1) mEq/L Chloride 108 H (98-107) mEq/L Carbon Dioxide 28 (21-32) mEq/L Anion Gap 15.0 (5-15) BUN 5 L (7-18) mg/dL Creatinine 0.7 (0.7-1.3) mg/dL Est Cr Clr Drug Dosing TNP Estimated GFR (MDRD) > 60 (>60) mL/min BUN/Creatinine Ratio 7.1 L (14-18) Glucose 84 (70-99) mg/dL Calcium 8.6 (8.5-10.1) mg/dL Magnesium 2.2 (1.8-2.4) mg/dL Total Bilirubin 0.5 (0.2-1.0) mg/dL AST 27 (15-37) U/L ALT 30 (16-63) U/L Alkaline Phosphatase 173 H (46-116) U/L Total Protein 7.0 (6.4-8.2) g/dl Albumin 3.7 (3.4-5.0) g/dl Globulin 3.3 gm/dL Albumin/Globulin Ratio 1.1 (1-2) Urine Color Yellow (Yellow) Urine Appearance Clear (Clear) Urine pH 8.5 H (5.0-8.0) Ur Specific [place] 1.020 (1.005-1.030) Urine Protein Negative (Negative) Urine Glucose (UA) Negative (Negative) Urine Ketones Negative (Negative) Urine Occult Blood Negative (Negative) Urine Nitrite Negative (Negative) Urine Bilirubin Negative (Negative) Urine Urobilinogen 2.0 H (0.2-1.0) Ur Leukocyte Esterase Negative (Negative) Ethyl Alcohol 0.13 (0.00) gm% SARS-CoV-2 RNA (GURJIT) (NEGATIVE) 04/29/21 Range/Units 07:05 WBC (4.23-9.07) K/mm3 RBC (4.63-6.08) M/mm3 Hgb (13.7-17.5) gm/dl Hct (40.1-51.0) % MCV (79.0-92.2) fl MCH (25.7-32.2) pg MCHC (32.2-35.5) g/dl RDW Std Deviation (35.1-43.9) fL Plt Count (163-337) K/mm3 MPV (9.4-12.3) fl Neut % (Auto) (34.0-67.9) % Lymph % (Auto) (21.8-53.1) % [place] % (Auto) (5.3-12.2) % Eos % (Auto) (0.8-7.0) Baso % (Auto) (0.1-1.2) % Neut # (Auto) (1.78-5.38) K/mm3 Lymph # (Auto) (1.32-3.57) K/mm3 [place] # (Auto) (0.30-0.82) K/mm3 Eos # (Auto) (0.04-0.54) K/mm3 Baso # (Auto) (0.01-0.08) K/mm3 Sodium (136-145) mEq/L Potassium (3.5-5.1) mEq/L Chloride (98-107) mEq/L Carbon Dioxide (21-32) mEq/L Anion Gap (5-15) BUN (7-18) mg/dL Creatinine (0.7-1.3) mg/dL Est Cr Clr Drug Dosing Estimated GFR (MDRD) (>60) mL/min BUN/Creatinine Ratio (14-18) Glucose (70-99) mg/dL Calcium (8.5-10.1) mg/dL Magnesium (1.8-2.4) mg/dL Total Bilirubin (0.2-1.0) mg/dL AST (15-37) U/L ALT (16-63) U/L Alkaline Phosphatase (46-116) U/L Total Protein (6.4-8.2) g/dl Albumin (3.4-5.0) g/dl Globulin gm/dL Albumin/Globulin Ratio (1-2) Urine Color (Yellow) Urine Appearance (Clear) Urine pH (5.0-8.0) Ur Specific [place] (1.005-1.030) Urine Protein (Negative) Urine Glucose (UA) (Negative) Urine Ketones (Negative) Urine Occult Blood (Negative) Urine Nitrite (Negative) Urine Bilirubin (Negative) Urine Urobilinogen (0.2-1.0) Ur Leukocyte Esterase (Negative) Ethyl Alcohol (0.00) gm% SARS-CoV-2 RNA (GURJIT) Negative (NEGATIVE) Result Diagrams: 04/29/21 04:53 04/29/21 05:09 Sepsis Event Note - Evaluation Sepsis Screening Result: No Definite Risk - Focused Exam Vital Signs: Vital Signs Temp Pulse Resp BP Pulse Ox Pulse Ox 04/29/21 12:00 97.5 F 14 125/88 96 04/29/21 09:08 97.2 F 17 148/99 H 94 L 94 L 04/29/21 04:04 97.7 F 113 H 15 147/100 H 94 L *Q Meaningful Use (ADM) - VTE *Q VTE Criteria *Q: 1 Problem List Initiated/Reviewed/Updated: Yes Orders Last 24hrs: Active Orders 24 hr Category Date Time Status Admission Status [Patient Status] [ADT] Routine ADT 04/29/21 08:23 Active Assess Neurological Status [RC] Q4HR Care 04/29/21 09:10 Active CIWAA Assessment [RC] Q1HR Care 04/29/21 09:10 Active Cardiac Monitoring [RC] CONTINUOUS Care 04/29/21 09:08 Active Notify Provider [RC] PRN Care 04/29/21 09:10 Active Oxygen Therapy [RC] PRN Care 04/29/21 09:08 Active Up ad Sanjuanita [RC] ASDIRECTED Care 04/29/21 09:07 Active VTE/DVT Education [RC] Care 04/29/21 09:08 Active Vital Signs [RC] Q4HR Care 04/29/21 09:08 Active Regular Diet [DIET] Diet 04/29/21 Breakfast Active Acetaminophen [TylenoL] Med 04/29/21 09:07 Active 650 mg PO Q4H PRN Enoxaparin [Lovenox] Med 04/30/21 09:00 Active 40 mg SUBCUT DAILY Folic Acid Med 04/29/21 09:15 Active 1 mg PO DAILY LORazepam [Ativan] Med 04/29/21 09:15 Active See Protocol PO ASDIRECTED Lactated Ringers [Ringers, Lactated] 1,000 ml Med 04/29/21 05:00 Active IV ASDIRECTED Ondansetron [Zofran] Med 04/29/21 09:07 Active 4 mg IV Q6H PRN Potassium Chloride [Klor-Con M20] Med 04/30/21 15:00 Active 40 meq PO DAILY Thiamine [Vitamin B-1] Med 04/29/21 09:15 Active 100 mg PO DAILY oxyCODONE Med 04/29/21 09:07 Active 5 mg PO Q4H PRN Seizure Precautions [OM.PC] Routine Oth 04/29/21 09:10 Ordered Resuscitation Status Routine Resus Stat 04/29/21 09:07 Ordered Medication Orders Acetaminophen (Acetaminophen 325 Mg Tab) 650 mg PO Q4H PRN PRN Reason: Pain (Mild 1-3)/fever Last Admin: 04/29/21 12:15 Dose: 650 mg Documented by: CLAUDIA Enoxaparin Sodium (Enoxaparin 40 Mg/0.4 Ml Syringe) 40 mg SUBCUT DAILY [facility] Folic Acid (Folic Acid 1 Mg Tab) 1 mg PO DAILY [facility] Stop: 05/01/21 09:01 Last Admin: 04/29/21 09:23 Dose: 1 mg Documented by: CLAUDIA Lactated Ringer's (Ringers, Lactated) 1,000 mls @ 150 mls/hr IV ASDIRECTED [facility] Last Admin: 04/29/21 05:09 Dose: 150 mls/hr Documented by: ALESIA Lorazepam (Lorazepam 1 Mg Tab) 0 mg PO ASDIRECTED [facility]; Protocol Last Admin: 04/29/21 11:11 Dose: 1 mg Documented by: Admin: 04/29/21 09:22 Dose: 1 mg Documented by: CLAUDIA Ondansetron HCl (Ondansetron 4 Mg/2 Ml Sdv) 4 mg IV Q6H PRN PRN Reason: Nausea/Vomiting Last Admin: 04/29/21 12:15 Dose: 4 mg Documented by: CLAUDIA Oxycodone HCl (Oxycodone 5 Mg Tab) 5 mg PO Q4H PRN PRN Reason: Pain (moderate 4-6) Last Admin: 04/29/21 09:23 Dose: 5 mg Documented by: CLAUDIA Potassium Chloride (Potassium Chloride 20 Meq Tab.Er) 40 meq PO DAILY [facility] Thiamine HCl (Thiamine 100 Mg Tab) 100 mg PO DAILY [facility] Last Admin: 04/29/21 09:23 Dose: 100 mg Documented by: CLAUDIA Assessment/Plan Comment:: This is a 41M with hx of alcoholism presenting for evaluation of nausea, vomiting, and alcohol intoxication. 1. Hx of Alcoholism 2. Alcohol intoxication 3. Early alcohol withdrawal 4. Hx alcohol withdrawal seizure 5. Hypokalemia 6. Tobacco use disorder Plan -admit to observation -IVF -CIWA Protocol - consult for CD evaluation -seizure precautions -multivitamin -nicotine patch -cessation counseling For today discharge to detox Code-Full DVT ppx-lovenox - Mortality Measure Prognosis:: Good
--- NOTE | 2021-04-29 14:10 | PCM.DCSUM1 ---
Discharge Summary - Hospital Course HPI Initial Comments: This is a 41M with past medical history noted below including hx of alcoholism and alcohol withdrawal syndrome who presented for evaluation of alcohol withdrawal syndrome and possible seizure. He was admitted to the ICU and treated with IVF, multivitamins, electrolyte replacement. He was started on CIWA alcohol withdrawal protocol. His diet was advanced. On 04/28 the patient requested to leave hospital AMA. he denied suicidal, homicidal ideation. He understood risks of leaving hospital AMA including potential for recurrent seizure and possible premature . He stated he would return to ED if he was not feeling well. Upon discharge the patient went home and drank several shots (8-10 Fireball shots) of hard liquor. He developed worsening nausea and vomiting and thus presented back to the ED. In the ED the patient had noted to have elevated blood alcohol level. He was hypokalemic. he was given IV potassium replacement and admitted for further evaluation. Discharge Diagnosis Alcohol intoxication Alcohol withdrawal syndrome Nausea and vomiting Hx of Alcoholism Hypokalemia Diagnosis: Stroke: No Modified Zeynep Scale: No Symptoms at All Modified Dundy Scale Score: 0 - Discharge Data Discharge Date: 04/29/21 Discharge Disposition: Refer to Observation Condition: Stable - Referral to Home Health Primary Care Physician: Saida Catalan PA-C - Patient Instructions Diet: Regular Diet as Tolerated Activity: As Tolerated (none) Driving: Do Not Drive Notify Provider of: Fever, Increased Pain, Nausea and/or Vomiting - Discharge Plan *PRESCRIPTION DRUG MONITORING PROGRAM REVIEWED*: Not Applicable *COPY OF PRESCRIPTION DRUG MONITORING REPORT IN PATIENT EBONY: Not Applicable Prescriptions/Med Rec: chlordiazePOXIDE [Librium] 50 mg PO TID 1 Days #6 cap chlordiazePOXIDE [Librium] 25 mg PO Q6H #4 cap chlordiazePOXIDE [Librium] 25 mg PO BID #2 cap chlordiazePOXIDE [Librium] 25 mg PO DAILY #1 cap Multivitamin 1 each PO DAILY #30 tablet Tobacco Cessation Medication: Prescription Refused Home Medications: Home Meds Baclofen 20 mg PO TID 04/27/21 [History] DULoxetine [Cymbalta] 60 mg PO DAILY 04/27/21 [History] Pregabalin [Lyrica] 150 mg PO TID 04/27/21 [History] cloNIDine [Catapres] 0.1 mg PO DAILY 04/27/21 [History] Multivitamin 1 each PO DAILY #30 tablet 04/29/21 [Rx] chlordiazePOXIDE [Librium] 25 mg PO BID #2 cap 04/29/21 [Rx] chlordiazePOXIDE [Librium] 25 mg PO DAILY #1 cap 04/29/21 [Rx] chlordiazePOXIDE [Librium] 25 mg PO Q6H #4 cap 04/29/21 [Rx] chlordiazePOXIDE [Librium] 50 mg PO TID 1 Days #6 cap 04/29/21 [Rx] Oxygen Therapy Mode: Room Air - Discharge Summary/Plan Comment DC Time >30 min.: No Discharge Summary/Plan Comment: Discharge to Detox then will need post hospital follow up with primary clinic in 3-5 days following discharge - Patient Data Vitals - Most Recent: Last Vital Signs Temp 97.5 F 04/29/21 12:00 Pulse 113 H 04/29/21 04:04 Resp 14 04/29/21 12:00 BP 125/88 04/29/21 12:00 Pulse Ox 96 04/29/21 12:00 Weight - Most Recent: 134 lb 14.4 oz Lab Results - Last 24 hrs: Laboratory Results - last 24 hr 04/29/21 04/29/21 04/29/21 Range/Units 04:53 05:09 06:05 WBC 9.96 H (4.23-9.07) K/mm3 RBC 4.92 (4.63-6.08) M/mm3 Hgb 15.8 (13.7-17.5) gm/dl Hct 45.5 (40.1-51.0) % MCV 92.5 H (79.0-92.2) fl MCH 32.1 (25.7-32.2) pg MCHC 34.7 (32.2-35.5) g/dl RDW Std Deviation 49.8 H (35.1-43.9) fL Plt Count 314 (163-337) K/mm3 MPV 9.8 (9.4-12.3) fl Neut % (Auto) 67.7 (34.0-67.9) % Lymph % (Auto) 20.5 L (21.8-53.1) % [place] % (Auto) 10.3 (5.3-12.2) % Eos % (Auto) 0.6 L (0.8-7.0) Baso % (Auto) 0.6 (0.1-1.2) % Neut # (Auto) 6.74 H (1.78-5.38) K/mm3 Lymph # (Auto) 2.04 (1.32-3.57) K/mm3 [place] # (Auto) 1.03 H (0.30-0.82) K/mm3 Eos # (Auto) 0.06 (0.04-0.54) K/mm3 Baso # (Auto) 0.06 (0.01-0.08) K/mm3 Sodium 148 H (136-145) mEq/L Potassium 3.0 L (3.5-5.1) mEq/L Chloride 108 H (98-107) mEq/L Carbon Dioxide 28 (21-32) mEq/L Anion Gap 15.0 (5-15) BUN 5 L (7-18) mg/dL Creatinine 0.7 (0.7-1.3) mg/dL Est Cr Clr Drug Dosing TNP Estimated GFR (MDRD) > 60 (>60) mL/min BUN/Creatinine Ratio 7.1 L (14-18) Glucose 84 (70-99) mg/dL Calcium 8.6 (8.5-10.1) mg/dL Magnesium 2.2 (1.8-2.4) mg/dL Total Bilirubin 0.5 (0.2-1.0) mg/dL AST 27 (15-37) U/L ALT 30 (16-63) U/L Alkaline Phosphatase 173 H (46-116) U/L Total Protein 7.0 (6.4-8.2) g/dl Albumin 3.7 (3.4-5.0) g/dl Globulin 3.3 gm/dL Albumin/Globulin Ratio 1.1 (1-2) Urine Color Yellow (Yellow) Urine Appearance Clear (Clear) Urine pH 8.5 H (5.0-8.0) Ur Specific [place] 1.020 (1.005-1.030) Urine Protein Negative (Negative) Urine Glucose (UA) Negative (Negative) Urine Ketones Negative (Negative) Urine Occult Blood Negative (Negative) Urine Nitrite Negative (Negative) Urine Bilirubin Negative (Negative) Urine Urobilinogen 2.0 H (0.2-1.0) Ur Leukocyte Esterase Negative (Negative) Ethyl Alcohol 0.13 (0.00) gm% SARS-CoV-2 RNA (GURJIT) (NEGATIVE) 04/29/21 Range/Units 07:05 WBC (4.23-9.07) K/mm3 RBC (4.63-6.08) M/mm3 Hgb (13.7-17.5) gm/dl Hct (40.1-51.0) % MCV (79.0-92.2) fl MCH (25.7-32.2) pg MCHC (32.2-35.5) g/dl RDW Std Deviation (35.1-43.9) fL Plt Count (163-337) K/mm3 MPV (9.4-12.3) fl Neut % (Auto) (34.0-67.9) % Lymph % (Auto) (21.8-53.1) % [place] % (Auto) (5.3-12.2) % Eos % (Auto) (0.8-7.0) Baso % (Auto) (0.1-1.2) % Neut # (Auto) (1.78-5.38) K/mm3 Lymph # (Auto) (1.32-3.57) K/mm3 [place] # (Auto) (0.30-0.82) K/mm3 Eos # (Auto) (0.04-0.54) K/mm3 Baso # (Auto) (0.01-0.08) K/mm3 Sodium (136-145) mEq/L Potassium (3.5-5.1) mEq/L Chloride (98-107) mEq/L Carbon Dioxide (21-32) mEq/L Anion Gap (5-15) BUN (7-18) mg/dL Creatinine (0.7-1.3) mg/dL Est Cr Clr Drug Dosing Estimated GFR (MDRD) (>60) mL/min BUN/Creatinine Ratio (14-18) Glucose (70-99) mg/dL Calcium (8.5-10.1) mg/dL Magnesium (1.8-2.4) mg/dL Total Bilirubin (0.2-1.0) mg/dL AST (15-37) U/L ALT (16-63) U/L Alkaline Phosphatase (46-116) U/L Total Protein (6.4-8.2) g/dl Albumin (3.4-5.0) g/dl Globulin gm/dL Albumin/Globulin Ratio (1-2) Urine Color (Yellow) Urine Appearance (Clear) Urine pH (5.0-8.0) Ur Specific [place] (1.005-1.030) Urine Protein (Negative) Urine Glucose (UA) (Negative) Urine Ketones (Negative) Urine Occult Blood (Negative) Urine Nitrite (Negative) Urine Bilirubin (Negative) Urine Urobilinogen (0.2-1.0) Ur Leukocyte Esterase (Negative) Ethyl Alcohol (0.00) gm% SARS-CoV-2 RNA (GURJIT) Negative (NEGATIVE) Med Orders - Current: Current Medications Acetaminophen (Acetaminophen 325 Mg Tab) 650 mg PO Q4H PRN PRN Reason: Pain (Mild 1-3)/fever Last Admin: 04/29/21 12:15 Dose: 650 mg Documented by: Enoxaparin Sodium (Enoxaparin 40 Mg/0.4 Ml Syringe) 40 mg SUBCUT DAILY [facility] Folic Acid (Folic Acid 1 Mg Tab) 1 mg PO DAILY [facility] Stop: 05/01/21 09:01 Last Admin: 04/29/21 09:23 Dose: 1 mg Documented by: Lactated Ringer's (Ringers, Lactated) 1,000 mls @ 150 mls/hr IV ASDIRECTED [facility] Last Admin: 04/29/21 14:05 Dose: 150 mls/hr Documented by: Lorazepam (Lorazepam 1 Mg Tab) 0 mg PO ASDIRECTED [facility]; Protocol Last Admin: 04/29/21 14:04 Dose: 1 mg Documented by: Ondansetron HCl (Ondansetron 4 Mg/2 Ml Sdv) 4 mg IV Q6H PRN PRN Reason: Nausea/Vomiting Last Admin: 04/29/21 12:15 Dose: 4 mg Documented by: Oxycodone HCl (Oxycodone 5 Mg Tab) 5 mg PO Q4H PRN PRN Reason: Pain (moderate 4-6) Last Admin: 04/29/21 09:23 Dose: 5 mg Documented by: Potassium Chloride (Potassium Chloride 20 Meq Tab.Er) 40 meq PO DAILY [facility] Thiamine HCl (Thiamine 100 Mg Tab) 100 mg PO DAILY [facility] Last Admin: 04/29/21 09:23 Dose: 100 mg Documented by: Discontinued Medications Potassium Chloride (Potassium Chloride 20 Meq Tab.Er) 40 meq PO ONETIME ONE Stop: 04/29/21 06:41 Last Admin: 04/29/21 07:06 Dose: 40 meq Documented by: Potassium Chloride (Potassium Chloride 20 Meq Tab.Er) 40 meq PO BID RICHARD - Exam General: Reports: Alert, Oriented, No Acute Distress HEENT: Reports: EOMI, Mucous Membr. Moist/[place] Neck: Reports: Supple Lungs: Reports: Clear to Auscultation Cardiovascular: Reports: Tachycardia GI/Abdominal Exam: Soft, Non-Tender, No Distention Back Exam: Reports: Normal Inspection Skin: Reports: Warm, Dry Psy/Mental Status: Reports: Alert, Anxious, Withdrawal Symptoms (Bilateral hand tremors) *Q Meaningful Use (DIS) - VTE *Q VTE Criteria *Q: 1
[2021-04-29] MEDS ORDERED: chlordiazePOXIDE 25 MG Cap PO ONE (17:00)
[2021-04-29 17:23] VITALS: BP 130/84
[2021-04-30] MEDS ORDERED: Enoxaparin 40 MG/0.4 ML Syringe SUBCUT SCH (09:00)
[2021-04-30] MEDS ORDERED: Potassium Chloride 20 MEQ Tab.ER PO SCH (15:00)
== END 2021-04-29 17:00 | disposition other institution (70) | DRG 897 ==
LOC: JD.ED 03:55 → JD.ICU 08:23
PROVIDERS: ADMIT Hospitalist; ATTEND Hospitalist
DX: F10.239 Alcohol dependence with withdrawal, unspecified (principal); F10.229 Alcohol dependence with intoxication, unspecified; E87.6 Hypokalemia; R56.9 Unspecified convulsions; H54.7 Unspecified visual loss; G47.30 Sleep apnea, unspecified; F41.9 Anxiety disorder, unspecified; Y90.0 Blood alcohol level of less than 20 mg/100 ml; F17.200 Nicotine dependence, unspecified, uncomplicated; Z20.822 Contact with and (suspected) exposure to COVID-19; F32.9 Major depressive disorder, single episode, unspecified; Z79.899 Other long term (current) drug therapy
CPT/HCPCS: 36415; 80053; 80307; 81003; 83735; 85025; 96374; 99235; 99283; 99285-25; A9270-GY; J2405; J7120; U0002

== ENCOUNTER 2021-04-29 18:08 | Emergency (ER) | payer MEDICAID ==
[2021-04-29 18:36] VITALS: PULSE 93
[2021-04-29] MEDS ORDERED: chlordiazePOXIDE 25 MG Cap PO ONE (18:38)
[2021-04-29] MEDS ORDERED: cloNIDine 0.1 MG Tab PO ONE (18:38)
[2021-04-29 18:54] VITALS: BP 157/121
[2021-04-29] MEDS ORDERED: LORazepam 0.5 MG Tab PO ONE (19:08)
[2021-04-29] MEDS ORDERED: Ondansetron 4 MG Tab.DIS PO ONE (19:08)
--- NOTE | 2021-04-29 19:23 | EDM.PDOC ---
ED HPI GENERAL MEDICAL PROBLEM - General Chief Complaint: Drug or Alcohol Abuse Stated Complaint: VITALS ARE NOT STABLE SENT IN BY [facility] Time Seen by Provider: 04/29/21 18:37 Source of Information: Reports: Patient, RN Notes Reviewed History Limitations: Reports: No Limitations - History of Present Illness INITIAL COMMENTS - FREE TEXT/NARRATIVE: Patient is a 41-year-old male who presents to the ER for his alcohol withdrawal. Patient was recently discharged from our ICU, with a few medications for withdrawal, and was sent to [facility] for further management. Patient notes that he was not given any of these medications, as he was told there was close to start tomorrow. He was sent home with a prescription for Librium, clonidine and baclofen. Staff from [facility] states that his CIWAA scores were 43 and 26 respectively nursing staff at our ER put CIWAA's at about 2. The patient's blood pressure was mildly elevated at the time of triage, and is 164/101. Of note the paperwork from [facility] staff state that he was supposed to get clonidine 2 times a day, first dose was supposed to be tonight. Along with baclofen. The patient states that he has a history of alcohol withdrawal seizures, and "he needs Ativan, and they did not send me with any of this before I left". Patient states he does not feel quite right, but this is typical for him when he is detoxing. States he also feels nauseous but has not had any vomiting. Further denying any developing fevers or chills, or any diarrhea, cough or shortness of breath. - Related Data Allergies Allergy/AdvReac Type Severity Reaction Status Date / Time No Known Allergies Allergy Verified 04/29/21 04:03 Home Meds: Home Meds Baclofen 20 mg PO TID 04/27/21 [History] DULoxetine [Cymbalta] 60 mg PO DAILY 04/27/21 [History] Pregabalin [Lyrica] 150 mg PO TID 04/27/21 [History] cloNIDine [Catapres] 0.1 mg PO DAILY 04/27/21 [History] LORazepam [Ativan] 1 mg PO TID #12 tab 04/29/21 [Rx] Multivitamin 1 each PO DAILY #30 tablet 04/29/21 [Rx] Ondansetron [Zofran ODT] 4 mg PO Q8H #15 tab.dis 04/29/21 [Rx] Past Medical History - Past Health History Medical/Surgical History: Denies Medical/Surgical History HEENT History: Reports: Impaired Vision Cardiovascular History: Reports: Hypertension Respiratory History: Reports: Sleep Apnea Gastrointestinal History: Reports: None Genitourinary History: Reports: None Musculoskeletal History: Reports: Fibromyalgia, Other (See Below) Other Musculoskeletal History: MRI-bulges to back and not sure what else going on Neurological History: Reports: Seizure Psychiatric History: Reports: Addiction, Anxiety, Depression Endocrine/Metabolic History: Reports: None Hematologic History: Reports: None Immunologic History: Reports: None Oncologic (Cancer) History: Reports: None Dermatologic History: Reports: None - Infectious Disease History Infectious Disease History: Reports: Chicken Pox - Past Surgical History Head Surgeries/Procedures: Reports: None HEENT Surgical History: Reports: Oral Surgery Male Surgical History: Reports: None Social & Family History - Family History Family Medical History: No Pertinent Family History - Tobacco Use Tobacco Use Status *Q: Current Every Day Tobacco User Years of Tobacco use: 22 Packs/Tins Daily: 1 - Caffeine Use Caffeine Use: Reports: Coffee Other Caffeine Use: unknown - Alcohol Use Date of Last Drink: 04/28/21 - Living Situation & Occupation Living situation: Reports: (), with Family (Mother and sister) Occupation: Unemployed ED ROS GENERAL - Review of Systems Review Of Systems: Comprehensive ROS is negative, except as noted in HPI. ED EXAM, GENERAL - Physical Exam Exam: See Below Exam Limited By: No Limitations General Appearance: Alert, WD/WN, No Apparent Distress Respiratory/Chest: No Respiratory Distress, Lungs Clear, Normal Breath Sounds, No Accessory Muscle Use, Chest Non-Tender Cardiovascular: Normal Peripheral Pulses, Regular Rate, Rhythm, No Edema GI/Abdominal: Normal Bowel Sounds, Soft, Non-Tender, No Distention, No Mass Extremities: Normal Inspection, Normal Capillary Refill Neurological: Alert, Oriented, Normal Cognition, No Motor/Sensory Deficits Psychiatric: Anxious (slight generalized) Skin Exam: Warm, Dry, Intact, Normal Color, No Rash Course - Vital Signs Last Recorded V/S: Last Vital Signs Temp 98.1 F 04/29/21 18:32 Pulse 93 04/29/21 18:32 Resp 17 04/29/21 18:32 BP 157/121 H 04/29/21 18:54 Pulse Ox 100 04/29/21 18:32 - Orders/Labs/Meds Meds: Medications Discontinued Medications Generic Name Dose Route Start Last Admin Trade Name Kavya PRN Reason Stop Dose Admin Chlordiazepoxide HCl 25 mg 04/29/21 18:38 04/29/21 18:54 Chlordiazepoxide 25 Mg Cap PO 04/29/21 18:39 25 mg ONETIME ONE Administration Clonidine HCl 0.1 mg 04/29/21 18:38 04/29/21 18:54 Clonidine 0.1 Mg Tab PO 04/29/21 18:39 0.1 mg ONETIME ONE Administration Lorazepam 1 mg 04/29/21 19:08 Lorazepam 0.5 Mg Tab PO 04/29/21 19:09 ONETIME ONE Ondansetron HCl 4 mg 04/29/21 19:08 Ondansetron 4 Mg Tab.Dis PO 04/29/21 19:09 ONETIME ONE - Re-Assessments/Exams Free Text/Narrative Re-Assessment/Exam: 04/29/21 19:20 Patient presents to the ER, for reevaluation, and was sent by [facility]. I have ordered a dose of clonidine to be given in the ER, along with 1 mg Ativan, he did initially get a dose of Librium, as this is what he was sent to [facility] with. However after talking with the patient, I do believe is more appropriate to be setting him with Ativan, and prescription for Zofran for nausea management. Patient verbalized understanding. I did call and spoke with RN on-call, Caroline at [facility] she was also understanding of the plan. Departure - Departure Time of Disposition: 19:23 Disposition: Home, Self-Care 01 Condition: Good Clinical Impression: Alcohol withdrawal Qualifiers: Complication of substance-induced condition: uncomplicated Qualified Code(s): F10.230 - Alcohol dependence with withdrawal, uncomplicated - Discharge Information *PRESCRIPTION DRUG MONITORING PROGRAM REVIEWED*: Yes *COPY OF PRESCRIPTION DRUG MONITORING REPORT IN PATIENT EBONY: No Prescriptions: LORazepam [Ativan] 1 mg PO TID #12 tab Ondansetron [Zofran ODT] 4 mg PO Q8H #15 tab.dis Instructions: Alcohol Withdrawal Syndrome, [id number] Referrals: Saida Catalan PA-C [Primary Care Provider] - Additional Instructions: You were evaluated in the ER today for your ongoing alcohol withdrawal symptoms. You were given oral medications in the ER, this seemed to help relieve most your symptoms. The Librium prescriptions have been canceled. You have been started on oral Ativan, 1 tab TID x2 days, then 1 tab BID x2 days, then 1 tab daily x2 days. You have also been given a prescription for Zofran you will need to take 1 tablet every 8 hours until gone. This medication was electronically sent to the [facility] located near [facility]. Please continue clonidine dosing tomorrow morning as you were given a dose in the ER for tonight's purposes. Baclofen dosing can be continued tonight for ongoing pain management. Please try to increase your oral fluid hydration over the next few days. Do not hesitate to return to the ER at any time if symptoms change or worsen. Sepsis Event Note (ED) - Evaluation Sepsis Screening Result: No Definite Risk - Focused Exam Vital Signs: Vital Signs Temp Pulse Resp BP BP Pulse Ox 04/29/21 18:54 157/121 H 04/29/21 18:32 98.1 F 93 17 164/101 H 100
== END 2021-04-29 20:13 | disposition home or self-care (01) ==
LOC: JD.ED 18:08
DX: F10.230 Alcohol dependence with withdrawal, uncomplicated (principal); I10 Essential (primary) hypertension; Z79.899 Other long term (current) drug therapy; Z72.0 Tobacco use
CPT/HCPCS: 99284; A9270; 99283

== ENCOUNTER 2022-05-11 19:40 | Emergency (ER) | payer MEDICAID ==
[2022-05-11] MEDS ORDERED: Sodium Chloride 0.9% 1,000 ML IV ONE ×2 (20:16→22:57)
[2022-05-11] MEDS ORDERED: Ondansetron 4 MG/2 ML SDV IVPUSH ONE (20:16)
[2022-05-11] MEDS ORDERED: Sodium Chloride 0.9% 10 ML Syringe FLUSH PRN (20:16)
[2022-05-11] MEDS ORDERED: Lactated Ringers 1,000 ML IV ONE (20:51)
[2022-05-11] MEDS ORDERED: LORazepam 2 MG/ML SDV IVPUSH STA (20:55)
[2022-05-12] MEDS ORDERED: Pantoprazole 40 MG Vial IVPUSH ONE (00:24)
[2022-05-12] MEDS ORDERED: Alum Hydrox/Mag Hydrox/Simeth 30 ML, Lidocaine 2% 15 ML PO ONE ×2 (00:24)
[2022-05-12] MEDS ORDERED: chlordiazePOXIDE 25 MG Cap PO ONE (01:30)
[2022-05-12 01:46] VITALS: BP 133/74; PULSE 91
== END 2022-05-12 02:52 | disposition home or self-care (01) ==
LOC: JD.ED 19:40
DX: F10.230 Alcohol dependence with withdrawal, uncomplicated (principal); I10 Essential (primary) hypertension; F17.210 Nicotine dependence, cigarettes, uncomplicated; Y90.0 Blood alcohol level of less than 20 mg/100 ml
CPT/HCPCS: 36415; 80053; 80143; 80179; 80306; 80307; 81001; 83735; 84443; 85025; 93005; 94762; 96361; 96374; 96375; 99285; A9270; C9113; J2060; J2405; J3490; J7030; J7120; 99284

== ENCOUNTER 2022-08-19 01:05 | Inpatient (IN) | payer MEDICAID ==
[2022-08-19] MEDS ORDERED: Lactated Ringers 1,000 ML IV ONE (01:42)
[2022-08-19] MEDS ORDERED: LORazepam 2 MG/ML SDV IVPUSH ONE ×5 (01:42→06:43)
[2022-08-19] MEDS ORDERED: Ondansetron 4 MG/2 ML SDV IVPUSH ONE (01:42)
[2022-08-19] MEDS ORDERED: Famotidine 20 MG/2 ML SDV IVPUSH ONE (01:57)
[2022-08-19] MEDS ORDERED: Pantoprazole 40 MG Vial IVPUSH ONE (01:57)
[2022-08-19] MEDS: Lactated Ringers 1,000 ML IV SCH ×3 (03:24→16:45)
[2022-08-19] MEDS ORDERED: Potassium Chloride 20 MEQ Tab.ER PO ONE (04:10)
[2022-08-19] MEDS ORDERED: Magnesium Oxide 400 MG Tab PO ONE (04:25)
[2022-08-19] MEDS ORDERED: Sucralfate Suspension 1 GM/10 ML Cup PO ONE (04:47)
[2022-08-19] MEDS ORDERED: oxyCODONE 5 MG Tab PO PRN (07:13)
[2022-08-19] MEDS ORDERED: Acetaminophen 325 MG Tab PO PRN (07:13)
[2022-08-19] MEDS ORDERED: Enoxaparin 40 MG/0.4 ML Syringe SUBCUT SCH ×2 (09:00→11:30)
[2022-08-19] MEDS ORDERED: Thiamine 100 MG Tab PO SCH ×2 (09:00→11:30)
[2022-08-19] MEDS ORDERED: Folic Acid 1 MG Tab PO SCH ×2 (09:00→11:30)
[2022-08-19] MEDS: LORazepam 2 MG/ML SDV IVPUSH PRN ×2 (14:01→16:42)
[2022-08-19 16:13] VITALS: BP 114/83; PULSE 87
[2022-08-19] MEDS ORDERED: Nicotine 14 MG/24 Hr Patch TRDERM SCH (17:15)
[2022-08-19] MEDS ORDERED: Famotidine 20 MG/2 ML SDV IVPUSH SCH (21:00)
== END 2022-08-19 18:36 | disposition left against medical advice (07) | DRG 894 ==
LOC: JD.ED 01:05 → JD.ICU 07:13
PROVIDERS: ADMIT Internal Medicine; ATTEND Internal Medicine
DX: F10.230 Alcohol dependence with withdrawal, uncomplicated (principal); R56.9 Unspecified convulsions; F10.229 Alcohol dependence with intoxication, unspecified; M79.7 Fibromyalgia; F32.A Depression, unspecified; Z79.899 Other long term (current) drug therapy
CPT/HCPCS: 36415; 80053; 80143; 80179; 80306; 80307; 81001; 82977; 83690; 83735; 84443; 85025; 85610; 87086; 96361; 96374; 96375; 96376; 99285-25; A9270-GY; C9113; J1650; J2060; J2405; J3490; J7120

== ENCOUNTER 2022-09-17 23:06 | Emergency (ER) | payer MEDICAID | END 2022-09-17 23:24 | disposition left against medical advice (07) | LOC: JD.ED 23:06 | DX: Z53.21 Procedure and treatment not carried out due to patient leaving prior to being seen by health care provider (principal) ==

== ENCOUNTER 2023-03-13 03:24 | Inpatient (IN) | payer MEDICAID ==
[2023-03-13] MEDS ORDERED: Thiamine 200 MG/2 ML MDV IM ONE (04:00)
[2023-03-13 04:08] LABS: BASOPHILS ABSOLUTE AUTO 0.07 K/mm3 (0.01-0.08); BASOPHILS PERCENT AUTO 0.6 % (0.1-1.2); EOSINOPHILS ABSOLUTE AUTO 0.45 K/mm3 (0.04-0.54); EOSINOPHILS PERCENT AUTO 3.9 (0.8-7.0); HEMATOCRIT 53.5 % (40.1-51.0); HEMOGLOBIN 18.9 gm/dl (13.7-17.5); IMMATURE GRAN ABSOLUTE AUTO 0.03 K/mm3 (0.00-0.10); IMMATURE GRAN PERCENT AUTO 0.3 % (<=1.0); LYMPHOCYTES ABSOLUTE AUTO 4.89 K/mm3 (1.32-3.57); MEAN CORPUSCULAR HEMOGLOBIN 30.5 pg (25.7-32.2); MEAN CORPUSCULAR HGB CONC 35.3 g/dl (32.2-35.5); MEAN CORPUSCULAR VOLUME 86.4 fl (79.0-92.2); MEAN PLATELET VOLUME 9.5 fl (9.4-12.3); MONOCYTES ABSOLUTE AUTO 1.31 K/mm3 (0.30-0.82); MONOCYTES PERCENT AUTO 11.2 % (5.3-12.2); PLATELET COUNT,PLT 385 K/mm3 (163-337); RED BLOOD CELL COUNT 6.19 M/mm3 (4.63-6.08); WHITE BLOOD CELL COUNT,WBC 11.65 K/mm3 (4.23-9.07)
[2023-03-13 04:38] LABS: ALBUMIN 3.9 g/dl (3.4-5.0); ANION GAP 15.8 (5-15); BILIRUBIN TOTAL 0.4 mg/dL (0.2-1.0); BUN/CREATININE RATIO 12.2 (14-18); CALCIUM 8.9 mg/dL (8.5-10.1); CREATININE 0.9 mg/dL (0.7-1.3); EST CRCL DRUG DOSING (CG) 92.06 mL/min; ETHANOL BLOOD MEDICAL 0.17 gm% (0.00); POTASSIUM,K 2.8 mEq/L (3.5-5.1); PROTEIN TOTAL,TP 7.7 g/dl (6.4-8.2); TSH 2.46 uIU/mL (0.358-3.74)
[2023-03-13] MEDS ORDERED: Ondansetron 4 MG/2 ML SDV IVPUSH ONE ×2 (05:32→07:50)
[2023-03-13 05:33] LABS: APPEARANCE,URINE CLEAR (Clear); BILIRUBIN,URINE NEGATIVE (Negative); COLOR,URINE YELLOW (Yellow); GLUCOSE,URINE NEGATIVE (Negative); KETONES,URINE NEGATIVE (Negative); LEUKOCYTE ESTERASE,URINE NEGATIVE (Negative); NITRITE,URINE NEGATIVE (Negative); OCCULT BLOOD,URINE NEGATIVE (Negative); PH,URINE 6.5 (5.0-8.0); PROTEIN,URINE NEGATIVE (Negative); UROBILINOGEN,URINE 0.2 (0.2-1.0)
[2023-03-13] MEDS ORDERED: Lactated Ringers 1,000 ML IV ONE (05:33)
[2023-03-13] MEDS ORDERED: Potassium Chloride 20 MEQ Tab.ER PO ONE ×2 (05:33→06:53)
[2023-03-13 05:45] LABS: BARBITURATE SCREEN,URINE NEGATIVE (CUTOFF=200); BENZODIAZEPINES SCREEN,URINE NEGATIVE (CUTOFF=150); BUPRENORPHINE SCREEN,URINE NEGATIVE (CUTOFF=10); METHADONE SCREEN, URINE NEGATIVE (CUT0FF=200); METHAMPHETAMINES SCREEN, URINE NEGATIVE (CUTOFF=500); OXYCODONE SCREEN,URINE NEGATIVE (CUT0FF=100); PROPOXYPHENE SCREEN,URINE NEGATIVE (CUTOFF=300); THC SCREEN,URINE 20 NG/ML PRESUMPTIVE POSITIVE (CUTOFF=50)
[2023-03-13 05:47] LABS: AMPHETAMINES SCREEN, URINE NEGATIVE (CUTOFF=500)
[2023-03-13] MEDS ORDERED: LORazepam 1 MG Tab PO ONE (06:52)
[2023-03-13] MEDS: Potassium Chloride 10 MEQ in Premix Bag 1 BAG IV SCH ×5 (07:22→10:55)
[2023-03-13] MEDS: Sodium Chloride 0.9% 1,000 ML IV SCH ×3 (07:44→23:46)
[2023-03-13] MEDS ORDERED: Docusate Sodium 100 MG Cap PO PRN (10:02)
[2023-03-13] MEDS ORDERED: LORazepam 2 MG/ML SDV IVPUSH PRN (10:06)
[2023-03-13] MEDS: Famotidine 20 MG Tab PO SCH ×2 (10:47→20:07)
[2023-03-13] MEDS: Thiamine 100 MG Tab PO SCH (10:47)
[2023-03-13] MEDS: Folic Acid 1 MG Tab PO SCH (10:47)
[2023-03-13] MEDS: Acetaminophen 325 MG Tab PO PRN (10:47)
[2023-03-13] MEDS: cloNIDine 0.1 MG Tab PO SCH (10:48)
[2023-03-13] MEDS: Enoxaparin 40 MG/0.4 ML Syringe SUBCUT SCH (10:48)
[2023-03-13] MEDS: Ondansetron 4 MG/2 ML SDV IV PRN ×2 (10:48→20:05)
[2023-03-13] MEDS ORDERED: traMADol 50 MG Tab PO PRN (11:28)
[2023-03-13] MEDS: Nicotine 21 MG/24 Hr Patch TRDERM SCH (11:33)
[2023-03-13] MEDS: LORazepam 2 MG/ML SDV IVPUSH PRN ×6 (13:59→23:40)
[2023-03-13] MEDS: Pregabalin 75 MG Cap PO SCH ×2 (13:59→20:07)
[2023-03-13] MEDS ORDERED: Metoclopramide 10 MG/2 ML SDV IVPUSH ONE (14:00)
[2023-03-13] MEDS ORDERED: PREGABALIN 150 MG PO SCH (15:00)
[2023-03-13] MEDS ORDERED: traZODone 50 MG Tab PO ONE (23:50)
[2023-03-14] MEDS: LORazepam 2 MG/ML SDV IVPUSH PRN ×12 (01:12→23:09)
[2023-03-14 06:26] LABS: BASOPHILS ABSOLUTE AUTO 0.05 K/mm3 (0.01-0.08); BASOPHILS PERCENT AUTO 0.5 % (0.1-1.2); EOSINOPHILS ABSOLUTE AUTO 0.34 K/mm3 (0.04-0.54); EOSINOPHILS PERCENT AUTO 3.6 (0.8-7.0); HEMATOCRIT 47.7 % (40.1-51.0); IMMATURE GRAN ABSOLUTE AUTO 0.02 K/mm3 (0.00-0.10); IMMATURE GRAN PERCENT AUTO 0.2 % (<=1.0); LYMPHOCYTES ABSOLUTE AUTO 3.21 K/mm3 (1.32-3.57); LYMPHOCYTES PERCENT AUTO 34.4 % (21.8-53.1); MEAN CORPUSCULAR HEMOGLOBIN 30.7 pg (25.7-32.2); MEAN CORPUSCULAR VOLUME 90.5 fl (79.0-92.2); MEAN PLATELET VOLUME 9.9 fl (9.4-12.3); MONOCYTES ABSOLUTE AUTO 0.84 K/mm3 (0.30-0.82); NEUTROPHILS ABSOLUTE AUTO 4.86 K/mm3 (1.78-5.38); NEUTROPHILS PERCENT AUTO 52.3 % (34.0-67.9); PLATELET COUNT,PLT 295 K/mm3 (163-337); RED BLOOD CELL COUNT 5.27 M/mm3 (4.63-6.08); WHITE BLOOD CELL COUNT,WBC 9.32 K/mm3 (4.23-9.07)
[2023-03-14 06:27] LABS: ALBUMIN 2.9 g/dl (3.4-5.0); BILIRUBIN TOTAL 0.5 mg/dL (0.2-1.0); BUN/CREATININE RATIO 11.1 (14-18); CALCIUM 8.4 mg/dL (8.5-10.1); CREATININE 0.9 mg/dL (0.7-1.3); EST CRCL DRUG DOSING (CG) 92.06 mL/min; PHOSPHORUS 3.4 mg/dL (2.6-4.7); POTASSIUM,K 4.2 mEq/L (3.5-5.1); PROTEIN TOTAL,TP 5.9 g/dl (6.4-8.2)
[2023-03-14 06:31] LABS: ANION GAP 11.2 (5-15)
[2023-03-14 06:38] LABS: HEMOGLOBIN 16.2 gm/dl (13.7-17.5)
[2023-03-14] MEDS: Sodium Chloride 0.9% 1,000 ML IV SCH (08:26)
[2023-03-14] MEDS: cloNIDine 0.1 MG Tab PO SCH (08:39)
[2023-03-14] MEDS: Famotidine 20 MG Tab PO SCH ×2 (08:40→20:11)
[2023-03-14] MEDS: Thiamine 100 MG Tab PO SCH (08:40)
[2023-03-14] MEDS: Pregabalin 75 MG Cap PO SCH ×3 (08:40→20:12)
[2023-03-14] MEDS: Folic Acid 1 MG Tab PO SCH (08:41)
[2023-03-14] MEDS: Nicotine 21 MG/24 Hr Patch TRDERM SCH (08:41)
[2023-03-14] MEDS: Enoxaparin 40 MG/0.4 ML Syringe SUBCUT SCH (08:41)
[2023-03-14] MEDS: Ondansetron 4 MG/2 ML SDV IV PRN (10:51)
[2023-03-14] MEDS ORDERED: LORazepam 1 MG Tab PO SCH (11:45)
[2023-03-14] MEDS: PHENobarbital 32.4 MG Tab PO SCH ×2 (11:46→20:11)
[2023-03-14] MEDS ORDERED: traZODone 50 MG Tab PO PRN (21:58)
[2023-03-15] MEDS: LORazepam 2 MG/ML SDV IVPUSH PRN ×7 (01:35→20:24)
[2023-03-15 06:24] LABS: BASOPHILS ABSOLUTE AUTO 0.06 K/mm3 (0.01-0.08); BASOPHILS PERCENT AUTO 0.8 % (0.1-1.2); EOSINOPHILS ABSOLUTE AUTO 0.36 K/mm3 (0.04-0.54); EOSINOPHILS PERCENT AUTO 4.8 (0.8-7.0); HEMATOCRIT 46.4 % (40.1-51.0); HEMOGLOBIN 16.1 gm/dl (13.7-17.5); IMMATURE GRAN ABSOLUTE AUTO 0.01 K/mm3 (0.00-0.10); IMMATURE GRAN PERCENT AUTO 0.1 % (<=1.0); LYMPHOCYTES ABSOLUTE AUTO 2.51 K/mm3 (1.32-3.57); LYMPHOCYTES PERCENT AUTO 33.3 % (21.8-53.1); MEAN CORPUSCULAR HEMOGLOBIN 31.1 pg (25.7-32.2); MEAN CORPUSCULAR HGB CONC 34.7 g/dl (32.2-35.5); MEAN CORPUSCULAR VOLUME 89.7 fl (79.0-92.2); MEAN PLATELET VOLUME 10.1 fl (9.4-12.3); MONOCYTES ABSOLUTE AUTO 0.68 K/mm3 (0.30-0.82); NEUTROPHILS ABSOLUTE AUTO 3.92 K/mm3 (1.78-5.38); PLATELET COUNT,PLT 297 K/mm3 (163-337); RED BLOOD CELL COUNT 5.17 M/mm3 (4.63-6.08); WHITE BLOOD CELL COUNT,WBC 7.54 K/mm3 (4.23-9.07)
[2023-03-15 06:57] LABS: ALBUMIN 3.2 g/dl (3.4-5.0); ANION GAP 12.9 (5-15); BILIRUBIN TOTAL 0.3 mg/dL (0.2-1.0); CALCIUM 8.7 mg/dL (8.5-10.1); EST CRCL DRUG DOSING (CG) 82.85 mL/min; MAGNESIUM 1.8 mg/dL (1.8-2.4); POTASSIUM,K 3.9 mEq/L (3.5-5.1); PROTEIN TOTAL,TP 6.4 g/dl (6.4-8.2)
[2023-03-15] MEDS: Enoxaparin 40 MG/0.4 ML Syringe SUBCUT SCH (08:23)
[2023-03-15] MEDS: Nicotine 21 MG/24 Hr Patch TRDERM SCH (08:23)
[2023-03-15] MEDS: Famotidine 20 MG Tab PO SCH ×2 (08:24→20:24)
[2023-03-15] MEDS: Folic Acid 1 MG Tab PO SCH (08:24)
[2023-03-15] MEDS: cloNIDine 0.1 MG Tab PO SCH (08:24)
[2023-03-15] MEDS: PHENobarbital 32.4 MG Tab PO SCH ×2 (08:24→20:24)
[2023-03-15] MEDS: Pregabalin 75 MG Cap PO SCH ×3 (08:24→20:24)
[2023-03-15] MEDS: Thiamine 100 MG Tab PO SCH (08:33)
[2023-03-15] MEDS: Acetaminophen 325 MG Tab PO PRN (13:10)
[2023-03-15] MEDS: Ondansetron 4 MG/2 ML SDV IV PRN (17:38)
[2023-03-15] MEDS: Cholecalciferol (Vitamin D3) 25 MCG Tab PO SCH (18:37)
[2023-03-15] MEDS ORDERED: Haloperidol 5 MG Tab PO SCH (21:00)
[2023-03-15] MEDS ORDERED: fluvoxaMINE 50 MG Tab PO SCH (21:00)
[2023-03-15] MEDS ORDERED: Topiramate 25 MG Tab PO SCH (21:00)
[2023-03-16] MEDS: LORazepam 2 MG/ML SDV IVPUSH PRN ×2 (04:26→09:42)
[2023-03-16 06:26] LABS: BASOPHILS ABSOLUTE AUTO 0.08 K/mm3 (0.01-0.08); BASOPHILS PERCENT AUTO 1.1 % (0.1-1.2); EOSINOPHILS ABSOLUTE AUTO 0.48 K/mm3 (0.04-0.54); EOSINOPHILS PERCENT AUTO 6.7 (0.8-7.0); HEMATOCRIT 48.6 % (40.1-51.0); HEMOGLOBIN 16.7 gm/dl (13.7-17.5); IMMATURE GRAN ABSOLUTE AUTO 0.02 K/mm3 (0.00-0.10); IMMATURE GRAN PERCENT AUTO 0.3 % (<=1.0); LYMPHOCYTES ABSOLUTE AUTO 3.31 K/mm3 (1.32-3.57); LYMPHOCYTES PERCENT AUTO 46.5 % (21.8-53.1); MEAN CORPUSCULAR HEMOGLOBIN 30.9 pg (25.7-32.2); MEAN CORPUSCULAR HGB CONC 34.4 g/dl (32.2-35.5); MEAN PLATELET VOLUME 10.3 fl (9.4-12.3); MONOCYTES ABSOLUTE AUTO 0.82 K/mm3 (0.30-0.82); MONOCYTES PERCENT AUTO 11.5 % (5.3-12.2); NEUTROPHILS ABSOLUTE AUTO 2.41 K/mm3 (1.78-5.38); NEUTROPHILS PERCENT AUTO 33.9 % (34.0-67.9); PLATELET COUNT,PLT 305 K/mm3 (163-337); WHITE BLOOD CELL COUNT,WBC 7.12 K/mm3 (4.23-9.07)
[2023-03-16 06:49] LABS: A/G RATIO 0.9 (1-2); ALBUMIN 3.1 g/dl (3.4-5.0); ANION GAP 14.7 (5-15); BILIRUBIN TOTAL 0.3 mg/dL (0.2-1.0); CALCIUM 8.9 mg/dL (8.5-10.1); EST CRCL DRUG DOSING (CG) 82.85 mL/min; MAGNESIUM 1.9 mg/dL (1.8-2.4); POTASSIUM,K 3.7 mEq/L (3.5-5.1); PROTEIN TOTAL,TP 6.4 g/dl (6.4-8.2)
[2023-03-16] MEDS ORDERED: Thiamine 100 MG Tab PO SCH (09:00)
[2023-03-16] MEDS: Pregabalin 75 MG Cap PO SCH (09:29)
[2023-03-16] MEDS: Enoxaparin 40 MG/0.4 ML Syringe SUBCUT SCH (09:29)
[2023-03-16] MEDS: Cholecalciferol (Vitamin D3) 25 MCG Tab PO SCH (09:29)
[2023-03-16] MEDS: Famotidine 20 MG Tab PO SCH (09:29)
[2023-03-16] MEDS: Nicotine 21 MG/24 Hr Patch TRDERM SCH (09:30)
[2023-03-16] MEDS: cloNIDine 0.1 MG Tab PO SCH (09:30)
[2023-03-16] MEDS: Folic Acid 1 MG Tab PO SCH (09:30)
[2023-03-16] MEDS: PHENobarbital 32.4 MG Tab PO SCH (09:30)
[2023-03-16 11:55] VITALS: BP 127/87; PULSE 91
[2023-03-16] MEDS ORDERED: Cyanocobalamin (Vitamin B12) 1,000 MCG Tab PO SCH (18:00)
[2023-03-16] MEDS ORDERED: Sertraline 25 MG Tab PO SCH (21:00)
== END 2023-03-16 11:43 | disposition home or self-care (01) | DRG 897 ==
LOC: JD.ED 03:24 → JD.ICU 09:35 → JD.MS 21:21
PROVIDERS: ADMIT Internal Medicine; ATTEND Internal Medicine
DX: F10.239 Alcohol dependence with withdrawal, unspecified (principal); F11.20 Opioid dependence, uncomplicated; F31.60 Bipolar disorder, current episode mixed, unspecified; I10 Essential (primary) hypertension; F17.210 Nicotine dependence, cigarettes, uncomplicated; F41.9 Anxiety disorder, unspecified; M79.7 Fibromyalgia; G47.33 Obstructive sleep apnea (adult) (pediatric); E86.0 Dehydration; F10.229 Alcohol dependence with intoxication, unspecified; E87.6 Hypokalemia; G62.9 Polyneuropathy, unspecified; F12.20 Cannabis dependence, uncomplicated; F43.10 Post-traumatic stress disorder, unspecified; F42.2 Mixed obsessional thoughts and acts; F29 Unspecified psychosis not due to a substance or known physiological condition; Z98.890 Other specified postprocedural states; Z79.899 Other long term (current) drug therapy; Z88.8 Allergy status to other drugs, medicaments and biological substances; Z56.0 Unemployment, unspecified
CPT/HCPCS: 36415; 80053; 80306; 80307; 81003; 83690; 83735; 84100; 84443; 85025; 96361; 96372; 96374; 96376; 99285-25; A9270-GY; J1650; J2060; J2405; J2765; J3411; J3480; J7030; J7120

== ENCOUNTER 2023-04-04 23:49 | Emergency (ER) | payer MEDICAID ==
[2023-04-05] MEDS ORDERED: Thiamine 200 MG/2 ML MDV IVPUSH ONE (00:21)
[2023-04-05] MEDS ORDERED: cloNIDine 0.1 MG Tab PO ONE (00:21)
[2023-04-05] MEDS ORDERED: LORazepam 2 MG/ML SDV IVPUSH ONE ×2 (00:21→07:47)
[2023-04-05] MEDS ORDERED: Pregabalin 75 MG Cap PO ONE ×2 (00:22→00:26)
[2023-04-05] MEDS ORDERED: Dextrose 5%-Lactated Ringers 1,000 ML IV SCH (00:30)
[2023-04-05 00:47] LABS: BASOPHILS ABSOLUTE AUTO 0.11 K/mm3 (0.01-0.08); BASOPHILS PERCENT AUTO 1.2 % (0.1-1.2); EOSINOPHILS ABSOLUTE AUTO 0.33 K/mm3 (0.04-0.54); EOSINOPHILS PERCENT AUTO 3.5 (0.8-7.0); HEMATOCRIT 48.4 % (40.1-51.0); HEMOGLOBIN 16.9 gm/dl (13.7-17.5); IMMATURE GRAN ABSOLUTE AUTO 0.04 K/mm3 (0.00-0.10); IMMATURE GRAN PERCENT AUTO 0.4 % (<=1.0); LYMPHOCYTES PERCENT AUTO 37.4 % (21.8-53.1); MEAN CORPUSCULAR HEMOGLOBIN 30.7 pg (25.7-32.2); MEAN CORPUSCULAR HGB CONC 34.9 g/dl (32.2-35.5); MEAN CORPUSCULAR VOLUME 87.8 fl (79.0-92.2); MEAN PLATELET VOLUME 9.4 fl (9.4-12.3); MONOCYTES ABSOLUTE AUTO 0.78 K/mm3 (0.30-0.82); MONOCYTES PERCENT AUTO 8.3 % (5.3-12.2); NEUTROPHILS PERCENT AUTO 49.2 % (34.0-67.9); PLATELET COUNT,PLT 410 K/mm3 (163-337); RED BLOOD CELL COUNT 5.51 M/mm3 (4.63-6.08); WHITE BLOOD CELL COUNT,WBC 9.36 K/mm3 (4.23-9.07)
[2023-04-05 01:05] LABS: INR 1.02; PROTHROMBIN TIME 10.9 SECONDS (9.7-12.0)
[2023-04-05 01:07] LABS: PTT,PARTIAL THROMBOPLSTIN TIME 24.9 SECONDS (21.7-31.4)
[2023-04-05 01:11] LABS: ALANINE AMINOTRANSFERASE,ALT 26 U/L (16-63); ALBUMIN 3.5 g/dl (3.4-5.0); ALKALINE PHOSPHATASE 94 U/L (46-116); ANION GAP 17.3 (5-15); ASPARTATE AMNIOTRANSFERASE,AST 12 U/L (15-37); BILIRUBIN TOTAL 0.2 mg/dL (0.2-1.0); BLOOD UREA NITROGEN,BUN 7 mg/dL (7-18); BUN/CREATININE RATIO 8.8 (14-18); C-REACTIVE PROTEIN <0.2 mg/dL (<1.0); CALCIUM 8.9 mg/dL (8.5-10.1); CARBON DIOXIDE,CO2 20 mEq/L (21-32); CHLORIDE,CL 101 mEq/L (98-107); CREATININE 0.8 mg/dL (0.7-1.3); ESTIMATED GFR 112 mL/min (>60); ETHANOL BLOOD MEDICAL 0.05 gm% (0.00); GLUCOSE RANDOM 107 mg/dL (70-99); LIPASE 126 U/L (73-393); MAGNESIUM 1.7 mg/dL (1.8-2.4); POTASSIUM,K 3.3 mEq/L (3.5-5.1); SODIUM,NA 135 mEq/L (136-145)
[2023-04-05 01:14] LABS: BARBITURATE SCREEN,URINE NEGATIVE (CUTOFF=200); BENZODIAZEPINES SCREEN,URINE NEGATIVE (CUTOFF=150); BUPRENORPHINE SCREEN,URINE NEGATIVE (CUTOFF=10); METHADONE SCREEN, URINE NEGATIVE (CUT0FF=200); METHAMPHETAMINES SCREEN, URINE NEGATIVE (CUTOFF=500); OXYCODONE SCREEN,URINE NEGATIVE (CUT0FF=100); PROPOXYPHENE SCREEN,URINE NEGATIVE (CUTOFF=300); THC SCREEN,URINE 20 NG/ML PRESUMPTIVE POSITIVE (CUTOFF=50)
[2023-04-05 01:15] LABS: AMPHETAMINES SCREEN, URINE NEGATIVE (CUTOFF=500)
[2023-04-05 08:54] VITALS: BP 103/82; PULSE 67
== END 2023-04-05 08:26 | disposition other institution (70) ==
LOC: JD.ED 23:49
DX: F10.239 Alcohol dependence with withdrawal, unspecified (principal); I10 Essential (primary) hypertension; F17.210 Nicotine dependence, cigarettes, uncomplicated; Z88.8 Allergy status to other drugs, medicaments and biological substances; Y90.0 Blood alcohol level of less than 20 mg/100 ml
CPT/HCPCS: 36415; 80053; 80306; 80307; 83690; 83735; 85025; 85610; 85730; 86140; 93005; 93010; 96361; 96374; 96375; 96376; 99284; 99285-25; A9270-GY; J2060; J3411; J7121

== ENCOUNTER 2023-06-22 17:45 | Emergency (ER) | payer MEDICAID ==
[2023-06-22 19:02] LABS: APPEARANCE,URINE CLEAR (Clear); BILIRUBIN,URINE NEGATIVE (Negative); COLOR,URINE YELLOW (Yellow); GLUCOSE,URINE NEGATIVE (Negative); KETONES,URINE NEGATIVE (Negative); LEUKOCYTE ESTERASE,URINE NEGATIVE (Negative); NITRITE,URINE NEGATIVE (Negative); OCCULT BLOOD,URINE NEGATIVE (Negative); PROTEIN,URINE NEGATIVE (Negative); UROBILINOGEN,URINE 0.2 (0.2-1.0)
[2023-06-22 19:23] LABS: BASOPHILS ABSOLUTE AUTO 0.2 K/mm3 (0.0-0.2); BASOPHILS PERCENT AUTO 1.5 % (0.0-1.0); EOSINOPHILS ABSOLUTE AUTO 0.4 K/mm3 (0.0-0.4); EOSINOPHILS PERCENT AUTO 3.6 % (0.0-6.0); HEMATOCRIT 51.4 % (42.0-52.0); HEMOGLOBIN 17.8 gm/dl (14.0-18.0); LYMPHOCYTES ABSOLUTE AUTO 3.9 K/mm3 (1.0-4.8); LYMPHOCYTES PERCENT AUTO 39.7 % (24.0-44.0); MEAN CORPUSCULAR HEMOGLOBIN 31.7 pg (28.0-32.0); MEAN CORPUSCULAR HGB CONC 34.6 g/dl (32.0-36.0); MEAN CORPUSCULAR VOLUME 91.6 fl (83.0-99.0); MEAN PLATELET VOLUME 8.6 fl (9.4-12.4); MONOCYTES ABSOLUTE AUTO 0.8 K/mm3 (0.0-0.8); MONOCYTES PERCENT AUTO 8.5 % (0.0-8.0); NEUTROPHILS ABSOLUTE AUTO 4.4 K/mm3 (1.8-7.7); NEUTROPHILS PERCENT AUTO 45.7 % (41.0-71.0); PLATELET COUNT,PLT 413 K/mm3 (150-400); RED BLOOD CELL COUNT 5.61 M/mm3 (4.52-5.90); WHITE BLOOD CELL COUNT,WBC 9.73 K/mm3 (3.9-11.3)
[2023-06-22 19:44] LABS: ALANINE AMINOTRANSFERASE,ALT 39 U/L (16-63); ALBUMIN 3.8 g/dl (3.4-5.0); ALKALINE PHOSPHATASE 95 U/L (46-116); ASPARTATE AMNIOTRANSFERASE,AST 27 U/L (15-37); BILIRUBIN TOTAL 0.1 mg/dL (0.2-1.0); BLOOD UREA NITROGEN,BUN 7 mg/dL (7-18); C-REACTIVE PROTEIN <0.2 mg/dL (<1.0); CALCIUM 8.6 mg/dL (8.5-10.1); CARBON DIOXIDE,CO2 23 mEq/L (21-32); CHLORIDE,CL 104 mEq/L (98-107); CREATININE 0.7 mg/dL (0.7-1.3); EST CRCL DRUG DOSING (CG) 117.14 mL/min; ESTIMATED GFR 117 mL/min (>60); GLUCOSE RANDOM 103 mg/dL (70-99); LIPASE 179 U/L (73-393); PROTEIN TOTAL,TP 7.7 g/dl (6.4-8.2); SODIUM,NA 141 mEq/L (136-145)
[2023-06-22 19:45] LABS: CORONAVIRUS COVID-19 NAA NEGATIVE (NEGATIVE); INFLUENZA A NAA NEGATIVE (NEGATIVE)
[2023-06-22 20:30] VITALS: BP 124/77; PULSE 70
== END 2023-06-22 20:28 ==
LOC: JD.ED 17:45
DX: Z02.89 Encounter for other administrative examinations (principal); I10 Essential (primary) hypertension; F17.210 Nicotine dependence, cigarettes, uncomplicated; Z88.8 Allergy status to other drugs, medicaments and biological substances; Z20.822 Contact with and (suspected) exposure to COVID-19
CPT/HCPCS: 0240U; 36415; 80053; 81003; 83690; 85025; 86140; 99284; 99283

== ENCOUNTER 2023-06-23 15:50 | Emergency (ER) | payer MEDICAID ==
[2023-06-23] MEDS ORDERED: Sodium Chloride 0.9% 1,000 ML IV SCH (16:30)
[2023-06-23] MEDS: Sodium Chloride 0.9% 1,000 ML IV ONE ×2 (16:52→19:05)
[2023-06-23] MEDS: Sodium Chloride 0.9% 10 ML Syringe FLUSH PRN (16:52)
[2023-06-23] MEDS: Ondansetron 4 MG/2 ML SDV IVPUSH ONE (16:52)
[2023-06-23] MEDS: LORazepam 2 MG/ML SDV IVPUSH ONE ×3 (16:52→19:05)
[2023-06-23 16:58] LABS: BASOPHILS ABSOLUTE AUTO 0.1 K/mm3 (0.0-0.2); BASOPHILS PERCENT AUTO 0.8 % (0.0-1.0); EOSINOPHILS PERCENT AUTO 0.2 % (0.0-6.0); HEMATOCRIT 53.7 % (42.0-52.0); IMMATURE GRAN ABSOLUTE AUTO 0.07 K/mm3 (0.00-0.05); IMMATURE GRAN PERCENT AUTO 0.5 % (0.0-0.4); LYMPHOCYTES ABSOLUTE AUTO 1.9 K/mm3 (1.0-4.8); LYMPHOCYTES PERCENT AUTO 14.1 % (24.0-44.0); MEAN CORPUSCULAR HEMOGLOBIN 32.1 pg (28.0-32.0); MEAN CORPUSCULAR HGB CONC 35.4 g/dl (32.0-36.0); MEAN CORPUSCULAR VOLUME 90.9 fl (83.0-99.0); MEAN PLATELET VOLUME 8.9 fl (9.4-12.4); MONOCYTES ABSOLUTE AUTO 1.4 K/mm3 (0.0-0.8); MONOCYTES PERCENT AUTO 10.4 % (0.0-8.0); NEUTROPHILS ABSOLUTE AUTO 9.8 K/mm3 (1.8-7.7); PLATELET COUNT,PLT 462 K/mm3 (150-400); RED BLOOD CELL COUNT 5.91 M/mm3 (4.52-5.90); WHITE BLOOD CELL COUNT,WBC 13.23 K/mm3 (3.9-11.3)
[2023-06-23 17:21] LABS: ALBUMIN 4.4 g/dl (3.4-5.0); ANION GAP 18.1 (5-15); BILIRUBIN TOTAL 0.5 mg/dL (0.2-1.0); CALCIUM 9.9 mg/dL (8.5-10.1); MAGNESIUM 2.2 mg/dL (1.8-2.4); PROTEIN TOTAL,TP 8.8 g/dl (6.4-8.2); TSH 4.195 uIU/mL (0.358-3.74)
[2023-06-23 17:22] LABS: POTASSIUM,K 4.1 mEq/L (3.5-5.1)
[2023-06-23 17:22] LABS: BARBITURATE SCREEN,URINE NEGATIVE (CUTOFF=200); BENZODIAZEPINES SCREEN,URINE NEGATIVE (CUTOFF=150); BUPRENORPHINE SCREEN,URINE NEGATIVE (CUTOFF=10); METHADONE SCREEN, URINE NEGATIVE (CUT0FF=200); METHAMPHETAMINES SCREEN, URINE NEGATIVE (CUTOFF=500); OXYCODONE SCREEN,URINE NEGATIVE (CUT0FF=100); PROPOXYPHENE SCREEN,URINE NEGATIVE (CUTOFF=300); THC SCREEN,URINE 20 NG/ML PRESUMPTIVE POSITIVE (CUTOFF=50)
[2023-06-23 17:42] LABS: AMPHETAMINES SCREEN, URINE NEGATIVE (CUTOFF=500)
[2023-06-23] MEDS: cloNIDine 0.1 MG Tab PO ONE (17:45)
[2023-06-23 20:35] VITALS: BP 128/83; PULSE 93
[2023-06-23] MEDS: LORazepam 2 MG/ML SDV IM ONE (21:03)
== END 2023-06-23 21:09 | disposition home or self-care (01) ==
LOC: JD.ED 15:50
DX: F10.230 Alcohol dependence with withdrawal, uncomplicated (principal); I10 Essential (primary) hypertension; Z79.899 Other long term (current) drug therapy; Z88.8 Allergy status to other drugs, medicaments and biological substances
CPT/HCPCS: 36415; 80053; 80143; 80179; 80306; 80307; 83690; 83735; 84443; 85025; 96361; 96372; 96374; 96375; 96376; 99284; 99284-25; A9270-GY; J2060; J2405; J3490; J7030

== ENCOUNTER 2023-06-24 22:23 | Emergency (ER) | payer MEDICAID ==
[2023-06-25] MEDS ORDERED: LORazepam 2 MG/ML SDV IM ONE ×2 (00:15→01:39)
[2023-06-25 03:53] VITALS: BP 113/80; PULSE 96
== END 2023-06-25 02:25 | disposition other institution (70) ==
LOC: JD.ED 22:23
DX: F10.239 Alcohol dependence with withdrawal, unspecified (principal); I10 Essential (primary) hypertension; Z79.899 Other long term (current) drug therapy; Z88.8 Allergy status to other drugs, medicaments and biological substances
CPT/HCPCS: 96372; 99285; J2060; 99283

== ENCOUNTER 2023-08-23 09:50 | Emergency (ER) | payer MEDICAID ==
[2023-08-23 10:03] VITALS: PULSE 110
[2023-08-23] MEDS ORDERED: Sodium Chloride 0.9% 10 ML Syringe FLUSH PRN (10:24)
[2023-08-23 10:45] LABS: BASOPHILS ABSOLUTE AUTO 0.1 K/mm3 (0.0-0.2); BASOPHILS PERCENT AUTO 1.3 % (0.0-1.0); EOSINOPHILS ABSOLUTE AUTO 0.2 K/mm3 (0.0-0.4); EOSINOPHILS PERCENT AUTO 3.4 % (0.0-6.0); HEMATOCRIT 44.2 % (42.0-52.0); HEMOGLOBIN 16.2 gm/dl (14.0-18.0); IMMATURE GRAN ABSOLUTE AUTO 0.01 K/mm3 (0.00-0.05); IMMATURE GRAN PERCENT AUTO 0.1 % (0.0-0.4); LYMPHOCYTES ABSOLUTE AUTO 3.4 K/mm3 (1.0-4.8); LYMPHOCYTES PERCENT AUTO 49.8 % (24.0-44.0); MEAN CORPUSCULAR HEMOGLOBIN 31.5 pg (28.0-32.0); MEAN CORPUSCULAR HGB CONC 36.7 g/dl (32.0-36.0); MEAN PLATELET VOLUME 8.8 fl (9.4-12.4); MONOCYTES ABSOLUTE AUTO 0.5 K/mm3 (0.0-0.8); NEUTROPHILS ABSOLUTE AUTO 2.5 K/mm3 (1.8-7.7); NEUTROPHILS PERCENT AUTO 37.4 % (41.0-71.0); PLATELET COUNT,PLT 441 K/mm3 (150-400); RED BLOOD CELL COUNT 5.14 M/mm3 (4.52-5.90); WHITE BLOOD CELL COUNT,WBC 6.73 K/mm3 (3.9-11.3)
[2023-08-23 11:08] LABS: CORONAVIRUS COVID-19 NAA NEGATIVE (NEGATIVE); INFLUENZA A NAA NEGATIVE (NEGATIVE); RESPIRATORY SYNCYTIAL VIR NAA NEGATIVE (NEGATIVE)
[2023-08-23 11:10] LABS: A/G RATIO 1.1 (1-2); ALBUMIN 3.4 g/dl (3.4-5.0); ANION GAP 14.8 (5-15); BILIRUBIN TOTAL 0.3 mg/dL (0.2-1.0); BUN/CREATININE RATIO 8.8 (14-18); CALCIUM 8.4 mg/dL (8.5-10.1); CREATININE 0.8 mg/dL (0.7-1.3); EST CRCL DRUG DOSING (CG) 106.33 mL/min; ETHANOL BLOOD MEDICAL 0.36 gm% (0.00); MAGNESIUM 1.9 mg/dL (1.8-2.4); POTASSIUM,K 2.8 mEq/L (3.5-5.1); PROTEIN TOTAL,TP 6.6 g/dl (6.4-8.2)
[2023-08-23 11:27] LABS: APPEARANCE,URINE CLEAR (Clear); BILIRUBIN,URINE NEGATIVE (Negative); COLOR,URINE YELLOW (Yellow); GLUCOSE,URINE NEGATIVE (Negative); KETONES,URINE NEGATIVE (Negative); LEUKOCYTE ESTERASE,URINE NEGATIVE (Negative); NITRITE,URINE NEGATIVE (Negative); OCCULT BLOOD,URINE NEGATIVE (Negative); PH,URINE 6.5 (5.0-8.0); PROTEIN,URINE NEGATIVE (Negative); UROBILINOGEN,URINE 0.2 (0.2-1.0)
[2023-08-23 11:34] LABS: BARBITURATE SCREEN,URINE NEGATIVE (CUTOFF=200); BENZODIAZEPINES SCREEN,URINE NEGATIVE (CUTOFF=150); BUPRENORPHINE SCREEN,URINE NEGATIVE (CUTOFF=10); METHADONE SCREEN, URINE NEGATIVE (CUT0FF=200); METHAMPHETAMINES SCREEN, URINE NEGATIVE (CUTOFF=500); OXYCODONE SCREEN,URINE NEGATIVE (CUT0FF=100); THC SCREEN,URINE 20 NG/ML NEGATIVE (CUTOFF=50)
[2023-08-23 11:35] LABS: AMPHETAMINES SCREEN, URINE NEGATIVE (CUTOFF=500)
[2023-08-23 11:41] LABS: BACTERIA,URINE RARE /hpf (FEW); MUCUS,URINE NOT SEEN /hpf (FEW); RBC,URINE 0-5 /hpf (0-5); SQUAMOUS EPITHELIAL CELLS,UR 0-5 /hpf (0-5); WBC,URINE 0-5 /hpf (0-5)
[2023-08-23] MEDS ORDERED: Potassium Chloride 20 MEQ Tab.ER PO ONE (12:24)
[2023-08-23] MEDS ORDERED: Pantoprazole 40 MG in Sodium Chloride 0.9% 100 ML IV ONE (12:25)
[2023-08-23] MEDS ORDERED: Aluminum Hydroxide/Magnesium Hydroxide/Simethicone Susp 30 ML Cup PO ONE (12:25)
[2023-08-23] MEDS ORDERED: Pantoprazole 40 MG Vial IV ONE (12:30)
[2023-08-23] MEDS ORDERED: LORazepam 2 MG/ML SDV IVPUSH PRN (16:01)
[2023-08-24 08:00] VITALS: BP 159/119
== END 2023-08-24 08:00 | disposition home or self-care (01) ==
LOC: JD.ED 09:50
DX: F10.229 Alcohol dependence with intoxication, unspecified (principal); I10 Essential (primary) hypertension; Z79.899 Other long term (current) drug therapy; Z20.822 Contact with and (suspected) exposure to COVID-19
CPT/HCPCS: 0241U; 36415; 80053; 80143; 80179; 80306; 80307; 81001; 83735; 85025; 96374; 96375; 99284-25; A9270-GY; C9113; J2060; J3490

== ENCOUNTER 2023-10-01 12:50 | Emergency (ER) | payer MEDICAID ==
[2023-10-01 13:55] LABS: BARBITURATE SCREEN,URINE NEGATIVE (CUTOFF=200); BENZODIAZEPINES SCREEN,URINE NEGATIVE (CUTOFF=150); BUPRENORPHINE SCREEN,URINE PRESUMPTIVE POSITIVE (CUTOFF=10); METHADONE SCREEN, URINE NEGATIVE (CUT0FF=200); METHAMPHETAMINES SCREEN, URINE NEGATIVE (CUTOFF=500); OXYCODONE SCREEN,URINE NEGATIVE (CUT0FF=100); THC SCREEN,URINE 20 NG/ML NEGATIVE (CUTOFF=50)
[2023-10-01 13:59] LABS: BASOPHILS ABSOLUTE AUTO 0.1 K/mm3 (0.0-0.2); BASOPHILS PERCENT AUTO 1.1 % (0.0-1.0); EOSINOPHILS ABSOLUTE AUTO 0.4 K/mm3 (0.0-0.4); EOSINOPHILS PERCENT AUTO 5.1 % (0.0-6.0); HEMATOCRIT 39.2 % (42.0-52.0); HEMOGLOBIN 14.1 gm/dl (14.0-18.0); IMMATURE GRAN ABSOLUTE AUTO 0.01 K/mm3 (0.00-0.05); IMMATURE GRAN PERCENT AUTO 0.1 % (0.0-0.4); LYMPHOCYTES ABSOLUTE AUTO 2.4 K/mm3 (1.0-4.8); LYMPHOCYTES PERCENT AUTO 28.7 % (24.0-44.0); MEAN CORPUSCULAR HEMOGLOBIN 31.2 pg (28.0-32.0); MEAN CORPUSCULAR VOLUME 86.7 fl (83.0-99.0); MEAN PLATELET VOLUME 9.2 fl (9.4-12.4); MONOCYTES ABSOLUTE AUTO 0.6 K/mm3 (0.0-0.8); MONOCYTES PERCENT AUTO 6.9 % (0.0-8.0); NEUTROPHILS ABSOLUTE AUTO 4.9 K/mm3 (1.8-7.7); NEUTROPHILS PERCENT AUTO 58.1 % (41.0-71.0); PLATELET COUNT,PLT 366 K/mm3 (150-400); RED BLOOD CELL COUNT 4.52 M/mm3 (4.52-5.90); WHITE BLOOD CELL COUNT,WBC 8.43 K/mm3 (3.9-11.3)
[2023-10-01 14:01] LABS: AMPHETAMINES SCREEN, URINE NEGATIVE (CUTOFF=500)
[2023-10-01 14:25] LABS: A/G RATIO 1.1 (1-2); ALBUMIN 3.3 g/dl (3.4-5.0); ANION GAP 11.3 (5-15); BILIRUBIN TOTAL 0.6 mg/dL (0.2-1.0); POTASSIUM,K 3.3 mEq/L (3.5-5.1); PROTEIN TOTAL,TP 6.4 g/dl (6.4-8.2)
[2023-10-01 14:56] LABS: TSH 1.525 uIU/mL (0.358-3.74)
[2023-10-01 18:06] VITALS: BP 142/90; PULSE 79
== END 2023-10-01 15:10 | disposition other institution (70) ==
LOC: JD.ED 12:50
DX: F10.10 Alcohol abuse, uncomplicated (principal); E87.6 Hypokalemia; I10 Essential (primary) hypertension; Z79.899 Other long term (current) drug therapy; Z88.8 Allergy status to other drugs, medicaments and biological substances
CPT/HCPCS: 36415; 80053; 80143; 80179; 80306; 80307; 84443; 85025; 99283

== ENCOUNTER 2023-10-09 12:16 | Emergency (ER) | payer MEDICAID ==
[2023-10-09 13:06] LABS: BASOPHILS ABSOLUTE AUTO 0.1 K/mm3 (0.0-0.2); BASOPHILS PERCENT AUTO 0.8 % (0.0-1.0); EOSINOPHILS ABSOLUTE AUTO 0.2 K/mm3 (0.0-0.4); HEMOGLOBIN 13.8 gm/dl (14.0-18.0); IMMATURE GRAN ABSOLUTE AUTO 0.05 K/mm3 (0.00-0.05); IMMATURE GRAN PERCENT AUTO 0.7 % (0.0-0.4); LYMPHOCYTES ABSOLUTE AUTO 2.1 K/mm3 (1.0-4.8); LYMPHOCYTES PERCENT AUTO 28.5 % (24.0-44.0); MEAN CORPUSCULAR HEMOGLOBIN 30.6 pg (28.0-32.0); MEAN CORPUSCULAR HGB CONC 34.5 g/dl (32.0-36.0); MEAN CORPUSCULAR VOLUME 88.7 fl (83.0-99.0); MEAN PLATELET VOLUME 8.9 fl (9.4-12.4); MONOCYTES ABSOLUTE AUTO 0.8 K/mm3 (0.0-0.8); MONOCYTES PERCENT AUTO 10.2 % (0.0-8.0); NEUTROPHILS ABSOLUTE AUTO 4.3 K/mm3 (1.8-7.7); NEUTROPHILS PERCENT AUTO 57.8 % (41.0-71.0); PLATELET COUNT,PLT 431 K/mm3 (150-400); RED BLOOD CELL COUNT 4.51 M/mm3 (4.52-5.90); WHITE BLOOD CELL COUNT,WBC 7.44 K/mm3 (3.9-11.3)
[2023-10-09 13:30] LABS: ALBUMIN 3.5 g/dl (3.4-5.0); ANION GAP 17.3 (5-15); BILIRUBIN TOTAL 0.3 mg/dL (0.2-1.0); BUN/CREATININE RATIO 7.5 (14-18); CALCIUM 8.9 mg/dL (8.5-10.1); CREATININE 0.8 mg/dL (0.7-1.3); EST CRCL DRUG DOSING (CG) 102.5 mL/min; POTASSIUM,K 4.3 mEq/L (3.5-5.1); TSH 0.704 uIU/mL (0.358-3.74)
[2023-10-09 13:43] LABS: BARBITURATE SCREEN,URINE NEGATIVE (CUTOFF=200); BENZODIAZEPINES SCREEN,URINE NEGATIVE (CUTOFF=150); BUPRENORPHINE SCREEN,URINE NEGATIVE (CUTOFF=10); METHADONE SCREEN, URINE NEGATIVE (CUT0FF=200); METHAMPHETAMINES SCREEN, URINE NEGATIVE (CUTOFF=500); OXYCODONE SCREEN,URINE NEGATIVE (CUT0FF=100); THC SCREEN,URINE 20 NG/ML NEGATIVE (CUTOFF=50)
[2023-10-09 13:52] LABS: CORONAVIRUS COVID-19 NAA NEGATIVE (NEGATIVE); INFLUENZA A NAA NEGATIVE (NEGATIVE); RESPIRATORY SYNCYTIAL VIR NAA NEGATIVE (NEGATIVE)
[2023-10-09 13:55] LABS: AMPHETAMINES SCREEN, URINE NEGATIVE (CUTOFF=500)
[2023-10-09 16:49] VITALS: BP 129/91; PULSE 87
== END 2023-10-09 16:05 ==
LOC: JD.ED 12:16
DX: R45.851 Suicidal ideations (principal); F10.10 Alcohol abuse, uncomplicated; I10 Essential (primary) hypertension; Z79.899 Other long term (current) drug therapy; Z88.8 Allergy status to other drugs, medicaments and biological substances; Z20.822 Contact with and (suspected) exposure to COVID-19
CPT/HCPCS: 0241U; 36415; 80053; 80143; 80179; 80306; 80307; 84443; 85025; 99285

== ENCOUNTER 2024-06-14 12:22 | Inpatient (IN) | payer MEDICAID ==
[2024-06-14] MEDS ORDERED: Sodium Chloride 0.9% 10 ML Syringe FLUSH PRN (12:54)
[2024-06-14] MEDS: Sodium Chloride 0.9% 10 ML Syringe FLUSH PRN (13:36)
[2024-06-14] MEDS: LORazepam 2 MG/ML SDV IVPUSH ONE ×2 (13:36→14:33)
[2024-06-14] MEDS: Sodium Chloride 0.9% 1,000 ML IV ONE ×2 (13:36→15:41)
[2024-06-14 13:40] LABS: BASOPHILS ABSOLUTE AUTO 0.1 K/mm3 (0.0-0.2); BASOPHILS PERCENT AUTO 0.2 % (0.0-1.0); EOSINOPHILS ABSOLUTE AUTO 0.4 K/mm3 (0.0-0.4); EOSINOPHILS PERCENT AUTO 1.8 % (0.0-6.0); HEMATOCRIT 50.9 % (42.0-52.0); IMMATURE GRAN ABSOLUTE AUTO 0.09 K/mm3 (0.00-0.05); IMMATURE GRAN PERCENT AUTO 0.4 % (0.0-0.4); LYMPHOCYTES ABSOLUTE AUTO 1.4 K/mm3 (1.0-4.8); LYMPHOCYTES PERCENT AUTO 6.6 % (24.0-44.0); MEAN CORPUSCULAR HEMOGLOBIN 31.4 pg (28.0-32.0); MEAN CORPUSCULAR HGB CONC 36.7 g/dl (32.0-36.0); MEAN PLATELET VOLUME 10.7 fl (9.4-12.4); MONOCYTES ABSOLUTE AUTO 1.3 K/mm3 (0.0-0.8); MONOCYTES PERCENT AUTO 6.2 % (0.0-8.0); NEUTROPHILS ABSOLUTE AUTO 17.6 K/mm3 (1.8-7.7); NEUTROPHILS PERCENT AUTO 84.8 % (41.0-71.0); RED BLOOD CELL COUNT 5.96 M/mm3 (4.52-5.90); WHITE BLOOD CELL COUNT,WBC 20.75 K/mm3 (3.9-11.3)
[2024-06-14 13:48] LABS: HEMOGLOBIN 18.7 gm/dl (14.0-18.0); MEAN CORPUSCULAR VOLUME 85.4 fl (83.0-99.0); PLATELET COUNT,PLT 268 K/mm3 (150-400)
[2024-06-14 14:00] LABS: SLIDE REVIEW ABNORMAL SMEAR
[2024-06-14 14:12] LABS: A/G RATIO 1.1 (1-2); ALBUMIN 4.5 g/dl (3.4-5.0); ANION GAP 33.7 (5-15); BUN/CREATININE RATIO 20.6 (14-18); CALCIUM 9.3 mg/dL (8.5-10.1); CREATININE 1.8 mg/dL (0.7-1.3); EST CRCL DRUG DOSING (CG) 45.08 mL/min; MAGNESIUM 2.1 mg/dL (1.8-2.4); PROTEIN TOTAL,TP 8.5 g/dl (6.4-8.2)
[2024-06-14 14:24] LABS: POTASSIUM,K 2.7 mEq/L (3.5-5.1)
[2024-06-14] MEDS: Alum Hydrox/Mag Hydrox/Simeth 30 ML, Lidocaine 2% 15 ML PO ONE (15:41)
[2024-06-14] MEDS: Famotidine 20 MG Tab PO ONE (15:41)
[2024-06-14] MEDS: Potassium Chloride 10 MEQ in Premix Bag 1 BAG IV SCH (16:34)
[2024-06-14 17:21] LABS: LACTIC ACID 1.1 mmol/L (0.4-2.0)
[2024-06-14 17:45] LABS: APPEARANCE,URINE CLEAR (Clear); BILIRUBIN,URINE 2+ (Negative); COLOR,URINE YELLOW (Yellow); GLUCOSE,URINE NEGATIVE (Negative); KETONES,URINE 4+ (Negative); LEUKOCYTE ESTERASE,URINE NEGATIVE (Negative); NITRITE,URINE NEGATIVE (Negative); OCCULT BLOOD,URINE NEGATIVE (Negative); PROTEIN,URINE 2+ (Negative); UROBILINOGEN,URINE 0.2 (0.2-1.0)
[2024-06-14 17:55] LABS: BACTERIA,URINE FEW /hpf (FEW); MUCUS,URINE FEW /hpf (FEW); RBC,URINE 0-5 /hpf (0-5); SQUAMOUS EPITHELIAL CELLS,UR 0-5 /hpf (0-5); WBC,URINE 0-5 /hpf (0-5)
[2024-06-14] MEDS ORDERED: Naloxone 0.4 MG/ML SDV IVPUSH PRN (19:16)
[2024-06-14] MEDS: Thiamine 100 MG Tab PO SCH (21:28)
[2024-06-14] MEDS: Famotidine 20 MG/2 ML SDV IVPUSH SCH (21:28)
[2024-06-14] MEDS: Folic Acid 1 MG Tab PO SCH (21:28)
[2024-06-14] MEDS: NS with KCl 40mEq 1,000 ML IV SCH (21:32)
[2024-06-14] MEDS: Melatonin 3 MG Tab PO PRN (21:39)
[2024-06-14] MEDS: oxyCODONE 5 MG Tab PO PRN (21:39)
[2024-06-14] MEDS: Ondansetron 4 MG/2 ML SDV IV PRN (21:39)
[2024-06-14] MEDS: LORazepam 2 MG/ML SDV IVPUSH PRN (23:08)
[2024-06-15 05:47] LABS: BASOPHILS PERCENT AUTO 0.1 % (0.0-1.0); EOSINOPHILS PERCENT AUTO 0.1 % (0.0-6.0); HEMATOCRIT 43.8 % (42.0-52.0); IMMATURE GRAN ABSOLUTE AUTO 0.04 K/mm3 (0.00-0.05); IMMATURE GRAN PERCENT AUTO 0.3 % (0.0-0.4); LYMPHOCYTES ABSOLUTE AUTO 2.1 K/mm3 (1.0-4.8); LYMPHOCYTES PERCENT AUTO 14.2 % (24.0-44.0); MEAN CORPUSCULAR HEMOGLOBIN 31.3 pg (28.0-32.0); MEAN CORPUSCULAR HGB CONC 36.1 g/dl (32.0-36.0); MEAN CORPUSCULAR VOLUME 86.7 fl (83.0-99.0); MEAN PLATELET VOLUME 11.1 fl (9.4-12.4); MONOCYTES ABSOLUTE AUTO 0.8 K/mm3 (0.0-0.8); MONOCYTES PERCENT AUTO 5.6 % (0.0-8.0); NEUTROPHILS PERCENT AUTO 79.7 % (41.0-71.0); RED BLOOD CELL COUNT 5.05 M/mm3 (4.52-5.90)
[2024-06-15 05:51] LABS: HEMOGLOBIN 15.8 gm/dl (14.0-18.0)
[2024-06-15 05:52] LABS: PLATELET COUNT,PLT 190 K/mm3 (150-400)
[2024-06-15 06:05] LABS: INR 1.07; PROTHROMBIN TIME 11.3 SECONDS (9.7-12.0)
[2024-06-15 06:13] LABS: A/G RATIO 1.1 (1-2); ALBUMIN 3.2 g/dl (3.4-5.0); ANION GAP 10.8 (5-15); BILIRUBIN TOTAL 1.4 mg/dL (0.2-1.0); BUN/CREATININE RATIO 15.7 (14-18); CALCIUM 8.2 mg/dL (8.5-10.1); CREATININE 1.4 mg/dL (0.7-1.3); EST CRCL DRUG DOSING (CG) 57.96 mL/min; PHOSPHORUS 1.7 mg/dL (2.6-4.7); POTASSIUM,K 2.8 mEq/L (3.5-5.1)
[2024-06-15 06:40] LABS: FOLIC ACID 7.2 ng/mL (8.6-58.9)
[2024-06-15] MEDS: Enoxaparin 40 MG/0.4 ML Syringe SUBCUT SCH (08:22)
[2024-06-15] MEDS: Cyanocobalamin (Vitamin B12) 1,000 MCG Tab PO SCH (08:23)
[2024-06-15] MEDS: Potassium Phosphates 30 MMOLE in Sodium Chloride 0.9% 500 ML IV SCH (10:09)
[2024-06-15] MEDS: Potassium Chloride 20 MEQ Tab.ER PO ONE (10:12)
[2024-06-15] MEDS: Morphine 2 MG/ML SYRINGE IVPUSH PRN (14:07)
[2024-06-15] MEDS: LORazepam 2 MG/ML SDV IV ONE (15:12)
[2024-06-15] MEDS: Pantoprazole 40 MG Tab.CR PO SCH (16:01)
[2024-06-15] MEDS: LORazepam 1 MG Tab PO PRN (17:25)
[2024-06-15] MEDS: Sodium Chloride 0.9% 1,000 ML IV SCH (20:31)
[2024-06-16] MEDS: Sennosides/Docusate Sodium 50-8.6 MG Tab PO PRN (02:20)
[2024-06-16 05:37] LABS: HEMATOCRIT 41.7 % (42.0-52.0); HEMOGLOBIN 14.6 gm/dl (14.0-18.0); MEAN CORPUSCULAR HEMOGLOBIN 31.9 pg (28.0-32.0); MEAN PLATELET VOLUME 11.6 fl (9.4-12.4); PLATELET COUNT,PLT 156 K/mm3 (150-400); RED BLOOD CELL COUNT 4.58 M/mm3 (4.52-5.90)
[2024-06-16 05:58] LABS: A/G RATIO 1.1 (1-2); ALBUMIN 2.7 g/dl (3.4-5.0); ANION GAP 11.6 (5-15); BILIRUBIN TOTAL 0.8 mg/dL (0.2-1.0); BUN/CREATININE RATIO 12.9 (14-18); CALCIUM 8.4 mg/dL (8.5-10.1); CREATININE 0.7 mg/dL (0.7-1.3); EST CRCL DRUG DOSING (CG) 115.92 mL/min; MAGNESIUM 1.9 mg/dL (1.8-2.4); POTASSIUM,K 3.6 mEq/L (3.5-5.1); PROTEIN TOTAL,TP 5.2 g/dl (6.4-8.2)
[2024-06-16] MEDS: Potassium Phosphates 30 MMOLE in Sodium Chloride 0.9% 500 ML IV SCH (10:30)
[2024-06-16] MEDS: Sucralfate Suspension 1 GM/10 ML Cup PO SCH (17:58)
[2024-06-16] MEDS: Nicotine 21 MG/24 Hr Patch TRDERM SCH (17:58)
[2024-06-17 05:37] LABS: ANION GAP 13.4 (5-15); CALCIUM 9.3 mg/dL (8.5-10.1); CREATININE 0.8 mg/dL (0.7-1.3); EST CRCL DRUG DOSING (CG) 101.43 mL/min; PHOSPHORUS 3.8 mg/dL (2.6-4.7); POTASSIUM,K 3.4 mEq/L (3.5-5.1)
[2024-06-17] MEDS ORDERED: Potassium Chloride 20 MEQ Tab.ER PO ONE (10:00)
[2024-06-17 12:17] VITALS: BP 139/95; PULSE 98
[2024-06-17] MEDS: Potassium Chloride 20 MEQ Tab.ER PO ONE (13:08)
[2024-06-20 13:47] LABS: VITAMIN B1, WHOLE BLOOD 196 nmol/L (70-180)
== END 2024-06-17 16:30 | DRG 897 ==
LOC: JD.ED 12:22 → JD.MS 16:11 → JD.ICU 19:23 → JD.MS 06-15 19:25 → JD.ICU 06-15 19:26
PROVIDERS: ADMIT Student in an Organized Health Care Education/Training Program; ATTEND Student in an Organized Health Care Education/Training Program
DX: F10.131 Alcohol abuse with withdrawal delirium (principal); E87.1 Hypo-osmolality and hyponatremia; N17.9 Acute kidney failure, unspecified; F10.121 Alcohol abuse with intoxication delirium; I10 Essential (primary) hypertension; F41.9 Anxiety disorder, unspecified; F32.A Depression, unspecified; F43.10 Post-traumatic stress disorder, unspecified; H54.7 Unspecified visual loss; E83.42 Hypomagnesemia; K21.00 Gastro-esophageal reflux disease with esophagitis, without bleeding; G40.909 Epilepsy, unspecified, not intractable, without status epilepticus; E53.8 Deficiency of other specified B group vitamins; E83.39 Other disorders of phosphorus metabolism; K76.0 Fatty (change of) liver, not elsewhere classified; D72.829 Elevated white blood cell count, unspecified; F17.210 Nicotine dependence, cigarettes, uncomplicated; Z88.8 Allergy status to other drugs, medicaments and biological substances; Z79.899 Other long term (current) drug therapy
CPT/HCPCS: 36415; 70450; 70450-26; 71045; 71045-26; 74150; 74150-26; 76705; 76705-26; 80048; 80053; 80307; 81001; 82607; 82746; 83605; 83690; 83735; 84100; 84425; 85025; 85027; 85610; 87040; 94762; 96361; 96365; 96366; 96375; 96376; 99285; 99285-25; A9270-GY; J1650; J2060; J2270; J2405; J3475; J3480; J3490; J7030; J7040

== ENCOUNTER 2024-06-18 18:34 | Emergency (ER) | payer MEDICAID ==
[2024-06-18 19:14] VITALS: BP 140/98; PULSE 109
== END 2024-06-18 20:50 | disposition other institution (70) ==
LOC: JD.ED 18:34
DX: F10.90 Alcohol use, unspecified, uncomplicated (principal); I10 Essential (primary) hypertension; Z88.8 Allergy status to other drugs, medicaments and biological substances
CPT/HCPCS: 99284; 99285